=== PATIENT | female | born 1955 | race Caucasian/White ===

== ENCOUNTER 2016-06-19 05:37 | Emergency (ER) | payer OTHER ==
[2016-06-19] MEDS ORDERED: NS 0.9% 1000 ML* 1,000 ML IV SCH (06:15)
[2016-06-19 06:47] LABS: Hematocrit 40 % (35-47); Hemoglobin 13.8 g/dl (12.0-16.0); Mean Corpuscular HGB Conc 34 g/dl (31-36); Mean Corpuscular Hemoglobin 30 pg (27-31); Mean Corpuscular Volume 88 fL (80-97); Mean Platelet Volume 7 um3 (7.4-10.4); Red Blood Count 4.53 10^6/ul (4.0-5.4); Red Cell Distribution Width 13 % (10.5-15); White Blood Count 12.3 10^3/ul (3.5-10.8)
[2016-06-19 07:03] LABS: Albumin 3.9 g/dL (3.2-5.2); BUN/Creatinine Ratio 11.1 (8-20); Calcium 9.1 mg/dL (8.6-10.3); EGFR African American 74.1 (>60); EGFR Non-African American 57.6 (>60); Globulin 3.8 g/dL (2-4); Potassium 3.1 mmol/L (3.5-5.0); Total Bilirubin 0.5 mg/dL (0.2-1.0); Total Protein 7.7 g/dL (6.4-8.9)
[2016-06-19] MEDS ORDERED: Iodixanol* (CONTRAST) 320 MG/ML 100 ML SDV IV ONE (07:07)
--- NOTE | 2016-06-19 07:08 | ED ---
Luis F Busby Salem, scribed for Anthony Vazquez on 06/19/16 at 0620 . Abdominal Pain/Female - HPI Summary HPI Summary: Patient is a 60 y/o female who presents to the ED with intermittent abd pain and diarrhea for 10 days. She reports cramping and severe diarrhea (up to 10 times yesterday alone). Pt denies vomiting or fever. She states PO intake aggravates diarrhea and she reports blood in stool yesterday. She reports seeing a nurse practitioner at her PCPs office. She reports THC use, but denies Tobocco or EtOH use. - History of Current Complaint Chief Complaint: EDNauseaVomitDiarrh Stated Complaint: DIAHRREA X1 WK Time Seen by Provider: 06/19/16 05:54 Hx Obtained From: Patient Onset/Duration: Gradual Onset Severity Initially: Moderate Severity Currently: Moderate Pain Intensity: 3 Pain Scale Used: 0-10 Numeric Aggravating Factor(s): Nothing Alleviating Factor(s): Nothing Associated Signs and Symptoms: Positive: Blood in Stool, Diarrhea, Other: - Cramping.. Negative: Fever, Vomiting Allergies/Adverse Reactions: Allergies Allergy/AdvReac Type Severity Reaction Status Date / Time Sulfa Antibiotics Allergy Unknown Verified 06/19/16 06:29 Reaction Details PMH/Surg Hx/FS Hx/Imm Hx Cardiovascular History: Reports: Hx Hypertension - ON MEDS Denies: Other Cardiovascular Problems/Disorders GI History: Reports: Hx Irritable Bowel - OK SINCE 2006 History: Denies: Other Problems/Disorders Sensory History: Reports: Hx Cataracts, Hx Contacts or Glasses - GLASSES Denies: Hx Hearing Aid Opthamlomology History: Reports: Hx Cataracts, Hx Contacts or Glasses - GLASSES - Cancer History Hx Chemotherapy: No Hx Radiation Therapy: No - Surgical History Surgery Procedure, Year, and Place[place] [facility] [place] Anesthesia Reactions: No - Immunization History Date of Tetanus Vaccine: unk Date of Influenza Vaccine: none Infectious Disease History: No Infectious Disease History: Denies: Traveled Outside the [place] in Last 30 Days - Family History Known Family History: Positive: Diabetes - Father. , Other - No cancer. - Social History Alcohol Use: Rare Substance Use Type: Reports: Marijuana Substance Use Comment - Amount & Last Used: RARE Smoking Status (MU): Former Smoker Type: Cigarettes Amount Used/How Often: PACK A DAY Have You Smoked in the Last Year: No Review of Systems Negative: Fever Positive: Abdominal Pain, Diarrhea. Negative: Vomiting Positive: other - Blood in stool. All Other Systems Reviewed And Are Negative: Yes Physical Exam Triage Information Reviewed: Yes Vital Signs On Initial Exam: Initial Vitals Temp Pulse Resp BP Pulse Ox 99.4 F 132 20 106/60 98 06/19/16 05:40 06/19/16 05:40 06/19/16 05:40 06/19/16 05:40 06/19/16 05:40 Vital Signs Reviewed: Yes Appearance: Positive: Well-Appearing, No Pain Distress Skin: Positive: Warm, Skin Color Reflects Adequate Perfusion, Dry Head/Face: Positive: Normal Head/Face Inspection Eyes: Positive: Normal, EOMI Neck: Positive: Supple, Nontender Respiratory/Lung Sounds: Positive: Clear to Auscultation, Breath Sounds Present Cardiovascular: Positive: RRR, Pulses are Symmetrical in both Upper and Lower Extremities Abdomen Description: Positive: Other: - LLQ tenderness. Bowel Sounds: Positive: Present Musculoskeletal: Positive: Normal, Strength/ROM Intact Neurological: Positive: Normal, Sensory/Motor Intact, Alert, Oriented to Person Place, Time - Neptune Coma Scale Coma Scale Total: 15 Diagnostics - Vital Signs Vital Signs Temp Pulse Resp BP Pulse Ox 06/19/16 05:40 99.4 F 132 20 106/60 98 - Laboratory Result Diagrams: 06/19/16 06:25 Lab Statement: Any lab studies that have been ordered have been reviewed, and results considered in the medical decision making process. Abdominal Pain Fem Course/Dx - Diagnoses Provider Diagnoses: Abdominal pain Discharge - Discharge Plan Condition: Stable Disposition: OTHER Discharge Disposition Comment: Sign out to Dr. Deng The documentation as recorded by the Luis F briones Salem accurately reflects the service I personally performed and the decisions made by , Anthony Vazquez.
--- NOTE | 2016-06-19 08:57 | RAD ---
INDICATION: Diverticulitis COMPARISON: CT January 16, 2007 TECHNIQUE: Axial source images were obtained from the hemidiaphragms to the symphysis pubis following administration of oral and intravenous contrast. 96 mL Visipaque 320 was utilized. Coronal and sagittal reconstructed images were acquired. Lung bases: The lung bases are clear. Liver: The there are findings of mild hepatic steatosis. There are no masses. There is no ductal dilatation. Gallbladder: There are no calcified gallstones. There is no evidence of wall thickening or pericholecystic fluid. The gallbladder is partially contracted Spleen: The spleen is normal in size. There are no masses. Pancreas: There is no focal pancreatic mass or ductal dilatation. Adrenal glands: There is no evidence of adrenal mass. Kidneys: The kidneys are normal in size and position. There are prompt nephrograms and there is prompt excretion bilaterally. There are no renal parenchymal masses. There is no evidence of nephrolithiasis. Adenopathy: There are multiple prominent mesenteric lymph nodes measuring up to 12 mm. These are nonspecific but may be reactive. Suggest follow-up. Fluid collections: There are no free or localized fluid collections. Vessels:There are no significant atherosclerotic changes involving the aorta. There is no focal aneurysm. The iliac vessels are normal in caliber. The IVC appears normal. GI tract: The upper GI tract is unremarkable. There is diffuse bowel wall thickening extending to the level the mid ascending colon to the rectum. The findings are most consistent with a colitis. There is a history of ulcerative colitis. Pelvic organs: The uterus and adnexa appear normal Bladder: There are no bladder masses. Abdominal and pelvic soft tissues: The extraperitoneal abdominal and pelvic soft tissues appear normal.. Osseous structures: There are no acute osseous findings. Other: None IMPRESSION: COLITIS WITH PRESUMED REACTIVE LYMPHADENOPATHY. SUGGEST FOLLOW-UP.
[2016-06-19] MEDS ORDERED: Ciprofloxacin TAB* 500 MG PO ONE (09:41)
--- NOTE | 2016-06-19 09:52 | CONSULT ---
Consult Consult: Ms. Moreno presented to the ED after a week of watery diarrhea accompanied by crampy pain but no N/V. Her CT scan revealed colitis and her labs were OK. She felt improved with fluids but was still having diarrhea. She reported that she had been diagnosed with Ulcerative Colitis ten years ago during a period of stress. At that time she had painful bloody diarrhea. This episode now sounds more infectious to me and I will treat her accordingly with Cipro and pain meds. She is D/C'd in stable condition with a diagnosis of colitis.
[2016-06-19 10:05] VITALS: BP 112/63
== END 2016-06-19 10:03 | disposition home or self-care (01) ==
LOC: ED 05:37
DX: R19.7 Diarrhea, unspecified (principal); Z87.891 Personal history of nicotine dependence; R10.9 Unspecified abdominal pain; K92.1 Melena
CPT/HCPCS: 36415; 74177; 80053; 83605; 83690; 85025; 85610; 85730; 87493; 99283; A9270-GY; Q9967

== ENCOUNTER 2016-06-21 06:35 | Inpatient (IN) | payer OTHER ==
[2016-06-21] MEDS ORDERED: NS 0.9% 1000 ML* 2,000 ML IV ONE (07:06)
--- NOTE | 2016-06-21 07:21 | ED ---
GI/ HPI - HPI Summary HPI Summary: 60 F presents with diarrhea for over a week. Was seen in the ED two days ago and diagnosed with colitis and placed on cipro. She said that pain is better but diarrhea has not improved and her stools have become black. She denies any lightheadedness or dizziness. She states that she only has abdominal pain in LLQ with defecation. She denies any fever, nausea, or vomiting. She states that she is hungry all the time. She states she just wants her antibiotics switched. She has not used any pepto bismol. She does not have a history of GI bleeds and she is not on any blood thinners. She states she was diagnosed with ulcerative colitis 10 years ago but that resolved and she has not seen a GI dr for this. She states this feels different that her UC episode in that then she has no appetite and was just bloody stools. She also has a history of IBD but states "it has been good for 7 years." Stool cultures were performed on Tuesday and did not grow anything. She is normal treated for high blood pressure. - History of Current Complaint Chief Complaint: EDGIBleed Time Seen by Provider: 06/21/16 06:54 Stated Complaint: BLACK DIARRHEA/CRAMPS Pain Intensity: 3 - Allergy/Home Medications Allergies/Adverse Reactions: Allergies Allergy/AdvReac Type Severity Reaction Status Date / Time Sulfa Antibiotics Allergy Unknown Verified 06/19/16 06:29 Reaction Details PMH/Surg Hx/FS Hx/Imm Hx Endocrine/Hematology History: Denies: Hx Diabetes Cardiovascular History: Reports: Hx Hypertension - ON MEDS Denies: Other Cardiovascular Problems/Disorders GI History: Reports: Hx Irritable Bowel - OK SINCE 2006 History: Denies: Hx Dialysis, Hx Renal Disease, Other Problems/Disorders Sensory History: Reports: Hx Cataracts, Hx Contacts or Glasses - GLASSES Denies: Hx Hearing Aid Opthamlomology History: Reports: Hx Cataracts, Hx Contacts or Glasses - GLASSES - Cancer History Hx Chemotherapy: No Hx Radiation Therapy: No - Surgical History Surgery Procedure, Year, and Place: RIGHT CATARACT 2010, [facility] Hx Anesthesia Reactions: No - Immunization History Date of Tetanus Vaccine: unk Date of Influenza Vaccine: none Infectious Disease History: No Infectious Disease History: Denies: Traveled Outside the [place] in Last 30 Days - Family History Known Family History: Positive: Diabetes - Father. , Other - No cancer. - Social History Alcohol Use: Rare Substance Use Type: Reports: Marijuana Substance Use Comment - Amount & Last Used: RARE Smoking Status (MU): Former Smoker Type: Cigarettes Amount Used/How Often: PACK A DAY Have You Smoked in the Last Year: No Review of Systems Negative: Fever Negative: Chest Pain Negative: Shortness Of Breath Positive: Abdominal Pain - with defectation, Diarrhea. Negative: Vomiting, Nausea All Other Systems Reviewed And Are Negative: Yes Physical Exam Triage Information Reviewed: Yes Vital Signs On Initial Exam: Initial Vitals Temp Pulse Resp BP Pulse Ox 98 F 118 18 96/58 98 06/21/16 06:41 06/21/16 06:41 06/21/16 06:41 06/21/16 06:41 06/21/16 06:41 Vital Signs Reviewed: Yes Skin: Positive: Warm, Dry Head/Face: Positive: Normal Head/Face Inspection Eyes: Positive: Normal, Conjunctiva Clear ENT: Positive: Normal ENT inspection, Pharynx normal, TMs normal Respiratory/Lung Sounds: Positive: Clear to Auscultation, Breath Sounds Present Cardiovascular: Positive: Normal, Tachycardia Abdomen Description: Positive: Soft, Other: - mild tenderness in LLQ Bowel Sounds: Positive: Present Diagnostics - Vital Signs Vital Signs Temp Pulse Resp BP Pulse Ox 06/21/16 06:41 98 F 118 18 96/58 98 - Laboratory Result Diagrams: 06/21/16 07:20 06/21/16 07:20 Lab Statement: Any lab studies that have been ordered have been reviewed, and results considered in the medical decision making process. GIGU Course/Dx - Course Course Of Treatment: 60F presents with diarrhea for a week with stools that became dark yesterday. has history of UC with last episode 10 years ago. Patient originally only wanted to have antibiotics changed but discussed due to being tachycardia and hypotensive on exam need to get some lab work. On exam mild tenderness to LLQ present. Patient seen with dr Dale who recommended give IV cipro and flagyl. H/H is down a point from Tuesday and has occult blood. will call GI and hospitalists. dr dale spoke with dr mansfield who will see to admit. GI did not call back - Diagnoses Differential Diagnoses - Female: Diverticulitis, Diarrhea, Gastroenteritis ( Bacterial), Ulcerative Colitis/Crohn's Disease Provider Diagnoses: Diarrhea, Occult blood positive stool, Colitis Discharge - Discharge Plan Condition: Stable Disposition: ADMITTED TO [facility] Referrals: Alex Singleton MD [Primary Care Provider] -
[2016-06-21] MEDS ORDERED: Ciprofloxacin 400MG IVPREMIX(* 400 MG/200 ML BAG IVPB ONE (07:37)
[2016-06-21] MEDS ORDERED: metroNIDAZOLE IV 500 MG/100ML* 500 MG/100 ML BAG IVPB ONE (07:40)
[2016-06-21 07:53] LABS: Hematocrit 37 % (35-47); Hemoglobin 12.7 g/dl (12.0-16.0); Mean Corpuscular HGB Conc 34 g/dl (31-36); Mean Corpuscular Hemoglobin 30 pg (27-31); Mean Corpuscular Volume 88 fL (80-97); Mean Platelet Volume 7 um3 (7.4-10.4); Red Blood Count 4.24 10^6/ul (4.0-5.4); Red Cell Distribution Width 13 % (10.5-15); White Blood Count 13.4 10^3/ul (3.5-10.8)
[2016-06-21 08:08] LABS: Albumin 3.7 g/dL (3.2-5.2); BUN/Creatinine Ratio 9.3 (8-20); Calcium 8.9 mg/dL (8.6-10.3); EGFR African American 67.7 (>60); EGFR Non-African American 52.7 (>60); Globulin 3.8 g/dL (2-4); Potassium 3.1 mmol/L (3.5-5.0); Total Bilirubin 0.6 mg/dL (0.2-1.0); Total Protein 7.5 g/dL (6.4-8.9)
[2016-06-21] MEDS ORDERED: Pantoprazole IV* 80 MG in NS 0.9% 250 ML* 250 ML IVPB ONE (08:22)
[2016-06-21] MEDS ORDERED: Temazepam CAP* 15 MG PO PRN (10:15)
[2016-06-21] MEDS ORDERED: oxyCODONE/Acetamin 5/325 MG* TAB PO PRN (10:15)
[2016-06-21] MEDS ORDERED: Acetaminophen TAB* 325 MG PO PRN (10:15)
[2016-06-21] MEDS ORDERED: Potassium Chlor TAB* 20 MEQ TAB.ER PO ONE (10:17)
[2016-06-21 10:23] LABS: Urine Bacteria Absent (Absent); Urine Bilirubin Negative (Negative); Urine Glucose Negative (Negative); Urine Nitrite Negative (Negative)
[2016-06-21] MEDS: cefTRIAXone VIAL(*) 1,000 MG in NS 0.9% 50 ML* 50 ML IVPB SCH (11:26)
[2016-06-21] MEDS: NS 0.9% 1000 ML* 1,000 ML IV SCH ×2 (11:26→19:54)
[2016-06-21] MEDS: Pantoprazole IV* 80 MG in NS 0.9% 250 ML* 250 ML IVPB SCH ×2 (11:47→22:06)
[2016-06-21] MEDS: metroNIDAZOLE IV 500 MG/100ML* 500 MG/100 ML BAG IVPB SCH (15:40)
[2016-06-21 16:08] LABS: Hematocrit 35 % (35-47); Hemoglobin 11.4 g/dl (12.0-16.0)
[2016-06-21] MEDS: predniSONE TAB* 20 MG PO SCH (18:02)
--- NOTE | 2016-06-21 19:26 | HP ---
HISTORY AND PHYSICAL: DATE OF ADMISSION: 06/21/16 PRIMARY CARE PROVIDER: Braydon Landeros NP CHIEF COMPLAINT: Diarrhea and black stool. HISTORY OF PRESENT ILLNESS: Fadia Moreno is a 60-year-old female with history of hypertension who was diagnosed with ulcerative colitis 10 years ago, treated with 1 course of prednisone and had not had any problems since until 3 weeks ago. Three weeks ago, the patient developed diarrhea. She stated that her stools were loose and brown 5 to 10 times a day. She occasionally would have left lower quadrant abdominal pain just before defecation. She denied any nausea. She does state her p.o. intake and appetite were good. She denied any fevers or body aches. She was seen by her primary care provider who prescribed Bentyl approximately 5 to 6 days ago. The Bentyl did not really improve patient's symptoms and she was seen by our ED provider on 06/19/16. At that point, a CT of the abdomen and pelvis was performed which showed "colitis with presumed reactive lymphadenopathy. Suggest followup." At that point, the patient was placed on ciprofloxacin and discharged home. She stated that ciprofloxacin "did not agree with her." She stated that it made her "sick in her stomach." Her symptoms continued to be diarrhea but slightly improved with 5 bowel movements a day. For the past 24 hours, she noted her stool was black. She came into the ED for evaluation. Her stool Hemoccult was positive. She was hyponatremic and hypokalemic. She is going to be admitted to the hospital with a diagnosis of colitis, suspected diverticulitis and GI bleed. PAST MEDICAL HISTORY: 1. Ulcerative colitis treated in 2006 with one course of prednisone and no recurrence. 2. Hypertension. 3. History of "overactive bladder." MEDICATIONS: Include: 1. Lisinopril 20 mg daily. 2. Oxybutynin 5 mg b.i.d. ALLERGIES: Include SULFA ANTIBIOTICS. FAMILY HISTORY: Positive for father with diabetes who is of "old age. " Mother with history of dementia who secondary to it. SOCIAL HISTORY: The patient is single, lives alone. 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 Her surrogate is her sister Carolina. Her phone number is [phone]. She denies any alcohol, tobacco or drug use. REVIEW OF SYSTEMS: Please see history of present illness. All the remaining 14 systems were reviewed with the patient and were otherwise negative. PHYSICAL EXAMINATION GENERAL: This is a very pleasant 60-year-old female who is in no acute distress. Awake, alert and oriented x3. VITAL SIGNS: Blood pressure of 96/58, heart rate of 118 and regular, respiratory rate 18, oxygen saturation 98% on room air, temperature 98.0. HEENT: Head atraumatic, normocephalic. Eyes: Pupils equal, round and reactive to light and accommodation. Oropharynx clear. Mucosa moist. NECK: Supple. No JVD, no bruits bilaterally. RESPIRATORY: Clear to auscultation bilaterally. CARDIOVASCULAR: Regular rate and rhythm. No murmur. ABDOMEN: Soft. Tender in the left lower quadrant with no rebound, no guarding. Bowel sounds are present in all 4 quadrants. EXTREMITIES: There is no edema. +2 pulses bilaterally. No clubbing or cyanosis. NEUROLOGIC: On neuro evaluation, speech clear. Cranial nerves II through XII grossly intact. Motor strength is 5/5 bilaterally. SKIN: On evaluation of the skin, no ecchymotic areas or rashes noted. PSYCHIATRIC EVALUATION: Pleasant, cooperative with evaluation with no evidence of anxiety, depression. DIAGNOSTIC STUDIES/LABORATORY DATA: Sodium of 131, potassium 3.1, chloride 99 , carbon dioxide 24, BUN 10, creatinine 1.07. Liver function tests were unremarkable. Lipase of 67 noted on 06/19/16. White blood cell count of 13.4, hemoglobin of 12.7, hematocrit of 37, platelets of 324. INR of 1.16. ASSESSMENT AND PLAN: This 60-year-old female with history of ulcerative colitis in remission developed diarrhea 3 weeks ago. For approximately 24 hours she also had melenic stool that was heme positive in the ED. In regards to the patient's diarrhea, it appears to be related to diverticulitis. The patient has tenderness in the left lower quadrant. She did not tolerate Cipro well and I am going to place her on ceftriaxone and Flagyl. Stool cultures are going to be obtained. In regards to patient's ulcerative colitis, symptoms do not appear to be ulcerative colitis related per se, but that needs to be further ruled out. I will ask Dr. Yadav to see patient in GI consultation. In regards to melenic stools, that suggest upper GI bleed. The patient has no history of nonsteroidal antiinflammatory medications intake in the past several weeks. Her hemoglobin and hematocrit is fairly stable. At this point, I will place her on Protonix drip and clear liquid diet. I will repeat her H and H today. I would suspect that to be hemodiluted somewhat by that time. For further management of her possible upper GI bleed I will defer to GI evaluation. In regards to patient's hyponatremia and hypokalemia, it is most likely related to dehydration. I will place patient on intravenous fluids as well as oral potassium chloride. For DVT prophylaxis, the patient is low risk and she also has GI bleed. Ambulation is going to be encouraged but otherwise anticoagulants are contraindicated. For her overactive bladder, oxybutynin is going to be continued. In regards to patient's hypertension, currently patient is mildly hypotensive and her lisinopril is going to be held. TIME SPENT: Approximately 65 minutes was spent on the admission of this patient ; more than half the time was spent [id number] with the patient doing the interview, physical exam. CC: Braydon Landeros NP; Dr. Yadav * [id number]/[facility] #: [id number] MTDD
[2016-06-21] MEDS: Oxybutynin TAB* 5 MG PO SCH (21:06)
[2016-06-21] MEDS ORDERED: Pantoprazole IV* 40 MG ONE (21:59)
[2016-06-22] MEDS: metroNIDAZOLE IV 500 MG/100ML* 500 MG/100 ML BAG IVPB SCH ×3 (01:24→17:26)
[2016-06-22 06:33] LABS: Hematocrit 32 % (35-47); Hemoglobin 10.8 g/dl (12.0-16.0); Mean Corpuscular HGB Conc 34 g/dl (31-36); Mean Corpuscular Hemoglobin 30 pg (27-31); Mean Corpuscular Volume 90 fL (80-97); Mean Platelet Volume 7 um3 (7.4-10.4); Red Blood Count 3.57 10^6/ul (4.0-5.4); Red Cell Distribution Width 13 % (10.5-15); White Blood Count 9.9 10^3/ul (3.5-10.8)
[2016-06-22 06:54] LABS: BUN/Creatinine Ratio 10.7 (8-20); C Reactive Protein 82.2 mg/L (< 5.00); Calcium 8.2 mg/dL (8.6-10.3); EGFR African American 102.1 (>60); EGFR Non-African American 79.4 (>60); Potassium 4.3 mmol/L (3.5-5.0)
--- NOTE | 2016-06-22 07:08 | CONS ---
CONSULTATION REPORT: DATE OF CONSULT: 06/21/16 REQUESTING PHYSICIAN: Dr. Serrano. INDICATION: Bloody diarrhea. NARRATIVE: Ms. Moreno is a very pleasant 60-year-old female who has a history of ulcerative colitis diagnosed approximately 10 years ago. This was diagnosed per Dr. Bhakta. He performed flexible sigmoidoscopy that showed changes consistent with ulcerative colitis and biopsies did appear consistent with ulcerative colitis. She was treated with steroids for approximately a month and her symptoms resolved and she stopped these steroids and has been doing well up until approximately a week ago. She developed diarrhea. It really was not painful until yesterday. Yesterday, it also became what she calls either dark or black. She denies any bright red blood. She does have cramps with defecation. There have been no fevers or chills. No infectious contacts. She denies any nonsteroidal's. She did present to the emergency room on the , at which time, a CT revealed left-sided colitis. She also was started on antibiotics at that point. She does not feel any better since starting the antibiotics. She states this feels different than her ulcerative colitis flare from 10 years ago because this time around, she is not hungry, whereas she was very hungry but there was blood in the stool last time but not this time. She again denies any fevers. PAST MEDICAL HISTORY: Significant for irritable bowel, ulcerative colitis. PAST SURGICAL HISTORY: Includes cataracts. ALLERGIES: SULFA. FAMILY HISTORY: Diabetes. REVIEW OF SYSTEMS: Twelve systems were reviewed and other than mentioned in the HPI were unremarkable. PHYSICAL EXAM: Temperature is 98.1, blood pressure is 113/56, pulse is 100, respiratory rate of . General: A well-appearing female, lying flat in bed. Alert, oriented, pleasant, and fluent. HEENT: Mucous membranes are moist without lesions, ulcers, or exudate. Neck: Supple. Trachea is midline. Lungs : Clear to auscultation. Heart: Regular rate and rhythm. Abdomen: Hypoactive bowel sounds. Soft. She is tender on the left side, not on the right. There is no rebound. There is no guarding. There are no masses felt. Skin is warm and dry. DIAGNOSTIC STUDIES/LAB DATA: Of note, BUN 10, creatinine 1.07. Platelets 324, white count 13.4, hemoglobin 12.7. CT abdomen shows colitis from the mid transverse down to the rectum that was again from the 19 of June. ASSESSMENT AND PLAN: This is a very pleasant 60-year-old female who presents with colitis. I do not think this is ischemic colitis. I think it is either an inflammatory versus an infectious colitis. Her white count is minimally elevated. She has been on appropriate antibiotics for 72 hours now with no real improvement in her symptoms. I do wonder given her history of ulcerative colitis in the past if she is experiencing another ulcerative colitis flare. This is somewhat different from her previous one, however. I think at this point, I would like to obtain a flexible sigmoidoscopy tomorrow. I will make arrangements for that and then I think in the meantime, it would be safe to go ahead and start her on steroids. I will start her on oral steroids. Plan on obtaining the flex sig tomorrow and see how she does with all this. CC: Dr. Bhakta* [id number]/[facility] #: [id number] MTDDarek
[2016-06-22] MEDS: predniSONE TAB* 20 MG PO SCH (08:03)
[2016-06-22] MEDS: Oxybutynin TAB* 5 MG PO SCH ×2 (08:03→20:09)
[2016-06-22] MEDS: cefTRIAXone VIAL(*) 1,000 MG in NS 0.9% 50 ML* 50 ML IVPB SCH (10:19)
[2016-06-22] MEDS: Pantoprazole IV* 80 MG in NS 0.9% 250 ML* 250 ML IVPB SCH ×2 (10:19→17:27)
[2016-06-22] MEDS: NS 0.9% 1000 ML* 1,000 ML IV SCH (10:20)
--- NOTE | 2016-06-22 11:49 | PN ---
Subjective Date of Service: 06/22/16 Interval History: patient reports she feels much better today after starting the prednisone. reports decrease in BM since last night reporting only 2 BMs. Less abdominal pain today reporting it has almost resolved. No fevers or chills. No further dark/bloody BMs today Objective Active Medications: Acetaminophen (Tylenol Tab*) 650 mg PO Q4H PRN PRN Reason: FEVER/PAIN Ceftriaxone Sodium 1,000 mg/ (Sodium Chloride) 50 mls @ 200 mls/hr IVPB Q24H [facility] Last Admin: 06/22/16 10:19 Dose: 200 mls/hr Metronidazole/Sodium Chloride (Flagyl 500 Mg Ivpb*) 500 mg in 100 mls @ 100 mls /hr IVPB Q8H [facility] Last Admin: 06/22/16 08:06 Dose: 100 mls/hr Sodium Chloride (Ns 0.9% 1000 Ml*) 1,000 mls @ 125 mls/hr IV PER RATE [facility] Last Admin: 06/22/16 10:20 Dose: 125 mls/hr Pantoprazole Sodium 80 mg/ (Sodium Chloride) 250 mls @ 25 mls/hr IVPB Q10H [facility] Last Admin: 06/22/16 10:19 Dose: 25 mls/hr Oxybutynin Chloride (Ditropan Tab*) 5 mg PO BID [facility] Last Admin: 06/22/16 08:03 Dose: 5 mg Oxycodone/Acetaminophen (Percocet 5/325 Tab*) 1 tab PO Q4H PRN PRN Reason: Pain Prednisone (Deltasone Tab*) 40 mg PO DAILY [facility] Last Admin: 06/22/16 08:03 Dose: 40 mg Temazepam (Restoril Cap*) 15 mg PO BEDTIME PRN PRN Reason: INSOMNIA Vital Signs 06/21/16 06/21/16 06/21/16 12:32 12:34 15:22 Temperature 98.1 F 98.6 F Pulse Rate 83 82 Respiratory 16 16 18 Rate Blood Pressure 113/56 116/60 (mmHg) O2 Sat by Pulse 100 98 Oximetry 06/21/16 06/21/16 06/22/16 19:17 23:12 02:05 Temperature 98.4 F 97.9 F Pulse Rate 80 99 Respiratory 18 18 18 Rate Blood Pressure 110/55 81/55 (mmHg) O2 Sat by Pulse 99 96 Oximetry 06/22/16 06/22/16 06/22/16 02:23 04:40 08:00 Temperature 97.9 F 97.5 F Pulse Rate 81 79 Respiratory 16 18 18 Rate Blood Pressure 96/56 100/48 (mmHg) O2 Sat by Pulse 97 99 Oximetry 06/22/16 11:05 Temperature 98.1 F Pulse Rate 91 Respiratory 14 Rate Blood Pressure 128/69 (mmHg) O2 Sat by Pulse 98 Oximetry Oxygen Devices in Use Now: None Appearance: 60 yo female laying in bed in NAD> A+O x3 Eyes: No Scleral Icterus, PERRLA Ears/Nose/Mouth/Throat: NL Teeth, Lips, Gums, Mucous Membranes Moist Neck: NL Appearance and Movements; NL JVP Respiratory: Symmetrical Chest Expansion and Respiratory Effort, Clear to Auscultation Cardiovascular: NL Sounds; No Murmurs; No JVD, RRR, No Edema Abdominal: NL Sounds; No Tenderness; No Distention, - - no guarding or tenderness Extremities: No Edema, No Clubbing, Cyanosis Skin: No Rash or Ulcers, No Nodules or Sclerosis Neurological: Alert and Oriented x 3, NL Sensation, NL Gait, NL Muscle Strength and Tone Lines/Tubes/Other Access: Clean, Dry and Intact Peripheral IV Nutrition: Taking PO's Result Diagrams: 06/22/16 06:20 06/22/16 06:20 Microbiology and Other Data: Microbiology 06/21/16 12:15 Stool Gross Appearance - Final Stool Assess/Plan/Problems-Billing Assessment: Ms. Moreno is a 60 yo female with a PMH HTN, UC who presented 06/21 with c/o diarrhea and black stool - Patient Problems (1) Colitis Comment: - inflammatory vs infectious, appreciate GI consult, does not think this is ischemic colitis. No real improvement on abx, at this point continue abx with plan for flex sig today. GI started prednisone yesterday in which the patient has had great improvement in pain and decreased frequency in BMs positive occult blood in stool - HH stable - continue Protonix (2) HTN (hypertension) Comment: - Blood pressure 90-130's. Hold lisinopril for now. (3) DVT prophylaxis Comment: SCDs (4) Full code status Status and Disposition: inpatient.
[2016-06-22] MEDS ORDERED: Midazolam* 1 MG/ML 10 ML VIAL (10 MG) ONE (15:11)
[2016-06-22] MEDS ORDERED: Meperidine SYRINGE* 50 MG/ML ONE (15:11)
[2016-06-22] MEDS ORDERED: predniSONE TAB* 20 MG PO ONE (20:00)
[2016-06-23] MEDS: metroNIDAZOLE IV 500 MG/100ML* 500 MG/100 ML BAG IVPB SCH ×2 (00:26→07:41)
[2016-06-23] MEDS: Pantoprazole IV* 80 MG in NS 0.9% 250 ML* 250 ML IVPB SCH (00:30)
[2016-06-23 06:23] LABS: Hematocrit 33 % (35-47); Hemoglobin 11.3 g/dl (12.0-16.0); Mean Corpuscular HGB Conc 34 g/dl (31-36); Mean Corpuscular Hemoglobin 30 pg (27-31); Mean Corpuscular Volume 89 fL (80-97); Mean Platelet Volume 8 um3 (7.4-10.4); Red Blood Count 3.73 10^6/ul (4.0-5.4); Red Cell Distribution Width 13 % (10.5-15); White Blood Count 10.2 10^3/ul (3.5-10.8)
[2016-06-23 06:25] LABS: Comments Flag Yes
[2016-06-23 06:26] LABS: Add Diff/Slide Review? Slide Review Added
[2016-06-23 06:38] LABS: Calcium 8.4 mg/dL (8.6-10.3); EGFR African American 93.4 (>60); EGFR Non-African American 72.6 (>60); Potassium 3.5 mmol/L (3.5-5.0)
[2016-06-23] MEDS: cefTRIAXone VIAL(*) 1,000 MG in NS 0.9% 50 ML* 50 ML IVPB SCH (09:35)
[2016-06-23] MEDS: Oxybutynin TAB* 5 MG PO SCH (09:42)
[2016-06-23] MEDS: predniSONE TAB* 20 MG PO SCH (09:42)
--- NOTE | 2016-06-23 09:50 | PRO ---
DATE: 06/22/16 - ROOM #[id number] REFERRING PHYSICIAN: Alex Singleton MD.* PROCEDURE: Upper gastrointestinal endoscopy and CLOtest; colonoscopy to ileocecal valve level, and sigmoid biopsy. INDICATION: This woman, who was diagnosed with ulcerative colitis 10 years ago , over the last 3 to 4 weeks has had abdominal pain with cramps and loose stools. She describes them as black and spontaneously said her symptoms were "all together different from 10 years ago." She did see a little bit of blood in the stool over the last day or two, but not as previously where it had been evident right along. There has been no fever or vomiting. She does state that she will get heartburn with spaghetti sauce or other items, and take Tums. She is not on any prescription acid italia. In the emergency room a couple of days ago, she had a CT scan showing colonic thickening. She was placed on Cipro. It did not seem to help. She came back to the emergency room and was admitted. As an outpatient, Bentyl had not seemed to help and another item was used. She did not take any Pepto-Bismol. She insisted her stool was black. Today's exam was done n.p.o. and without any formal preparation of the colon. ENDOSCOPIST: Dr. Bhakta. MEDICATIONS: See conscious sedation sheet. FINDINGS: She is a substantially overweight, middle-aged woman in no distress. Her abdomen is soft and without guarding. EGD: Larynx - symmetric, limited views. Esophagus - easily entered, and the mucosa is normal in the upper, mid, and lower esophagus with the EG junction at 40 showing mild laxity, and there was a small hiatal hernia. Stomach - generally normal mucosa in the cardia, fundus, body, and antrum. A CLOtest was taken from mid gastric body. Duodenum - the pylorus, bulb, and second through fourth portions appeared normal. COLONOSCOPY: Initial views with the pediatric scope show a very extensive mccormick rectal granular change with a significant amount of exudate over the mucosa. The stool itself was rather green and purulent looking. The scope was advanced with ease through the sigmoid, descending, transverse, and to the ileocecal valve level showing that there were colitic changes throughout with patchy exudate. No gross mass, lesion, or polyp was seen. No diverticula were seen. Coming back from the ileocecal valve level, there was moderately severe pancolitis. Two biopsies were taken at distal sigmoid. The changes continued down to the anal verge. IMPRESSION: 1. Small hiatal hernia. 2. Minimal gastroesophageal reflux disease - per history. 3. Mccormick ulcerative colitis - biopsies pending, but the overall subacute course without fever and the response to steroids at this time validate the clinical diagnosis. Addendum: moderate to severe chronic active colitis c/w UC ; Clotest negative [id number]/[facility] #: [id number] [facility]
[2016-06-23] MEDS ORDERED: Pantoprazole IV* 40 MG ONE (10:40)
[2016-06-23] MEDS ORDERED: predniSONE TAB* 20 MG PO SCH (11:00)
[2016-06-23] MEDS ORDERED: predniSONE TAB* 20 MG PO ONE (11:00)
--- NOTE | 2016-06-23 11:21 | DCNOTE ---
Subjective Date of Service: 06/23/16 Interval History: Pt reports she feels much better today and wants to go home. 1 loose BM this morning, no blood noted. No fevers or chills. No abdominal pain. No n/v. tolerating po. Objective Active Medications: Acetaminophen (Tylenol Tab*) 650 mg PO Q4H PRN PRN Reason: FEVER/PAIN Oxybutynin Chloride (Ditropan Tab*) 5 mg PO BID [facility] Last Admin: 06/23/16 09:42 Dose: 5 mg Oxycodone/Acetaminophen (Percocet 5/325 Tab*) 1 tab PO Q4H PRN PRN Reason: Pain Temazepam (Restoril Cap*) 15 mg PO BEDTIME PRN PRN Reason: INSOMNIA Vital Signs 06/22/16 06/22/16 06/22/16 17:10 19:12 20:00 Temperature 97.6 F 96.9 F Pulse Rate 65 80 Respiratory 14 16 16 Rate Blood Pressure 97/52 116/61 (mmHg) O2 Sat by Pulse 95 98 Oximetry 06/22/16 06/23/16 06/23/16 23:35 04:04 07:26 Temperature 97.7 F 98.4 F 97.8 F Pulse Rate 74 93 84 Respiratory 16 16 16 Rate Blood Pressure 101/57 109/74 126/72 (mmHg) O2 Sat by Pulse 96 97 98 Oximetry Oxygen Devices in Use Now: None Appearance: 60 yo female A+O x3 in NAD. Eyes: No Scleral Icterus, PERRLA Ears/Nose/Mouth/Throat: NL Teeth, Lips, Gums Neck: NL Appearance and Movements; NL JVP Respiratory: Symmetrical Chest Expansion and Respiratory Effort, Clear to Auscultation Cardiovascular: NL Sounds; No Murmurs; No JVD, RRR, No Edema Abdominal: NL Sounds; No Tenderness; No Distention Lymphatic: No Cervical Adenopathy Extremities: No Edema, No Clubbing, Cyanosis Skin: No Rash or Ulcers, No Nodules or Sclerosis Neurological: Alert and Oriented x 3, NL Sensation, NL Gait, NL Muscle Strength and Tone Lines/Tubes/Other Access: Clean, Dry and Intact Peripheral IV Nutrition: Taking PO's Result Diagrams: 06/23/16 05:46 06/23/16 05:46 Microbiology and Other Data: Microbiology 06/21/16 12:15 Stool Gross Appearance - Final Stool Assess/Plan/Problems-Billing Assessment: Ms. Moreno is a 60 yo female with a PMH HTN, UC who presented 06/21 with c/o diarrhea and black stool - Patient Problems (1) Colitis Comment: - Flex sig showed Ulcerative Colitis flare - Dr. Bhakta recommends prednisone 60 mg daily, decrease by 5mg every 5 days. Upper endoscopy was performed which was normal. - HH stable. Afebrile. No leukocytosis. Abdominal pain resolved. - F/u with GI in 3 weeks. (2) HTN (hypertension) Comment: - normotensive. resume home meds (3) DVT prophylaxis Comment: SCDs (4) Full code status Status and Disposition: inpatient. plan for DC to home
[2016-06-23 11:43] VITALS: BP 137/70
--- NOTE | 2016-06-24 11:08 | DS ---
DISCHARGE SUMMARY: DATE OF ADMISSION: 06/21/16 DATE OF DISCHARGE: 06/23/16 PROVIDER: Suzan Ceron NP ATTENDING PHYSICIAN: Dr. Bess* (report dictated by Suzan Ceron NP). PRIMARY CARE PROVIDER: Braydon Landeros NP SKID ADZER: Dr. Bhakta. PRIMARY DIAGNOSIS: Ulcerative colitis flare. SECONDARY DIAGNOSES: 1. Hypertension. 2. Overactive bladder. DISCHARGE MEDICATIONS: 1. Oxybutynin 10 mg p.o. daily. 2. Lisinopril 20 mg p.o. daily. 3. Prednisone 60 mg p.o. daily, new medication, taper by 5 mg every 5 days. 4. Probiotic 1 tab p.o. b.i.d. HISTORY OF PRESENT ILLNESS AND HOSPITAL COURSE: Please see history and physical by Dr. Serrano for full admission details; but in summary, this is a 60- year-old female with a distant history of ulcerative colitis 10 years ago, treated with 1 course of prednisone and has not had any problems since up to approximately 3 weeks ago. She reports that 3 weeks ago, she developed diarrhea and reported loose stools, which were brown, 5 to 10 times a day with intermittent left lower quadrant abdominal pain just prior to defecation. She denied any nausea, vomiting, reports she was able to have normal p.o. intake and good appetite. She denied any fevers, chills. She was seen by her primary care provider approximately 5 days ago and she was prescribed Bentyl. Per the patient, the Bentyl did not improve the patient's symptoms and she was seen in our emergency department on 06/19/16, underwent a CT of the abdomen and pelvis, which showed "colitis with presumed reactive lymphadenopathy" and suggested followup. The patient was discharged home on ciprofloxacin. Per the patient, the ciprofloxacin "did not agree with her," made her nauseous. She had slight improvement in bowel movements, but continued to have at least 5 bowel movements a day and 24 hours prior to admission, she noted her stool is black and she came to the emergency department for evaluation. She was noted to have a positive Hemoccult. She was presented with hyponatremia and hypokalemia. She was admitted to the hospitalist service with diagnosis of colitis and GI bleed. The patient was seen in consultation by car sander, Dr. Yadav, who recommended the patient undergo a flexible sigmoidoscopy, which she did with car sander, Dr. Bhakta, on 06/22/16. The flex sig showed "extensive pancolitis" and biopsies were taken at that time. The patient also underwent an upper endoscopy at the same time, which was normal other than showing a small hiatal hernia. Please see Dr. Bhakta's procedure report for full details. The night before the flex sig, the patient was started on prednisone. By the next morning, the patient felt dramatically better with only 1 to 2 bowel movements and her abdominal pain had resolved. Per Dr. Bhakta, the patient will be sent home on a steroid taper and follow up in their office in 3 weeks. Today, the patient is stable for discharge to home. She has remained afebrile throughout hospitalization. She initially had a leukocytosis of 13.4, which has since resolved. Her CLOtest from the flex sig biopsy was negative. DISCHARGE PLAN: 1. Discharged to home with followup with Braydon Landeros NP, within 3 to 5 days. 2. Follow up with [facility] in 3 weeks. The patient was instructed she needs to call their office and make this appointment herself. 3. The patient was given suggestions for an ulcerative colitis flare diet such as avoiding dairy, raw fruits and vegetables, and sticking to a cooked, low fiber soft diet. TIME SPENT: Approximately 60 minutes was spent on this discharge. SUZAN CERON NP CC: Braydon Landeros NP; Dr. Bhakta* [id number]/[facility] #: [id number] [facility]
--- NOTE | 2016-09-10 10:38 | ED ---
Austin Busby Adam, scribed for Phoenix Dale MD on 06/21/16 at 0739 . Progress - Progress Note Progress Note: Pt is being seen by Carolina Nieves (JESSE). The pt has been having diarrhea for nearly two weeks and is now noticing black stool. She was seen in the ED two days ago for the diarrhea as well as abdominal pain and she was started on Cipro with a diagnosis of colitis. Since then the diarrhea has persisted and she has developed the black stool as well. She also states that the Cipro has been making her feel "weird." Pt also c/o abdominal pain associated with the diarrhea. She was diagnosed with ulcerative colitis 10 years ago but she has not been seeing a GI doctor. She denies any surgical history. Physical examination: Constitutional: Well-developed, Well-nourished, Alert. (-) Distressed Skin: Warm, Dry HENT: Normocephalic; Atraumatic Eyes: Conjunctiva normal Neck: Musculoskeletal ROM normal neck. (-) JVD, (-) Stridor, (-) Tracheal deviation Cardio: Tachycardia. Pulmonary/Chest wall: Effort normal. (-) Respiratory distress, (-) Wheezes, (-) Rales Abd: LLQ tenderness. Musculoskeletal: (-) Edema Lymph: (-) Cervical adenopathy Neuro: Alert, Oriented x3 Psych: Mood and affect Normal Course/Dx - Diagnoses Provider Diagnoses: Diarrhea, Occult blood positive stool, Colitis The documentation as recorded by the Austin briones Adam accurately reflects the service I personally performed and the decisions made by , Phoenix Dale MD.
== END 2016-06-23 12:00 | disposition home or self-care (01) | DRG 245 ==
LOC: ED 06:35 → MED 08:37
PROVIDERS: ADMIT Internal Medicine; ATTEND Hospitalist
PROC: 0DB68ZX Excision of Stomach, Via Natural or Artificial Opening Endoscopic, Diagnostic (ICD-10-PCS; principal; 2016-06-22)
PROC: 0DBN8ZX Excision of Sigmoid Colon, Via Natural or Artificial Opening Endoscopic, Diagnostic (ICD-10-PCS; 2016-06-22)
DX: K51.511 Left sided colitis with rectal bleeding (principal); E87.1 Hypo-osmolality and hyponatremia; I95.9 Hypotension, unspecified; I10 Essential (primary) hypertension; E87.6 Hypokalemia; N32.81 Overactive bladder; K58.9 Irritable bowel syndrome, unspecified; F12.90 Cannabis use, unspecified, uncomplicated; E66.3 Overweight; K44.9 Diaphragmatic hernia without obstruction or gangrene; K21.9 Gastro-esophageal reflux disease without esophagitis; Z88.2 Allergy status to sulfonamides; Z83.3 Family history of diabetes mellitus; Z82.0 Family history of epilepsy and other diseases of the nervous system; Z98.41 Cataract extraction status, right eye; Z87.891 Personal history of nicotine dependence; Z72.89 Other problems related to lifestyle; Z68.27 Body mass index [BMI] 27.0-27.9, adult
CPT/HCPCS: 36415; 80048; 80053; 81003; 81015; 82272; 83690; 85014; 85018; 85025; 85610; 85730; 86140; 86850; 86900; 86901; 87045; 87046; 87077; 87899; 88305; 99283; A9270-GY; J0696; J0744; J2175; J2250; J3490; J7512

== ENCOUNTER 2018-04-05 11:03 | Inpatient (IN) | payer BC ==
[2018-04-05] MEDS ORDERED: Piperacillin/Tazobac ADVAN(*) 3.375 GM in NS 0.9% 100 ML* 100 ML IVPB ONE (11:27)
[2018-04-05] MEDS: NS 0.9% 1000 ML*IV.FLUID IV ONE ×3 (11:30→13:56)
--- NOTE | 2018-04-05 11:36 | ED ---
Influenza-Like Illness - HPI Summary HPI Summary: A 62 y/o female presents to [facility] with a chief complaint of believing that she has the flu since 03/30/18. She rates her pain as 5/10. She has not been diagnosed with the flu. The patient reports that she did get her flu shot one month ago. She c/o body aches, fevers, chills, lack of appetite, fatigue, N/V/D , productive cough and mild abd pain. She denies runny nose, sore throat, CP, EDWARDS , blurred vision, dysuria, hematuria or blood in her diarrhea. She states that usually she has diarrhea 5-6 times a day. 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 - History of Current Complaint Chief Complaint: EDFluSymptoms Time Seen by Provider: 04/05/18 11:17 Hx Obtained From: Patient Onset/Duration: Sudden Onset, Lasting Days, Still Present Severity: Moderate Associated Signs & Symptoms: Fever, Cough - Allergy/Home Medications Allergies/Adverse Reactions: Allergies Allergy/AdvReac Type Severity Reaction Status Date / Time Sulfa (Sulfonamide Allergy Hives Verified 04/05/18 11:31 Antibiotics) PMH/Surg Hx/FS Hx/Imm Hx Endocrine/Hematology History: Denies: Hx Diabetes Cardiovascular History: Reports: Hx Hypertension - ON MEDS Denies: Other Cardiovascular Problems/Disorders GI History: Reports: Hx Irritable Bowel History: Denies: Hx Dialysis, Hx Renal Disease, Other Problems/Disorders Sensory History: Reports: Hx Cataracts, Hx Contacts or Glasses Denies: Hx Hearing Aid Opthamlomology History: Reports: Hx Cataracts, Hx Contacts or Glasses - Cancer History Hx Chemotherapy: No Hx Radiation Therapy: No - Surgical History Surgery Procedure, Year, and Place: RIGHT CATARACT 2010, [facility] [place] Hx Anesthesia Reactions: No - Immunization History Date of Tetanus Vaccine: unk Date of Influenza Vaccine: none Infectious Disease History: No Infectious Disease History: Denies: Traveled Outside the [place] in Last 30 Days - Family History Known Family History: Positive: Diabetes - Father. , Other - No cancer. - Social History Alcohol Use: None Substance Use Type: Reports: Marijuana Substance Use Comment - Amount & Last Used: RARE Smoking Status (MU): Former Smoker Type: Cigarettes Amount Used/How Often: PACK A DAY Have You Smoked in the Last Year: No Review of Systems Positive: Fever, Chills, Fatigue, Other - positive: Body aches Negative: Blurred Vision Negative: Sore Throat, Nasal Discharge Negative: Chest Pain Positive: Cough Gastrointestinal: Negative - blood in diarrhea Positive: Abdominal Pain, Vomiting, Diarrhea, Nausea Negative: dysuria, hematuria Negative: Headache All Other Systems Reviewed And Are Negative: Yes Physical Exam - Summary Physical Exam Summary: VITAL SIGNS: Reviewed. GENERAL: Patient is a well-developed and nourished FEMALE who is lying comfortable in the stretcher. Patient is not in any acute respiratory distress. HEAD AND FACE: No signs of trauma. No ecchymosis, hematomas or skull depressions. No sinus tenderness. EYES: PERRLA, EOMI x 2, No injected conjunctiva, no nystagmus. EARS: Hearing grossly intact. Ear canals and tympanic membranes are within normal limits. MOUTH: Dry oral mucosa. NECK: Supple, trachea is midline, no adenopathy, no JVD, no carotid bruit, no c- spine tenderness, neck with full ROM. CHEST: Symmetric, no tenderness at palpation LUNGS: Clear to auscultation bilaterally. No wheezing or crackles. CVS: Tachycardic, S1 and S2 present, no murmurs or gallops appreciated. ABDOMEN: Mild tenderness left side of abdomen. No signs of distention. No rebound no guarding, and no masses palpated. Bowel sounds are normal. EXTREMITIES: FROM in all major joints, no edema, no cyanosis or clubbing. NEURO: Alert and oriented x 3. No acute neurological deficits. Speech is normal and follows commands. SKIN: Dry and warm Triage Information Reviewed: Yes Vital Signs On Initial Exam: Initial Vitals Temp Pulse Resp BP Pulse Ox 98.7 F 134 22 87/56 99 04/05/18 11:08 04/05/18 11:08 04/05/18 11:08 04/05/18 11:08 04/05/18 11:08 Vital Signs Reviewed: Yes Diagnostics - Vital Signs Vital Signs Temp Pulse Resp BP Pulse Ox 04/05/18 11:08 98.7 F 134 22 87/56 99 - Laboratory Result Diagrams: 04/06/18 10:00 04/06/18 08:20 Lab Statement: Any lab studies that have been ordered have been reviewed, and results considered in the medical decision making process. - CT abdomen/pelvis CT Interpretation Completed By: Radiologist Summary of CT Findings: 1. FINDINGS MOST CONSISTENT WITH A RELATIVELY SEVERE COLITIS. 2. HEPATIC STEATOSIS. ED physician has reviewed this imaging report. - EKG 12:02 Cardiac Rate: Tachycardia - 109 bpm EKG Rhythm: Sinus Tachycardia Summary of EKG Findings: no ST elevations. Flu Symptom Course/Dx - Course Assessment/Plan: A 62 y/o female presents to [facility] with a chief complaint of believing that she has the flu since 03/30/18. She rates her pain as 5/10. She has not been diagnosed with the flu. The patient reports that she did get her flu shot one month ago. She c/o body aches, fevers, chills, lack of appetite, fatigue, N/V/D, productive cough and mild abd pain. She denies runny nose, sore throat, CP, EDWARDS, blurred vision, dysuria, hematuria or blood in her diarrhea. She states that usually she has diarrhea 5-6 times a day. 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 Blood work without any significant abnormality except for WBCs of 12.3, no bands,. ESR is 95, fibrinogen 699.1, 70 was 128, potassium is 3, anion gap is 12, creatinine 1.31, glucose 114, lactic acid is 2.2, calcium is 8.5 and magnesium 1.8. CRP is 312. Pro-calcitonin is 2.5. Influenza A and B is negative. Initially the patient had symptoms of sepsis therefore the patient was started with IV fluids 30 ccs per KG and the patient was given Zosyn since the patient was complaining of some abdominal pain and diarrhea. Urinalysis contaminated therefore cannot say that the patient is a UTI at this point. Abdominopelvic CT impression positive for colitis. C. difficile is also positive. Therefore the patient was given vancomycin by mouth. I discussed my physical exam, findings and test results with Dr. Hernandes from the hospitalist services and he agrees to admit patient to his services. Patient is hemodynamically stable alert and oriented x 3. - Diagnoses Provider Diagnoses: Sepsis, C. difficile colitis - Physician Notifications Discussed Care Of Patient With: Ramez Hernandes Time Discussed With Above Provider: 15:40 Instructed by Provider To: Admit As Inpatient Critical Care Time: 75-104 min Discharge - Sign-Out/Discharge Documenting (check all that apply): Patient Departure - admit - Discharge Plan Condition: Fair Disposition: ADMITTED TO [facility] - Billing Disposition and Condition Condition: FAIR Disposition: Admitted to [facility] - Attestation Statements Document Initiated by Scribe: Yes Documenting Scribe: Eloy Diaz Provider For Whom Scribe is Documenting (Include Credential): Joel Daniel MD Scribe Attestation: Eloy Busby scribed for Joel Daniel MD on 04/06/18 at 1031. Scribe Documentation Reviewed: Yes Provider Attestation: The documentation as recorded by the Eloy briones accurately reflects the service I personally performed and the decisions made by me, Joel Daniel MD Status of Scribe Document: Viewed Attestations User Type: Provider with Scribe Provider Attestation: The documentation recorded by the anali accurately reflects the service I personally performed and the decisions made by me.
--- OUTSIDE RECORDS SUMMARY | 2018-04-05 11:45 | XMS REPORT | Continuity of Care Document ---
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 PayID: [id number] [place] [address] Effective: 2017 Policy Number: [id number] [facility] Julio C Beltran Group Name: [employer] 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 Tobacco Use Start: Unknown End: Former Cigarette Smoker Unknown ETOH Use Rarely consumes alcohol Recreational Drug Use Regularly uses stopped smoking the Marijuana end of Apr 2010 Enjoy Exercising Enjoys exercising she is walking a lot, joined gym for a while, had to cut this out due to finances Allergies, Adverse Reactions, Alerts Date Description Reaction Status Severity Comments 08/18/2010 Sulfa Active dx as a child, not sure of the reaction 10/24/2017 Lialda Active 10/24/2017 Azathioprine Active Medications Medication Date Status Form Strength Qnty SIG Indications Ordering Provider Imodium A-D 12/19/ Active Tablets 2mg 30tabs 1 by mouth Shawnti R. 2018 every 4 Storm, hours if [employer] needed for diarrhea Tizanidine HCL 12/13/ Active Tablets 2mg 30tabs take 1 M54.32 Shawnti R. 2018 tablet by Storm, mouth [employer] three times daily as needed for muscle spasm Diclofenac 12/13/ Active Gel 1% 100gm apply 4gms M54.32 Shawnti R. Sodium 2018 of gel to [facility], left hip [employer] four times daily if needed for pain Tramadol HCL 12/13/ Active Tablets 50mg 45tabs Take One M54.32 Shawnti R. 2018 Tablet By Storm, Mouth Four [employer] Times A Day as Needed For Pain; Maximum Daily Dose=4 Fluoxetine HCL 10/31/ Active Capsules 10mg 30caps Take One F41.9 Shawnti R. (PMDD) 2017 Capsule By Storm, Mouth [employer] Every Morning Lisinopril 07/24/ Active Tablets 20mg 90tabs take one I10 Shawnti R. 2012 tablet by Storm, mouth [employer] every day Prednisone / Active Tablets 10mg Take Three Unknown 0000 Tablets By Mouth Every Day And Taper as Directed Mesalamine / Active Tablets 1.2gm Yony, 0000 Randy Frazier MD Fluoxetine HCL 10/24/ Hx Capsules 20mg 90caps 1 by mouth F41.9 Shawnti R. 2017 - every day , 10/31/ [employer] 2017 Famciclovir 04/01/ Hx Tablets 500mg 4tabs 2 by mouth Shawnti R. 2016 - twice , 10/24/ daily for [employer] 2017 1 day Tizanidine HCL 12/09/ Hx Tablets 4mg 30tabs take one M25.512 Shawnti R. 2016 - tablet by Tigre, 10/24/ mouth four [employer] 2018 times a day as needed for muscle spasm Naproxen 12/09/ Hx Tablets 500mg 30tabs one tab by M25.512 Shawnti R. 2016 - mouth , 10/24/ twice [employer] 2017 daily with food for pain/infla mmation Bentyl 06/16/ Hx Capsules 10mg 15caps 1 tablet R19.7 Swati 2017 - tid suresh [place]enh[place], 11/08/ diarrhea, [employer] 2016 bloating and cramping Oxybutynin 04/19/ Hx Tablets 5mg 60tabs Take One N31.9 Swati Chloride 2012 - Tablet By Oksana, 10/09/ Mouth [employer] 2016 Twice A Day For Bladder Spasms Omeprazole 04/02/ Hx Capsules 20mg 30caps 1 po qd-ac 535.00 Braydon Trevino 2012 - DR for Storm, 10/29/ stomach [employer] 2013 acid Anusol-HC 08/18/ Hx Cream 2.5% 30gm apply to Swati 2012 - rectum bid Oksana, 10/29/ up to 2 [employer] 2014 weeks. Lisinopril 06/26/ Hx Tablets 10mg 30tabs 1 po qd 401.9 Swati 2012 - Oksana, 07/24/ [employer] 2012 Valium 04/09/ Hx Tablets 2mg 10ten 1 po bid 300.00 Braydon Trevino 2009 - prn Storm, 03/26/ anxiety [employer] 2012 Bentyl 03/05/ Hx Capsules 10mg 30caps 1 po tid Braydon Trevino 2009 - stomach Storm, 10/29/ pain, [employer] 2013 cramping, bloating Xanax 03/02/ Hx Tablets 0.25mg 60sixt / to 1 300.00 Braydon Trevino 2009 - y po tid prn Storm, 04/09/ anxiety. [employer] 2009 Sertraline HCL 03/11/ Hx Tablets 25mg 30tabs one po 300.00 Tylerntyohan Trevino 2008 - daily for Storm, 03/05/ anxiety [employer] 2009 Azathioprine / Hx Tablets 50mg Yony, 0000 - Randy Frazier, 10/24/ 2017 Immunizations CPT Code Status Date Vaccine Lot # [id number] Refused 06/09/2015 Influenza Virus Vaccine, Quadrivalent, 3 Yr > Quad , Preserv Free Vital Signs Date Vital Result Comment 03/14/2018 11:17am Weight 184.00 lb Weight 83.462 kg BP Systolic 112 mmHg BP Diastolic 80 mmHg Heart Rate 84 /min Body Temperature 98.4 F Respiratory Rate 16 /min O2 % BldC Oximetry 98 % 12/13/2017 11:13am Weight 182.00 lb Weight 82.555 kg BP Systolic 120 mmHg BP Diastolic 72 mmHg Heart Rate 90 /min Body Temperature 97.1 F Respiratory Rate 18 /min O2 % BldC Oximetry 98 % 10/24/2017 11:24am Weight 184.00 lb Weight 83.462 kg BP Systolic 118 mmHg BP Diastolic 74 mmHg Heart Rate 104 /min Body Temperature 97.5 F Respiratory Rate 18 /min Height 66 inches 5'6" BMI (Body Mass Index) 29.7 kg/m2 O2 % BldC Oximetry 98 % 12/09/2016 3:54pm Weight 177.00 lb Weight 80.287 kg BP Systolic 128 mmHg BP Diastolic 70 mmHg Heart Rate 80 /min Body Temperature 97.5 F Respiratory Rate 16 /min 06/16/2016 9:15am Weight 174.00 lb Weight 78.926 kg BP Systolic 110 mmHg BP Diastolic 74 mmHg Heart Rate 64 /min Body Temperature 97.9 F Respiratory Rate 12 /min 06/09/2015 8:35am Weight 183.00 lb Weight 83.009 kg BP Systolic 126 mmHg BP Diastolic 70 mmHg Heart Rate 94 /min Height 66 inches 5'6" BMI (Body Mass Index) 29.5 kg/m2 O2 % BldC Oximetry 98 % 01/14/2014 11:07am Weight 176.00 lb Weight 79.834 kg BP Systolic 116 mmHg BP Diastolic 72 mmHg Heart Rate 72 /min Body Temperature 97.0 F 10/29/2013 8:23am Weight 182.00 lb Weight 82.555 kg BP Systolic 102 mmHg BP Diastolic 68 mmHg Heart Rate 72 /min Body Temperature 98.0 F Height 66 inches 5'6" BMI (Body Mass Index) 29.4 kg/m2 O2 % BldC Oximetry 97 % 07/30/2013 10:12am Weight 185.00 lb Weight 83.916 kg BP Systolic 124 mmHg BP Diastolic 74 mmHg Heart Rate 72 /min Height 66 inches 5'6" BMI (Body Mass Index) 29.9 kg/m2 04/19/2013 11:43am Weight 193.00 lb Weight 87.545 kg BP Systolic 120 mmHg BP Diastolic 70 mmHg Heart Rate 80 /min Body Temperature 98.0 F 04/02/2013 11:10am Weight 193.00 lb Weight 87.545 kg BP Systolic 118 mmHg BP Diastolic 70 mmHg Heart Rate 60 /min 03/26/2013 2:41pm Weight 193.00 lb Weight 87.545 kg BP Systolic 130 mmHg BP Diastolic 70 mmHg Heart Rate 80 /min Body Temperature 98.7 F 07/24/2012 4:31pm Weight 205.00 lb Weight 92.988 kg BP Systolic 146 mmHg 140/96 repeat BP Diastolic 90 mmHg 140/96 repeat Heart Rate 76 /min Height 66 inches 5'6" BMI (Body Mass Index) 33.1 kg/m2 06/26/2012 8:10am Weight 207.00 lb Weight 93.895 kg BP Systolic 150 mmHg BP Diastolic 88 mmHg Heart Rate 72 /min 08/18/2010 10:51am Weight 199.00 lb Weight 90.266 kg BP Systolic 150 mmHg BP Diastolic 80 mmHg Heart Rate 60 /min Body Temperature 98.8 F Height 66 inches 5'6" BMI (Body Mass Index) 32.1 kg/m2 04/09/2010 8:38am Weight 196.00 lb Weight 88.906 kg BP Systolic 148 mmHg BP Diastolic 84 mmHg Heart Rate 80 /min 03/24/2010 8:39am Weight 195.00 lb Weight 88.452 kg BP Systolic 142 mmHg BP Diastolic 100 mmHg Heart Rate 68 /min Body Temperature 96.6 F 03/02/2010 8:32am Weight 193.00 lb Weight 87.545 kg BP Systolic 142 mmHg Please Recheck BP Diastolic 100 mmHg Please Recheck Heart Rate 130 /min Just Walked From Home Please Recheck Body Temperature 95.9 F 06/05/2009 12:11pm Weight 203.00 lb Weight 92.081 kg BP Systolic 160 mmHg BP Diastolic 90 mmHg Heart Rate 76 /min Body Temperature 99.6 F 03/11/2009 2:37pm Weight 203.00 lb Weight 92.081 kg BP Systolic 118 mmHg BP Diastolic 82 mmHg Heart Rate 92 /min Last Menstrual Period [id number] Having Pap Elsewhere Results Test Date Facility Test Result H/L Range Note Laboratory test 03/14/2018 In House Lab Strep Screen neg Neg finding (607)- - Laboratory test 10/24/2017 [facility] TSH (Thyroid 0.67 mcIU/mL 0.34-5.60 1 finding [phone] Stim Horm) Rast Gluten Ige <0.35 kU/L 2 Manual Differential 10/24/2017 [facility] Immature 18 % High 0-9 [phone] Granulocytes Neutrophil % 71 % 38-83 Band % 11 % High 0-8 Lymphocytes % 8 % Low 25-47 Monocytes % 3 % 0-7 Eosinophils % 0 % 0-6 Basophil % 0 % 0-2 Metamyelocytes % 2 % 0-2 Myelocytes % 5 % High 0-1 Abs Neutrophils 12.2 10^3/uL High 1.5-7.7 Abs Lymphocytes 1.4 10^3/uL 1.0-4.8 Abs Monocytes 0.5 10^3/uL 0-0.8 Abs Eosinophils 0 10^3/uL 0-0.6 Abs Basophils 0 10^3/uL 0-0.2 RBC Morphology Normal Normal Laboratory test 10/24/2017 [facility] Hemoglobin A1c 6.4 % High 4.0-5.6 3 finding [phone] (Glyco HGB) Comp Metabolic 10/24/2017 [facility] Sodium 139 135-145 Panel [phone] mmol/L Potassium 4.5 mmol/L 3.5-5.0 Chloride 102 mmol/L 101-111 Co2 Carbon Dioxide 25 mmol/L 22-32 Anion Gap 12 mmol/L High 2-11 Glucose 113 mg/dL High 70-100 Blood Urea Nitrogen 21 mg/dL 6-24 Creatinine 1.08 mg/dL High 0.51-0.95 BUN/Creatinine Ratio 19.4 8-20 Calcium 9.2 mg/dL 8.6-10.3 Total Protein 6.9 g/dL 6.4-8.9 Albumin 4.0 g/dL 3.2-5.2 Globulin 2.9 g/dL 2-4 Albumin/Globulin Ratio 1.4 1-3 Total Bilirubin 0.40 mg/dL 0.2-1.0 Alkaline Phosphatase 58 U/L 34-104 Alt 11 U/L 7-52 Ast 12 U/L Low 13-39 Egfr Non- 51.8 >60 Egfr 62.6 >60 4 CBC Auto 10/24/2017 [facility] White Blood 17.2 10^3/ uL High 3.5-10.8 Diff [phone] Count Red Blood Count 4.27 10^6/uL 4.00-5.40 Hemoglobin 13.4 g/dL 12.0-16.0 Hematocrit 40 % 35-47 Mean Corpuscular Volume 94 fL 80-97 Mean Corpuscular Hemoglobin 31 pg 27-31 Mean Corpuscular HGB Conc 34 g/dL 31-36 Red Cell Distribution Width 14 % 10.5-15 Platelet Count 436 10^3/uL 150-450 Mean Platelet Volume 7.6 um3 7.4-10.4 Abs Neutrophils 15.2 10^3/uL High 1.5-7.7 Abs Lymphocytes 1.3 10^3/uL 1.0-4.8 Abs Monocytes 0.5 10^3/uL 0-0.8 Abs Eosinophils 0.1 10^3/uL 0-0.6 Abs Basophils 0 10^3/uL 0-0.2 Laboratory test 06/22/2016 [facility] Surgical SEE RESULT 5 finding [phone] Interface Order BELOW CBC Auto Diff 06/21/2016 [facility] White Blood 13.4 High 3.5-5 [phone] Count 10^3/uL 0.8 Red Blood Count 4.24 10^6/uL 4.0-5.4 Hemoglobin 12.7 g/dL 12.0-16.0 Hematocrit 37 % 35-47 Mean Corpuscular Volume 88 fL 80-97 Mean Corpuscular Hemoglobin 30 pg 27-31 Mean Corpuscular HGB Conc 34 g/dL 31-36 Red Cell Distribution Width 13 % 10.5-15 Platelet Count 324 10^3/uL 150-450 Mean Platelet Volume 7 um3 Low 7.4-10.4 Abs Neutrophils 10.4 10^3/uL High 1.5-7.7 Abs Lymphocytes 1.6 10^3/uL 1.0-4.8 Abs Monocytes 1.0 10^3/uL High 0-0.8 Abs Eosinophils 0.3 10^3/uL 0-0.6 Abs Basophils 0.1 10^3/uL 0-0.2 Abs Nucleated RBC 0 10^3/uL Granulocyte % 77.7 % 38-83 Lymphocyte % 11.9 % Low 25-47 Monocyte % 7.7 % 1-9 Eosinophil % 2.2 % 0-6 Basophil % 0.5 % 0-2 Nucleated Red Blood Cells % 0 Comp Metabolic 06/21/2016 [facility] Sodium 131 mmol/ L Low 133-145 Panel [phone] Potassium 3.1 mmol/L Low 3.5-5.0 Chloride 99 mmol/L Low 101-111 Co2 Carbon Dioxide 24 mmol/L 22-32 Anion Gap 8 mmol/L 2-11 Glucose 105 mg/dL High 70-100 Blood Urea Nitrogen 10 mg/dL 6-24 Creatinine 1.07 mg/dL High 0.51-0.95 BUN/Creatinine Ratio 9.3 8-20 Calcium 8.9 mg/dL 8.6-10.3 Total Protein 7.5 g/dL 6.4-8.9 Albumin 3.7 g/dL 3.2-5.2 Globulin 3.8 g/dL 2-4 Albumin/Globulin Ratio 1.0 1-3 Total Bilirubin 0.60 mg/dL 0.2-1.0 Alkaline Phosphatase 82 U/L 34-104 Alt 19 U/L 7-52 Ast 15 U/L 13-39 Egfr Non- 52.7 >60 Egfr 67.7 >60 6 Laboratory test 06/21/2016 [facility] Stool For SEE RESULT 7 finding [phone] Blood BELOW Inr/Protime 06/21/2016 [facility] Inr 1.16 High 0.89- [phone] 1.11 Laboratory test 06/21/2016 [facility] Partial 24.3 seconds Low 26.0- finding [phone] Thrombo Time 36.3 PTT Type & Screen 06/21/2016 [facility] Patient Blood A Positive [phone] Type Antibody Screen NEGATIVE Laboratory test 06/21/2016 [facility] Lipase 39 U/L 11.0-82.0 finding [phone] Laboratory test 06/19/2016 [facility] C Difficile SEE RESULT 8 finding [phone] PCR BELOW Stool Panel 06/17/2016 [facility] Stool Culture SEE RESULT 9, 10 (CMC) [phone] BELOW O&P Ova & Parasites Screen SEE RESULT BELOW 11 Laboratory test 06/16/2016 [facility] Amylase 108 U/ L High 29-103 12 finding [phone] Lipase 86 U/L High 11.0-82.0 13 Comp Metabolic Panel 06/16/2016 [facility] Sodium 136 mmol/L 133-145 [phone] Potassium 4.6 mmol/L 3.5-5.0 Chloride 103 mmol/L 101-111 Co2 Carbon Dioxide 26 mmol/L 22-32 Anion Gap 7 mmol/L 2-11 Glucose 97 mg/dL 70-100 Blood Urea Nitrogen 11 mg/dL 6-24 Creatinine 0.94 mg/dL 0.51-0.95 BUN/Creatinine Ratio 11.7 8-20 Calcium 9.6 mg/dL 8.6-10.3 Total Protein 7.5 g/dL 6.4-8.9 Albumin 4.2 g/dL 3.2-5.2 Globulin 3.3 g/dL 2-4 Albumin/Globulin Ratio 1.3 1-3 Total Bilirubin 0.50 mg/dL 0.2-1.0 Alkaline Phosphatase 93 U/L 34-104 Alt 21 U/L 7-52 Ast 21 U/L 13-39 Egfr Non- 61.2 >60 Egfr 78.7 >60 14 CBC Auto Diff 06/16/2016 [facility] White Blood 10.8 10^3/uL 3.5-10.8 [phone] Count Red Blood Count 4.52 10^6/uL 4.0-5.4 Hemoglobin 13.6 g/dL 12.0-16.0 Hematocrit 41 % 35-47 Mean Corpuscular Volume 91 fL 80-97 Mean Corpuscular Hemoglobin 30 pg 27-31 Mean Corpuscular HGB Conc 33 g/dL 31-36 Red Cell Distribution Width 13 % 10.5-15 Platelet Count 318 10^3/uL 150-450 Mean Platelet Volume 8 um3 7.4-10.4 Abs Neutrophils 7.6 10^3/uL 1.5-7.7 Abs Lymphocytes 1.9 10^3/uL 1.0-4.8 Abs Monocytes 1.0 10^3/uL High 0-0.8 Abs Eosinophils 0.3 10^3/uL 0-0.6 Abs Basophils 0.1 10^3/uL 0-0.2 Abs Nucleated RBC 0 10^3/uL Granulocyte % 70.2 % 38-83 Lymphocyte % 17.4 % Low 25-47 Monocyte % 9.4 % High 1-9 Eosinophil % 2.4 % 0-6 Basophil % 0.6 % 0-2 Nucleated Red Blood Cells % 0 CBC Auto Diff 06/09/2015 [facility] White Blood 5.7 10^3/uL 3.5-10.8 [phone] Count Red Blood Count 4.43 10^6/uL 4.0-5.4 Hemoglobin 13.6 g/dL 12.0-16.0 Hematocrit 41 % 35-47 Mean Corpuscular Volume 93 fL 80-97 Mean Corpuscular Hemoglobin 31 pg 27-31 Mean Corpuscular HGB Conc 33 g/dL 31-36 Red Cell Distribution Width 13 % 10.5-15 Platelet Count 296 10^3/uL 150-450 Mean Platelet Volume 8 um3 7.4-10.4 Abs Neutrophils 2.8 10^3/uL 1.5-7.7 Abs Lymphocytes 2.4 10^3/uL 1.0-4.8 Abs Monocytes 0.4 10^3/uL 0-0.8 Abs Eosinophils 0.1 10^3/uL 0-0.6 Abs Basophils 0 10^3/uL 0-0.2 Abs Nucleated RBC 0 10^3/uL Granulocyte % 49.1 % 38-83 Lymphocyte % 42.1 % 25-47 Monocyte % 6.2 % 1-9 Eosinophil % 1.9 % 0-6 Basophil % 0.7 % 0-2 Nucleated Red Blood Cells % 0 Comp Metabolic Panel 06/09/2015 [facility] Sodium 135 mmol/L 133-145 [phone] Potassium 4.8 mmol/L 3.5-5.0 Chloride 102 mmol/L 101-111 Co2 Carbon Dioxide 29 mmol/L 22-32 Anion Gap 4 mmol/L 2-11 Glucose 95 mg/dL 70-100 Blood Urea Nitrogen 13 mg/dL 6-24 Creatinine 0.94 mg/dL 0.51-0.95 BUN/Creatinine Ratio 13.8 8-20 Calcium 9.4 mg/dL 8.6-10.3 Total Protein 7.6 g/dL 6.4-8.9 Albumin 4.5 g/dL 3.2-5.2 Globulin 3.1 g/dL 2-4 Albumin/Globulin Ratio 1.5 1-3 Total Bilirubin 0.50 mg/dL 0.2-1.0 Alkaline Phosphatase 74 U/L 34-104 Alt 40 U/L 7-52 Ast 33 U/L 13-39 Egfr Non- 61.4 >60 Egfr 78.9 >60 15 Laboratory 06/09/2015 [facility] TSH (Thyroid Stim 1.55 0.34-5.60 test finding [phone] Horm) ?IU/mL Lipid Profile 06/09/2015 [facility] Triglycerides 148 mg/dL 16 (Trig/Chol/HDL [phone] ) Cholesterol 185 mg/dL 17 HDL Cholesterol 50.8 mg/dL 18 LDL Cholesterol 105 mg/dL 19 CBC Auto Diff 10/29/2013 [facility] White Blood 5.4 10^3/uL 4.8-10.8 20 [phone] Count Red Blood Count 4.27 10^6/uL 4.0-5.4 Hemoglobin 13.5 g/dL 12.0-16.0 Hematocrit 40 % 35-47 Mean Corpuscular Volume 93 fL 80-97 Mean Corpuscular Hemoglobin 32 pg High 27-31 Mean Corpuscular HGB Conc 34 g/dL 31-36 Red Cell Distribution Width 13 % 10.5-15 Platelet Count 289 10^3/uL 150-450 Mean Platelet Volume 8 um3 7.4-10.4 Abs Neutrophils 2.4 10^3/uL 1.5-7.7 Abs Lymphocytes 2.5 10^3/uL 1.0-4.8 Abs Monocytes 0.4 10^3/uL 0-0.8 Abs Eosinophils 0.1 10^3/uL 0-0.6 Abs Basophils 0.1 10^3/uL 0-0.2 Abs Nucleated RBC 0 10^3/uL Granulocyte % 43.8 % 38-83 Lymphocyte % 46.2 % 25-47 Monocyte % 7.6 % 1-9 Eosinophil % 1.4 % 0-6 Basophil % 1.0 % 0-2 Nucleated Red Blood Cells % 0.1 Comp Metabolic Panel 10/29/2013 [facility] Sodium 136 mmol/L 133-145 [phone] Potassium 4.4 mmol/L 3.7-5.6 Chloride 102 mmol/L 101-111 Co2 Carbon Dioxide 28 mmol/L 22-32 Anion Gap 6 mmol/L 2-11 Glucose 96 mg/dL 70-100 Blood Urea Nitrogen 13 mg/dL 6-24 Creatinine 0.91 mg/dL 0.51-0.95 BUN/Creatinine Ratio 14.3 8-20 Calcium 9.3 mg/dL 8.6-10.3 Total Protein 7.4 g/dL 6.4-8.9 Albumin 4.5 g/dL 3.2-5.2 Globulin 2.9 g/dL 2-4 Albumin/Globulin Ratio 1.6 1-3 Total Bilirubin 0.40 mg/dL 0.2-1.0 Alkaline Phosphatase 89 U/L 34-104 Alt 44 U/L 7-52 Ast 40 U/L High 13-39 Egfr Non- 63.9 >60 Egfr 82.2 >60 21 Laboratory test 10/29/2013 [facility] TSH (Thyroid 1.50 0.34-5.60 22 finding [phone] Stimulating Horm) IU/mL Lipid Profile 10/29/2013 [facility] Triglycerides 107 mg/dL 23 (Trig/Chol/HDL) [phone] Cholesterol 182 mg/dL 24 HDL Cholesterol 48.4 mg/dL 25 LDL Cholesterol 112 mg/dL 26 Urine DIP 04/19/2013 In House Lab Leukocytes neg Neg (607)- - Urine Nitrites neg Neg Urine pH 5 5-6 Total Protein, Urine neg Neg Urine Glucose norm Norm Urine Ketones neg Neg Urobilinogen norm Norm Urine Bilirubin neg Neg Urine Blood trace Neg Specific Wade 1.015 1.01-1.02 H.Pylori Igg 04/02/2013 [facility] Helicobacter Negative Negative AB [phone] pylori IgG Ab H pylori IgG AB Index 3.31 27 H.Pylori Igm 04/02/2013 [facility] Helicobacter Negative Negative AB [phone] pylori IgM Ab H pylori IgM AB Index 14.60 28 H Pylori Iga 04/02/2013 [facility] Helicobacter Negative Negative [phone] pylori IgA Ab H pylori IgA Ab Index 13.40 29 Laboratory test 04/02/2013 [facility] Amylase 103 U/ L 20-120 finding [phone] Lipase 33 U/L 22-51 CBC No Diff 04/02/2013 [facility] White Blood 6.8 10^ 3/uL 4.8-10.8 [phone] Count Red Blood Count 4.28 10^6/uL 4.0-5.4 Hemoglobin 13.3 g/dL 12.0-16.0 Hematocrit 40 % 35-47 Mean Corpuscular Volume 93 fL 80-97 Mean Corpuscular Hemoglobin 31 pg 27-31 Mean Corpuscular HGB Conc 34 g/dL 31-36 Red Cell Distribution Width 13 % 10.5-15 Platelet Count 308 10^3/uL 150-450 Mean Platelet Volume 9 um3 7.4-10.4 Urine DIP 08/18/2010 In House Lab Leukocytes neg Neg (607)- - Urine Nitrites neg Neg Urine pH 5 5-6 Total Protein, Urine neg Neg Urine Glucose norm Norm Urine Ketones neg Neg Urobilinogen norm Norm Urine Bilirubin neg Neg Urine Blood trace Neg Specific Wade n/a Low 1.01-1.02 Urine Culture & 03/24/2010 [facility] Urine Culture NG 30 Sensitivi [phone] Sensitivi Urine DIP 03/24/2010 In House Lab Leukocytes NEG Neg (607)- - Urine Nitrites NEG Neg Urine pH 5 5-6 Total Protein, Urine NEG Neg Urine Glucose NORM Norm Urine Ketones NEG Neg Urobilinogen NORM Norm Urine Bilirubin NEG Neg Urine Blood NEG Neg Specific Wade N/A Low 1.01-1.02 Laboratory test 06/05/2009 In House Lab Strep Screen NEG Neg finding (607)- - Lipid Profile 03/11/2009 [facility] Triglyceride 180 mg/dL 40-200 (Trig/Chol/HDL) [phone] Cholesterol 226 mg/dL High Less Than 200 31 High Density Lipoprotein 42 mg/dL 40-60 32 Cholesterol/HDL Ratio 5.38 AVERAGE High 1-4.44 Low Density Lipoprotein 148 mg/dL High Less Than 100 33 CBC With 03/11/2009 [facility] White Blood 8.9 CUMM 4.8-10.8 Electronic Diff [phone] Count Red Cell Count 4.44 CUMM 4.2-5.4 Hemoglobin 13.9 g/dL 12.0-16.0 Hematocrit 41 % 35-47 Mean Corpuscular Volume 92 um3 79-97 Mean Corpuscular Hemoglob 31 pg 27-31 Mean Corpuscular HGB Cone 34 g/dL 32-36 Redcell Distribution WDTH 13 % 10.5-15 Platelet Count 319 CUMM 150-450 Mean Platelet Volume 7.6 um3 7.4-10.4 Gran % 58.2 % 38-83 Lymph % 33.6 % 25-47 Mononuclear % 6.7 % 1-9 Eosinophil % 0.9 % 0-6 Basophil % 0.6 % 0-2 Abs Lymphs 3.0 1.0-4.8 Abs Mononuclear 0.6 0-0.8 Absolute Neutrophil Count 5.2 1.5-7.7 Abs Eosinophils 0.1 0-0.6 Abs Basophils 0.1 0-0.2 Comp Metabolic Panel 03/11/2009 [facility] Sodium 139 mmol/L 135-145 [phone] Potassium 4.9 mmol/L 3.5-5.0 Chloride 103 mmol/L 101-111 Co2 (Carbon Dioxide) 28.0 mmol/L 22-32 Anion Gap 8.0 mmol/L 2-11 34 Glucose 88 mg/dL 70-100 35 BUN 12 mg/dL 6-24 Creatinine 0.80 mg/dL 0.50-1.40 One Over Creatinine 1.20 BUN/Creatinine Ratio 15.0 8-20 Calcium 9.7 mg/dL 8.1-9.9 36 Total Protein 7.4 GM/DL 6.2-8.1 Albumin 4.1 GM/DL 3.6-5.4 Globulin 3.3 GM/DL 2-4 Albumin/Globulin Ratio 1.2 1-3 Bilirubin Total 0.8 mg/dL 0.4-1.5 37 Alkaline Phosphatase 83 U/L 30-110 Alt (SGPT) 41 U/L 14-54 Ast (Sgot) 34 U/L 12-42 eGFR Non- 80.4 > 60 eGFR 97.3 > 60 38 Laboratory test 03/11/2009 [facility] TSH 2.29 MIU/ ML 0.34-5.60 finding [phone] 1 [id number] Class 0 (Negative <0.35) Test Performed by: [facility] [address] [place] [address] 3 Therapeutic target for the treatment of diabetes mellitus patients is <7% HBA1C, and in selective patients <6.0%. Please refer to [place] [employer] diabetic care guidelines for further information. 4 Because ethnic data is not always readily available, this report includes an eGFR for both -Americans and non- Americans. The National Kidney Disease Education Program (NKDEP) does not endorse the use of the MDRD equation for patients that are not between the ages of 18 and 70, are , have extremes of body size, muscle mass, or nutritional status, or are non- or non-. According to the National Kidney Foundation, irrespective of diagnosis, the stage of the disease is based on the level of kidney function: Stage Description GFR(mL/min/1.73 m(2)) 1 Kidney damage with normal or decreased GFR 90 2 Kidney damage with mild decrease in GFR 60-89 3 Moderate decrease in GFR 30-59 4 Severe decrease in GFR 15-29 5 Kidney failure <15 (or dialysis) 5 SEE RESULT BELOW Name: RUBYJULIO C : [address]: Umm Bess DO Acct: [id number] Unit: [id number] AGE: 60 Location: [place] [address] Re06/21/16 Dis: 06/23/16 SEX: F Status: DIS IN SPEC: [id number] EFREN: 06/22/16-161 [facility] DR: Randy Bhakta MD REQ: [id number] RECD: 06/22/16 STATUS: KELLE RUDD DR: Alex Serrano MD _ ORDERED: LEVEL IV FINAL DIAGNOSIS Colon, random sigmoid biopsies. -- Moderate to severe chronic active colitis with ulceration. -- No dysplasia identified. Comment: The findings are compatible with the clinical impression of ulcerative colitis. CLINICAL HISTORY Occasional diarrhea POST-OPERATIVE DIAGNOSIS Larynx - normal; esophagus - normal, esophagogastric 39 small sliding hiatal hernia; stomach - normal; duodenum - normal x 35 cm. Flexible sigmoid colonoscopy - mccormick- ulcerative colitis. Conclusions/Plan: hiatal hernia, gastroesophageal reflux disease intermittent ; pancolitis GROSS DESCRIPTION The specimen is received in formalin labeled, Biopsy Random Sigmoid Colon, and consists of two speckled gillespie-brown irregular to polypoid soft tissue fragments measuring 0.3 x 0.2 x 0.1 cm and 0.5 x 0.3 x 0.2 cm which are entirely submitted in one cassette. Signed (signature on file) Yinka Hobbs MD 1505 END OF REPORT * ML=Testing performed at Main Lab DEPARTMENT OF PATHOLOGY, [address] [place] [address] Yinka Hobbs M.D. Director [facility] # [id number] 6 Because ethnic data is not always readily available, this report includes an eGFR for both -Americans and non- Americans. The National Kidney Disease Education Program (NKDEP) does not endorse the use of the MDRD equation for patients that are not between the ages of 18 and 70, are , have extremes of body size, muscle mass, or nutritional status, or are non- or non-. According to the National Kidney Foundation, irrespective of diagnosis, the stage of the disease is based on the level of kidney function: Stage Description GFR(mL/min/1.73 m(2)) 1 Kidney damage with normal or decreased GFR 90 2 Kidney damage with mild decrease in GFR 60-89 3 Moderate decrease in GFR 30-59 4 Severe decrease in GFR 15-29 5 Kidney failure <15 (or dialysis) 7 SEE RESULT BELOW Name: JULIO C BELTRAN : [address]: Phoenix Dale MD Acct: [id number] Unit: [id number] AGE: 60 Location: ED Re06/21/16 SEX: F Status: REG ER SPEC: [id number] EFREN: 06/21/[address]: Carolina MOLINA REQ: [id number] RECD: 06/21/16 STATUS: JANELLE RUDD DR: Alex iSngleton MD _ SOURCE: STOOL SPDESC: ORDERED: Hemoccult Procedure Result Reported Site Stool Specimen Description Final 06/21/16- 808 ML Stool Color Greenish Brown Stool Form Nonformed Stool Consistency Soft Stool Occult Blood Final 06/21/16- 808 ML Stool Occult Blood Positive * ML - [facility] ([facility]) . END OF REPORT * ML=Testing performed at Main Lab DEPARTMENT OF PATHOLOGY, [address] [place] [address] Yinka Hobbs M.D. Director [facility] # [id number] 8 SEE RESULT BELOW Name: JULIO C BELTRAN : [address]: Anthony Vazquez MD Acct: [id number] Unit: [id number] AGE: 60 Location: ED Re06/19/16 SEX: F Status: REG ER SPEC: [id number] EFREN: 06/19/16 [facility] DR: Anthony Vazquez MD REQ: [id number] RECD: 06/19/16 STATUS: JANELLE RUDD DR: Alex Singleton MD _ SOURCE: STOOL SPDESC: ORDERED: C. diff PCR Procedure Result Reported Site Stool Specimen Description Final 06/19/16- 805 ML Stool Color Brown Stool Form Nonformed Stool Consistency Liquid C. difficile PCR Final 06/19/16- 910 ML Organism 1 027 Presumptive NEGATIVE Organism 2 Toxigenic C.diff NEGATIVE * ML - MAIN LAB ([facility]) . END OF REPORT * ML=Testing performed at Main Lab DEPARTMENT OF PATHOLOGY, [address] [place] [address] Yinka Hobbs M.D. Director [facility] # [id number] 9 Verbal to KIMI BLACK by at 1013 on 06/18/16. 10 SEE RESULT BELOW Name: JULIO C BELTRAN : [address]: Swati Mendenhall EP[employer] WILLOW ANALYST Acct: [id number] Unit: [id number] AGE: 60 Location: [facility] Re06/17/16 SEX: F Status: REG REF SPEC: [id number] EFREN: 06/17/[address]: Swati Mendenhall EPIC WILLOW ANALYST REQ: [id number] RECD: 06/18/16 STATUS: COMP _ SOURCE: STOOL SPDESC: ORDERED: Stool Culture, O P: Giar/Crypt COMMENTS: Verbal to KIMI BLACK by at 1013 on 06/18/16. Procedure Result Reported Site Stool Culture Final 06/20/16- 0908 ML Result No enteric pathogens isolated Testing for Salmonella, Shigella, Aeromonas, Plesiomonas, Yersinia and Campylobacter are included in a Stool Culture. Vibrio spp not routinely tested for in a stool culture. If testing is desired, please request specifically when placing test order. Sensitivities not routinely performed on stool isolates, as antibiotics may prolong the carriage rate of bacteria. Please contact the microbiology lab if sensitivities are required. Shiga Toxin 1 2 Final 06/21/16- 1236 ML Organism 1 Negative Shiga Toxin 1 2 Immunochromatographic Assay O P: Giardia/Cryptospor Screen Final 06/18/16- 1201 ML Organism 1 Neg Cryptosporidium/Giardia CONTINUED ON NEXT PAGE * ML=Testing performed at [facility] DEPARTMENT OF PATHOLOGY, [address] [place] [address] Yinka Hobbs M.D. Director [facility] # [id number] Patient: JULIO C BELTRAN [id number] (Continued) Specimen: [id number] Collected: 06/17/16 Received: 06/18/16 (Continued) Procedure Result Reported Site O P: Giardia/Cryptospor Screen Final (continued) 06/18/16 120 Giardia and cryptosporidium antigen testing performed by enzyme immunoassay. If patient is immunocompromised or has traveled to or is from a developing country, a full ova and parasite exam with microscopic (OPMIC) is recommended. All samples will be held one month in case full ova and parasite testing is requested. Contact the Microbiology Department at [phone]. TEST LIMITATIONS: As with all diagnostic procedures, the results obtained should be used in conjunction with other clinical information available the physician, including confirmation by another method. Negative results can occur in samples containing antigen below lower limits of detection of the assay. One negative specimen does not rule out the possibility of a parasitic infection. To improve detection it is recommended that three specimens be collected on separate days over a period of not more than seven days. The use of colonic washes, aspirates or other diluted sample types has not been established and could affect the performance of the assay. Stool samples contaminated with an oily or particulate base (eg. Barium, mineral oil etc.) could interfere with the test and are not recommended. * ML - MAIN LAB ([facility]) . END OF REPORT * ML=Testing performed at Main Lab DEPARTMENT OF PATHOLOGY, [address] [place] [address] Yinka Hobbs M.D. Director [facility] # [id number] 11 SEE RESULT BELOW Name: JULIO C BELTRAN : [address]: Swati Mendenhall EP[employer] WILLOW ANALYST Acct: [id number] Unit: [id number] AGE: 60 Location: [facility] Re06/17/16 SEX: F Status: REG REF SPEC: [id number] EFREN: 06/17/[address]: Swati Mendenhall NP REQ: [id number] RECD: 06/18/16 STATUS: RES _ SOURCE: STOOL SPDESC: ORDERED: Stool Culture, O P: Giar/Crypt COMMENTS: Verbal to KIMI BLACK by [id number] at 1013 on 06/18/16. Procedure Result Reported Site Stool Culture PENDING Shiga Toxin 1 2 PENDING O P: Giardia/Cryptospor Screen Final 06/18/16- 1201 ML Organism 1 Neg Cryptosporidium/Giardia Giardia and cryptosporidium antigen testing performed by enzyme immunoassay. If patient is immunocompromised or has traveled to or is from a developing country, a full ova and parasite exam with microscopic (OPMIC) is recommended. All samples will be held one month in case full ova and parasite testing is requested. Contact the Microbiology Department at [phone]. TEST LIMITATIONS: As with all diagnostic procedures, the results obtained should be used in conjunction with other clinical information available the physician, including confirmation by another method. Negative results can occur in samples containing antigen below lower limits of detection of the assay. One negative specimen does not rule out the possibility of a parasitic infection. To improve detection it is recommended that three specimens be collected on separate days over a period of not more than seven CONTINUED ON NEXT PAGE * ML=Testing performed at Main Lab DEPARTMENT OF PATHOLOGY, [address] [place] [address] Yinka Hobbs M.D. Director [facility] # [id number] Patient: JULIO C BELTRAN [id number] (Continued) Specimen: [id number] Collected: 06/17/16 Received: 06/18/16 (Continued) Procedure Result Reported Site O P: Giardia/Cryptospor Screen Final (continued) 06/18/16- 1201 days. The use of colonic washes, aspirates or other diluted sample types has not been established and could affect the performance of the assay. Stool samples contaminated with an oily or particulate base (eg. Barium, mineral oil etc.) could interfere with the test and are not recommended. * - MAIN LAB ([facility]) . END OF REPORT * ML=Testing performed at Main Lab DEPARTMENT OF PATHOLOGY, [address] [place] [address] Yinka Hobbs M.D. Director [facility] # [id number] 12 [id number] 14 Because ethnic data is not always readily available, this report includes an eGFR for both -Americans and non- Americans. The National Kidney Disease Education Program (NKDEP) does not endorse the use of the MDRD equation for patients that are not between the ages of 18 and 70, are , have extremes of body size, muscle mass, or nutritional status, or are non- or non-. According to the National Kidney Foundation, irrespective of diagnosis, the stage of the disease is based on the level of kidney function: Stage Description GFR(mL/min/1.73 m(2)) 1 Kidney damage with normal or decreased GFR 90 2 Kidney damage with mild decrease in GFR 60-89 3 Moderate decrease in GFR 30-59 4 Severe decrease in GFR 15-29 5 Kidney failure <15 (or dialysis) 15 Because ethnic data is not always readily available, this report includes an eGFR for both -Americans and non- Americans. The National Kidney Disease Education Program (NKDEP) does not endorse the use of the MDRD equation for patients that are not between the ages of 18 and 70, are , have extremes of body size, muscle mass, or nutritional status, or are non- or non-. According to the National Kidney Foundation, irrespective of diagnosis, the stage of the disease is based on the level of kidney function: Stage Description GFR(mL/min/1.73 m(2)) 1 Kidney damage with normal or decreased GFR 90 2 Kidney damage with mild decrease in GFR 60-89 3 Moderate decrease in GFR 30-59 4 Severe decrease in GFR 15-29 5 Kidney failure <15 (or dialysis) 16 Desirable <150 Borderline high 150-199 High 200-499 Very High >500 17 Desirable <200 Borderline high 200-239 High >239 18 Low <40 Desirable: 40-60 High: >60 19 Desirable: <100 mg/dL Near Optimal: 100-129 mg/dL Borderline High: 130-159 mg/dL High: 160-189 mg/dL Very High: >189 mg/dL 20 FASTING 21 Because ethnic data is not always readily available, this report includes an eGFR for both -Americans and non- Americans. The National Kidney Disease Education Program (NKDEP) does not endorse the use of the MDRD equation for patients that are not between the ages of 18 and 70, are , have extremes of body size, muscle mass, or nutritional status, or are non- or non-. According to the National Kidney Foundation, irrespective of diagnosis, the stage of the disease is based on the level of kidney function: Stage Description GFR(mL/min/1.73 m(2)) 1 Kidney damage with normal or decreased GFR 90 2 Kidney damage with mild decrease in GFR 60-89 3 Moderate decrease in GFR 30-59 4 Severe decrease in GFR 15-29 5 Kidney failure <15 (or dialysis) 22 FASTING 23 Desirable <150 Borderline high 150-199 High 200-499 Very High >500 24 Desirable <200 Borderline high 200-239 High >239 25 Low <40 Desirable: 40-60 High: >60 26 Desirable <100 Near Optimal 100-129 Borderline high 130-159 High 160-189 Very High >189 27 Results with Index Values of <8.95 are negative. Test Performed by: [place] [address] Fleet Driver: Stewart Wilson III, M.D. 28 Results with Index Values of <36.00 are negative. Test Performed by: [place] [address] Fleet Driver: Stewart Wilson III, M.D. 29 Results with Index Values of <18.00 are negative. Test Performed by: [place] [address] Fleet Driver: Stewart Wilson III, M.D. 30 FINAL: NO GROWTH DAY 2 (<1,000 CFU/mL) 31 CHOLESTEROL INTERPRETATION: Desirable: Less than 200 MG/DL Borderline-High Risk: 200-239 MG/DL High-Risk: 240 MG/DL and over 32 HDL INTERPRETATION: Undesirable: High Risk: Less than 40 MG/DL Desirable: Low Risk: Greater than 60 MG/DL 33 LDL INTERPRETATION: Low Risk Optimal Level: LDL Less than 100 MG/DL Near or Above Optimal: LDL 100-129 MG/DL Borderline High Risk: LDL 130-159 MG/DL High Risk: LDL 160-189 MG/DL Very High Risk: LDL Greater than 189 MG/DL 34 Anion gap measurement may be of limited value in the presence of any alkalosis, especially in a combined acid base disorder. . 35 Note change in reference range as of 12/14/07. The change was based on recommendations from the [place] [employer]. 36 Please note change in reference range effective 07 . 37 A metabolite of Naproxen, O-desmethylnaproxen, has been shown to interfere with the Jendrassik-Zaleski method for measuring total bilirubin. Samples from patients who have taken Naproxen have shown spurious elevation in total bilirubin levels. 38 Because ethnic data is not always readily available, this report includes an eGFR for both -Americans and non- Americans. The National Kidney Disease Education Program (NKDEP) does not endorse the use of the MDRD equation for patients that are not between the ages of 18 and 70, are , have extremes of body size, muscle mass, or nutritional status, or are non- or non-. According to the National Kidney Foundation, irrespective of diagnosis, the stage of the disease is based on the level of kidney function: Stage Description GFR(mL/min/1.73 m(2)) 1 Kidney damage with normal or decreased GFR 90 2 Kidney damage with mild decrease in GFR 60-89 3 Moderate decrease in GFR 30-59 4 Severe decrease in GFR 15-29 5 Kidney failure <15 (or dialysis) Procedures Date Code Description Status 03/11/2009 32825 EKG, at Least 12 Leads w/Interpretation and Report Completed Encounters Type Date Location Provider Dx Diagnosis Office Visit 12/13/2017 Main Office Braydon Landeros, M54.32 Sciatica, left side 11:15a [employer]INE OPERATOR-C Office Visit 10/24/2017 Main Office Braydon Landeros, F41.9 Anxiety disorder, 11:30a [employer] MACHINE OPERATOR-C unspecified K51.911 Ulcerative colitis, unspecified with rectal bleeding Office Visit 12/09/2016 4:00p Main Office Braydon Trevino M25.512 Pain in left Storm, [employer] MACHINE OPERATOR-C shoulder Office Visit 06/16/2016 9:30a Main Office Swati Mendenhall, R19.7 Diarrhea, [employer] MACHINE OPERATOR-C unspecified Office Visit 06/09/2015 8:45a Main Office Tylerntyohan RArjun Z00.00 Encntr for general Storm, [employer] MACHINE OPERATOR-C adult medical exam w/o abnormal findings Z12.31 Encntr screen mammogram for malignant neoplasm of breast Office Visit 01/14/2014 11:00a Main Office [place] R. 787.91 Diarrhea Storm, [employer] MACHINE OPERATOR-C Office Visit 10/29/2013 8:45a Main Office [place] R. V72.84 Examination Storm, [employer] MACHINE OPERATOR-C Preoperative Unspec 366.9 Cataract Unspec V72.62 Laboratory Exam Ordered as Part Of Routine General Med Exam Office Visit 07/30/2013 10:15a Main Office Tylerntyohan Landeros, 706.2 Sebaceous Cyst [employer] MACHINE OPERATOR-C 300.00 Anxiety State Unspec Office Visit 04/19/2013 11:45a Main Office [place] R. 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 535.00 Gastritis Acute W/O Storm, [employer] MACHINE OPERATOR-C Hemorrhage Office Visit 03/26/2013 3:15p Main Office [place] R. 558.9 Gastroenteritis & Storm, [employer] MACHINE OPERATOR-C Colitis Noninfectious Other Office Visit 07/24/2012 4:15p Main Office Swati 401.9 Hypertension Unspec Oksana, [employer] MACHINE OPERATOR-C Office Visit 06/26/2012 8:45a Main Office Swati 401.9 Hypertension Unspec Oksana, [employer] MACHINE OPERATOR-C Office Visit 08/18/2010 11:00a Main Office [place] R. V72.84 Examination Storm, [employer] MACHINE OPERATOR-C Preoperative Unspec 366.9 Cataract Unspec 796.2 Blood Pressure Reading Elevated W/O Hypertension Office Visit 04/09/2010 8:45a Main Office [place] R. 300.00 Anxiety State Storm, [employer] MACHINE OPERATOR-C Unspec Office Visit 03/24/2010 8:45a Main Office Braydon R. 788.1 Dysuria MARICRUZ Landeros-C Office Visit 03/02/2010 8:30a Main Office [place] R. 300.00 Anxiety State MARICRUZ Landeros-Helder Unspec Office Visit 06/05/2009 12:45p Main Office [place] R. 465.9 URI Upper MARICRUZ Landeros-Helder Respiratory Infections Acute Unspec Sites Office Visit 03/11/2009 2:30p Main Office [place] R. 300.00 Anxiety State MARICRUZ Landeros-C Unspec 785.0 Tachycardia Unspec 278.02 Overweight Plan of Treatment Future Appointment(s):04/04/2018 4:00 pm - SHELLY Villalpando at Main [id number]/14/2018 - Sarah Brooks, NPJ06.9 Acute upper respiratory infection, unspecifiedRecommendations:URI These symptoms are usually caused by a viral infection. Lots of viruses can take hold inside your nose, mouth, throat, or lungs, and cause cold symptoms. Most people get over a cold without lasting problems. Even so, having a cold can be uncomfortable. And if your child has a cold, it can be hardto know when the symptoms call for a trip to the doctor. In children, the common cold can also causea fever. But adults do not usually get a fever when they have a cold. You should call your doctor if you have: -A fever of more than 100.4?? F (38?? C) that comes with chills, loss of appetite, or trouble breathing -A fever and also have lung disease, such as emphysema or asthma -A cough that lasts longer than 10 days -Chest pain when you cough, trouble breathing, or coughing up blood If you are older than 75, you should also call your doctor any time you get a long-lasting cough. Take your child to the emergency room if he or she: -Becomes confused or stops responding to you -Has trouble breathing or has to work hard to breathe Call your child's doctor or nurse if he or she: -Refuses to drink anything for a long time -Is younger than 4 months -Has a fever and is not acting like him- or herself -Has a cough that lasts for more than 2 weeks and is not getting any better -Has a stuffed or runnynose that gets worse or does not get better after 2 weeks -Has red eyes or yellow goop coming out ofhis or her eyes -Has ear pain, pulls at his or her ears, or shows other signs of having an ear infection Colds usually last 3 to 7 days in adults and 10 days in children, but some people have symptomsfor up to 2 weeks. The most important thing you can do is to wash your hands often with soap and water. Alcohol hand rubs work well, too. The germs that cause the common cold can live on tables, door handles, and other surfaces for at least 2 hours. You never know when you might be touching germs. That's why it's so important to clean your hands often.
[2018-04-05 12:03] LABS: Hematocrit 36 % (35-47); Hemoglobin 12.3 g/dl (12.0-16.0); Mean Corpuscular HGB Conc 34 g/dl (31-36); Mean Corpuscular Hemoglobin 30 pg (27-31); Mean Corpuscular Volume 88 fL (80-97); Mean Platelet Volume 7.2 fL (7.4-10.4); Platelet Count 360 10^3/ul (150-450); Red Blood Count 4.13 10^6/ul (4.00-5.40); Red Cell Distribution Width 14 % (10.5-15); White Blood Count 12.3 10^3/ul (3.5-10.8)
[2018-04-05 12:26] LABS: EGFR Non-African American 41.4 (>60)
[2018-04-05] MEDS ORDERED: Potassium Chlor TAB* 20 MEQ TAB.ER PO ONE ×2 (12:37→17:32)
[2018-04-05] MEDS ORDERED: Magnesium Oxide TAB* 400 MG PO ONE (12:37)
[2018-04-05] MEDS ORDERED: Iodixanol* (CONTRAST) 320 MG/ML 100 ML SDV IV ONE (12:44)
[2018-04-05 12:49] LABS: Monocytes % 13 %
[2018-04-05 12:50] LABS: ABS Neutrophils 9.3 10^3/ul (1.5-7.7)
[2018-04-05 12:51] LABS: ABS Basophils 0.1 10^3/ul (0-0.2)
[2018-04-05 13:56] LABS: Urine Appearance Turbid; Urine Blood 1+ (Negative); Urine Color Amber; Urine Ketones Negative (Negative); Urine Protein 1+(30 mg/dL) (Negative); Urine Red Blood Cell 2+(6-10/hpf) (Absent); Urine Specific Gravity 1.028 (1.010-1.030); Urine Urobilinogen Negative (Negative); Urine White Blood Cell 3+(>20/hpf) (Absent)
--- NOTE | 2018-04-05 14:41 | PN ---
Progress Note - Progress Note Date of Service: 04/05/18 Note: Results called by lab to me at 2:37 PM to make aware of positive C. difficile results. Spoke with Dr. Daniel at 2:45pm
[2018-04-05] MEDS ORDERED: Vancomycin CAP* 125 MG CAP PO ONE (14:54)
[2018-04-05] MEDS ORDERED: Ondansetron INJ* 2 MG/ML VIAL IV PRN (16:46)
[2018-04-05] MEDS: NS 0.9% 1000 ML* 2,000 ML IV SCH ×2 (18:37→20:22)
[2018-04-05] MEDS: Acetaminophen TAB* 325 MG PO PRN (18:37)
--- NOTE | 2018-04-05 20:50 | HP ---
CC: Braydon Landeros NP; Dr. Bush * HISTORY AND PHYSICAL: DATE OF ADMISSION: 04/05/18 PROVIDER: Theresa Page NP PRIMARY CARE PROVIDER: Braydon Landeros NP GI PHYSICIAN: Dr. Bush at [facility]. ATTENDING PHYSICIAN IN THE HOSPITAL: Dr. Hernandes * (dictated by Theresa Page NP). CHIEF COMPLAINT: Diarrhea, body aches, fever, and chills. HISTORY OF PRESENT ILLNESS: Ms. Moreno is a 62-year-old female with a past medical history significant for hypertension and ulcerative colitis. She presented to the ED with a 5-day history of body aches, fever and chills, lack of appetite, fatigue, nausea, vomiting, mild diffuse abdominal pain, and diarrhea with 5 to 6 episodes per day. The patient denies seeing any blood in her diarrhea. She denied runny nose, sore throat, chest pain, shortness of breath, headache, dysuria. She denied recent antibiotic use and states she was in her normal state of health prior to this incident. Of note, she was afebrile upon initial presentation to the ED, but was tachycardic up to the 130s and had a blood pressure of 87/56. Her labs are notable for a lactic acid of 2.2, a CRP of 312.46, a procalcitonin of 2.5, multiple electrolyte imbalances and a white blood cell count of 12.3. Her stool was tested for C. diff and came back positive. She also had an abdominal and pelvis CT, which showed relatively severe colitis. The patient was given 2.3 L of IV fluids, received an initial dose of Zosyn and was then started on p.o. vanco for the C. diff. Hospitalist team was asked to admit the patient for antibiotics and IV hydration in the setting of her C. diff. PAST MEDICAL HISTORY: 1. Hypertension. 2. Ulcerative Colitis PAST SURGICAL HISTORY: None. HOME MEDICATIONS: Lisinopril 20 mg p.o. daily. ALLERGIES: SULFA DRUGS with an unknown reaction. FAMILY HISTORY: The patient endorses hypertension in her father. No family history of diabetes or cancer. SOCIAL HISTORY: The patient is a former smoker, but quit 20 years ago. At that time, she did smoke 1 pack of cigarettes per day. The patient does endorse daily marijuana use. The patient does not use alcohol or other drugs. The patient would like to be a full code and the patient's medical decision maker is her sister, Carolina Moreno. REVIEW OF SYSTEMS: I performed a 14-point review of systems. All the pertinent positives and negatives are mentioned in the history of present illness. The remaining review of systems are negative. PHYSICAL EXAMINATION GENERAL APPEARANCE: The patient is alert, pleasant, appears to be in no acute distress. VITAL SIGNS: Temperature 98.7, heart rate 102, respiratory rate 15, oxygen saturation 97% on room air, blood pressure 96/64. HEENT: Normocephalic, atraumatic. Pupils are equal, round, and reactive to light and accommodation. Extraocular movements are intact. Oral mucosa is dry. NECK: Supple. No lymphadenopathy noted. No JVD appreciated. RESPIRATORY: No accessory muscle use and lungs are clear to auscultation. Normal work of breathing. CARDIAC: Regular rate and rhythm. S1 and S2 present. No murmurs, rubs, or gallops. ABDOMEN: Soft, nondistended; however, diffusely tender, more tender on the left side than on the right. There are bowel sounds x4. EXTREMITIES: There is no lower extremity edema. DP and PT pulses are 2+ and symmetric. MUSCULOSKELETAL: No clubbing or cyanosis noted. The patient exhibited 5/5 strength in all 4 extremities. NEURO: The patient is alert and oriented x3. PSYCH: The patient is calm and cooperative. SKIN: There are no rashes or abnormalities seen. DIAGNOSTIC STUDIES/LAB DATA: Labs: White blood cell count 12.3, RBC 4.13, hemoglobin 12.3, hematocrit 36, platelet count 360. ESR 95. Sodium 128, potassium 3.0, chloride 94, carbon dioxide 22, anion gap 12, BUN 16, creatinine 1.31, glucose 114. Lactic acid 2.2 initially, then 2.4. Calcium 8.5. Magnesium 1.8. Total bili 1, AST 16, ALT 12, alk phos 95. Ammonia 41. Total CK 124. Troponin 0. C- reactive protein 312.46. BNP 33. Total protein 7.1. Albumin 3.3, globulin 3.8, albumin/globulin ratio 0.9. Amylase 55, lipase 20. Procalcitonin 2.5. Flu A and B negative. Urine: Protein 1+, blood 1+, leuk esterase trace, urine white blood cell count 3+, urine rbc 2+, urine bacteria 1+ . Diagnostics: Abdomen, pelvis CT findings most consistent with relatively severe colitis, hepatic steatosis. The patient had an EKG, which showed sinus tachycardia without evidence of ischemia or infarction. ASSESSMENT: The patient is a 62-year-old female with past medical history significant for hypertension and irritable bowel who presented to the ED with a multi-day history of diarrhea with multiple episodes per day, nausea, vomiting, abdominal pain that was diffuse, fever, and general malaise who was found to have Clostridium diff and admitted to the hospitalist service for management of her infection. PLAN: 1. C. diff. Colitis The patient does meet sepsis criteria upon admission with an elevated white blood cell count, a lactic acid of 2.2, and tachycardia. Her tachycardia is resolving with IV fluid administration; however, her lactic acid is slightly elevated upon repeat to 2.4. The patient has had diarrhea and nausea and vomiting for multiple days, so I suspect that she is severely volume depleted and I have ordered additional fluid bolus and maintenance fluids at 125 mL per hour. The patient has been started on p.o. vanco 4 times a day. She did have a CT abdomen and pelvis, which showed relatively severe colitis. The patient does have a history of Ulcerative Colitis, so I will considered a GI consult if symptoms to not improve with antibiotics, as she might need further treatment with steroids. Of note, the pt does not report seeing any blood or mucous in her stool. 2. Hypertension. I will hold the patient's lisinopril in the setting of hypotension. 3. Fluids, electrolytes, and nutrition: The patient has multiple electrolyte abnormalities at present including hyponatremia to 128, hypokalemia to 3.0, chloride to 94, creatinine of 1.31, and magnesium of 1.8. The patient's potassium and magnesium were repleted in the ED. I will recheck these labs at 2000 as well as lactic acid and replete additionally as necessary. I will also continue her IV fluid hydration as I suspect these abnormalities are largely due to hypovolemia 4. Diet: The patient can have a regular diet as tolerated. 5. DVT prophylaxis: Heparin subcu. 6. Code status: Full code. 8. Disposition: Observation. Anticipate discharge to home when medically stable. TIME SPENT: Time spent for this admission was 60 minutes, 35 minutes was spent with the patient discussing medications, past medical history, and events leading up to the arrival today and performing a physical exam. Case has been reviewed with the attending, Dr. Hernandes, who agrees with the plan of care. THERESA PAGE NP [id number]/[facility] #: [id number] T[place]
[2018-04-05] MEDS: NS 0.9% 1000 ML* 1,000 ML IV SCH (21:53)
[2018-04-05] MEDS: Vancomycin CAP* 125 MG CAP PO SCH (21:54)
[2018-04-05] MEDS: Heparin VIAL(*) 5000 UNITS/ML VIAL (FIVE THOUSAND) SUBCUT SCH (21:55)
[2018-04-05] MEDS ORDERED: Calcium Carbonate CHEW TAB* 500 MG (TUMS) PO ONE (22:02)
[2018-04-06] MEDS: Heparin VIAL(*) 5000 UNITS/ML VIAL (FIVE THOUSAND) SUBCUT SCH ×3 (05:16→21:07)
[2018-04-06] MEDS: NS 0.9% 1000 ML* 1,000 ML IV SCH (05:59)
[2018-04-06 09:06] LABS: EGFR Non-African American 85.4 (>60)
[2018-04-06] MEDS: Vancomycin CAP* 125 MG CAP PO SCH ×4 (09:24→21:06)
[2018-04-06 10:13] LABS: Hematocrit 32 % (35-47); Hemoglobin 10.8 g/dl (12.0-16.0); Mean Corpuscular HGB Conc 34 g/dl (31-36); Mean Corpuscular Hemoglobin 30 pg (27-31); Mean Corpuscular Volume 89 fL (80-97); Platelet Count 310 10^3/ul (150-450); Red Cell Distribution Width 14 % (10.5-15); White Blood Count 8.1 10^3/ul (3.5-10.8)
--- NOTE | 2018-04-06 10:50 | PN ---
Subjective Date of Service: 04/06/18 Interval History: Patient still with diffuse abdominal pain, sharp at times, 6/10 with bowel movements, and resting abdominal pain of 4/10. Pt still with very little appetite, but no nausea/vomiting and has been able to sip some liquids. Diarrhea has slowed somewhat from every few minutes to every two hours, as she is now able to make it to the bathroom, which she was not able to do yesterday. Bms are liquid light brown with no visible blood or mucous. Pt notes swelling in feet after yesterday's fluid resuscitation. IVF stopped as BP and electrolyte abnormalities have stabilized and pt is taking PO. Denies chest pain , shortness of breath, headache, dizziness. Objective Active Medications: Acetaminophen (Tylenol Tab*) 650 mg PO Q4H PRN PRN Reason: FEVER/PAIN Last Admin: 04/05/18 18:37 Dose: 650 mg Heparin Sodium (Porcine) (Heparin Vial(*)) 5,000 units SUBCUT Q8HR [facility] Last Admin: 04/06/18 05:16 Dose: 5,000 units Sodium Chloride (Ns 0.9% 1000 Ml*) 1,000 mls @ 125 mls/hr IV PER RATE [facility] Last Admin: 04/06/18 05:59 Dose: 125 mls/hr Lisinopril (Prinivil Tab*) 20 mg PO DAILY [facility] Ondansetron HCl (Zofran Inj*) 4 mg IV Q4H PRN PRN Reason: NAUSEA/VOMITING Last Admin: 04/05/18 21:53 Dose: 4 mg Tramadol HCl (Ultram*) 50 mg PO Q6HR PRN PRN Reason: PAIN Vancomycin HCl (Vancomycin Cap*) 125 mg PO QID [facility] Last Admin: 04/06/18 09:24 Dose: 125 mg Vital Signs - 8 hr 04/06/18 04/06/18 04/06/18 03:54 08:07 09:47 Temperature 99.4 F 99.3 F Pulse Rate 99 107 Respiratory 20 20 20 Rate Blood Pressure 120/69 137/64 (mmHg) O2 Sat by Pulse 100 98 Oximetry Oxygen Devices in Use Now: None Eyes: No Scleral Icterus, PERRLA Ears/Nose/Mouth/Throat: NL Teeth, Lips, Gums, Mucous Membranes Moist Neck: NL Appearance and Movements; NL JVP, Trachea Midline Respiratory: Symmetrical Chest Expansion and Respiratory Effort, Clear to Auscultation Cardiovascular: NL Sounds; No Murmurs; No JVD, RRR Abdominal: - - Abdomen soft but distended. Tender to palpation across entire abdomen, but worse on right today. Extremities: - - +1 pedal edema. 2+ Dp and PT pulses Skin: No Rash or Ulcers Neurological: Alert and Oriented x 3 Nutrition: Taking PO's Result Diagrams: 04/06/18 10:00 04/06/18 10:00 Microbiology and Other Data: Microbiology 04/05/18 13:29 Stool Gross Appearance - Final Stool C. difficile DNA Amplification - Final 027 Presumptive NEGATIVE Toxigenic C.diff POSITIVE Stool Lactoferrin - Final 04/05/18 19:45 Stool Gross Appearance - Final Stool 04/05/18 11:46 Influenza Types A,B Antigen - Final Nasal Specimen received for Influenza A/B Molecular testing Assess/Plan/Problems-Billing Assessment: Ms. Moreno is a 62 year old female with a PMH HTN, Ulcerative Colitis, presented with 5 day history of diarrhea, fever/chills, general malaise , abd pain, nausea/vomiting. Admitted with C diff. - Patient Problems (1) C. difficile colitis Current Visit: Yes Status: Acute Comment: - Pt does also have history of Ulcerative Colitis with hospitalizations for flareups requiring steroids. Pt reports no blood or mucous in stool at present - Pt still with profuse diarrhea, but decreasing in frequency, abdominal pain persists. Reports not really eating solid foods yet. Continue treatment with PO Vanco, pain control - ID consult requested as pt still with low grade fevers. Appreciate reqs. Leukocytosis has resolved but CRP still 291 - Consider GI consult if symptoms do not improve (2) Sepsis Current Visit: Yes Status: Acute Comment: - Resolved. Lactic acidosis and leukocytosis have resolved. - Hypotension and electrolye imbalances resolved with IVF (3) Colitis Current Visit: No Status: Acute Comment: - hx of Ulcerative Colitis requiring prednisone therapy. Pt does not report any bloody stools, hemodynamically stable and electrolye imbalances are improving. No leukocytosis. - Will continue abx and consider GI consult if symptoms do not improve to evaluate need for steroids (4) HTN (hypertension) Current Visit: No Status: Acute Code(s): I10 - ESSENTIAL (PRIMARY) HYPERTENSION SNOMED Code(s): 56930908 Comment: - Normotensive after IVF. Likely resume lisinopril tomrrow (5) DVT prophylaxis Current Visit: No Status: Acute Code(s): HYN2922 - SNOMED Code(s): 907665226 Comment: - SQ heparin (6) Full code status Current Visit: No Status: Acute Code(s): Z78.9 - OTHER SPECIFIED HEALTH STATUS SNOMED Code(s): 928988421 Status and Disposition: Obs.
[2018-04-06 11:34] LABS: Monocytes % 13 %
[2018-04-06 11:37] LABS: ABS Basophils 0.08 10^3/ul (0-0.2); ABS Neutrophils 5.75 10^3/ul (1.5-7.7)
[2018-04-06] MEDS: Acetaminophen TAB* 325 MG PO PRN ×2 (12:03→21:06)
[2018-04-06] MEDS: traMADol TAB* 50 MG PO PRN ×2 (12:03→21:06)
[2018-04-07 00:20] LABS: Hematocrit 30 % (35-47); Hemoglobin 10.2 g/dl (12.0-16.0); Mean Corpuscular HGB Conc 34 g/dl (31-36); Mean Corpuscular Hemoglobin 30 pg (27-31); Mean Corpuscular Volume 88 fL (80-97); Mean Platelet Volume 7.1 fL (7.4-10.4); Platelet Count 306 10^3/ul (150-450); Red Cell Distribution Width 14 % (10.5-15); White Blood Count 9.4 10^3/ul (3.5-10.8)
[2018-04-07] MEDS ORDERED: NS 0.9% 500 ML* 500 ML IV ONE (01:47)
[2018-04-07] MEDS: Heparin VIAL(*) 5000 UNITS/ML VIAL (FIVE THOUSAND) SUBCUT SCH ×3 (05:55→21:10)
--- NOTE | 2018-04-07 06:12 | PN ---
Hospitalist Progress Note Date of Service: 04/07/18 pt was found to have fever spike to 102.7 responded to tylenol. mccormick cx done except she has kept missing the fat for urine collection chest x ray did not reveal any acute change cbc and lactate wnl ---> currently still has c diff as per staff abd is soft no further abx was given will need to send ua when she is able to urinate in am
[2018-04-07 07:33] LABS: Hematocrit 29 % (35-47); Mean Corpuscular HGB Conc 34 g/dl (31-36); Mean Corpuscular Hemoglobin 30 pg (27-31); Mean Corpuscular Volume 87 fL (80-97); Mean Platelet Volume 6.8 fL (7.4-10.4); Platelet Count 292 10^3/ul (150-450); Red Blood Count 3.38 10^6/ul (4.00-5.40); Red Cell Distribution Width 14 % (10.5-15); White Blood Count 9.3 10^3/ul (3.5-10.8)
[2018-04-07 07:54] LABS: EGFR Non-African American 94.7 (>60)
[2018-04-07 08:46] LABS: Monocytes % 10 %
[2018-04-07] MEDS ORDERED: Lisinopril TAB* 10 MG PO SCH (09:00)
[2018-04-07] MEDS: Vancomycin CAP* 125 MG CAP PO SCH ×4 (09:01→21:08)
[2018-04-07] MEDS ORDERED: Potassium Chlor TAB* 20 MEQ TAB.ER PO ONE (09:36)
[2018-04-07 09:39] LABS: ABS Neutrophils 6.88 10^3/ul (1.5-7.7)
[2018-04-07 09:57] LABS: Urine Appearance Clear; Urine Blood 2+ (Negative); Urine Color Amber; Urine Ketones Trace (Negative); Urine Protein Negative (Negative); Urine Red Blood Cell 3+(>10/hpf) (Absent); Urine Specific Gravity 1.018 (1.010-1.030); Urine Urobilinogen Negative (Negative); Urine White Blood Cell Trace(0-5/hpf) (Absent)
[2018-04-07] MEDS: Acetaminophen TAB* 325 MG PO PRN ×2 (13:15→18:25)
--- NOTE | 2018-04-07 16:01 | PN ---
Subjective Date of Service: 04/07/18 Interval History: Pt reports diarrhea slowing somewhat. Reports 5 watery stools since 7 am this morning. Stool quality is unchanged, light brown without blood or mucous. Abdominal pain improving. No longer having sharp pains, now more dull generalized abdominal discomfort. She does have slightly more of an appetite today. Pt does continue to spike temps with a fever of 102.1 last night. Pt reports feeling swollen as they gave her 2 more liters of IVF boluses last night. Denies chest pain, shortness of breath, nausea/vomiting, dizziness, headache. Objective Active Medications: Acetaminophen (Tylenol Tab*) 650 mg PO Q4H PRN PRN Reason: FEVER/PAIN Last Admin: 04/07/18 13:15 Dose: 650 mg Heparin Sodium (Porcine) (Heparin Vial(*)) 5,000 units SUBCUT Q8HR [facility] Last Admin: 04/07/18 14:32 Dose: 5,000 units Ondansetron HCl (Zofran Inj*) 4 mg IV Q4H PRN PRN Reason: NAUSEA/VOMITING Last Admin: 04/05/18 21:53 Dose: 4 mg Tramadol HCl (Ultram*) 50 mg PO Q6HR PRN PRN Reason: PAIN Last Admin: 04/06/18 21:06 Dose: 50 mg Vancomycin HCl (Vancomycin Cap*) 125 mg PO QID [facility] Last Admin: 04/07/18 13:17 Dose: 125 mg Vital Signs - 8 hr 04/07/18 04/07/18 08:40 11:46 Temperature 99.2 F 100.3 F Pulse Rate 103 95 Respiratory 18 18 Rate Blood Pressure 111/70 119/66 (mmHg) O2 Sat by Pulse 96 98 Oximetry Oxygen Devices in Use Now: None Eyes: No Scleral Icterus, PERRLA Ears/Nose/Mouth/Throat: NL Teeth, Lips, Gums Neck: NL Appearance and Movements; NL JVP, Trachea Midline Respiratory: Symmetrical Chest Expansion and Respiratory Effort, Clear to Auscultation Cardiovascular: NL Sounds; No Murmurs; No JVD, RRR Abdominal: - - Abdomen soft, non distended. Diffusely tender. Bowel sounds present x 4 Extremities: - - Trace peripheral edema Skin: No Rash or Ulcers Neurological: Alert and Oriented x 3, NL Sensation, NL Muscle Strength and Tone Nutrition: Taking PO's Result Diagrams: 04/07/18 07:25 04/07/18 07:25 Microbiology and Other Data: Microbiology 04/05/18 13:29 Stool Gross Appearance - Final Stool C. difficile DNA Amplification - Final 027 Presumptive NEGATIVE Toxigenic C.diff POSITIVE Stool Lactoferrin - Final 04/05/18 19:45 Stool Gross Appearance - Final Stool 04/05/18 11:46 Influenza Types A,B Antigen - Final Nasal Specimen received for Influenza A/B Molecular testing Assess/Plan/Problems-Billing Assessment: Ms. Moreno is a 62 year old female with a H HTN, Ulcerative Colitis, presented with 5 day history of diarrhea, fever/chills, general malaise , abd pain, nausea/vomiting. Admitted with C diff. Still with fevers - Patient Problems (1) C. difficile colitis Current Visit: Yes Status: Acute Comment: - Pain and diarrhea frequency improving. Still with 5 loose stools since this AM. Still with fevers, T max 102 last night. Was pancultured again. Spoke with Dr Jean who feels she does not need to have any more repeat cultures if she spikes a fever again tonight. - Continue treatment with PO Vanco, pain control - Pt does also have history of Ulcerative Colitis with hospitalizations for flareups requiring steroids. Pt reports no blood or mucous in stool at present. Consider GI consult if symptoms do not improve - ID following, appreciate reqs. Pt should follow up with him within the week after she is discharged. (2) Sepsis Current Visit: Yes Status: Acute Comment: - Lactic acidosis and leukocytosis present on admission have resolved. Did have fever and tachycardia last night and recieved additional IVF bolus. Continue treatment as above. - Hypotension and electrolye imbalances resolved with IVF (3) Colitis Current Visit: No Status: Acute Comment: - hx of Ulcerative Colitis requiring prednisone therapy. Pt does not report any bloody stools, hemodynamically stable and electrolye imbalances are improving. No leukocytosis. - Will continue abx and consider GI consult if symptoms do not improve to evaluate need for steroids (4) HTN (hypertension) Current Visit: No Status: Acute Code(s): I10 - ESSENTIAL (PRIMARY) HYPERTENSION SNOMED Code(s): 46857116 Comment: - SBP 100s-120s. Continue holding lisinopril. Recieved an additioanl 2L IVF last night and pt has trace peripheral edema so will hold off on additioanl IVF at this time (5) Anemia Current Visit: Yes Status: Acute Code(s): D64.9 - ANEMIA, UNSPECIFIED SNOMED Code(s): 257104607 Comment: - Normocytic normochromic. I suspect this is dilutional since the pt has received ~8L of IVF in 2 days (6) DVT prophylaxis Current Visit: No Status: Acute Code(s): JKR8929 - SNOMED Code(s): 148277653 Comment: - SQ heparin (7) Full code status Current Visit: No Status: Acute Code(s): Z78.9 - OTHER SPECIFIED HEALTH STATUS SNOMED Code(s): 389548210 Status and Disposition: Inpatient. Anticipate discharge home when medically stable
--- NOTE | 2018-04-07 20:04 | CONS ---
CONSULTATION REPORT: DATE OF CONSULT: 04/07/18 PROVIDER: Theresa Malone NP CONSULTING SERVICE: Infectious Disease. REASON FOR CONSULT: C. diff colitis. IMPRESSION: 1. Severe acute diarrhea with abdominal pain, fever, mild leucocytosis, Clostridium difficile PCR positive. She has Clostridium difficile colitis, improving. 2. Fever due to Clostridium difficile colitis, may continue another day or so. Expected diarrhea is going to continue for a couple of days, though it is improving over time. 3. History of inflammatory bowel disease, on no particular treatment now. RECOMMENDATION: Continue vancomycin 125 mg by mouth 4 times a day to complete a 14- day course. If she has more fevers tonight, I would not reculture or re-x -ray. If she leaves the hospital over the weekend, she can follow up with me next week, otherwise, I will see her Tuesday. Please call with questions. HISTORY OF PRESENT ILLNESS: This is a 62-year-old woman with a history of colitis, described as ulcerative colitis. She is unsure of final diagnosis. She was in her usual state of health, which included a formed stool a day and then about a week ago developed abdominal pain, diarrhea, fever, sweats, malaise , myalgia; those symptoms worsened despite Imodium. She came to the hospital on Tuesday, had a white count of 12,000. She was febrile. She was started on vancomycin after a C. diff study came back positive, fecal leukocytes were positive as well. The stool cultures are pending. Blood cultures have been negative. She has had a low-grade fever Tuesday night and then last night she had a fever of 102. She had a re- blood culture and urine culture, x-ray, which are unremarkable. Today, she is feeling better. She went from having bowel movements every 20 minutes about the time she came to the hospital, now she is down to 4 to 6 bowel movements a day, which are still liquid and air. Her abdominal pain continues, it is mostly on the left. It is much better than when she got here. She has not had antibiotics recently before she came to the hospital, but she has used Tums off and on. PAST MEDICAL HISTORY: 1. Inflammatory bowel disease. 2. Hypertension. MEDICATIONS: 1. Tylenol. 2. Heparin subcutaneous injection. 3. Zofran. 4. Tramadol. 5. Vancomycin 125 mg by mouth 4 times a day. ALLERGIES: SULFA, unknown reaction. FAMILY HISTORY: No recurrent infections. 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 She lives in [place]. No travel. No sick contacts. REVIEW OF SYSTEMS: All negative except as noted above to a 14-point review. PHYSICAL EXAM: Vital Signs: Temperature 38, heart rate 90, respiratory rate 18 , blood pressure 120/60, oxygen saturation 98% on room air. In general, she is awake, not in distress. Neurologic: She is oriented x3. Follows all commands. HEENT: There is no conjunctival hemorrhage. Oropharynx without lesion. Heart is regular rate and rhythm without murmurs, rubs, or gallops. Neck: Neck is supple without masses. Lungs are clear to auscultation bilaterally. Abdomen: Soft, bowel sounds are present with no tenderness to palpation. There is no rebound. Skin: There is no rash or splinter hemorrhage. Musculoskeletal: No spine tenderness to palpation. LABORATORY DATA: White blood cell count 9, hemoglobin 10, platelets 292. Creatinine 0.6. CRP 290. Influenza PCR negative. Urinalysis shows blood. Please see impressions and recommendations as outlined above, which are discussed with Theresa Malone NP. Thank you for asking me to see Ms. Moreno in consultation. [id number]/[facility] #: [id number] [place]
[2018-04-07] MEDS: traMADol TAB* 50 MG PO PRN (21:09)
[2018-04-08] MEDS: Heparin VIAL(*) 5000 UNITS/ML VIAL (FIVE THOUSAND) SUBCUT SCH ×3 (06:02→21:18)
[2018-04-08] MEDS: Vancomycin CAP* 125 MG CAP PO SCH ×4 (08:51→21:20)
[2018-04-08] MEDS: Acetaminophen TAB* 325 MG PO PRN ×2 (08:55→19:46)
[2018-04-08 09:47] LABS: Hematocrit 31 % (35-47); Hemoglobin 10.5 g/dl (12.0-16.0); Mean Corpuscular HGB Conc 34 g/dl (31-36); Mean Corpuscular Hemoglobin 30 pg (27-31); Mean Corpuscular Volume 87 fL (80-97); Mean Platelet Volume 7.1 fL (7.4-10.4); Platelet Count 344 10^3/ul (150-450); Red Blood Count 3.54 10^6/ul (4.00-5.40); Red Cell Distribution Width 14 % (10.5-15); White Blood Count 12.4 10^3/ul (3.5-10.8)
[2018-04-08 10:12] LABS: EGFR Non-African American 96.4 (>60)
[2018-04-08 10:34] LABS: ABS Basophils 0 10^3/ul (0-0.2); ABS Eosinophils 0.1 10^3/ul (0-0.6); ABS Lymphocytes 1.3 10^3/ul (1.0-4.8); ABS Monocytes 1.1 10^3/ul (0-0.8); ABS Neutrophils 9.8 10^3/ul (1.5-7.7)
[2018-04-08 10:38] LABS: Monocytes % 5 %
[2018-04-08 10:40] LABS: ABS Neutrophils 9.7 10^3/ul (1.5-7.7)
[2018-04-08] MEDS ORDERED: Potassium Chlor TAB* 20 MEQ TAB.ER PO ONE ×2 (14:02→14:51)
[2018-04-08] MEDS ORDERED: Potassium Chloride LIQUID* 20 MEQ PACKET PO ONE (14:12)
--- NOTE | 2018-04-08 14:18 | PN ---
Subjective Date of Service: 04/08/18 Interval History: Patient is feeling more lethargic today. Patient still states she has had greater than 10 BMs in the past 24 hours but feels as if they are slowing down. Patient endorses moderate abdominal pain worse with sitting up. Patient denies CP, SOB, dysuria, palpitations, dizziness, F/C, hematochezia, or other pain. Family History: Unchanged from Admission Social History: Unchanged from Admission Past Medical History: Unchanged from Admission Objective Active Medications: Acetaminophen (Tylenol Tab*) 650 mg PO Q4H PRN PRN Reason: FEVER/PAIN Last Admin: 04/08/18 08:55 Dose: 650 mg Heparin Sodium (Porcine) (Heparin Vial(*)) 5,000 units SUBCUT Q8HR [facility] Last Admin: 04/08/18 13:44 Dose: 5,000 units Ondansetron HCl (Zofran Inj*) 4 mg IV Q4H PRN PRN Reason: NAUSEA/VOMITING Last Admin: 04/05/18 21:53 Dose: 4 mg Potassium Chloride (Klor Con Er Tab*) 20 meq PO DAILY [facility] Potassium Chloride (Klor-Con Liquid*) 40 meq PO ONCE ONE Stop: 04/08/18 14:13 Tramadol HCl (Ultram*) 50 mg PO Q6HR PRN PRN Reason: PAIN Last Admin: 04/07/18 21:09 Dose: 50 mg Vancomycin HCl (Vancomycin Cap*) 125 mg PO QID [facility] Last Admin: 04/08/18 13:39 Dose: 125 mg Vital Signs - 8 hr 04/08/18 04/08/18 06:45 08:10 Temperature 99.5 F Pulse Rate 98 Respiratory 16 16 Rate Blood Pressure 112/68 (mmHg) O2 Sat by Pulse 95 Oximetry Oxygen Devices in Use Now: None Appearance: Patient is a 62yo female who appears stated age and is sitting in the bed in [facility]. Eyes: No Scleral Icterus, PERRLA Ears/Nose/Mouth/Throat: NL Teeth, Lips, Gums, Clear Oropharnyx, Mucous Membranes Moist Neck: NL Appearance and Movements; NL JVP, Trachea Midline Respiratory: Symmetrical Chest Expansion and Respiratory Effort, Clear to Auscultation Cardiovascular: NL Sounds; No Murmurs; No JVD, RRR, No Edema Abdominal: No Hepatosplenomegaly, - - Hyperactive bowel sounds. Slightly tender to palpation diffusely. Lymphatic: No Cervical Adenopathy Extremities: No Edema, No Clubbing, Cyanosis Skin: No Rash or Ulcers, No Nodules or Sclerosis Neurological: Alert and Oriented x 3, NL Sensation, NL Muscle Strength and Tone , - - CN II-XII intact. Result Diagrams: 04/08/18 09:22 04/08/18 09:22 Microbiology and Other Data: Microbiology 04/05/18 13:29 Stool Gross Appearance - Final Stool C. difficile DNA Amplification - Final 027 Presumptive NEGATIVE Toxigenic C.diff POSITIVE Stool Lactoferrin - Final 04/05/18 19:45 Stool Gross Appearance - Final Stool 04/05/18 11:46 Influenza Types A,B Antigen - Final Nasal Specimen received for Influenza A/B Molecular testing Assess/Plan/Problems-Billing Assessment: Ms. Moreno is a 62 year old female with a H HTN, Ulcerative Colitis, presented with 5 day history of diarrhea, fever/chills, general malaise , abd pain, nausea/vomiting. Admitted with C diff with gradual fluctuating improvement in both general feelings of wellness and diarrhea but still with significant electrolyte imbalance and fatigue. - Patient Problems (1) C. difficile colitis Current Visit: Yes Status: Acute Comment: - Pain and diarrhea frequency improving. - Still with numerous loose stools - Continue treatment with PO Vanco, no need for excalation of therapy. - Pt does also have history of Ulcerative Colitis with hospitalizations for flareups requiring steroids. Not likely UC flare. - ID following, appreciate input. Pt should follow up with him within the week after she is discharged. (2) Sepsis Current Visit: Yes Status: Acute Comment: - Improved, from C. diff - Still normotensive off BP meds. (3) HTN (hypertension) Current Visit: No Status: Acute Code(s): I10 - ESSENTIAL (PRIMARY) HYPERTENSION SNOMED Code(s): 83680913 Comment: - Normotensive, hold BP meds. (4) DVT prophylaxis Current Visit: No Status: Acute Code(s): GHV0663 - SNOMED Code(s): 391213693 Comment: - SQ heparin (5) Full code status Current Visit: No Status: Acute Code(s): Z78.9 - OTHER SPECIFIED HEALTH STATUS SNOMED Code(s): 834321623 Status and Disposition: Inpatient. Anticipate discharge home when medically stable
[2018-04-08] MEDS ORDERED: Magnesium Sulfate 2 GM IV* 2 GM/50 ML BAG IVPB ONE (15:56)
[2018-04-08] MEDS: traMADol TAB* 50 MG PO PRN (21:17)
[2018-04-09] MEDS: Acetaminophen TAB* 325 MG PO PRN ×2 (06:28→16:10)
[2018-04-09] MEDS: Heparin VIAL(*) 5000 UNITS/ML VIAL (FIVE THOUSAND) SUBCUT SCH ×3 (06:28→20:16)
[2018-04-09 07:13] LABS: Hematocrit 31 % (35-47); Hemoglobin 10.4 g/dl (12.0-16.0); Mean Corpuscular HGB Conc 34 g/dl (31-36); Mean Corpuscular Hemoglobin 29 pg (27-31); Mean Corpuscular Volume 86 fL (80-97); Mean Platelet Volume 6.9 fL (7.4-10.4); Platelet Count 368 10^3/ul (150-450); Red Blood Count 3.56 10^6/ul (4.00-5.40); Red Cell Distribution Width 14 % (10.5-15); White Blood Count 12.8 10^3/ul (3.5-10.8)
[2018-04-09 07:32] LABS: EGFR Non-African American 91.4 (>60)
[2018-04-09 07:51] LABS: ABS Basophils 0 10^3/ul (0-0.2); ABS Eosinophils 0.1 10^3/ul (0-0.6); ABS Lymphocytes 1.7 10^3/ul (1.0-4.8)
[2018-04-09 07:53] LABS: Monocytes % 9 %
[2018-04-09] MEDS: Potassium Chlor TAB* 20 MEQ TAB.ER PO SCH (09:01)
[2018-04-09] MEDS: Vancomycin CAP* 125 MG CAP PO SCH ×4 (09:01→20:16)
--- NOTE | 2018-04-09 14:24 | PN ---
Subjective Date of Service: 04/09/18 Interval History: Patient feels better today. Patient feels as if she has more energy. Patient had fevers overnight but has not had recurrences after taking tylenol. Patient denies CP, SOB, dysuria, dizziness, palpitations, or other pain. Patient is anxious about going home given clinical course. Family History: Unchanged from Admission Social History: Unchanged from Admission Past Medical History: Unchanged from Admission Objective Active Medications: Acetaminophen (Tylenol Tab*) 650 mg PO Q4H PRN PRN Reason: FEVER/PAIN Last Admin: 04/09/18 06:28 Dose: 650 mg Heparin Sodium (Porcine) (Heparin Vial(*)) 5,000 units SUBCUT Q8HR [facility] Last Admin: 04/09/18 13:11 Dose: Not Given Ondansetron HCl (Zofran Inj*) 4 mg IV Q4H PRN PRN Reason: NAUSEA/VOMITING Last Admin: 04/05/18 21:53 Dose: 4 mg Potassium Chloride (Klor Con Er Tab*) 20 meq PO DAILY [facility] Last Admin: 04/09/18 09:01 Dose: 20 meq Tramadol HCl (Ultram*) 50 mg PO Q6HR PRN PRN Reason: PAIN Last Admin: 04/08/18 21:17 Dose: 50 mg Vancomycin HCl (Vancomycin Cap*) 125 mg PO QID [facility] Last Admin: 04/09/18 13:02 Dose: 125 mg Vital Signs - 8 hr 04/09/18 04/09/18 08:00 08:20 Temperature 98.7 F Pulse Rate 94 Respiratory 20 16 Rate Blood Pressure 116/62 (mmHg) O2 Sat by Pulse 96 Oximetry Oxygen Devices in Use Now: None Appearance: Patient is a 62yo female who appears stated age and is sitting in the bed in [facility]. Eyes: No Scleral Icterus, PERRLA Ears/Nose/Mouth/Throat: NL Teeth, Lips, Gums, Clear Oropharnyx, Mucous Membranes Moist Neck: NL Appearance and Movements; NL JVP, Trachea Midline Respiratory: Symmetrical Chest Expansion and Respiratory Effort, Clear to Auscultation Cardiovascular: NL Sounds; No Murmurs; No JVD, RRR, No Edema Abdominal: No Hepatosplenomegaly, - - Diffusely tender to palpation. Hyperactive bowel sounds. No rebound or guarding. Lymphatic: No Cervical Adenopathy Extremities: No Clubbing, Cyanosis, - - Trace B/L LE edema. Skin: No Rash or Ulcers, No Nodules or Sclerosis Neurological: Alert and Oriented x 3, NL Sensation, NL Muscle Strength and Tone , - - CN II-XII intact. Result Diagrams: 04/09/18 06:42 04/09/18 06:42 Microbiology and Other Data: Microbiology 04/05/18 13:29 Stool Gross Appearance - Final Stool C. difficile DNA Amplification - Final 027 Presumptive NEGATIVE Toxigenic C.diff POSITIVE Stool Lactoferrin - Final 04/05/18 19:45 Stool Gross Appearance - Final Stool 04/05/18 11:46 Influenza Types A,B Antigen - Final Nasal Specimen received for Influenza A/B Molecular testing Assess/Plan/Problems-Billing Assessment: Ms. Moreno is a 62 year old female with a H HTN, Ulcerative Colitis, presented with 5 day history of diarrhea, fever/chills, general malaise , abd pain, nausea/vomiting. Admitted with C diff with gradual fluctuating improvement in both general feelings of wellness and diarrhea but still with significant electrolyte imbalance and fatigue. - Patient Problems (1) C. difficile colitis Current Visit: Yes Status: Acute Comment: - Pain and diarrhea frequency improving. - Still with numerous loose stools - Continue treatment with PO Vanco, no need for escalation of therapy. - Pt does also have history of Ulcerative Colitis with hospitalizations for flareups requiring steroids. Not likely UC flare. Discussed with GI, recommended sigmoidoscopy to help distinguish UC vs C. diff. 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 - ID following, appreciate input. Pt should follow up with him within the week after she is discharged. (2) Sepsis Current Visit: Yes Status: Acute Comment: - Improved, from C. diff - Still normotensive off BP meds. - WBC count and Bands increasing despite clinical improvement, continue to monitor. - No indication for additional fluids at this time. (3) HTN (hypertension) Current Visit: No Status: Acute Code(s): I10 - ESSENTIAL (PRIMARY) HYPERTENSION SNOMED Code(s): 66779606 Comment: - Normotensive, hold BP meds. (4) DVT prophylaxis Current Visit: No Status: Acute Code(s): HTS7055 - SNOMED Code(s): 307589782 Comment: - SQ heparin (5) Full code status Current Visit: No Status: Acute Code(s): Z78.9 - OTHER SPECIFIED HEALTH STATUS SNOMED Code(s): 557365393 Status and Disposition: Inpatient. Anticipate discharge home when medically stable
[2018-04-09] MEDS: traMADol TAB* 50 MG PO PRN (21:11)
[2018-04-10] MEDS: Heparin VIAL(*) 5000 UNITS/ML VIAL (FIVE THOUSAND) SUBCUT SCH (05:16)
[2018-04-10] MEDS: Acetaminophen TAB* 325 MG PO PRN (05:18)
[2018-04-10 08:03] LABS: EGFR Non-African American 89.8 (>60)
[2018-04-10 08:18] VITALS: BP 113/65
[2018-04-10] MEDS: Potassium Chlor TAB* 20 MEQ TAB.ER PO SCH (08:21)
[2018-04-10] MEDS: Vancomycin CAP* 125 MG CAP PO SCH (08:21)
[2018-04-10 08:52] LABS: Hematocrit 30 % (35-47); Hemoglobin 10.5 g/dl (12.0-16.0); Mean Corpuscular HGB Conc 35 g/dl (31-36); Mean Corpuscular Hemoglobin 30 pg (27-31); Mean Corpuscular Volume 86 fL (80-97); Red Blood Count 3.52 10^6/ul (4.00-5.40); Red Cell Distribution Width 14 % (10.5-15); White Blood Count 16.2 10^3/ul (3.5-10.8)
[2018-04-10 09:12] LABS: Mean Platelet Volume 7.7 fL (7.4-10.4); Platelet Count 318 10^3/ul (150-450)
[2018-04-10 09:16] LABS: ABS Basophils 0.3 10^3/ul (0-0.2); Monocytes % 7 %
[2018-04-10 09:18] LABS: ABS Neutrophils 11.7 10^3/ul (1.5-7.7)
--- NOTE | 2018-04-10 09:27 | PN ---
Progress Note - Progress Note Date of Service: 04/10/18 SOAP: Subjective: CC: diarrhea HPI: 62 year old woman with IBD and a week of diarrhea which is due to Cdif, down to a few soft stools per day with decrease in abd pain. Low grade fever overnight which she didn't feel. Appetite improving. Objective: Vital Signs Temp 36.8 C 04/10/18 07:56 Pulse 88 04/10/18 07:56 Resp 16 04/10/18 07:56 BP 113/65 04/10/18 07:56 Pulse Ox 97 04/10/18 07:56 Intake & Output 04/09/18 04/10/18 04/10/18 18:59 06:59 18:59 Intake Total 600 240 Balance 600 240 Intake: Oral 600 240 Gen:awake, no distress HEENT: no thrush Heart:RRR no murmur Lungs:CTA BL Abd:+BS NTND soft Skin: no rash Laboratory Results - last 24 hr 04/10/18 04/10/18 07:31 07:31 WBC 16.2 H RBC 3.52 L Hgb 10.5 L Hct 30 L MCV 86 MCH 30 MCHC 35 RDW 14 Plt Count 318 MPV 7.7 Neut % (Auto) Not Reportable Lymph % (Auto) Not Reportable Taney % (Auto) Not Reportable Eos % (Auto) Not Reportable Baso % (Auto) Not Reportable Absolute Neuts (auto) Not Reportable Absolute Lymphs (auto) Not Reportable Absolute Monos (auto) Not Reportable Absolute Eos (auto) Not Reportable Absolute Basos (auto) Not Reportable Absolute Nucleated RBC Not Reportable Immature Gran % 10 H Neutrophils % 62 Band Neutrophils % 9 H Lymphocytes % 18 Monocytes % 7 Eosinophils % 1 Basophils % 2 Metamyelocytes % 1 Nucleated RBC % Not Reportable Abs Neuts (Manual) 11.7 H Abs Lymphs (Manual) 2.9 Abs Monocytes (Manual) 1.1 H Absolute Eos (Manual) 0.2 Abs Basophils (Manual) 0.3 H Toxic Granulation 1+ Normal RBC Morphology Normal Sodium 131 L Potassium 3.7 Chloride 101 Carbon Dioxide 22 Anion Gap 8 BUN 8 Creatinine 0.67 Est GFR ( Amer) 108.6 Est GFR (Non-Af Amer) 89.8 BUN/Creatinine Ratio 11.9 Glucose 105 H Calcium 7.9 L Magnesium 2.0 Total Bilirubin 0.90 AST 29 ALT 21 Alkaline Phosphatase 159 H C-Reactive Protein 230.43 H Total Protein 5.8 L Albumin 2.4 L Globulin 3.4 Albumin/Globulin Ratio 0.7 L Assessment: 1. Cdif colitis, improving 2. fever due to #1 improving 3. leukocytosis, reactive due to #1 improving 4. IBD Plan: continue vancomycin po 4 times daily for 10 more days; return to er if high fever abd pain or worsening diarrhea; bland diet for a few days. fu with me 2 weeks Discussed with Cesar MOLINA
--- NOTE | 2018-04-12 22:59 | DS ---
CC: Braydon Landeros NP; Dr. Melvi Serrano; Dr. Denver Sotelo; Dr. Denise Bush. DISCHARGE SUMMARY: DATE OF ADMISSION: 04/05/18 DATE OF DISCHARGE: 04/10/18 PRIMARY CARE PROVIDER: Braydon Landeros NP. MY ATTENDING WHILE IN THE HOSPITAL: Dr. Melvi Serrano. CONSULTING INFECTIOUS DISEASE SPECIALIST: Dr. Denver Sotelo. OUTPATIENT BILL RECAPITULATION CLERK: Dr. Denise Bush. PRIMARY DISCHARGE DIAGNOSIS: Clostridium difficile colitis. SECONDARY DISCHARGE DIAGNOSES: 1. History of ulcerative colitis. 2. Hypertension. STUDIES DONE WHILE IN THE HOSPITAL: Abdomen and pelvis CT from 04/05/18 read as findings most consis tent with relatively severe colitis, hepatic steatosis. Chest x-ray from 04/06/18 read as no active cardiopulmonary disease. MEDICATIONS AT DISCHARGE: 1. Tramadol 50 mg p.o. at bedtime as needed. 2. Tylenol 650 mg p.o. q.4 hours as needed. 3. Potassium chloride 20 mEq p.o. daily. 4. Vancomycin 125 mg p.o. q.i.d. 5. Zofran 4 mg p.o. q.6 hours as needed. MEDICATIONS DISCONTINUED AT DISCHARGE: Lisinopril 20 mg p.o. daily. HOSPITAL COURSE: This is a brief summary of the patient's presentation. For more details, please se e the history and physical from Theresa Malone NP, on 04/05/18. In brief, the patient is a 62-y ear-old female with past medical history significant for the above, who came into the [facility] with 5 days of body aches, fevers, chills, anorexia, and severe liquidy diarrhea. The patient was hypotensive with an elevated lactic acid and white blood cell count when she came into the hospit al as well as tachycardic in the 130s. The patient was started on vancomycin. The patient had no re cent history of antibiotics, though she had been having on and off respiratory symptoms. The patient 's stool test was positive for C. diff. The patient's stool grew no other organisms. The patient's blood cultures grew no other organisms. The patient was hyponatremic, hypokalemic, hypomagnesemic an d had an elevated creatinine when she came in and these were fixed. The patient was given large amou nt of fluids until her blood pressure resolved. The patient initially had an elevated white blood ce ll count, which initially decreased, but increased again. The patient's symptoms slowly resolved; ho wever, she did have intermittent fevers throughout her hospitalization. The patient's band neutrophi l count initially despite adequate treatment increased from days 04/06/18 to 04/09/18. The patient h ad repeat blood cultures and repeat urine culture and chest x-ray, all of which were negative. The p louisa was seen in consultation by Dr. Denver Sotelo of Infectious Disease, who believes this was all on par with the natural history of C. diff and that no additional workup for initial infectious c ause was necessary. The patient's energy, appetite and strength began to progressively improve throu ghout her hospitalization. The patient's fevers and tachycardia episodes decreased throughout her ho spitalization. We discussed with the patient that a flexible sigmoidoscopy might be indicated to obta in biopsies to help differentiate C. difficile colitis from a flare of ulcerative colitis; however, t he patient preferred to discuss this with her outpatient farmworker field crop instead of the in-house g astroenterologist. The patient was stable and it was deemed to be an appropriate course of action. The patient's band neutrophils decreased on 04/10/18. The patient's symptoms continued to improve. The patient was stable and amenable for discharge on 04/10/18. PHYSICAL EXAM ON THE DAY OF DISCHARGE: General: The patient is a 62-year-old female, who appears st ated age and sitting comfortably in bed, in no acute distress. Vital Signs: At the time of discharg e, temperature 98.3, pulse rate 88, respiratory rate 16, oxygen saturation 97% on room air, blood pre ssure 113/65. HEENT: Head normocephalic, atraumatic. Sclerae anicteric. No conjunctival injection. Nasal mucosa moist. Oral mucosa moist. No pharyngeal erythema, discharge, or exudate. Neck: Sup ple, nontender. No lymphadenopathy. No carotid bruits auscultated. No JVD. Cardiac: Regular rate and rhythm. No clicks, murmurs, gallops, or rubs. Pulses are 2+ in the bilateral dorsalis pedis, p osterior tibialis, and radial areas. Respiratory: Clear to auscultation bilaterally. No wheezes, r ales, or rhonchi. Good air exchange bilaterally. Abdomen: Soft. Diffusely tender to palpation, mil d. No rebound. No guarding. No hepatosplenomegaly. No abdominal bruits auscultated. No hepatojugu lar reflux. Genitourinary: No suprapubic or CVA tenderness. Skin: Clean, dry, intact. No rash. N euro: Cranial nerves II through XII are intact. No focal deficits. Alert and oriented x3. Psychia tric: Pleasant and cooperative. DISCHARGE PLAN: The patient will be discharged to home. The patient has been instructed on staying well hydrated, not eating foods that will upset her stomach, continue with her vancomycin and having close followup with Dr. Denver Sotelo of Infectious Disease as well as her outpatient gastroentero logist, Dr. Denise Bush and her primary care doctor. The patient's lisinopril was held while in the ho spital and was continued to be held at discharge due to her normotension. The patient should follow up with her primary care provider within 1 week and this should be restarted as indicated. The patie nt should return to the hospital for alarming symptoms such as high fevers, severe abdominal pain. T he patient should discuss with her outpatient farmworker field crop possible flexible sigmoidoscopy if h er symptoms continue despite vancomycin treatment. The patient should continue with outpatient monit oring for colon cancer given her history of ulcerative colitis; however, this is unlikely according t o her current presentation. The patient should have repeat BMP and magnesium level within 1 week thr ough her primary care provider given her electrolyte abnormalities when she presented to the hospital . The patient should have a bland diet as above and engage in activities as tolerated. TIME SPENT: Approximately 60 minutes was spent on the discharge of this patient, 30 minutes of which was spent [id number] with the patient obtaining history and physical and discussing treatment plan . JESSE EVANS [id number]/[facility] #: [id number]
== END 2018-04-10 12:05 | disposition home or self-care (01) | DRG 720 ==
LOC: ED 11:03 → MED 16:31 → OBSVTOIN 04-07 11:59
PROVIDERS: ADMIT Internal Medicine; ATTEND Internal Medicine
DX: A41.9 Sepsis, unspecified organism (principal); A04.72 Enterocolitis due to Clostridium difficile, not specified as recurrent; E87.1 Hypo-osmolality and hyponatremia; I95.9 Hypotension, unspecified; E83.42 Hypomagnesemia; I10 Essential (primary) hypertension; K58.0 Irritable bowel syndrome with diarrhea; F12.90 Cannabis use, unspecified, uncomplicated; E86.0 Dehydration; E87.6 Hypokalemia; E86.1 Hypovolemia; D64.9 Anemia, unspecified; Z79.899 Other long term (current) drug therapy; Z88.2 Allergy status to sulfonamides; Z82.49 Family history of ischemic heart disease and other diseases of the circulatory system; Z87.891 Personal history of nicotine dependence
CPT/HCPCS: 36415; 71045; 74177; 80048; 80053; 81003; 81015; 82140; 82150; 82550; 83605; 83630; 83690; 83735; 83880; 84145; 84484; 85025; 85027; 85384; 85652; 85730; 86140; 87040; 87045; 87046; 87077; 87086; 87493; 87899; 93005; 99284; A9270-GY; G0378; J1644; J2405; J2543; J3475; Q9967

== ENCOUNTER 2018-04-13 14:40 | Inpatient (IN) | payer BC ==
[2018-04-13] MEDS ORDERED: NS 0.9% 1000 ML* 1,000 ML IV ONE ×2 (15:17→19:01)
--- NOTE | 2018-04-13 15:19 | ED ---
GI/ HPI - HPI Summary HPI Summary: A 62 y/o female brought in by [facility] ambulance presents to [facility] with a chief complaint of dehydration since 04/10/18. She also c/o diarrhea, abd pain, frequent urination and weakness. She rates her pain as 5/10. She came into the ED on 04/05/18 with similar symptoms and was diagnosed with C. diff and colitis. She claims that she lives alone and has not been feeling better. Even with taking her medication, she claims her pain is slightly worse. She saw Dr. Sotelo who referred the patient to Dr. Bush gastro, at [place]. The patient also c/o a mild fever, stating that the night of 04/12/18 her temperature was at 102.2. - History of Current Complaint Chief Complaint: EDNauseaVomitDiarrh Time Seen by Provider: 04/13/18 14:50 Stated Complaint: DEHYDTRATION Hx Obtained From: Patient Onset/Duration: Started Days Ago, Still Present Timing: Constant Severity: Moderate Current Severity: Moderate Pain Intensity: 5 - out of 10 Location of Pain: Diffuse Pain Characteristics: Unable to describe Associated Signs and Symptoms: Positive: Weakness, Diarrhea, Fever, Abdominal Pain, Other: - frequent urination - Additional Pertinent History Primary Care Physician: [id number] - Allergy/Home Medications Allergies/Adverse Reactions: Allergies Allergy/AdvReac Type Severity Reaction Status Date / Time Sulfa (Sulfonamide Allergy Hives Verified 04/05/18 11:31 Antibiotics) PMH/Surg Hx/FS Hx/Imm Hx Endocrine/Hematology History: Denies: Hx Diabetes Cardiovascular History: Reports: Hx Hypertension - ON MEDS Denies: Other Cardiovascular Problems/Disorders GI History: Reports: Hx Irritable Bowel History: Denies: Hx Dialysis, Hx Renal Disease, Other Problems/Disorders Sensory History: Reports: Hx Cataracts, Hx Contacts or Glasses Denies: Hx Hearing Aid Opthamlomology History: Reports: Hx Cataracts, Hx Contacts or Glasses - Cancer History Hx Chemotherapy: No Hx Radiation Therapy: No - Surgical History Surgery Procedure, Year, and Place: RIGHT CATARACT 2010, [facility] [place] Hx Anesthesia Reactions: No - Immunization History Date of Tetanus Vaccine: unk Date of Influenza Vaccine: none Infectious Disease History: No Infectious Disease History: Denies: Traveled Outside the [place] in Last 30 Days - Family History Known Family History: Positive: Diabetes - Father. , Other - No cancer. - Social History Alcohol Use: None Substance Use Type: Reports: Marijuana Substance Use Comment - Amount & Last Used: RARE Smoking Status (MU): Former Smoker Type: Cigarettes Amount Used/How Often: PACK A DAY Have You Smoked in the Last Year: No Review of Systems Positive: Fever Positive: Abdominal Pain, Diarrhea, Other - positive: dehydration Positive: other - positive: frequent urination Positive: Weakness All Other Systems Reviewed And Are Negative: Yes Physical Exam - Summary Physical Exam Summary: Appearance: The patient is well-nourished in no acute distress and in no acute pain. Skin: The skin is warm and dry and skin color reflects adequate perfusion. HEENT: The head is normocephalic and atraumatic. The pupils are equal and reactive. The conjunctivae are clear and without drainage. Nares are patent and without drainage. Mouth reveals moist mucous membranes and the throat is without erythema and exudate. The external ears are intact. The ear canals are patent and without drainage. The tympanic membranes are intact. Neck: The neck is supple with full range of motion and non-tender. There are no carotid bruits. There is no neck vein distension. Respiratory: Chest is non-tender. Lungs are clear to auscultation and breath sounds are symmetrical and equal. Cardiovascular: Heart is regular rate and rhythm. There is no murmur or rub auscultated. There is no peripheral edema and pulses are symmetrical and equal. Abdomen: Diffuse mild abdominal tenderness. There are normal bowel sounds heard in all four quadrants and there is no organomegaly palpated. Musculoskeletal: There is no back tenderness noted. Extremities are non-tender with full range of motion. There is good capillary refill. There is no peripheral edema or calf tenderness elicited. Neurological: Patient is alert and oriented to person, place and time. The patient has symmetrical motor strength in all four extremities. Cranial nerves are grossly intact. Deep tendon reflexes are symmetrical and equal in all four extremities. Psychiatric: The patient has an appropriate affect and does not exhibit any anxiety or depression. Triage Information Reviewed: Yes Vital Signs On Initial Exam: Initial Vitals Temp Pulse Resp BP Pulse Ox 100.1 F 101 16 133/83 99 04/13/18 14:41 04/13/18 14:41 04/13/18 14:41 04/13/18 14:41 04/13/18 14:41 Vital Signs Reviewed: Yes Diagnostics - Vital Signs Vital Signs Temp Pulse Resp BP Pulse Ox 04/13/18 14:46 102 141/77 99 04/13/18 14:41 100.1 F 101 16 133/83 99 - Laboratory Result Diagrams: 04/13/18 15:25 04/13/18 15:25 Lab Statement: Any lab studies that have been ordered have been reviewed, and results considered in the medical decision making process. GIGU Course/Dx - Course Course Of Treatment: Ms. Moreno presented 3 days after discharge. She had been admitted for C. difficile colitis that was interpreted as severe by the radiologist. She had gradual improvement in the hospital but has gradually worsened she's been at home. She hasn't been eating much or drinking much but is taking her by mouth vancomycin. She looked pale and tired on arrival but in no distress with stable vital signs. IV was initiated and she was hydrated while labs were obtained. Her CRP has continued to go up since discharge and I asked the hospitalist to evaluate her for admission. - Diagnoses Provider Diagnoses: C. difficile colitis - Physician Notifications Discussed Care Of Patient With: Angelica Zafar Time Discussed With Above Provider: 17:00 Instructed by Provider To: Admit As Inpatient Discharge - Sign-Out/Discharge Documenting (check all that apply): Patient Departure - admit - Discharge Plan Condition: Fair Disposition: ADMITTED TO [facility] Referrals: Braydon Landeros, [employer] [Primary Care Provider] - - Billing Disposition and Condition Condition: FAIR Disposition: Admitted to [facility] - Attestation Statements Document Initiated by Apollo[employer]: Yes Documenting Scribe: Eloy Diaz Provider For Whom Osiris is Documenting (Include Credential): Anthony Deng MD Scribe Attestation: I, Eloy Diaz, scribed for Anthony Deng MD on 04/13/18 at 1809. Scribe Documentation Reviewed: Yes Provider Attestation: The documentation as recorded by the Eloy briones accurately reflects the service I personally performed and the decisions made by me, Anthony Deng MD Status of Scribe Document: Viewed
[2018-04-13 15:52] LABS: Hematocrit 31 % (35-47); Hemoglobin 10.5 g/dl (12.0-16.0); Mean Corpuscular HGB Conc 34 g/dl (31-36); Mean Corpuscular Hemoglobin 29 pg (27-31); Mean Corpuscular Volume 86 fL (80-97); Mean Platelet Volume 6.2 fL (7.4-10.4); Platelet Count 587 10^3/ul (150-450); Red Blood Count 3.58 10^6/ul (4.00-5.40); Red Cell Distribution Width 14 % (10.5-15); White Blood Count 10.7 10^3/ul (3.5-10.8)
[2018-04-13 16:02] LABS: Albumin 2.6 g/dL (3.2-5.2); Albumin/Globulin Ratio 0.7 (1-3); BUN/Creatinine Ratio 14.3 (8-20); C Reactive Protein 248.81 mg/L (<8.01); Calcium 8.2 mg/dL (8.6-10.3); EGFR Non-African American 110.4 (>60); Globulin 3.8 g/dL (2-4); Potassium 3.4 mmol/L (3.5-5.0); Total Bilirubin 1.2 mg/dL (0.2-1.0); Total Protein 6.4 g/dL (6.4-8.9)
[2018-04-13 16:19] LABS: Urine Appearance Cloudy; Urine Bacteria 1+ (Absent); Urine Bilirubin Negative (Negative); Urine Blood 2+ (Negative); Urine Color Amber; Urine Glucose Negative (Negative); Urine Ketones Negative (Negative); Urine Nitrite Negative (Negative); Urine Protein Negative (Negative); Urine Red Blood Cell 2+(6-10/hpf) (Absent); Urine Specific Gravity 1.023 (1.010-1.030); Urine Urobilinogen Negative (Negative); Urine White Blood Cell 1+(6-10/hpf) (Absent)
[2018-04-13 16:23] LABS: ABS Basophils 0 10^3/ul (0-0.2); ABS Eosinophils 0.1 10^3/ul (0-0.6); ABS Lymphocytes 1.4 10^3/ul (1.0-4.8); ABS Monocytes 0.7 10^3/ul (0-0.8); ABS Neutrophils 8.5 10^3/ul (1.5-7.7); ABS Nucleated RBC 0 10^3/ul; Immature Granulocytes 14 % (0-9); Lymphocytes % 5 %; Microcytosis 1+; Monocytes % 5 %; Neutrophil % 76 %; Nucleated Red Blood Cells % 0
[2018-04-13] MEDS ORDERED: Acetaminophen TAB* 325 MG PO ONE (17:00)
[2018-04-13] MEDS ORDERED: Ondansetron INJ* 2 MG/ML VIAL IV PRN (18:49)
[2018-04-13] MEDS ORDERED: Potassium Chlor TAB* 20 MEQ TAB.ER PO ONE (19:08)
--- NOTE | 2018-04-13 20:34 | HP ---
HISTORY AND PHYSICAL: ADDENDUM: PHYSICAL EXAMINATION GENERAL APPEARANCE: The patient is alert and pleasant. Her cheeks are flushed. She appears fatigued, but is in no acute distress. HEENT: Normocephalic, atraumatic. Pupils are equal, round, and reactive to light and accommodation. Extraocular movements are intact. NECK: Supple. No lymphadenopathy noted. No JVD appreciated. RESPIRATORY: No accessory muscle use. Lungs are clear to auscultation. Normal work of breathing. CARDIAC: Tachycardic. Regular rhythm. S1 and S2 are present. No murmurs, rubs, or gallops heard. ABDOMEN: Soft, nondistended, but diffusely tender. There are bowel sounds x4. EXTREMITIES: No lower extremity edema. MUSCULOSKELETAL: No clubbing or cyanosis noted. The patient exhibited 5/5 strength in all 4 extremities. NEURO: The patient is alert and oriented x3. PSYCH: The patient is calm and cooperative. SKIN: There are no rashes or abnormalities seen. KRYSTA PAGE, SIMA [id number]/CPS #: [id number] TOSHIA
[2018-04-13] MEDS: Vancomycin CAP* 250 MG CAP PO SCH (20:48)
[2018-04-13] MEDS: NS 0.9% 1000 ML* 1,000 ML IV SCH (20:48)
--- NOTE | 2018-04-13 22:00 | HP ---
ADDENDUM NOW INCLUDED ON THIS REPORT CC: Braydon Landeros NP; Dr. Bush, [place] * HISTORY AND PHYSICAL: DATE OF ADMISSION: 04/13/18. PROVIDER: Theresa Page NP. PRIMARY CARE PHYSICIAN: Braydon Landeros NP. GI PHYSICIAN: Dr. Bush at [place]. ATTENDING PHYSICIAN: Dr. Serrano * (dictated by Theresa Page NP). CHIEF COMPLAINT: Fevers and ongoing diarrhea. HISTORY OF PRESENT ILLNESS: Ms. Moreno is a 62-year-old female with a past medical history significant for hypertension and ulcerative colitis. She was recently discharged from this hospital three days ago after being diagnosed with C. diff colitis, being treated with vancomycin and IV fluids. The patient reports that she has continued to spike fevers and she is still having frequent bowel movements every other hour. She does say that the stools are more formed than they initially were but they are still very loose. She denies seeing any blood or mucus in the stools. She did talk to Dr. Sotelo today who advised increasing the dose of vancomycin and also referred her to her GI doctor. She saw an CLERICAL ADMINISTRATOR at that practice who sent her back to the ED for dehydration. Upon presentation to the ED today the patient did have a fever of 101.1. She was also mildly tachycardiac with heart rates in the low 100s. She does not have leukocytosis at this point, but she does still have 15% bands, a CRP of 248.81 and some electrolytes abnormalities. At the time of my exam, the patient endorsed mild diffuse abdominal pain and fevers over the past few days as well as lack of appetite and decreased fluid intake and general weakness. She denied chest pain, shortness of breath, headaches, nausea, vomiting, dysuria or any focal weakness. The patient will be admitted to the hospitalist service for additional management of her C. diff. PAST MEDICAL HISTORY: Hypertension, ulcerative colitis. PAST SURGICAL HISTORY: None. HOME MEDICATIONS: The patient was discharged from the hospital with: 1. Vancomycin 125 mg p.o. q.i.d. 2. Tramadol 50 mg p.o. at bedtime p.r.n. 3. Potassium 20 mEq p.o. daily. 4. Zofran 4 mg p.o. q. 6 hours p.r.n. 5. Acetaminophen 650 mg p.o. q.4 hours p.r.n. ALLERGIES: SULFA DRUGS with unknown reaction. FAMILY HISTORY: The patient endorses a history of hypertension in her father. No family history of diabetes or cancer. SOCIAL HISTORY: The patient is a former smoker but quit 20 years ago. She does endorse daily marijuana use. She does not use alcohol or any other drugs. The patient would like to be a full code. Her medical decision maker is her sister, Roro Moreno. REVIEW OF SYSTEMS: I performed a 14-point review of systems. All the pertinent positives and negatives are mentioned in the history of present illness. The remaining review of systems are negative. PHYSICAL EXAMINATION VITAL SIGNS: Temp was 101.1, heart rate 102, respiratory rate 16, O2 sat 99% on room air, blood pressure 141/77. DIAGNOSTIC STUDIES/LAB DATA: Sodium 131, potassium 3.4, chloride 99, carbon dioxide 25, anion gap 7, BUN 8, creatinine 0.56, BUN and creatinine ratio 14.3, glucose 113, lactic acid 0.6, calcium 8.2, total bilirubin 1.20, AST 20, ALT 21 , alk phos 163, C-reactive protein 248.81, total protein 6.4, albumin 2.6, globulin 3.8, albumin globulin ratio 0.7, lipase 34. White blood cells 10.7, RBC 3.58, hemoglobin 10.5, hematocrit 31, platelets 587, MPV 6.2. Absolute neutrophil 8.5, absolute lymphs 1.4, absolute mono 0.7, absolute eosinophil 0.1 , absolute basophil 0, absolute nuclear RBC 0, immature granulocytes 14, neutrophil percent 76, bands 14, lymphocytes 5, monocytes 5, nucleated RBC 0. Hypochromasia 1+, microcytosis 1+, macrocytosis 1+. DIAGNOSTICS: The patient did not undergo any diagnostic testings in the ED. ASSESSMENT: The patient is a 62-year-old female with a past medical history significant for ulcerative colitis and recent diagnosis of C. diff who presented to the ED with ongoing fevers and diarrhea and will be admitted to the hospitalist service for further evaluation. 1. Sepsis secondary to C. diff. The patient did meet sepsis criteria upon presentation with a fever of 101.1, tachycardia to low 100s as well as a known infection of C. diff. The patient does not have leukocytosis; however, she does have 14% bands. She was given 1 liter of IV fluids in the ED and I will give an additional liter for sepsis bolus and then start 75 cc an hour. She is still stooling every other hour. She reports that she does not see any blood or mucus in the stool. I have ordered a blood culture and a stool culture. I also ordered CT abdomen and pelvis, as the last time the patient was here she had a CT abdomen and pelvis that showed severe colitis and I did want to see if there had been any changes. However, the patient refused this test, perhaps this can be revisited tomorrow if deemed necessary. She said she already knows she has C. diff and colitis and she did not want to undergo this test again. The patient was evaluated by Dr. Sotelo during her last admission and has continued to be followed by him. I have re-consulted him. She did speak to him today and he had advised that she increase her vancomycin to 250 mg four times a day and I have made this adjustment. He also was the one who had sent her to her GI doctor to evaluate for an underlying ulcerative colitis flare and the GI doctor subsequently sent here. I have placed a consult with GI and spoke to Dr. Yadav who said he will see her tomorrow. On her last admission, the provider had spoken to GI who recommended a sigmoidoscopy but the patient refused this exam at that time and perhaps this will be revisited as well. 2. Electrolyte imbalances, this is likely secondary to volume loss in the setting of ongoing diarrhea. I have repleted her potassium of 3.4. I suspect the other abnormalities of sodium 131, and chloride 99 will resolve with fluid administration. 3. Elevated LFTs. The patient does have an slightly elevated total bili of 1.2 and alk phos of 163. I suspect this is in the setting of her infection; however, I will continue to monitor this. 4. Anemia. The patient does have a normocytic normochromic anemia which appears stable. Her H and H today is 10.5 and 31, which is the same as when she was discharged. 5. Elevated platelets of 587. I suspect this is also secondary to infection, however, I will continue to monitor. 6. Diet: Clear diet. Advance as tolerated and with GI input. 7. DVT prophylaxis: Heparin subcu. 8. Code status: Full. 9. Disposition: Inpatient. Anticipate discharge to home when medically stable. TIME SPENT: Time spent for this admission was 60 minutes and 35 minutes was spent with the patient discussing medications, past medical history and events leading up to her arrival today and performing a physical exam. The case has been reviewed with the attending, Dr. Serrano, who agrees with the plan of care. THERESA PAGE NP ADDENDUM: PHYSICAL EXAMINATION GENERAL APPEARANCE: The patient is alert and pleasant. Her cheeks are flushed. She appears fatigued, but is in no acute distress. HEENT: Normocephalic, atraumatic. Pupils are equal, round, and reactive to light and accommodation. Extraocular movements are intact. NECK: Supple. No lymphadenopathy noted. No JVD appreciated. RESPIRATORY: No accessory muscle use. Lungs are clear to auscultation. Normal work of breathing. CARDIAC: Tachycardic. Regular rhythm. S1 and S2 are present. No murmurs, rubs, or gallops heard. ABDOMEN: Soft, nondistended, but diffusely tender to palpation. There are bowel sounds x4. EXTREMITIES: No lower extremity edema. MUSCULOSKELETAL: No clubbing or cyanosis noted. The patient exhibited 5/5 strength in all 4 extremities. NEURO: The patient is alert and oriented x3. PSYCH: The patient is calm and cooperative. SKIN: There are no rashes or abnormalities seen. THERESA PAGE NP [id number]/CPS #: [id number]/CPS #: [id number] TOSHIA
[2018-04-13] MEDS: Heparin VIAL(*) 5000 UNITS/ML VIAL (FIVE THOUSAND) SUBCUT SCH (22:25)
[2018-04-13] MEDS: traMADol TAB* 50 MG PO PRN (22:25)
[2018-04-13] MEDS: Acetaminophen TAB* 325 MG PO PRN (23:52)
[2018-04-14] MEDS: Acetaminophen TAB* 325 MG PO PRN ×4 (03:34→18:38)
[2018-04-14] MEDS: Heparin VIAL(*) 5000 UNITS/ML VIAL (FIVE THOUSAND) SUBCUT SCH ×3 (05:40→20:49)
[2018-04-14 06:41] LABS: Hematocrit 25 % (35-47); Hemoglobin 8.9 g/dl (12.0-16.0); Mean Corpuscular HGB Conc 36 g/dl (31-36); Mean Corpuscular Hemoglobin 30 pg (27-31); Mean Corpuscular Volume 85 fL (80-97); Mean Platelet Volume 6.1 fL (7.4-10.4); Platelet Count 534 10^3/ul (150-450); Red Blood Count 2.93 10^6/ul (4.00-5.40); Red Cell Distribution Width 14 % (10.5-15); White Blood Count 9.2 10^3/ul (3.5-10.8)
[2018-04-14 06:57] LABS: Albumin 2.1 g/dL (3.2-5.2); Albumin/Globulin Ratio 0.7 (1-3); BUN/Creatinine Ratio 19.6 (8-20); Calcium 7.4 mg/dL (8.6-10.3); Globulin 3.1 g/dL (2-4); Potassium 3.8 mmol/L (3.5-5.0); Total Bilirubin 0.9 mg/dL (0.2-1.0); Total Protein 5.2 g/dL (6.4-8.9)
[2018-04-14 07:01] LABS: ABS Basophils 0 10^3/ul (0-0.2); ABS Eosinophils 0.1 10^3/ul (0-0.6); ABS Lymphocytes 1.8 10^3/ul (1.0-4.8); ABS Monocytes 0.9 10^3/ul (0-0.8); ABS Neutrophils 6.3 10^3/ul (1.5-7.7); ABS Nucleated RBC 0 10^3/ul
[2018-04-14] MEDS: Vancomycin CAP* 250 MG CAP PO SCH ×4 (08:33→20:49)
[2018-04-14] MEDS: Potassium Chlor TAB* 20 MEQ TAB.ER PO SCH (08:33)
[2018-04-14] MEDS: NS 0.9% 1000 ML* 1,000 ML IV SCH (09:58)
--- NOTE | 2018-04-14 12:38 | PN ---
Subjective Date of Service: 04/14/18 Interval History: Ms. Moreno is feeling very weak today. She was upset this morning about being on a clear liquid diet and requested a regular diet. She has tolerated the regular diet without increase in diarrhea frequency, amount, or pain. She reports loose BMs about every 2 hours. Small amount each time. Intermittent abd cramping, worse w/ BMs. Denies CP, SOB, N/V. Happy to be in the hospital as she felt she could not care for herself at home d/t her weakness. Family History: Unchanged from Admission Social History: Unchanged from Admission Past Medical History: Unchanged from Admission Objective Active Medications: Acetaminophen (Tylenol Tab*) 650 mg PO Q4H PRN FEVER/PAIN Heparin Sodium (Porcine) (Heparin Vial(*)) 5,000 units SUBCUT Q8HR MAIDA Sodium Chloride (Ns 0.9% 1000 Ml*) 1,000 mls @ 75 mls/hr IV PER RATE MAIDA Ondansetron HCl (Zofran Inj*) 4 mg IV Q4H PRN NAUSEA/VOMITING Potassium Chloride (Klor Con Er Tab*) 20 meq PO DAILY MAIDA Tramadol HCl (Ultram*) 50 mg PO BEDTIME PRN PAIN Vancomycin HCl (Vancomycin Cap*) 250 mg PO QID MAIDA Vital Signs - 8 hr 04/14/18 04/14/18 04/14/18 07:33 08:00 11:17 Temperature 98.0 F 98.2 F Pulse Rate 81 91 Respiratory 18 16 16 Rate Blood Pressure 115/62 110/63 (mmHg) O2 Sat by Pulse 98 98 Oximetry Oxygen Devices in Use Now: None Appearance: Middle-aged female laying in bed in NAD Eyes: No Scleral Icterus Ears/Nose/Mouth/Throat: Mucous Membranes Moist Neck: NL Appearance and Movements; NL JVP, Trachea Midline Respiratory: Symmetrical Chest Expansion and Respiratory Effort, Clear to Auscultation Cardiovascular: NL Sounds; No Murmurs; No JVD, RRR Abdominal: - - Hypoactive bowel sounds; Significant tenderness to palpation throughout Extremities: No Edema Skin: No Rash or Ulcers Neurological: Alert and Oriented x 3, NL Sensation Lines/Tubes/Other Access: Clean, Dry and Intact Peripheral IV Nutrition: Taking PO's Result Diagrams: 04/14/18 06:28 04/14/18 06:28 Assess/Plan/Problems-Billing Assessment: Ms. Moreno is a 62 yo F with PMH of HTN and ulcerative colitis; who was admitted to [facility] [place] 04/07 - 04/10 for cdiff colitis, discharged on PO abx, and presented again to the ED with c/o fevers and continued diarrhea and was found to be septic, 2/2 cdiff colitis. - Patient Problems (1) C. difficile colitis Comment: - Continued pain and frequent diarrhea - Had been advised to f/u with ID 1 week after d/c on 04/10 - Continue treatment with PO vanco, no need for escalation of therapy (2) Sepsis Comment: - 2/2 cdiff - Resolved - Met sepsis criteria on admission with fever, tachycardia, 14% bands, and known source of infection - Did not meet qSOFA criteria (3) Anemia Code(s): D64.9 - ANEMIA, UNSPECIFIED Comment: - Normocytic normochromic, H&H decreased from admission - Suspect this is dilutional, but will check stool occult (4) HTN (hypertension) Code(s): I10 - ESSENTIAL (PRIMARY) HYPERTENSION Comment: - Normotensive - Lisinopril was discontinued during last admission (5) DVT prophylaxis Code(s): [id number] - Comment: - SQ heparin (6) Full code status Code(s): Z78.9 - OTHER SPECIFIED HEALTH STATUS Status and Disposition: Inpatient. Anticipate d/c home when medically stable. Attending: Alec Velazquez
--- NOTE | 2018-04-14 18:48 | CONS ---
CC: Braydon Landeros; Dr. Bush, [facility] at [place] * CONSULTATION REPORT: DATE OF CONSULT: 04/14/18 REASON FOR CONSULT: Recurrent C. diff in the setting of ulcerative colitis. HISTORY OF PRESENT ILLNESS: This is a 62-year-old female with past medical history of hypertension and mccormick-ulcerative colitis, who has been in her usual state of health until she developed profuse diarrhea with abdominal pain and fever. She was admitted to this institution on 04/07/18 and was diagnosed with C. diff colitis. She was placed on 125 mg of vancomycin q.i.d., given IV hydration and then discharged. She states that after she got home, she had difficulty tolerating oral and in addition had increased diarrhea and abdominal pain. She was seen by the mid level of Dr. Bush of [facility] at [place] and was found to be dehydrated and recommended readmission. Her last colonoscopy was with Dr. Randy Bhakta in May of 2016, which showed mccormick- ulcerative colitis, moderately to severe on biopsy. She states at this time her diarrhea is slowly improving. Her vancomycin was increased from 125 to 250 mg q.i.d. She denies any vern melena or hematochezia. She states she does have some cramping abdominal pain, diffuse through-out the abdomen about 4/10. Nothing makes it better or worse. She states the frequency of her stools has gone to about at least 4 to 5 hours and semi- formed. When she came in, she states she was going hourly and had purely liquid stools. She states she is tolerating her diet well at this point and is quite hungry. She denies any fever, shakes, chills, or rigors. No dysphagia. No odynophagia. No nausea or vomiting at this point. She admits to some subjective weight loss. The remainder of the 14-point review of systems is grossly negative. PAST MEDICAL HISTORY: Mccormick-ulcerative colitis, diagnosed by Dr. Randy Bhakta it appears in 2016, and also hypertension. PAST SURGICAL HISTORY: Colonoscopy in May 2016. HOME MEDICATIONS: Include, 1. Tylenol. 2. Vancomycin 125 mg q.i.d. 3. Tramadol. 4. Potassium. 5. Zofran. ALLERGIES: Include SULFA drugs. FAMILY HISTORY: No family history of GI cancer, malignancy, or inflammatory bowel disease. SOCIAL HISTORY: Former smoker, quit about 20 years ago. Does use marijuana on a daily basis. Does not use alcohol. REVIEW OF SYSTEMS: Remainder of the 14-point review of systems except as described in the HPI was negative. PHYSICAL EXAM: Vital Signs: Blood pressure is 110/63, pulse is 91, respiratory rate of 16. She is 98% on room air. Temperature is 98.2. In general, she is alert and oriented, in no acute distress. HEENT: Atraumatic, normocephalic. Pupils equal, round, reactive to light. Extraocular movements are intact. Sclerae anicteric. Conjunctivae are pink. Cardiovascular: Regular rate and rhythm. S1, S2. Respiratory: Clear to auscultation bilaterally. Abdomen is soft, with trace mild diffuse tenderness to palpation. Bowel sounds are positive. No shifting, dullness appreciated. Extremities: No clubbing, no cyanosis, no edema. Skin: With a few ecchymosis scattered about the abdomen, otherwise normal without rash. Neurologic exam is nonfocal. LABORATORY DATA: Hemoglobin 8.9, platelet count is 534. Sodium is 132, alkaline phosphatase 138, total bilirubin 0.9, AST is 14, ALT is 15. CRP on was 248. A previous CAT scan on a previous admission on 04/05/18 showed a pancolitis and hepatic steatosis. IMPRESSION: 1. Clostridium difficile colitis, recurrent in the setting of mccormick-ulcerative colitis of unknown control. 2. Sepsis secondary to Clostridium difficile. RECOMMENDATIONS: Agree with increasing vancomycin to 250 mg q.i.d. At this time, she states her diarrhea and her pain are significantly improved. She certainly needs a flexible sigmoidoscopy at some point to reestablish if her ulcerative colitis is truly in remission. I would recommend that she follow up with Dr. Bush as an outpatient within 1 to 2 weeks to discuss repeat flexible sigmoidoscopy. If any difficulty, she is certainly welcome to follow up with me ; however, at this time, she has a good relationship with Dr. Bush and is certainly welcome to follow up with her for endoscopic evaluation. At this time , diet may be advanced as tolerated and supportive care for her current illness. [id number]/[facility] #: [id number] [facility] HOSPITALDarek
[2018-04-14] MEDS: traMADol TAB* 50 MG PO PRN (20:49)
[2018-04-15] MEDS: NS 0.9% 1000 ML* 1,000 ML IV SCH ×2 (01:05→17:34)
[2018-04-15] MEDS: Acetaminophen TAB* 325 MG PO PRN ×3 (01:08→19:44)
[2018-04-15] MEDS: Heparin VIAL(*) 5000 UNITS/ML VIAL (FIVE THOUSAND) SUBCUT SCH ×3 (05:46→21:03)
[2018-04-15 06:41] LABS: ABS Basophils 0 10^3/ul (0-0.2); ABS Eosinophils 0.2 10^3/ul (0-0.6); ABS Monocytes 0.9 10^3/ul (0-0.8); ABS Nucleated RBC 0 10^3/ul; Eosinophil % 2.2 %; Hematocrit 27 % (35-47); Hemoglobin 9.4 g/dl (12.0-16.0); Lymphocyte % 19.8 %; Mean Corpuscular HGB Conc 35 g/dl (31-36); Mean Corpuscular Hemoglobin 30 pg (27-31); Mean Corpuscular Volume 86 fL (80-97); Nucleated Red Blood Cells % 0.1; Platelet Count 630 10^3/ul (150-450); Red Blood Count 3.18 10^6/ul (4.00-5.40); Red Cell Distribution Width 15 % (10.5-15); White Blood Count 10.2 10^3/ul (3.5-10.8)
[2018-04-15 06:57] LABS: Anion Gap 6 mmol/L (2-11); BUN/Creatinine Ratio 10.5 (8-20); Blood Urea Nitrogen 6 mg/dL (6-24); CO2 Carbon Dioxide 21 mmol/L (22-32); Calcium 7.4 mg/dL (8.6-10.3); Chloride 104 mmol/L (101-111); EGFR Non-African American 108.2 (>60); Glucose 93 mg/dL (70-100); Potassium 3.6 mmol/L (3.5-5.0); Sodium 131 mmol/L (135-145)
[2018-04-15] MEDS: Vancomycin CAP* 250 MG CAP PO SCH ×4 (08:14→21:03)
[2018-04-15] MEDS: Potassium Chlor TAB* 20 MEQ TAB.ER PO SCH (08:14)
[2018-04-15] MEDS ORDERED: Morphine INJ* 2 MG/ML 1 ML SYRINGE (TWO MG - NEW SYRINGE VERSION) IV PRN (12:33)
[2018-04-15] MEDS: traMADol TAB* 50 MG PO PRN ×2 (13:06→19:03)
--- NOTE | 2018-04-15 13:57 | PN ---
Subjective Date of Service: 04/15/18 Interval History: Ms. Moreno is not feeling any better today. She is very discouraged because she does not feel as though she is improving and she continues to feel weak. She is still having loose stool approx every 2 hours. She has significant cramping before, during, and after BMs. She has been using tylenol, but does not feel as though this is helping. She denies CP, SOB, N/V, dizziness. Family History: Unchanged from Admission Social History: Unchanged from Admission Past Medical History: Unchanged from Admission Objective Active Medications: Acetaminophen (Tylenol Tab*) 650 mg PO Q4H PRN FEVER/PAIN Heparin Sodium (Porcine) (Heparin Vial(*)) 5,000 units SUBCUT Q8HR MAIDA Sodium Chloride (Ns 0.9% 1000 Ml*) 1,000 mls @ 75 mls/hr IV PER RATE MAIDA Morphine Sulfate (Morphine Inj ((Syringe))*) 2 mg IV Q4H PRN PAIN Ondansetron HCl (Zofran Inj*) 4 mg IV Q4H PRN NAUSEA/VOMITING Potassium Chloride (Klor Con Er Tab*) 20 meq PO DAILY MAIDA Tramadol HCl (Ultram*) 50 mg PO Q6H PRN PAIN Vancomycin HCl (Vancomycin Cap*) 250 mg PO QID [facility] Vital Signs - 8 hr 04/15/18 04/15/18 04/15/18 07:40 08:00 13:06 Temperature 99.4 F Pulse Rate 98 Respiratory 18 18 16 Rate Blood Pressure 121/68 (mmHg) O2 Sat by Pulse 98 Oximetry Oxygen Devices in Use Now: None Appearance: Middle-aged female laying in bed in NAD Eyes: No Scleral Icterus Ears/Nose/Mouth/Throat: Mucous Membranes Moist Neck: NL Appearance and Movements; NL JVP, Trachea Midline Respiratory: Symmetrical Chest Expansion and Respiratory Effort, Clear to Auscultation Cardiovascular: NL Sounds; No Murmurs; No JVD, RRR Abdominal: - - Distended, tender throughout Extremities: No Edema Skin: No Rash or Ulcers Neurological: Alert and Oriented x 3, NL Gait Lines/Tubes/Other Access: Clean, Dry and Intact Peripheral IV Nutrition: Taking PO's Result Diagrams: 04/15/18 06:27 04/15/18 06:27 Assess/Plan/Problems-Billing Assessment: Ms. Moreno is a 62 yo F with PMH of HTN and ulcerative colitis; who was admitted to [facility] [place] from 04/07 - 04/10 for cdiff colitis, discharged on PO abx, and presented again to the ED with c/o fevers and continued diarrhea and was found to be septic, 2/2 cdiff colitis. - Patient Problems (1) C. difficile colitis Comment: - Continued pain and frequent diarrhea - Appreciate GI consult; recommends continuing current regimen and f/u for flex sig as an outpt - Continue treatment with vanco 250mg QID, no need for escalation of therapy (2) Sepsis Comment: - 2/2 cdiff - Resolved - Met sepsis 2 criteria on admission with fever, tachycardia, 14% bands, and known source of infection - Did not meet sepsis 3 criteria (3) Anemia Code(s): D64.9 - ANEMIA, UNSPECIFIED Comment: - Normocytic normochromic, H&H decreased from admission - Stool occult negative - Suspect this is dilutional - Will add on iron studies (4) HTN (hypertension) Code(s): I10 - ESSENTIAL (PRIMARY) HYPERTENSION Comment: - Normotensive - Lisinopril was discontinued during last admission (5) DVT prophylaxis Code(s): [id number] - Comment: - SQ heparin (6) Full code status Code(s): Z78.9 - OTHER SPECIFIED HEALTH STATUS Status and Disposition: Inpatient. Anticipate d/c home when medically stable. Attending: Alec Velazquez
[2018-04-15 14:19] LABS: Iron 15 ug/dL (50-212); Total Iron Binding Capacity 139 mcg/dL (250-450); Transferrin 99 mg/dL (203-362)
[2018-04-15 14:39] LABS: Ferritin 707.4 ng/mL (11-307)
[2018-04-16] MEDS: traMADol TAB* 50 MG PO PRN ×4 (00:40→21:49)
[2018-04-16] MEDS ORDERED: Morphine VIAL* 4 MG/ML VIAL (1 ml vial) IV PRN (03:00)
[2018-04-16] MEDS: Heparin VIAL(*) 5000 UNITS/ML VIAL (FIVE THOUSAND) SUBCUT SCH ×3 (06:19→21:49)
[2018-04-16] MEDS: Vancomycin CAP* 250 MG CAP PO SCH ×4 (09:14→21:49)
[2018-04-16] MEDS: Potassium Chlor TAB* 20 MEQ TAB.ER PO SCH (09:14)
[2018-04-16] MEDS: NS 0.9% 1000 ML* 1,000 ML IV SCH (09:14)
--- NOTE | 2018-04-16 10:46 | PN ---
Subjective Date of Service: 04/16/18 Interval History: Ms. Moreno is feeling slightly better today. She is still having BMs every 2- 2.5 hours, loose. Quantity is more during the day after meals and less at night. She is still feeling generally weak. She had a 102F fever last night which responded well to tylenol. She denies CP, SOB, N/V, dizziness. Family History: Unchanged from Admission Social History: Unchanged from Admission Past Medical History: Unchanged from Admission Objective Active Medications: Acetaminophen (Tylenol Tab*) 650 mg PO Q4H PRN FEVER/PAIN Heparin Sodium (Porcine) (Heparin Vial(*)) 5,000 units SUBCUT Q8HR MAIDA Sodium Chloride (Ns 0.9% 1000 Ml*) 1,000 mls @ 75 mls/hr IV PER RATE MAIDA Morphine Sulfate (Morphine Vial*) 2 mg IV Q4H PRN PAIN Ondansetron HCl (Zofran Inj*) 4 mg IV Q4H PRN NAUSEA/VOMITING Potassium Chloride (Klor Con Er Tab*) 20 meq PO DAILY MAIDA Tramadol HCl (Ultram*) 50 mg PO Q6H PRN PAIN Vancomycin HCl (Vancomycin Cap*) 250 mg PO QID MAIDA Vital Signs - 8 hr 04/16/18 04/16/18 04/16/18 04:01 04:53 09:14 Temperature 99.6 F Pulse Rate 101 Respiratory 16 20 20 Rate Blood Pressure 114/65 (mmHg) O2 Sat by Pulse 98 Oximetry Oxygen Devices in Use Now: None Appearance: Middle-aged female laying in bed in NAD Eyes: No Scleral Icterus Ears/Nose/Mouth/Throat: Mucous Membranes Moist Neck: NL Appearance and Movements; NL JVP, Trachea Midline Respiratory: Symmetrical Chest Expansion and Respiratory Effort, Clear to Auscultation Cardiovascular: NL Sounds; No Murmurs; No JVD, RRR Abdominal: - - Distended, tender throughout Skin: No Rash or Ulcers Neurological: Alert and Oriented x 3, NL Gait Lines/Tubes/Other Access: Clean, Dry and Intact Peripheral IV Nutrition: Taking PO's Result Diagrams: 04/15/18 06:27 04/15/18 06:27 Assess/Plan/Problems-Billing Assessment: Ms. Moreno is a 62 yo F with PMH of HTN and ulcerative colitis; who was admitted to [facility] [place] from 04/07 - 12/17 for cdiff colitis, discharged on PO abx, and presented again to the ED with c/o fevers and continued diarrhea and was found to be septic, 2/2 cdiff colitis. - Patient Problems (1) C. difficile colitis Comment: - Continued pain and frequent diarrhea, now with fever up to 102.6 overnight - Appreciate GI consult; spoke with GI again today d/t fever and plan is for flex sig in the AM to determine severity of ulcerative colitis - Continue treatment with vanco 250mg QID; may need to switch to fidaxomicin (2) Sepsis Comment: - 2/2 cdiff - Met sepsis 2 criteria on admission with fever, tachycardia, 14% bands, and known source of infection; met again overnight with fever and tachycardia - Did not meet sepsis 3 criteria (3) Anemia of chronic disease Current Visit: Yes Status: Acute Code(s): D63.8 - ANEMIA IN OTHER CHRONIC DISEASES CLASSIFIED ELSEWHERE SNOMED Code(s): 827584709 Comment: - 2/2 ulcerative colitis - Stable, but worsened by acute infection - Stool occult negative - Iron, TIBC, and % saturation low, but ferritin elevated - Suspect mild dilutional component as well (4) HTN (hypertension) Code(s): I10 - ESSENTIAL (PRIMARY) HYPERTENSION Comment: - Normotensive - Lisinopril was discontinued during last admission (5) DVT prophylaxis Code(s): [id number] - Comment: - SQ heparin (6) Full code status Code(s): Z78.9 - OTHER SPECIFIED HEALTH STATUS Status and Disposition: Inpatient. Flex sig in the AM. Anticipate d/c home when medically stable. Attending: Umm Bess
[2018-04-16] MEDS ORDERED: Iohexol 300* (CONTRAST) 10 ML SDV IV ONE (14:40)
[2018-04-16] MEDS: Acetaminophen TAB* 325 MG PO PRN (16:51)
[2018-04-16 17:53] LABS: Urine Appearance Clear; Urine Bacteria Absent (Absent); Urine Bilirubin Negative (Negative); Urine Blood 1+ (Negative); Urine Color Yellow; Urine Glucose Negative (Negative); Urine Ketones Negative (Negative); Urine Nitrite Negative (Negative); Urine Protein Negative (Negative); Urine Red Blood Cell Trace(0-2/hpf) (Absent); Urine Specific Gravity > 1.060 (1.010-1.030); Urine Urobilinogen Negative (Negative); Urine White Blood Cell Absent (Absent)
[2018-04-17] MEDS: NS 0.9% 1000 ML* 1,000 ML IV SCH ×2 (03:39→22:26)
[2018-04-17] MEDS: Heparin VIAL(*) 5000 UNITS/ML VIAL (FIVE THOUSAND) SUBCUT SCH ×3 (05:43→20:02)
[2018-04-17 06:48] LABS: Hematocrit 25 % (35-47); Hemoglobin 8.8 g/dl (12.0-16.0); Mean Corpuscular HGB Conc 35 g/dl (31-36); Mean Corpuscular Hemoglobin 29 pg (27-31); Mean Corpuscular Volume 85 fL (80-97); Mean Platelet Volume 5.7 fL (7.4-10.4); Platelet Count 644 10^3/ul (150-450); Red Cell Distribution Width 14 % (10.5-15)
[2018-04-17 07:07] LABS: BUN/Creatinine Ratio 7.5 (8-20); C Reactive Protein 213.37 mg/L (<8.01); Calcium 7.4 mg/dL (8.6-10.3); EGFR Non-African American 117.7 (>60); Potassium 3.2 mmol/L (3.5-5.0)
[2018-04-17 07:26] LABS: ABS Basophils 0.1 10^3/ul (0-0.2); ABS Eosinophils 0.1 10^3/ul (0-0.6); ABS Lymphocytes 2.2 10^3/ul (1.0-4.8); ABS Monocytes 1.1 10^3/ul (0-0.8); ABS Neutrophils 6.5 10^3/ul (1.5-7.7); ABS Nucleated RBC 0 10^3/ul; Eosinophil % 1.2 %; Lymphocyte % 21.9 %; Nucleated Red Blood Cells % 0.1
[2018-04-17] MEDS ORDERED: Midazolam* 1 MG/ML 10 ML VIAL (10 MG) ONE (10:24)
[2018-04-17] MEDS ORDERED: fentaNYL* 50 MCG/ML 2 ML VIAL (100 MCG VIAL) ONE (10:24)
[2018-04-17] MEDS: Potassium Chlor TAB* 20 MEQ TAB.ER PO SCH (12:17)
[2018-04-17] MEDS: Vancomycin CAP* 250 MG CAP PO SCH ×4 (12:18→20:01)
--- NOTE | 2018-04-17 12:22 | PN ---
Subjective Date of Service: 04/17/18 Interval History: Ms. Moreno is not feeling any better today. She had a flex sig this morning and was surprised to hear that her UC was such a problem. She is hoping that treating the UC will improve her symptoms. She continues to have loose BMs q2- 3h. Feeling generally weak. C/o bloating and intermittent abd cramping. Denies CP, SOB, N/V. Family History: Unchanged from Admission Social History: Unchanged from Admission Past Medical History: Unchanged from Admission Objective Active Medications: Acetaminophen (Tylenol Tab*) 650 mg PO Q4H PRN FEVER/PAIN Heparin Sodium (Porcine) (Heparin Vial(*)) 5,000 units SUBCUT Q8HR [facility] Sodium Chloride (Ns 0.9% 1000 Ml*) 1,000 mls @ 75 mls/hr IV PER RATE [facility] Methylprednisolone Sodium Succinate (Solu-Medrol 40 Mg) 20 mg IV Q8H [facility] Morphine Sulfate (Morphine Vial*) 2 mg IV Q4H PRN PAIN Ondansetron HCl (Zofran Inj*) 4 mg IV Q4H PRN NAUSEA/VOMITING Potassium Chloride (Klor Con Er Tab*) 20 meq PO DAILY [facility] Tramadol HCl (Ultram*) 50 mg PO Q6H PRN PAIN Vancomycin HCl (Vancomycin Cap*) 250 mg PO QID [facility] Vital Signs - 8 hr 04/17/18 04/17/18 07:53 08:00 Temperature 100.2 F Pulse Rate 99 Respiratory 14 16 Rate Blood Pressure 110/61 (mmHg) O2 Sat by Pulse 99 Oximetry Oxygen Devices in Use Now: None Appearance: Middle-aged female laying in bed in NAD Eyes: No Scleral Icterus Ears/Nose/Mouth/Throat: Mucous Membranes Moist Neck: NL Appearance and Movements; NL JVP, Trachea Midline Respiratory: Symmetrical Chest Expansion and Respiratory Effort, Clear to Auscultation Cardiovascular: NL Sounds; No Murmurs; No JVD, RRR Abdominal: - - Distended, tender throughout Extremities: No Edema Skin: No Rash or Ulcers Neurological: Alert and Oriented x 3, NL Gait Lines/Tubes/Other Access: Clean, Dry and Intact Peripheral IV Nutrition: Taking PO's Result Diagrams: 04/17/18 06:27 04/17/18 06:27 Assess/Plan/Problems-Billing Assessment: Ms. Moreno is a 62 yo F with PMH of HTN and ulcerative colitis; who was admitted to [facility] [place], [place] from 04/07 - 04/10 for cdiff colitis, discharged on PO abx, and presented again to the ED with c/o fevers and continued diarrhea and was found to be septic, 2/2 cdiff colitis. - Patient Problems (1) Acute ulcerative colitis Current Visit: Yes Status: Acute Code(s): K51.90 - ULCERATIVE COLITIS, UNSPECIFIED, WITHOUT COMPLICATIONS SNOMED Code(s): 972841216 Comment: - Not currently on outpt treatment - Appreciate GI consult; flex sig today showed deep sigmoid ulcers, so this is likely the cause of continued fevers and diarrhea despite treatment for cdiff - Stool for cdiff sent today was negative; start solumedrol 20mg q8h per Dr. Yadav's recommendation (2) C. difficile colitis Comment: - Continued pain and frequent diarrhea, Tmax 101.7F - Appreciate GI consult; flex sig today showed deep sigmoid ulcers - Stool for cdiff today negative, so she will not need change in abx as originally thought - Continue treatment with vanco 250mg QID for 14 days total (last day 04/21) (3) Sepsis Comment: - 2/2 cdiff - Met sepsis 2 criteria on admission with fever, tachycardia, 14% bands, and known source of infection; met again 04/16 with fever and tachycardia - Did not meet sepsis 3 criteria (4) Anemia of chronic disease Current Visit: Yes Status: Acute Code(s): D63.8 - ANEMIA IN OTHER CHRONIC DISEASES CLASSIFIED ELSEWHERE SNOMED Code(s): 512823703 Comment: - 2/2 ulcerative colitis - Stable, but worsened by acute infection and UC flare - Stool occult negative - Iron, TIBC, and % saturation low, but ferritin elevated - Suspect mild dilutional component as well (5) HTN (hypertension) Code(s): I10 - ESSENTIAL (PRIMARY) HYPERTENSION Comment: - Normotensive - Lisinopril was discontinued during last admission (6) DVT prophylaxis Code(s): NIP4497 - Comment: - SQ heparin (7) Full code status Code(s): Z78.9 - OTHER SPECIFIED HEALTH STATUS Status and Disposition: Inpatient. Flex sig in the AM. Anticipate d/c home when medically stable. Attending: Umm Bess
[2018-04-17] MEDS: methylPREDNISolone SOD 40 MG* 1 ML VIAL IV SCH ×2 (13:06→20:01)
[2018-04-17] MEDS ORDERED: Potassium Chlor TAB* 20 MEQ TAB.ER PO ONE (16:30)
[2018-04-17] MEDS ORDERED: KCL 20 MEQ/100 ML IVPREMIX* 20 MEQ/100 ML BAG IV ONE (16:45)
--- NOTE | 2018-04-17 17:05 | PRO ---
DATE OF PROCEDURE: 04/17/18 - ROOM #[id number] PROCEDURE: Flexible sigmoidoscopy with biopsies. INDICATION: Abdominal pain, bloody diarrhea, history of UC, history of C. diff. REFERRING PHYSICIAN: None. MEDICATIONS GIVEN: 50 mcg IV fentanyl, 3 mg IV Versed. DESCRIPTION OF PROCEDURE: After the flexible sigmoidoscopy procedure, including the risks, benefits, and alternatives, not limited to perforation, surgery, and/or were explained to the patient, written consent was then obtained, IV medication was given, and a rectal exam was performed. It was unremarkable. An Olympus colonoscope was then inserted into the patient's rectum and advanced very carefully to the mid sigmoid colon. The patient had very large deep ulcers. I did take biopsies. I sent stool off for C. diff. The patient scope was then withdrawn from the patient. She tolerated the procedure well and was returned to her hospital room in stable condition. IMPRESSION: 1. Flexible sigmoidoscopy with biopsies and stool sampling. 2. Liquid stool sent off for Clostridium difficile. 3. Biopsies of the mucosa. 4. I do think that this is her ulcerative colitis. I did not really appreciate any pseudomembranes, but saw very deep large ulcers. She is still febrile; however, her white count is normal. She has been on vancomycin. I will await the results of the stool for Clostridium difficile and if negative, then I think, we can safely start steroids, Solu-Medrol 20 mg IV q.8. This was discussed with the patient's advanced practice provider. [id number]/[facility] #: [id number] TOSHIA
[2018-04-17] MEDS: traMADol TAB* 50 MG PO PRN (19:00)
[2018-04-18] MEDS: traMADol TAB* 50 MG PO PRN ×4 (01:21→21:30)
[2018-04-18] MEDS: Heparin VIAL(*) 5000 UNITS/ML VIAL (FIVE THOUSAND) SUBCUT SCH (05:58)
[2018-04-18] MEDS: methylPREDNISolone SOD 40 MG* 1 ML VIAL IV SCH ×3 (05:58→21:31)
[2018-04-18 06:30] LABS: ABS Basophils 0 10^3/ul (0-0.2); ABS Eosinophils 0 10^3/ul (0-0.6); ABS Lymphocytes 1.5 10^3/ul (1.0-4.8); ABS Monocytes 0.6 10^3/ul (0-0.8); ABS Neutrophils 6.8 10^3/ul (1.5-7.7); ABS Nucleated RBC 0 10^3/ul; Eosinophil % 0.1 %; Hematocrit 26 % (35-47); Hemoglobin 8.6 g/dl (12.0-16.0); Lymphocyte % 17.2 %; Mean Corpuscular HGB Conc 34 g/dl (31-36); Mean Corpuscular Hemoglobin 29 pg (27-31); Mean Corpuscular Volume 87 fL (80-97); Mean Platelet Volume 6.2 fL (7.4-10.4); Nucleated Red Blood Cells % 0; Platelet Count 527 10^3/ul (150-450); Red Blood Count 2.96 10^6/ul (4.00-5.40); Red Cell Distribution Width 15 % (10.5-15)
[2018-04-18 06:39] LABS: Calcium 7.6 mg/dL (8.6-10.3); EGFR Non-African American 125.9 (>60); Potassium 3.9 mmol/L (3.5-5.0)
[2018-04-18] MEDS: Potassium Chlor TAB* 20 MEQ TAB.ER PO SCH (07:46)
[2018-04-18] MEDS: Vancomycin CAP* 250 MG CAP PO SCH ×4 (07:46→21:29)
[2018-04-18] MEDS: NS 0.9% 1000 ML* 1,000 ML IV SCH ×2 (09:10→22:46)
--- NOTE | 2018-04-18 10:57 | PN ---
Subjective Date of Service: 04/18/18 Interval History: Patient seen and examined. states stools are not formed but less frequent, still having significant amount of pain before and after BM, then subsides. Denies fevers or chills, no n/v, tolerating PO without issue. States her ankles feel puffy from all the IVF but also feels her oral intake is not adequate enough to stop IVF. Family History: Unchanged from Admission Social History: Unchanged from Admission Past Medical History: Unchanged from Admission Objective Active Medications: Acetaminophen (Tylenol Tab*) 650 mg PO Q4H PRN PRN Reason: FEVER/PAIN Last Admin: 04/16/18 16:51 Dose: 650 mg Heparin Sodium (Porcine) (Heparin Vial(*)) 5,000 units SUBCUT Q8HR [facility] Last Admin: 04/18/18 05:58 Dose: 5,000 units Sodium Chloride (Ns 0.9% 1000 Ml*) 1,000 mls @ 75 mls/hr IV PER RATE [facility] Last Admin: 04/18/18 09:10 Dose: 75 mls/hr Methylprednisolone Sodium Succinate (Solu-Medrol 40 Mg) 20 mg IV Q8H [facility] Last Admin: 04/18/18 05:58 Dose: 20 mg Morphine Sulfate (Morphine Vial*) 2 mg IV Q4H PRN PRN Reason: PAIN Ondansetron HCl (Zofran Inj*) 4 mg IV Q4H PRN PRN Reason: NAUSEA/VOMITING Potassium Chloride (Klor Con Er Tab*) 20 meq PO DAILY [facility] Last Admin: 04/18/18 07:46 Dose: 20 meq Tramadol HCl (Ultram*) 50 mg PO Q6H PRN PRN Reason: PAIN Last Admin: 04/18/18 09:08 Dose: 50 mg Vancomycin HCl (Vancomycin Cap*) 250 mg PO QID [facility] Last Admin: 04/18/18 07:46 Dose: 250 mg Vital Signs - 8 hr 04/18/18 04/18/18 04/18/18 03:05 03:40 07:30 Temperature 97.8 F 97.7 F Pulse Rate 80 78 Respiratory 18 16 14 Rate Blood Pressure 111/58 117/66 (mmHg) O2 Sat by Pulse 96 98 Oximetry 04/18/18 04/18/18 04/18/18 07:49 09:08 09:32 Temperature Pulse Rate Respiratory 15 16 16 Rate Blood Pressure (mmHg) O2 Sat by Pulse Oximetry Oxygen Devices in Use Now: None Appearance: alert, NAD Eyes: No Scleral Icterus, PERRLA Ears/Nose/Mouth/Throat: NL Teeth, Lips, Gums, Mucous Membranes Moist Neck: NL Appearance and Movements; NL JVP, Trachea Midline Respiratory: Symmetrical Chest Expansion and Respiratory Effort, Clear to Auscultation Cardiovascular: NL Sounds; No Murmurs; No JVD, RRR Abdominal: NL Sounds; No Tenderness; No Distention Extremities: No Clubbing, Cyanosis - trace ankle edema bilat Skin: No Rash or Ulcers Neurological: Alert and Oriented x 3, NL Sensation, NL Gait Nutrition: Taking PO's Result Diagrams: 04/18/18 05:55 04/18/18 05:55 Microbiology and Other Data: Microbiology 04/14/18 06:28 Aerobic Blood Culture - Preliminary Blood Venous No Growth Day 2 Anaerobic Blood Culture - Preliminary No Growth Day 2 04/14/18 06:34 Aerobic Blood Culture - Preliminary Blood Venous No Growth Day 2 Anaerobic Blood Culture - Preliminary No Growth Day 2 04/14/18 15:08 Stool Occult Blood (KG) - Final Stool 04/14/18 15:08 Stool Gross Appearance - Final Stool 04/13/18 15:15 Urine Culture - Final Urine No Growth (<1,000 CFU/mL) Assess/Plan/Problems-Billing Assessment: This is a 62 yo F with PMH of HTN and ulcerative colitis; who was [place] [facility] [place]07 - 04/10 for cdiff colitis, discharged on PO abx, and presented again to the ED with c/o fevers and continued diarrhea and was found to be septic, 2/2 cdiff colitis. - Patient Problems (1) Acute ulcerative colitis Code(s): K51.90 - ULCERATIVE COLITIS, UNSPECIFIED, WITHOUT COMPLICATIONS SNOMED Code(s): 970732688 Comment: - s/p flex sig yesterday, deep sigmoid ulcerations noted and likely source of fevers rather than recurrent cdiff - IV steroids started Q8H per GI recs - Cdiff now negative/resolved (2) Anemia of chronic disease Code(s): D63.8 - ANEMIA IN OTHER CHRONIC DISEASES CLASSIFIED ELSEWHERE SNOMED Code(s): 495154362 Comment: - In setting of ulcerative colitis, may alkso be dilutional - Stable, but worsened by acute infection and UC flare - Stool occult negative - Iron studies completed, may benefit from Iron supplementation after UC flare is resolved - Suspect mild dilutional component as well (3) C. difficile colitis Comment: - Resolved, cdiff is negative - Complete vanco 250mg QID for 14 days total, with last dose on 04/21/18 (4) Sepsis Current Visit: No Status: Acute Comment: - 2/ cdiff - Met sepsis 2 criteria on admission with fever, tachycardia, 14% bands, and known source of infection; met again 04/16 with fever and tachycardia - Did not meet sepsis 3 criteria (5) HTN (hypertension) Code(s): I10 - ESSENTIAL (PRIMARY) HYPERTENSION SNOMED Code(s): 04405274 Comment: - Normotensive, Lisinopril was discontinued during last admission, continue to monitor (6) DVT prophylaxis Code(s): CEL5357 - SNOMED Code(s): 049125935 Comment: - Will DC SQ heparin, patient is ambulatory and anemia - SCDs when in bed (7) Full code status Code(s): Z78.9 - OTHER SPECIFIED HEALTH STATUS SNOMED Code(s): 710554105 Status and Disposition: Inpatient. anticipate DC home when medically optimized
[2018-04-19] MEDS: methylPREDNISolone SOD 40 MG* 1 ML VIAL IV SCH ×3 (05:51→21:05)
[2018-04-19] MEDS ORDERED: NS 0.9% 1000 ML* 1,000 ML IV SCH (07:44)
[2018-04-19] MEDS: Vancomycin CAP* 250 MG CAP PO SCH ×5 (08:08→21:05)
[2018-04-19] MEDS: Potassium Chlor TAB* 20 MEQ TAB.ER PO SCH (08:08)
[2018-04-19] MEDS: traMADol TAB* 50 MG PO PRN ×3 (09:12→21:05)
--- NOTE | 2018-04-19 14:12 | PN ---
Progress Note - Progress Note Date of Service: 04/19/18 Note: Brief GI Note Reviewed chart and spoke with primary team. CRP down from 213 to 91. Patient improving clinically. Reports having bowel movement every 3 hours or so (down from every hour on admission). Abdominal pain improved but not fully resolved. IMPRESSION: 62yF with recent C diff infection, who is admitted with moderately/severely active UC -- diagnosed with UC previously but not on maintenance therapy. Biopsies confirm chronic active colitis. C diff studies negative. Improving on Solumedrol. - Low residue diet - Transition from Solumedrol to Prednisone 40 mg/day tomorrow -- continue until seen in follow-up at which point taper can be detailed. - Will request follow-up in clinic with Dr Wagner in next 2 weeks. Patient will likely require initiation on biologic therapy given severity of disease and prolonged steroid dependence in the past. Navya Story MD
--- NOTE | 2018-04-19 15:24 | PN ---
Subjective Date of Service: 04/19/18 Interval History: Patient seen and examined. two further bouts of diarrhea last night with abdominal pain. Denies fevers or chills, no bloody stools. No n/v. Family History: Unchanged from Admission Social History: Unchanged from Admission Past Medical History: Unchanged from Admission Objective Active Medications: Acetaminophen (Tylenol Tab*) 650 mg PO Q4H PRN PRN Reason: FEVER/PAIN Last Admin: 04/16/18 16:51 Dose: 650 mg Methylprednisolone Sodium Succinate (Solu-Medrol 40 Mg) 20 mg IV Q8H [facility] Stop: 04/19/18 21:01 Last Admin: 04/19/18 13:05 Dose: 20 mg Morphine Sulfate (Morphine Vial*) 2 mg IV Q4H PRN PRN Reason: PAIN Ondansetron HCl (Zofran Inj*) 4 mg IV Q4H PRN PRN Reason: NAUSEA/VOMITING Potassium Chloride (Klor Con Er Tab*) 20 meq PO DAILY [facility] Last Admin: 04/19/18 08:08 Dose: 20 meq Prednisone (Deltasone Tab*) 40 mg PO DAILY [facility] Tramadol HCl (Ultram*) 50 mg PO Q6H PRN PRN Reason: PAIN Last Admin: 04/19/18 09:12 Dose: 50 mg Vancomycin HCl (Vancomycin Cap*) 250 mg PO QID [facility] Last Admin: 04/19/18 13:05 Dose: 250 mg Vital Signs - 8 hr 04/19/18 04/19/18 04/19/18 07:40 08:00 09:12 Temperature 98.6 F Pulse Rate 79 Respiratory 14 16 20 Rate Blood Pressure 128/76 (mmHg) O2 Sat by Pulse 98 Oximetry 04/19/18 04/19/18 11:30 11:44 Temperature 98.3 F Pulse Rate 93 Respiratory 16 18 Rate Blood Pressure 126/79 (mmHg) O2 Sat by Pulse 99 Oximetry Oxygen Devices in Use Now: None Appearance: alert, NAD Eyes: No Scleral Icterus, PERRLA Ears/Nose/Mouth/Throat: NL Teeth, Lips, Gums, Mucous Membranes Moist Neck: NL Appearance and Movements; NL JVP, Trachea Midline Respiratory: Symmetrical Chest Expansion and Respiratory Effort, Clear to Auscultation Cardiovascular: NL Sounds; No Murmurs; No JVD, RRR, - - bipedal edema Abdominal: - - tender, hyperactive BS Extremities: No Clubbing, Cyanosis, - - bipedal edema, non-pitting Skin: No Rash or Ulcers Neurological: Alert and Oriented x 3, NL Sensation, NL Gait Nutrition: Taking PO's Result Diagrams: 04/18/18 05:55 04/18/18 05:55 Microbiology and Other Data: Microbiology 04/14/18 06:28 Aerobic Blood Culture - Preliminary Blood Venous No Growth Day 2 Anaerobic Blood Culture - Preliminary No Growth Day 2 04/14/18 06:34 Aerobic Blood Culture - Preliminary Blood Venous No Growth Day 2 Anaerobic Blood Culture - Preliminary No Growth Day 2 04/14/18 15:08 Stool Occult Blood (KG) - Final Stool 04/14/18 15:08 Stool Gross Appearance - Final Stool 04/13/18 15:15 Urine Culture - Final Urine No Growth (<1,000 CFU/mL) Assess/Plan/Problems-Billing Assessment: This is a 62 yo F with PMH of HTN and ulcerative colitis; who was admitted to [facility] [place] [place] from 04/07 - 04/10 for cdiff colitis, discharged on PO abx, and presented again to the ED with c/o fevers and continued diarrhea and was found to be septic, 2/2 cdiff colitis which is now resolved. - Patient Problems (1) Acute ulcerative colitis Code(s): K51.90 - ULCERATIVE COLITIS, UNSPECIFIED, WITHOUT COMPLICATIONS SNOMED Code(s): 364499825 Comment: - s/p flex sig 04/17, deep sigmoid ulcerations noted and likely source of fevers rather than recurrent cdiff - IV steroids started Q8H per GI recs, change to PO prednisone 40mg tomorrow - Cdiff now negative/resolved (2) Anemia of chronic disease Code(s): D63.8 - ANEMIA IN OTHER CHRONIC DISEASES CLASSIFIED ELSEWHERE SNOMED Code(s): 641580136 Comment: - In setting of ulcerative colitis, may also be dilutional - Stable, but worsened by acute infection and UC flare - Stool occult negative - Iron studies completed, may benefit from Iron supplementation after UC flare is resolved (3) Lower extremity edema Code(s): R60.0 - LOCALIZED EDEMA SNOMED Code(s): 589182257 Comment: - Patient has adequat oral intake, IVF discontinued - Elevate, TEDs ordered but patient declines to use (4) C. difficile colitis Comment: - Resolved, cdiff is negative - Complete vanco 250mg QID for 14 days total, with last dose on 04/21/18 - patient refused vanco today, explained that she must complete course of antibiotics (5) Sepsis Current Visit: No Status: Acute Comment: - 2/2 cdiff, now resolved with negative cdiff PCR (6) HTN (hypertension) Code(s): I10 - ESSENTIAL (PRIMARY) HYPERTENSION SNOMED Code(s): 11593768 Comment: - Normotensive, Lisinopril was discontinued during last admission, continue to monitor (7) DVT prophylaxis Code(s): [id number] - SNOMED Code(s): 262609150 Comment: - Will DC SQ heparin, patient is ambulatory and anemia - SCDs when in bed (8) Full code status Code(s): Z78.9 - OTHER SPECIFIED HEALTH STATUS SNOMED Code(s): 688904741 Status and Disposition: Inpatient. anticipate DC home on oral prednisone when medically optimized, 1-2 days and f/u with GI outpatient for initiation of a biologic.
[2018-04-20] MEDS: Potassium Chlor TAB* 20 MEQ TAB.ER PO SCH (08:41)
[2018-04-20] MEDS: predniSONE TAB* 20 MG PO SCH (08:41)
[2018-04-20] MEDS: Vancomycin CAP* 250 MG CAP PO SCH ×4 (08:41→20:26)
--- NOTE | 2018-04-20 09:35 | PN ---
Subjective Date of Service: 04/20/18 Interval History: Pt states that she is feeling better and stronger every day. She reports to having BM q3h that contains a small amount of bright red blood. She also reports to having a h/o hemorrhoids. She continues to have L sided abdominal pain, which she reports is improving. Pt has b/l LE edema, for which she refuses medication. She states that she will try compression stockings after her shower this morning, despite disliking tight clothing around her legs. Pt denies calf pain, n/v. Family History: Unchanged from Admission Social History: Unchanged from Admission Past Medical History: Unchanged from Admission Objective Active Medications: Acetaminophen (Tylenol Tab*) 650 mg PO Q4H PRN Morphine Sulfate (Morphine Vial*) 2 mg IV Q4H PRN Ondansetron HCl (Zofran Inj*) 4 mg IV Q4H PRN Potassium Chloride (Klor Con Er Tab*) 20 meq PO DAILY [facility] Prednisone (Deltasone Tab*) 40 mg PO DAILY [facility] Tramadol HCl (Ultram*) 50 mg PO Q6H PRN Vancomycin HCl (Vancomycin Cap*) 250 mg PO QID [facility] Vital Signs - 8 hr 04/20/18 04/20/18 04/20/18 03:26 07:48 08:07 Temperature 97.5 F 98.2 F Pulse Rate 70 72 Respiratory 16 16 16 Rate Blood Pressure 119/65 116/68 (mmHg) O2 Sat by Pulse 96 99 Oximetry Oxygen Devices in Use Now: None Appearance: A/o x3; pt is resting comfortable and eating upon entering; in no acute distress Eyes: No Scleral Icterus Ears/Nose/Mouth/Throat: NL Teeth, Lips, Gums, Mucous Membranes Moist Neck: NL Appearance and Movements; NL JVP, Trachea Midline Respiratory: Symmetrical Chest Expansion and Respiratory Effort, Clear to Auscultation Cardiovascular: NL Sounds; No Murmurs; No JVD Abdominal: - - BS in all 4 quadrants; adbomen firm and tender to palpation, particularly in LLQ Extremities: No Clubbing, Cyanosis, - - B/l LE edema, R 2+, L 1+ Neurological: Alert and Oriented x 3 Result Diagrams: 04/18/18 05:55 04/18/18 05:55 Microbiology and Other Data: Microbiology 04/14/18 06:28 Aerobic Blood Culture - Preliminary Blood Venous No Growth Day 2 Anaerobic Blood Culture - Preliminary No Growth Day 2 04/14/18 06:34 Aerobic Blood Culture - Preliminary Blood Venous No Growth Day 2 Anaerobic Blood Culture - Preliminary No Growth Day 2 04/14/18 15:08 Stool Occult Blood (KG) - Final Stool 04/14/18 15:08 Stool Gross Appearance - Final Stool 04/13/18 15:15 Urine Culture - Final Urine No Growth (<1,000 CFU/mL) Assess/Plan/Problems-Billing Assessment: This is a 62 yo F with PMH of HTN and ulcerative colitis; who was admitted to [facility] [place] from 04/07 - 04/10 for cdiff colitis, discharged on PO abx, and presented again to the ED with c/o fevers and continued diarrhea and was found to be septic, 2/2 cdiff colitis which is now resolved. - Patient Problems (1) Acute ulcerative colitis Code(s): K51.90 - ULCERATIVE COLITIS, UNSPECIFIED, WITHOUT COMPLICATIONS SNOMED Code(s): 319546434 Comment: - s/p flex sig 04/17, deep sigmoid ulcerations noted and likely source of fevers rather than recurrent cdiff - PO prednisone 40mg today - Cdiff now negative/resolved - CRP is trending down (2) Anemia of chronic disease Comment: - In setting of ulcerative colitis, may also be dilutional - Stable, but worsened by acute infection and UC flare - Stool occult negative - Iron studies completed, may benefit from Iron supplementation after UC flare is resolved (3) Lower extremity edema Comment: -Pt continuing PO intake well -Pt states she will use HERMAN stockings after shower this morning (4) C. difficile colitis Comment: - Resolved, cdiff is negative - Complete vanco 250mg QID for 14 days total, with last dose on 04/21/18 (5) HTN (hypertension) Comment: -Pt continues to be normotensive. Continue to hold Lisipopril and monitor BP. (6) DVT prophylaxis Comment: -SCDs when in bed (7) Full code status Status and Disposition: Inpatient. anticipate DC home on oral prednisone when medically optimized, 1-2 days and f/u with GI outpatient for initiation of a biologic. Pt is improving clinically; anticipated discharge tomorrow.
[2018-04-20] MEDS: traMADol TAB* 50 MG PO PRN (17:30)
[2018-04-21] MEDS: traMADol TAB* 50 MG PO PRN (00:07)
[2018-04-21] MEDS: Potassium Chlor TAB* 20 MEQ TAB.ER PO SCH (09:09)
[2018-04-21] MEDS: predniSONE TAB* 20 MG PO SCH (09:09)
[2018-04-21] MEDS: Vancomycin CAP* 250 MG CAP PO SCH ×2 (09:09→12:53)
--- NOTE | 2018-04-21 10:38 | PN ---
Subjective Date of Service: 04/21/18 Interval History: The patient reports an increase in abdominal pain as well as increase in bloody BM from q3h to q2h. She attributes this to a change in dosage of steroids. Pt is requesting an increase in PO prednisone from 40mg to 60mg, at which point she states she will be willing to be discharged. It was explained that she is hemodynamically stable and has improved since admission, but she is still requesting an increase in steroid medication before discharge. Dose increase was denied by GI, and pt understands and is in agreement to discharge and plan. Family History: Unchanged from Admission Social History: Unchanged from Admission Past Medical History: Unchanged from Admission Objective Active Medications: Acetaminophen (Tylenol Tab*) 650 mg PO Q4H PRN Morphine Sulfate (Morphine Vial*) 2 mg IV Q4H PRN Ondansetron HCl (Zofran Inj*) 4 mg IV Q4H PRN Potassium Chloride (Klor Con Er Tab*) 20 meq PO DAILY MAIDA Prednisone (Deltasone Tab*) 40 mg PO DAILY MAIDA Tramadol HCl (Ultram*) 50 mg PO Q6H PRN Vancomycin HCl (Vancomycin Cap*) 250 mg PO QID MAIDA Vital Signs: Temp Pulse Resp BP Pulse Ox 98.8 F 111 18 122/72 100 04/21/18 07:39 04/21/18 07:39 04/21/18 10:16 04/21/18 07:39 04/21/18 07:39 Oxygen Devices in Use Now: None Appearance: Pt is resting comfortably in bed, in no acute distress Eyes: No Scleral Icterus Ears/Nose/Mouth/Throat: NL Teeth, Lips, Gums, Mucous Membranes Moist Neck: NL Appearance and Movements; NL JVP, Trachea Midline Respiratory: Symmetrical Chest Expansion and Respiratory Effort, Clear to Auscultation Cardiovascular: NL Sounds; No Murmurs; No JVD, RRR - Bowel sounds in all quadrant; tender to palpation. Abdominal: - - BS in all 4 quadrants; soft and tender to palpation Extremities: No Clubbing, Cyanosis, - - b/l LE edema, 2+ pitting Skin: No Rash or Ulcers Neurological: Alert and Oriented x 3 Nutrition: Taking PO's Result Diagrams: 04/18/18 05:55 04/18/18 05:55 Microbiology and Other Data: Microbiology 12/21/18 06:28 Aerobic Blood Culture - Preliminary Blood Venous No Growth Day 2 Anaerobic Blood Culture - Preliminary No Growth Day 2 04/14/18 06:34 Aerobic Blood Culture - Preliminary Blood Venous No Growth Day 2 Anaerobic Blood Culture - Preliminary No Growth Day 2 04/14/18 15:08 Stool Occult Blood (KG) - Final Stool 04/14/18 15:08 Stool Gross Appearance - Final Stool 04/13/18 15:15 Urine Culture - Final Urine No Growth (<1,000 CFU/mL) Assess/Plan/Problems-Billing Assessment: This is a 62 yo F with PMH of HTN and ulcerative colitis; who was admitted to [facility] from 04/07 - 04/10 for cdiff colitis, discharged on PO abx, and presented again to the ED with c/o fevers and continued diarrhea and was found to be septic, 2/2 cdiff colitis which is now resolved. - Patient Problems (1) Acute ulcerative colitis Comment: -Pt remains normotensive, regular heart rate. -GI consulted, as pt requested an increase in prednisone. They state that they do not send pts home on 60mg dosage, as it increases side effects with no increase in benefit. This was relayed to the patient, and she expresses understanding. -Continue 40mg PO prednisone at discharge until pt sees GI Dr. Wagner within 2 weeks (appointmend scheduled) (2) Lower extremity edema Comment: -Pt continuing PO intake well -Pt continues to be intolerant of TEDs stockings; wore for a limited time this morning (3) C. difficile colitis Comment: - Resolved, cdiff is negative - Complete vanco 250mg QID for 14 days total, with last dose on 04/21/18 (4) HTN (hypertension) Comment: -Pt continues to be normotensive. Continue to hold Lisipopril. (5) DVT prophylaxis Comment: -SCDs when in bed (6) Full code status Status and Disposition: Inpatient. Anticipate DC today on oral prednisone until f/u with GI outpatient for initiation of a biologic. Pt has improved clinically.
[2018-04-21 12:36] VITALS: BP 123/74
--- NOTE | 2018-04-22 02:22 | DS ---
DISCHARGE SUMMARY: DATE OF ADMISSION: 04/13/18 DATE OF DISCHARGE: 04/21/18 PRIMARY CARE PROVIDER: Braydon Landeros NP. GI PHYSICIANS: Dr. Bush at [facility] and Dr. Wagner. ATTENDING PHYSICIAN: Dr. Serrano* (dictated by JESSE Wilson). PRIMARY DIAGNOSES: 1. Sepsis secondary to Clostridium difficile. 2. Ulcerative colitis. SECONDARY DIAGNOSES: 1. Hypertension. 2. Ulcerative colitis. STUDIES WHILE IN THE HOSPITAL: 1. CT of the abdomen and pelvis with contrast from 04/16/18. Impression: Submucosal edema from the transverse colon through the rectum. This may be slightly improved since previous exam and is consistent with colitis. No abscess is identified. 2. Flexible sigmoidoscopy with biopsies from 04/17/18. Impression: I do think that this is her ulcerative colitis. I did not really appreciate any pseudomembranes, but saw very deep, large ulcers. She is still febrile; however , her white count is normal. She has been on vancomycin. I will await the results of the stool for Clostridium difficile, and if negative, then I think we can safely start steroids, Solu-Medrol 20 mg IV q.8 hours. 3. Colon sigmoid biopsy. Final diagnosis comment: Histologic sections show colonic mucosa with ulcerations, crypt architectural distortion, crypt abscesses , and markedly increased inflammatory cells in the lamina propria. Dysplasia is absent. Granulomata are not seen. The findings are those of an inflammatory bowel disease and are compatible with the clinical impression of ulcerative colitis. Conclusion: Followup biopsies, likely ulcerative colitis. DISCHARGE MEDICATIONS: Home Medications: 1. Tramadol HCL 50 mg p.o. at bedtime p.r.n. pain. 2. Potassium chloride tablet 20 mEq p.o. daily. 3. Zofran 4 mg p.o. q.6 hours p.r.n. nausea. 4. Tylenol 650 mg p.o. q.4 hours p.r.n. fever/pain. New Medications: 1. Prednisone 40 mg p.o. daily until appointment with Gastrointestinal. 2. Vancomycin 250 mg p.o. q.6 hours x2 final doses. HOSPITAL COURSE: Ms. Moreno is a 62-year-old female who presented to the ER after being discharged from the hospital 3 days prior with C. diff colitis, for which she was being treated with vancomycin. She presented stating that she continued to have fevers and frequent bowel movements. In the ER, she was found to have a fever of 101, mild tachycardia, a CRP of 248, electrolyte abnormality, and abdominal pain. She was admitted for management of her C. diff colitis. She was continued on vancomycin at a rate of 250 mg p.o. q.6 hours. Her stool was cultured and tested for c.diff, which was negative. Stool for occult blood was negative, as well. Throughout her stay, her bowel movements became less frequent. She was seen by Gastroenterology regarding her ulcerative colitis. She was instructed to be sent home on 40 mg prednisone p.o. daily and to follow up with GI within 2 weeks. Throughout her stay, her sepsis secondary to C. diff resolved. The patient, although being diagnosed with hypertension prior, continued to be normotensive throughout her hospital stay. At discharge, she was still found to be normotensive and did not need to be sent home with her lisinopril, which had been discontinued during her last admission. When seen prior to discharge today, the patient reported an increase in abdominal pain with bloody bowel movements every 2 hours as opposed to every 3 hours, which she reported yesterday. She attributed this to a change in dosage of her steroids. She requested an increase in steroids from 40 to 60 mg, which was discussed with GI, and to which they did not agree to. This was discussed with the patient and she expressed understanding and agreement with the plan of 40 mg prednisone p.o. daily until she sees GI on . This is a summarized report of a complex medical history and hospital stay. For further details, please see the entire medical record. PHYSICAL EXAM: Appearance: The patient is resting comfortably in bed, in no acute distress. Vital Signs: Temperature 98.8, pulse rate 111, respiratory rate 18, oxygen saturation 100, blood pressure 122/72. HEENT: No scleral icterus. Extraocular movements intact. Mucous membranes moist. Tongue midline. Neck: Normal appearance and movements. Trachea midline. Respiratory : Symmetrical chest expansion and respiratory effort. Clear to auscultation bilaterally. Cardiovascular: Regular rate and rhythm without murmurs, rubs, clicks, or gallops. Abdomen: Bowel sounds in all quadrants, tender to palpation. Extremities: No clubbing or cyanosis. Bilateral lower extremity edema 2+, pitting. Skin: No rashes or ulcers. Neuro: Alert and oriented x3. DISCHARGE PLAN: Ms. Moreno will be discharged home. Activity: As tolerated. Diet: Low residue. Medications: As above. Education: -Continue vancomycin q.6 hours for 2 doses. -Continue prednisone 40 mg p.o. everyday until appointment with Dr. Wagner. -Follow up with primary care provider in 4 to 7 days; follow up on UC and hypertension. -Follow up with Dr. Wagner on 05/09/18. -The patient should return to the ER or the nearest hospital if they experience any worsening of symptoms, shortness of breath, lightheadedness, dizziness, chest discomfort, high fevers, chills, night sweats, loss of consciousness, or any other worrisome signs or symptoms. TIME SPENT: Approximately 40 minutes were spent on the discharge, greater than half of that time spent [id number] with the patient discussing discharge plans and instruction. JESSE OREILLY [id number]/[facility] #: [id number] MTDD
== END 2018-04-21 13:50 | disposition home or self-care (01) | DRG 720 ==
LOC: ED 14:40 → MED 18:49
PROVIDERS: ADMIT Pediatrics; ATTEND Student in an Organized Health Care Education/Training Program
PROC: 0DBN8ZX Excision of Sigmoid Colon, Via Natural or Artificial Opening Endoscopic, Diagnostic (ICD-10-PCS; principal; 2018-04-17)
DX: A41.9 Sepsis, unspecified organism (principal); A04.71 Enterocolitis due to Clostridium difficile, recurrent; K51.90 Ulcerative colitis, unspecified, without complications; I10 Essential (primary) hypertension; E86.0 Dehydration; R74.8 Abnormal levels of other serum enzymes; D63.8 Anemia in other chronic diseases classified elsewhere; R79.89 Other specified abnormal findings of blood chemistry; H26.9 Unspecified cataract; R60.0 Localized edema; K64.9 Unspecified hemorrhoids; Z88.2 Allergy status to sulfonamides; Z98.41 Cataract extraction status, right eye; Z83.3 Family history of diabetes mellitus; Z87.891 Personal history of nicotine dependence; Z79.52 Long term (current) use of systemic steroids; Z82.49 Family history of ischemic heart disease and other diseases of the circulatory system
CPT/HCPCS: 36415; 74177; 80048; 80053; 81003; 81015; 82272; 82728; 83540; 83550; 83605; 83690; 85025; 86140; 87040; 87045; 87046; 87086; 87493; 87899; 88305; 99156; 99284; A9270-GY; J1644; J2250; J2270; J2920; J3010; J3480; J7512; Q9967

== ENCOUNTER 2018-05-20 07:46 | Inpatient (IN) | payer BC ==
--- NOTE | 2018-05-20 07:55 | ED ---
HPI Febrile Illness - HPI Summary HPI Summary: This patient is a 62 year old female brought in by ambulance to [facility] with a chief complaint of weakness and fever since last night. Ambulance and pt were greeted upon arrival to the ED. Patient has a hx of ulcerative colitis and was hospitalized in Mar 2018 with C. diff. Patient states that she does not currently have C. diff. Patient has been home for about 1 month on first 40mg prednisone, now 30mg of prednisone for treatment of her colitis. Dr. Wagner ( GI), recommended an Entyvio infusion to be given for the first time on Tuesday, , 2 days from now. Last night, patient states she had a subjective fever, with shaking and chills. She states that she did not have the strength to get up at all and this morning when she had to move her bowels, twice, and states she was so weak that she just had the bowel movements in her pants while lying on the couch. Pt has no abd pain upon admission to the ED. The pain is rated 0/ 10 in severity on admission to the ED. Symptoms aggravated by nothing. Symptoms alleviated by nothing. The patient has a temp of 100.7 per EMS through tympanic thermometer, 100.4 temporal upon admission to the ED. Pt has 2 SIRS criteria on adm (resp rate and tachycardia), with early warning system 7. Patient states that she has had her flu shot for the year. Home Medications Medication Instructions Recorded Confirmed Type Tramadol HCl 50 mg PO BEDTIME PRN MDD 4 04/06/18 04/13/18 History Acetaminophen TAB* [Tylenol TAB*] 650 mg PO Q4H PRN tab 04/09/18 04/13/18 Rx Ondansetron ODT TAB* [Zofran 4 MG 4 mg PO Q6H PRN #20 tab.odt 04/09/18 04/13/18 Rx Odt TAB*] Potassium Chlor TAB* [Potassium 20 meq PO DAILY #30 tab.er 04/09/18 04/13/18 Rx Chlor TAB 20 MEQ*] Vancomycin CAP* 250 mg PO Q6H 1 Days #2 cap 04/21/18 Rx predniSONE TAB* [Deltasone 20 MG 40 mg PO DAILY 14 Days #28 tab 04/21/18 Rx TAB*] - History of Current Complaint Hx Obtained From: Patient Onset/Duration: Started Hours Ago, Still Present Timing: Constant Temperature: 100.7 F Initial Severity: Moderate Current Severity: Moderate Pain Intensity: 0 Pain Scale Used: 0-10 Numeric Aggravating Factors: Nothing Alleviating Factors: Nothing Associated Signs and Symptoms: Chills, Other: - weakness, fever, shaking, chills - Additional Pertinent History Primary Care Physician: MATT - Allergy/Home Medications Allergies/Adverse Reactions: Allergies Allergy/AdvReac Type Severity Reaction Status Date / Time diatrizoate meglumine Allergy Vomiting Verified 05/20/18 13:39 [From Gastrografin] diatrizoate sodium Allergy Vomiting Verified 05/20/18 13:39 [From Gastrografin] Sulfa (Sulfonamide Allergy Hives Verified 04/05/18 11:31 Antibiotics) PMH/Surg Hx/FS Hx/Imm Hx Previously Healthy: No Endocrine/Hematology History: Denies: Hx Diabetes Cardiovascular History: Reports: Hx Hypertension - ON MEDS Denies: Other Cardiovascular Problems/Disorders GI History: Reports: Other GI Disorders - hx ulcerative colitis, C difficile colitis History: Denies: Hx Dialysis, Hx Renal Disease, Other Problems/Disorders Sensory History: Reports: Hx Cataracts, Hx Contacts or Glasses Denies: Hx Hearing Aid Opthamlomology History: Reports: Hx Cataracts, Hx Contacts or Glasses - Cancer History Hx Chemotherapy: No Hx Radiation Therapy: No - Surgical History Surgery Procedure, Year, and Place: RIGHT CATARACT 2010, [facility] Hx Anesthesia Reactions: No - Immunization History Date of Influenza Vaccine: fall 2017 Infectious Disease History: Yes Infectious Disease History: Reports: Hx Clostridium Difficile - Family History Known Family History: Positive: Diabetes - Father. , Other - No cancer. - Social History Lives: Alone Alcohol Use: None Hx Substance Use: No Hx Tobacco Use: Yes Smoking Status (MU): Former Smoker Type: Cigarettes Have You Smoked in the Last Year: No Review of Systems Positive: Fever, Chills, Other - generalized weakness Cardiovascular: Negative Respiratory: Negative Positive: Diarrhea - bloody , Nausea Positive: no symptoms reported Musculoskeletal: Negative Skin: Negative Positive: Weakness Psychological: Normal All Other Systems Reviewed And Are Negative: Yes Physical Exam - Summary Physical Exam Summary: Appearance: Ill-appearing, minimal pain distress, well-nourished Skin: Warm, dry, pale Head: Normal Head/Face inspection, atraumatic Eyes: Conjunctiva clear ENT: Normal inspection Neck: Supple, no nodes, no JVD Respiratory: Lungs clear, normal breath sounds, no respiratory distress Cardio: RRR, No murmur, pulses normal, brisk capillary refill Abdomen: Soft, diffuse mild tenderness, minimally distended, no masses Bowel sounds: Present Musculoskeletal: Strength Intact/ROM intact, no calf tenderness, no edema. Psychological: Normal Neuro: Alert, muscle tone normal, no focal deficit Triage Information Reviewed: Yes Vital Signs Reviewed: Yes Diagnostics - Laboratory Result Diagrams: 05/23/18 00:33 05/22/18 17:55 Lab Statement: Any lab studies that have been ordered have been reviewed, and results considered in the medical decision making process. - Radiology CXR Radiology Interpretation Completed By: Radiologist Summary of Radiographic Findings: CXR reveals, per radiologist, IMPRESSION: SUGGESTION OF FREE AIR UNDER THE RIGHT HEMIDIAPHRAGM. LUNGS ARE CLEAR. Findings discussed with Dr. Avila at 10:58 AM. ED physician has reviewed this radiology report. - CT CT Abd/Pel CT Interpretation Completed By: Radiologist Summary of CT Findings: CT Abd/Pel reveals, per radiologist, IMPRESSION: Free intraperitoneal air is noted. There is a dilated right colon and transverse colon with question of extraluminal focus of air at the splenic flexure which may be the source of the perforation. The stomach is collapsed. Nonspecific small bowel distention is noted. Findings discussed with Dr. Avila at 12:44 PM. ED physician has reviewed this radiology report. - EKG 0848 Cardiac Rate: Tachycardia EKG Rhythm: Sinus Tachycardia - [address] Segment: Non-Specific Ectopy: None EKG Comparison: No Significant Change - compared with 04/05/18 Summary of EKG Findings: An EKG, taken 0848, reveals Sinus Tachycardia (115 BPM) , nml AV/IV CT, nml QTc, and nml axis Re-Evaluation - Re-Evaluation First Eval Re-Evaluation Time: 08:55 Change: Unchanged Comment: Nurses relate that patient has difficult IV access. Sepsis blood work and IV fluids are delayed due to the difficult IV access. Patient has produced stool in the ED, that nurse states is bloody and orange with odor similar to C. difficile and G I bleed. Will hold on empiric antibiotics until stool C. difficile result returns, in case fever is due to recurrent C. difficile. Second Eval Re-Evaluation Time: 13:40 Change: Improved Comment: Patient is able to stand up, and does not have significant abd pain, unless she is moving her bowels. Abdomen is more distended, remains diffusely tender. Course/Dx - Course Course Of Treatment: This patient is a 62 year old female brought in by ambulance to [facility] with a chief complaint of weakness and fever since last night. Bloodwork Obtained. Urinalysis Obtained. CXR showed suggestion of free air under right diaphragm. CT abd/pelvis done with oral and IV contrast showed free air at level of splenic flexure.(details above in this document). Test results showed WBC of 13.6, H/H 7.6/24 (decreased from Hb 8.6 on 04/18/19), NA 128, K+ 3.4, CRP 80, and initial lactate negative at 1.2. In the ED course the patient was given Flagyl 500mg IV first awaiting C diff toxin titer, Zosyn 3.375gm once free air confirmed on CT for intra-abdominal source, NS 0.9% bolus IV at 30cc/kg per sepsis protocol for sepsis with abdominal source. C diff toxin titer was negative, and influenza A and B was negative. We discussed patient care with Dr. Hickey (Surgeon) at 1250, who agreed to come to ED to evaluate patient. We discussed patient care with Dr. Story at 1309, who is aware of the patient and will be in to see her. We discussed patient care with Dr. Mclean (Hospitalist) 1340, who will accept the patient into the ICU. Both Dr. Hickey and Dr. Mclean saw the pt in the ED, and discussed pt care. Patient will be diagnosed with ulcerative colitis, perforated colon, and hx of C. diff. Patient was given Zosyn prior to the OR. Pt gave full informed consent for the OR with Dr. Hickey. Pt had not received narcotics or benzodiazepines in the ED prior to consent. The patient is agreeable with this plan. - Febrile Illness Differential Diagnoses: Abd. Infection, Bacteremia, Fever of Unknown Origin, GI Disease, Sepsis, Other: - perforated viscus - Diagnoses Provider Diagnoses: Ulcerative colitis, Hx of Clostridium difficile infection, Sepsis, Free intraperitoneal air, Perforated bowel - Provider Notifications Discussed Care Of Patient With: Juan Jose Hickey Time Discussed With Above Provider: 12:50 - He is on his way in to the ED Instructed by Provider To: MD Will See In ED - plan for OR emergently - Critical Care Time Critical Care Time: 30-74 min - 30 mins Discharge - Sign-Out/Discharge Documenting (check all that apply): Patient Departure - admit - Discharge Plan Condition: Stable Disposition: ADMITTED TO [facility] - Billing Disposition and Condition Condition: STABLE Disposition: Admitted to [facility] - Attestation Statements Document Initiated by Scribe: Yes Documenting Scribe: Castro Harris Provider For Whom Scribe is Documenting (Include Credential): Bessy Avila MD Scribe Attestation: Castro Busby, scribed for Bessy Avila MD on 05/23/18 at 0154. Scribe Documentation Reviewed: Yes Provider Attestation: The documentation as recorded by the Castro briones accurately reflects the service I personally performed and the decisions made by me, Bessy Avila MD Status of Scribe Document: Viewed Consult Consult: We discussed patient care with Dr. Story at 1309, who is aware of the patient and will be in to see her. We discussed patient care with Dr. Hickey (Surgeon) at 1320 in ED, and advises Zosyn IV abx, and type and cross 2 units prbcs to be ready for pt. We discussed patient care with Dr. Mclean (Hospitalist) 1340, who will accept the patient into the ICU after the OR. Dr. Hickey and Dr. Mclean are both present in the ED, and discuss pt care together.
[2018-05-20] MEDS ORDERED: cefTRIAXone(*) 1 GM in NS 0.9% 50 ML* 50 ML IVPB ONE (08:23)
[2018-05-20] MEDS ORDERED: metroNIDAZOLE IV 500 MG/100ML* 500 MG/100 ML BAG IVPB ONE (08:23)
[2018-05-20] MEDS ORDERED: NS 0.9% 1000 ML** 1,000 ML IV.FLUID IV ONE (08:23)
--- OUTSIDE RECORDS SUMMARY | 2018-05-20 08:42 | XMS REPORT | Continuity of Care Document ---
:1955 External Reference #:[id number] Author Name Napoleon Wagenr DO Address [address] [place] [address] Care Team Providers Name Role Phone Braydon Landeros NP Primary Care Physician Unavailable Payers Type Date Identification Numbers Payment Provider Subscriber Effective: Policy Number: [id number] [employer] Julio C Beltran 2017 PayID: [id number] [address] [address] [place] [address] Expires: 2017 Policy Number: [id number] [facility] Julio C Beltran PayID: [id number] [address] [place] [address] Advance Directives Description No Information Available Problems Date Description Provider Status Onset: 07/22/2006 Ulcerative colitis Randy Bhakta MD Active Note: no extraintestinal manifestation; office note 2006 reveals a flare / original Dx of UC [id number] (after family ) treated with Cortenemas then; then no ongoing treatment over 13 yrs; once again with gradual onset of Sx UC seen in 2006 and prednisone used for remission after she perceived side effects from Asacol ( 01/24/07 had post injestion nausea over a few days); once again after ten yrs with no Sx and no maintenance Rx - flare in May 2016 seen in ER and after no help from Bentyl or Cipro admitted 3 days and after she is completely well on prednisone ; July 08 2017 after apparent stomach virus Onset: 07/22/2012 Essential hypertension Randy Bhakta MD Active Onset: 09/16/1965 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 Randy Bhakta MD Active Note: from childhood and in 2017 she recalls no details; Onset: 07/29/2017 Chronic ulcerative pancolitis Layne Desai PA-C Active Family History Date Family Member(s) Problem(s) Comments Father due to Natural Causes () - at 90 Mother due to Alzheimer's Disease () - at 70 Grandmother Ulcerative Colitis Social History Type Date Description Comments Sex Unknown Tobacco Use Start: Unknown Patient has never smoked Smoking Status Reviewed: 05/09/18 Patient has never smoked Allergies, Adverse Reactions, Alerts Date Description Reaction Status Severity Comments 10/22/2014 Sulfa Antibiotics Active Medications Medication Date Status Form Strength Qnty SIG Indications Ordering Provider Prednisone 07/08/ Active Tablets 10mg 120tab take 4 2017 s Tablets Bernard, Daily By DO Mouth Cholestyramine 04/26/ Hx Powder 4GM/Dose 378gm 4g PO 2018 - daily to Bernard, 05/09/ bid for DO 2018 prn diarrhea. Rowasa Enemas 04/24/ Hx Enema 4GM/60ML 1680ml use 1 2017 - enema Bernard, 04/24/ every 2017 night. Rowasa 04/24/ Hx Enema 1 every 2017 - night at Bernard, 04/24/ bedtime 2017 Mesalamine 04/24/ Hx Enema 4gm 420uni one enema 2017 - ts every Bernard, 05/09/ night DO 2018 Fluoxetine HCL 10/24/ Hx Capsules 20mg 1 by mouth Unknown 2017 - every day 2017 Azathioprine 09/29/ Hx Tablets 50mg 90tabs 1 by mouth Randy Shirley 2018 - every day Yony, 2018 Lialda 08/22/ Hx Tablets DR 1.2gm 120tab 4 by mouth Randy Shirley 2018 - s every day Yony, 2018 Prednisone 09/16/ Hx Tablets 2.5mg 60tabs 1 by mouth Randy Shirley 2017 - every day Yony, 2018 Balsalazide 09/16/ Hx Capsules 750mg 270cap 3 by mouth Randy Shirley Disodium 2017 - s three Yony, 07/29/ times a 2017 day Lisinopril 06/27/ Hx Tablets 20mg Take One Unknown 2012 - Tablet By Mouth 2019 Every Day Prednisone 00/00/ Hx Tablets 10mg Take 6 Unknown 0000 - Tablets By Mouth 2017 Daily For 5 Days Then Decrease By 1 2 Tablet E Immunizations Description No Information Available Vital Signs Date Vital Result Comment 05/09/2018 1:51pm Height 66 inches 5'6" Weight 150.00 lb BP Systolic 122 mmHg BP Diastolic 92 mmHg Heart Rate 128 /min BMI (Body Mass Index) 24.2 kg/m2 10/31/2017 7:50am Height 66 inches 5'6" Weight 183.00 lb BP Systolic 140 mmHg BP Diastolic 81 mmHg Heart Rate 92 /min BMI (Body Mass Index) 29.5 kg/m2 09/29/2017 7:55am Height 66 inches 5'6" Weight 188.00 lb BP Systolic 130 mmHg BP Diastolic 79 mmHg Heart Rate 92 /min BMI (Body Mass Index) 30.3 kg/m2 08/22/2017 3:55pm Height 66 inches 5'6" Weight 187.00 lb BP Systolic 134 mmHg BP Diastolic 80 mmHg Heart Rate 82 /min BMI (Body Mass Index) 30.2 kg/m2 07/29/2017 11:11am Height 66 inches 5'6" Weight 187.00 lb BMI (Body Mass Index) 30.2 kg/m2 07/08/2017 8:26am Height 66 inches 5'6" Weight 181.00 lb BP Systolic 114 mmHg BP Diastolic 68 mmHg Heart Rate 100 /min BMI (Body Mass Index) 29.2 kg/m2 09/16/2016 8:11am Height 66 inches 5'6" Weight 178.00 lb BP Systolic 134 mmHg BP Diastolic 79 mmHg Heart Rate 88 /min BMI (Body Mass Index) 28.7 kg/m2 07/22/2016 12:55pm Height 66 inches 5'6" Weight 172.00 lb BP Systolic 130 mmHg BP Diastolic 80 mmHg Heart Rate 78 /min BMI (Body Mass Index) 27.8 kg/m2 Results Test Date Facility Test Result H/L Range Note Quantiferon Gold 05/09/2018 [facility] QuantiFERO Indeterminate Abnormal Negative 1 TB N-Tb Gold Plus TB1 Ag minus Nil Result 0 IU/mL TB2 Ag minus Nil Result 0 IU/mL TB Mitogen minus Nil Result 0.04 IU/mL TB Nil Result 0.01 IU/mL 2 Laboratory test 05/09/2018 [facility] Hepatitis B Nonreactive Nonreactive 3 finding Surface Ag Hepatitis B Kira AB 05/09/2018 [facility] Hepatitis B Not Immune Abnormal Immune Titer Surface AB Hep B Surf AB Level < 3.10 mIU/mL >12 Laboratory test 05/09/2018 [facility] Hepatitis B Negative Negative 4 finding Core AB Total Inflammation 05/09/2018 [facility] 120 MM High 0-20 Panel(!) [address] [facility] [place] [address] Rate(!) [phone] C-Reative Protein 116.8 High <5.0 CBC W/Auto 05/09/2018 [facility] White 20.9 High 4.8- 10.8 Differential(!) [address] [facility] Blood 3/[place] [address] Count Ser [phone] Auto CNT RBC Red Blood Count 3.43 X106/UL Low 4.20-6.20 Hemoglobin Blood 9.6 g/dL Low 12.0-18.0 Hematocrit 30.1 % Low 35-52 MCV (Corpuscular Volume) 87.9 FL 79-97 MCH (Corpuscular Hemoglobin) 28.0 pg 27-31 MCHC (Corpuscular Hemog Conc) 31.8 g/dL Low 32.0-36.0 RDW 15.9 % High 10.5-15.0 Platelet Count Blood Auto CNT 713 X103/UL High 150-450 MPV 5.5 FL Low 7.4-10.4 Lymph% 11.7 % Low 20.0-45.0 [place]% 5.2 % 1.0-9.0 Neutrophil % 83.1 % High 38.0-83.0 Absolute Lymphocytes 2.4 X103/UL 1.0-4.8 Absolute Monocytes 1.1 X103/UL High 0.0-0.8 Absolute Neutrophils 17.4 X103/UL High 1.5-7.7 CMP(!) 05/09/2018 [facility] Sodium(!) 129 mEq/L Low 134 -149 [address] [place] [address] [phone] Potassium(!) 5.5 mEq/L 3.6-5.5 Chloride Serum/Plasma(!) 98 mEq/L 94-112 Carbon Dioxide Ser/Plasm(!) 23 mEq/L 21-33 BUN - Urea Nitrogen(!) 23 mg/dL 6-24 Calcium Ser/Plasma Mass/Vol(!) 8.2 mg/dL Low 8.6-10.2 Creatinine Serum Mass/Vol(!) 0.6 mg/dL 0.5-1.4 Glucose Serum(!) 149 mg/dL High 70-105 BUN/Creatinine Ratio(!) 38.3 RATIO High 8.0-36 Albumin Serum/Plasma(!) 3.1 g/dL Low 3.5-5.2 Alkaline Phosphatase(!) 158 U/L High 39-117 Bilirubin Total Mass/Vol 0.7 mg/dL 0.2-1.3 Ast - Sgot 12 U/L 5-34 Alt - SGPT 11 U/L 10-40 Protein Total 6.4 g/dL 6.2-8.1 Laboratory test 04/17/2018 [facility] Surgical SEE RESULT 5 finding Interface Order BELOW Laboratory test 04/17/2018 [facility] C Difficile PCR <pending> finding Unspec Spec Culture Stool 04/14/2018 [facility] Culture Stool <pending> Occult Blood 04/14/2018 [facility] Z#Other <pending> Diagnos Observations Xray 04/06/2018 [facility] Radiology Chest Ap Portable <pending> Xray 04/05/2018 [facility] Radiology CT, Abd & Pelvis <pending> W/ Contrast Culture Stool 04/05/2018 [facility] Culture Stool <pending> Laboratory test 04/05/2018 [facility] C Difficile PCR <pending> finding Unspec Spec Laboratory test 09/29/2017 [facility] Miscellaneous See Comment 6 finding Test CBC W/Auto 09/29/2017 [facility] White Blood Count 11.5 3/ UL High 4.8- Differential(!) [address] [facility] Ser Auto CNT 10.8 [place] [address] [phone] RBC Red Blood Count 4.33 X106/UL 4.20-6.20 Hemoglobin Blood 13.6 g/dL 12.0-18.0 Hematocrit 43.2 % 35-52 MCV (Corpuscular Volume) 99.7 FL High 79-97 MCH (Corpuscular Hemoglobin) 31.5 pg High 27-31 MCHC (Corpuscular Hemog Conc) 31.6 g/dL Low 32.0-36.0 RDW 16.6 % High 10.5-15.0 Platelet Count Blood Auto CNT 282 X103/UL 150-450 MPV 7.2 FL Low 7.4-10.4 Lymph% 36.0 % 20.0-45.0 [place]% 4.5 % 1.0-9.0 Neutrophil % 59.5 % 38.0-83.0 Absolute Lymphocytes 4.1 X103/UL 1.0-4.8 Absolute Monocytes 0.5 X103/UL 0.0-0.8 Absolute Neutrophils 6.8 X103/UL 1.5-7.7 CMP(!) 09/29/2017 [facility] Sodium(!) 137 mEq/L 134- 149 [address] [place], [place] [id number] [phone] Potassium(!) 4.8 mEq/L 3.6-5.5 Chloride Serum/Plasma(!) 103 mEq/L 94-112 Carbon Dioxide Ser/Plasm(!) 26 mEq/L 21-33 BUN - Urea Nitrogen(!) 22 mg/dL 6-24 Calcium Ser/Plasma Mass/Vol(!) 9.3 mg/dL 8.6-10.2 Creatinine Serum Mass/Vol(!) 1.0 mg/dL 0.5-1.4 Glucose Serum(!) 90 mg/dL 70-105 Uric Acid Ser/Plas Mass/Vol(!) 4.3 mg/dL 2.6-7.2 BUN/Creatinine Ratio(!) 22 RATIO 8.0-36 Albumin Serum/Plasma(!) 4.2 g/dL 3.5-5.2 Alkaline Phosphatase(!) 46 U/L 39-117 Bilirubin Total Mass/Vol 0.8 mg/dL 0.2-1.3 Ast - Sgot 15 U/L 5-34 Alt - SGPT 16 U/L 10-40 Protein Total 6.2 g/dL 6.2-8.1 Laboratory test 09/29/2017 [facility] Amylase(!) 108 U/L 25-114 finding 5 [place] [address] [phone] CBC W/Auto 07/08/2017 [facility] White Blood 9.0 3/UL 4.8-10.8 Differential(!) 5 [facility] Count Ser Auto [place], [place] [id number] TWI [phone] RBC Red Blood Count 4.77 X106/UL 4.20-6.20 Hemoglobin Blood 14.5 g/dL 12.0-18.0 Hematocrit 45.2 % 35-52 MCV (Corpuscular Volume) 94.7 FL 79-97 MCH (Corpuscular Hemoglobin) 30.4 pg 27-31 MCHC (Corpuscular Hemog Conc) 32.1 g/dL 32.0-36.0 RDW 14.9 % 10.5-15.0 Platelet Count Blood Auto CNT 334 X103/UL 150-450 MPV 7.4 FL 7.4-10.4 Lymph% 31.5 % 20.0-45.0 [place]% 5.9 % 1.0-9.0 Neutrophil % 62.6 % 38.0-83.0 Absolute Lymphocytes 2.8 X103/UL 1.0-4.8 Absolute Monocytes 0.5 X103/UL 0.0-0.8 Absolute Neutrophils 5.6 X103/UL 1.5-7.7 CMP(!) 07/08/2017 [facility] Sodium(!) 137 mEq/L 134- 149 [address] [place] [address] [phone] Potassium(!) 4.8 mEq/L 3.6-5.5 Chloride Serum/Plasma(!) 102 mEq/L 94-112 Carbon Dioxide Ser/Plasm(!) 24 mEq/L 21-33 BUN - Urea Nitrogen(!) 15 mg/dL 6-24 Calcium Ser/Plasma Mass/Vol(!) 9.4 mg/dL 8.6-10.2 Creatinine Serum Mass/Vol(!) 0.8 mg/dL 0.5-1.4 Glucose Serum(!) 108 mg/dL High 70-105 Uric Acid Ser/Plas Mass/Vol(!) 4.3 mg/dL 2.6-7.2 BUN/Creatinine Ratio(!) 18.8 RATIO 8.0-36 Albumin Serum/Plasma(!) 4.5 g/dL 3.5-5.2 Alkaline Phosphatase(!) 88 U/L 39-117 Bilirubin Total Mass/Vol 0.6 mg/dL 0.2-1.3 Ast - Sgot 18 U/L 5-34 Alt - SGPT 23 U/L 10-40 Protein Total 7.4 g/dL 6.2-8.1 CBC W/Auto 06/23/2016 [facility] Blood <pending> Differential(!) Count Ser Auto CNT RBC Red Blood Count <pending> Hemoglobin Blood <pending> Hematocrit <pending> MCV (Corpuscular Volume) <pending> MCH (Corpuscular Hemoglobin) <pending> MCHC (Corpuscular Hemog Conc) <pending> RDW <pending> Platelet Count Blood Auto CNT <pending> MPV <pending> Lymph% <pending> [place]% <pending> Neutrophil % <pending> Absolute Lymphocytes <pending> Absolute Monocytes <pending> Absolute Neutrophils <pending> BMP W/Egfr 06/23/2016 [facility] Sodium(!) <pending> Potassium(!) <pending> Chloride Serum/Plasma(!) <pending> Carbon Dioxide Ser/Plasm(!) <pending> Calcium Ser/Plasma Mass/Vol(!) <pending> Glucose Serum(!) <pending> Laboratory test finding 06/22/2016 [facility] Surgical Interface SEE RESULT BELOW 7 Order 1 Indeterminate due to a low interferon-gamma level in the mitogen (positive control) tube. This may occur due to a low lymphocyte count, reduced lymphocyte activity or inability of the patient's lymphocytes to generate interferon-gamma. The reference range for the 'Mitogen minus Nil Result' is >=0.5 IU/mL. 2 Test Performed by: [place] [address] 3 [id number] 4 Test Performed by: [place] [address] 5 SEE RESULT BELOW Name: JULIO C BELTRAN : [address]: Ramez Hernandes MD Acct: [id number] Unit: [id number] AGE: 62 Location: [place] [address] Re04/13/18 SEX: F Status: ADM IN SPEC: [id number] EFREN: 04/17/18 [facility] DR: Nato Yadav MD REQ: [id number] RECD: 04/17/18 STATUS: KELLE RUDD DR: Rachel Jj DO _ ORDERED: LEVEL 4 FINAL DIAGNOSIS Colon, sigmoid, biopsy: -- Chronic, active colitis. -- Dysplasia is absent. COMMENT: Histologic sections show colonic mucosa with ulceration, crypt architectural distortion, crypt abscesses, and markedly increased inflammatory cells in the lamina propria. Dysplasia is absent. Granulomata are not seen. The findings are those of an inflammatory bowel disease and are compatible with the clinical impression of ulcerative colitis. POST-OPERATIVE DIAGNOSIS FSC: to mid sigmoid; deep ulcers; biopsy and stool for cdiff; conclusions: follow up biopsies likely ulcerative colitis GROSS DESCRIPTION The specimen is received in formalin labeled, Biopsy Sigmoid Ulcers, and consists of three gillespie-pink irregular to polypoid soft tissue fragments aggregating 0.8 x 0.5 x 0.3 cm, which are entirely submitted in one cassette. Signed by and Reported on: Carolina Juárez MD 04/19/18 0953 END OF REPORT DEPARTMENT OF PATHOLOGY, [address] [place] [address] Yinka Hobbs M.D. Director [facility] # [id number] 6 Test Result Flag Unit RefValue TPMT Activity Profile, RBC Interpretation See Comment *Normal* In this whole blood sample, the profile of activity of thiopurine methyltransferase using three different substrates was normal or essentially normal. ADDITIONAL INFORMATION Liquid Chromatography-Tandem Mass Spectrometry (LC-MS/MS) This test was developed and its performance characteristics determined by [facility] in a manner consistent with CLIA requirements. This test has not been cleared or approved by the U.S. Food and Drug Administration. 6-Methylmercaptopurine 4.39 nmol/mL/h 3.00-6.66 6- 7.44 nmol/mL/h 5.04-9.57 Methylmercaptopurine riboside 6-Methylthioguanine 4.45 nmol/mL/h 2.70-5.84 riboside Reviewed By See Comment RESULT: Nestor Solorzano M.D., Ph.D. Test Performed by: [address] [address] 7 SEE RESULT BELOW Name: JULIO C BELTRAN : [address]: Umm Bess DO Acct: [id number] Unit: [id number] AGE: 60 Location: [place] [address] Re06/21/16 Dis: 06/23/16 SEX: F Status: DIS IN SPEC: [id number] EFREN: 06/22/16-[address]: Randy Bhakta MD REQ: [id number] RECD: 06/22/16-1721 STATUS: KELLE RUDD DR: Alex Serrano MD [...] performed at Main Lab DEPARTMENT OF PATHOLOGY, [address] [place] [address] Yinka Hobbs M.D. Director [facility] # [id number] Procedures Date Code Description Status 04/17/2018 95146 Moderate Sedation Services; Same Phys Intl 15 Mins; PT >=5 Completed Years 04/17/2018 14949 Flexible Sigmoidoscopy W/ Biopsy Completed 06/22/2016 92207 Moderate Sedation Services; Same Phys Each Additional 15 Completed Mins 06/22/2016 97250 Moderate Sedation Services; Same Phys Intl 15 Mins; PT >=5 Completed Years 06/22/2016 52831 Colonscopy+Biopsy Completed 06/22/2016 96618 EGD+Biopsy Single Or Multiple Completed 01/17/2007 17042 Flexible Sigmoidoscopy W/ Biopsy Completed Encounters Type Date Location Provider Dx Diagnosis Office Visit 05/09/2018 [facility] Napoleon Wagner, K51.018 Ulcerative 2:15p Ray WATSON (chronic) pancolitis with other complication K51.918 Ulcerative colitis, unspecified with other complication R19.7 Diarrhea, unspecified 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 Office 10/31/2017 [facility] Randy Shirley K51.90 Ulcerative Visit 7:45a Ray Bhakta MD colitis, unspecified, without complications I10 Essential (primary) hypertension Z79.899 Other nursing home (current) drug therapy Office 09/29/2017 [facility] Randy Shirley K51.90 Ulcerative Visit 8:00a Ray Bhakta MD colitis, unspecified, without complications Z88.2 Allergy status to sulfonamides status R10.9 Unspecified abdominal pain Office 08/22/2017 [facility] Randy Shirley K51.00 Ulcerative Visit 4:00p Ray Bhakta MD (chronic) pancolitis without complications K51.90 Ulcerative colitis, unspecified, without complications I10 Essential (primary) hypertension Office 07/29/2017 [facility] Layne Haro K51.00 Ulcerative Visit 11:30a [facility] Opal Desai (chronic) PA-C pancolitis without complications Office 07/08/2017 [facility] Randy Shirley K51.90 Ulcerative Visit 8:45a [facility] Bh[facility] MD colitis, unspecified, without complications I10 Essential (primary) hypertension Office 09/16/2016 [facility] Randy Bond1.90 Ulcerative Visit 8:30a [facility] Bh[facility] MD colitis, unspecified, without complications Office 07/22/2016 [facility] Randy Bond1.90 Ulcerative Visit 1:00p [facility] Bhak[facility] MD colitis, unspecified, without complications Plan of Treatment Future Appointment(s):06/26/2018 1:00 pm - Napoleon Wagner DO [facility]05/09/2018 - Napoleon Wagner DOK51.018 Ulcerative (chronic) pancolitis with other dirjvfogqrydB42.918 Ulcerative colitis, unspecified with other complicationNew Labs:C Difficile PCR, Ordered: 05/09/18R19.7 Diarrhea, unspecifiedNew Labs:C Difficile PCR, Ordered: Z79.899 Other nursing home (current) drug therapyNew Labs:C Difficile PCR, Ordered: 05/09/18
--- OUTSIDE RECORDS SUMMARY | 2018-05-20 08:42 | XMS REPORT | Continuity of Care Document ---
:1955 External Reference #:[id number] Author Name Napoleon Wagner DO Address [address] [place] [address] Care Team Providers Name Role Phone Braydon Landeros NP Primary Care Physician Unavailable Payers Type Date Identification Numbers Payment Provider Subscriber Effective: Policy Number: [id number] [employer] Julio C Beltran 2017 PayID: [id number] [address] [address] [place] [address] Expires: 2017 Policy Number: [id number] [facility] Julio C Beltran PayID: [id number] [address] [place] [address] Advance Directives Description No Information Available Problems Date Description Provider Status Onset: 07/22/2006 Ulcerative colitis Randy Bhakta MD Active Note: no extraintestinal manifestation; office note 2006 reveals a flare / original Dx of UC [id number] (after family ) treated with Cortenemas then; [...] Test Result H/L Range Note Laboratory test 05/09/2018 [facility] Quantiferon Gold TB <pending> finding Hepatitis B Surface Ag <pending> Hepatitis B Kira AB Titer <pending> Hepatitis B Core AB Total <pending> Inflammation 05/09/2018 [facility] Sedimentation 120 MM High 0-20 Panel(!) [address] Rate(!) [place] [address] [phone] C-Reative Protein 116.8 High <5.0 CBC W/Auto 05/09/2018 [facility] White 20.9 High 4.8- 10.8 Differential(!) [address] [facility] Blood 3/[place] [address] Count Ser [phone] Auto CNT RBC Red Blood Count 3.43 [...] Low 7.4-10.4 Lymph% 11.7 % Low 20.0-45.0 Bollinger% 5.2 % 1.0-9.0 Neutrophil % 83.1 % High 38.0-83.0 Absolute Lymphocytes 2.4 X103/UL 1.0-4.8 Absolute Monocytes 1.1 X103/UL High 0.0-0.8 Absolute Neutrophils 17.4 X103/UL High 1.5-7.7 CMP(!) 05/09/2018 [facility] Sodium(!) 129 mEq/L Low 134 -149 2435 [place] [address] [phone] Potassium(!) 5.5 mEq/L 3.6-5.5 Chloride Serum/Plasma(!) 98 [...] Total 6.4 g/dL 6.2-8.1 Laboratory test 04/17/2018 [facility] Surgical SEE RESULT 1 finding Interface Order BELOW Laboratory test 04/17/2018 [facility] C Difficile PCR <pending> finding Unspec Spec Culture Stool 04/14/2018 [facility] Culture Stool <pending> Occult Blood 04/14/2018 [facility] Z#Other <pending> Diagnos Observations Xray 04/06/2018 [facility] Chest Ap Portable <pending> Xray 04/05/2018 [facility] [place], Abd & Pelvis <pending> W/ Contrast Culture Stool 04/05/2018 [facility] Culture Stool <pending> Laboratory test 04/05/2018 [facility] C Difficile PCR <pending> finding Unspec Spec Laboratory test 09/29/2017 [facility] Miscellaneous See Comment 2 finding Test CBC W/Auto 09/29/2017 [facility] White Blood Count 11.5 3/ UL High 4.8- Differential(!) [address] [facility] Ser Auto CNT 10.8 [place] [id number] [phone] RBC Red Blood Count 4.33 X106/UL 4.20-6.20 Hemoglobin Blood 13.6 g/dL 12.0-18.0 Hematocrit 43.2 % 35-52 MCV (Corpuscular Volume) 99.7 FL High 79-97 MCH (Corpuscular Hemoglobin) 31.5 pg High 27-31 MCHC (Corpuscular Hemog Conc) 31.6 g/dL Low 32.0-36.0 RDW 16.6 % High 10.5-15.0 Platelet Count Blood Auto CNT 282 X103/UL 150-450 MPV 7.2 FL Low 7.4-10.4 Lymph% 36.0 % 20.0-45.0 Bollinger% 4.5 % 1.0-9.0 Neutrophil % 59.5 % 38.0-83.0 Absolute Lymphocytes 4.1 X103/UL 1.0-4.8 Absolute Monocytes 0.5 X103/UL 0.0-0.8 Absolute Neutrophils 6.8 X103/UL 1.5-7.7 CMP(!) 09/29/2017 [facility] Sodium(!) 137 mEq/L 134- 149 2435 [place], [place] [id number] [phone] Potassium(!) 4.8 mEq/L 3.6-5.5 Chloride Serum/Plasma(!) 103 [...] [facility] Amylase(!) 108 U/L 25-114 finding [address] [place] [address] [phone] CBC W/Auto 07/08/2017 [facility] White Blood 9.0 3/UL 4.8-10.8 Differential(!) [address] [facility] [place] [address] CNT [phone] RBC Red Blood Count 4.77 X106/UL 4.20-6.20 Hemoglobin Blood 14.5 g/dL 12.0-18.0 Hematocrit 45.2 % 35-52 MCV (Corpuscular Volume) 94.7 FL 79-97 MCH (Corpuscular Hemoglobin) 30.4 pg 27-31 MCHC (Corpuscular Hemog Conc) 32.1 g/dL 32.0-36.0 RDW 14.9 % 10.5-15.0 Platelet Count Blood Auto CNT 334 X103/UL 150-450 MPV 7.4 FL 7.4-10.4 Lymph% 31.5 % 20.0-45.0 [place]linger% 5.9 % 1.0-9.0 Neutrophil % 62.6 % 38.0-83.0 Absolute Lymphocytes 2.8 X103/UL 1.0-4.8 Absolute Monocytes 0.5 X103/UL 0.0-0.8 Absolute Neutrophils 5.6 X103/UL 1.5-7.7 CMP(!) 07/08/2017 [facility] Sodium(!) 137 mEq/L 134- 149 24[address] [place], [place] [id number] [phone] Potassium(!) 4.8 mEq/L 3.6-5.5 Chloride Serum/Plasma(!) 102 [...] Auto CNT <pending> MPV <pending> Lymph% <pending> [place]% <pending> Neutrophil % <pending> Absolute Lymphocytes <pending> Absolute Monocytes <pending> Absolute Neutrophils <pending> BMP W/Egfr 06/23/2016 [facility] Sodium(!) <pending> Potassium(!) <pending> Chloride Serum/Plasma(!) <pending> Carbon Dioxide Ser/Plasm(!) <pending> Calcium Ser/Plasma Mass/Vol(!) <pending> Glucose Serum(!) <pending> Laboratory test finding 06/22/2016 [facility] Surgical Interface SEE RESULT BELOW 3 Order 1 SEE RESULT BELOW Name: JULIO C BELTRAN : [address]: Ramez Hernandes MD Acct: [id number] Unit: [id number] AGE: 62 Location: [place] [address] Re04/13/18 SEX: F Status: ADM IN SPEC: [id number] EFREN: 04/17/18-[address] [facility] [address]: Nato Yadav MD REQ: [id number] RECD: 04/17/184 STATUS: KELLE RUDD DR: Rachel Jj DO [...] 0953 END OF REPORT DEPARTMENT OF PATHOLOGY, [address] [place] [address] Yinka Hobbs M.D. Director [facility] # [id number] 2 Test Result Flag Unit RefValue TPMT Activity Profile, RBC Interpretation See Comment *Normal* In this whole blood sample, the profile of activity of thiopurine methyltransferase using three different substrates was normal or essentially normal. ADDITIONAL INFORMATION Liquid Chromatography-Tandem Mass Spectrometry (LC-MS/MS) This test was developed and its performance characteristics determined by [facility] in a manner consistent with CLIA requirements. This test has not been cleared or approved by the U.S. Food and Drug Administration. 6-Methylmercaptopurine 4.39 nmol/mL/h 3.00-6.66 6- 7.44 nmol/mL/h 5.04-9.57 Methylmercaptopurine riboside 6-Methylthioguanine 4.45 nmol/mL/h 2.70-5.84 riboside Reviewed By See Comment RESULT: Nestor Solorzano M.D., Ph.D. Test Performed by: [address] [address] 3 SEE RESULT BELOW Name: RUBYJULIO C : [address]: Umm Bess DO Acct: [id number] Unit: [id number] AGE: 60 Location: [place] [address] Re06/21/16 Dis: 06/23/16 SEX: F Status: DIS IN SPEC: [id number] EFREN: 06/22/16-[address]: Randy Bhakta MD REQ: [id number] RECD: 06/22/16441 STATUS: KELLE RUDD DR: Alex Serrano MD [...] performed at Main Lab DEPARTMENT OF PATHOLOGY, [address] [place] [address] Yinka Hobbs M.D. Director [facility] # [id number] Procedures Date Code Description Status 04/17/2018 92276 Moderate Sedation Services; Same Phys Intl 15 Mins; PT >=5 Completed Years 04/17/2018 74369 Flexible Sigmoidoscopy W/ Biopsy Completed 06/22/2016 32397 Moderate Sedation Services; Same Phys Each Additional 15 Completed Mins 06/22/2016 54477 Moderate Sedation Services; Same Phys Intl 15 Mins; PT >=5 Completed Years 06/22/2016 31849 Colonscopy+Biopsy Completed 06/22/2016 12924 EGD+Biopsy Single Or Multiple Completed 01/17/2007 34530 Flexible Sigmoidoscopy W/ Biopsy Completed Encounters Type Date Location Provider Dx Diagnosis Office Visit 10/31/2017 [facility] Randy Shirley K51.90 Ulcerative colitis, 7:45a [facility] MD unspecified, without complications I10 Essential (primary) hypertension Z79.899 Other prison (current) drug therapy Office 09/29/2017 [facility] Randy Shirley K51.90 Ulcerative Visit 8:00a [facility] MD colitis, unspecified, without complications Z88.2 Allergy status to sulfonamides status R10.9 Unspecified abdominal pain Office 08/22/2017 [facility] Randy Shirley K51.00 Ulcerative Visit 4:00p [facility] MD (chronic) pancolitis without complications K51.90 Ulcerative colitis, unspecified, without complications I10 Essential (primary) hypertension Office 07/29/2017 [facility] Layne Haro K51.00 Ulcerative Visit 11:30a [facility] (chronic) PA-C pancolitis without complications Office 07/08/2017 [facility] Randy Shirley K51.90 Ulcerative Visit 8:45a [facility] MD colitis, unspecified, without complications I10 Essential (primary) hypertension Office 09/16/2016 [facility] Randy Shirley K51.90 Ulcerative Visit 8:30a [facility] MD colitis, unspecified, without complications Office 07/22/2016 [facility] Randy Shirley K51.90 Ulcerative Visit 1:00p [facility] Bhakta MD colitis, unspecified, without complications Plan of Treatment 05/09/2018 - Napoleon Wagner DOK51.918 Ulcerative colitis, unspecified with other complicationNew Labs:C Difficile PCR, Ordered: 05/09/18R19.7 Diarrhea, unspecifiedNew Labs:C Difficile PCR, Ordered: 05/09/18Z79.899 Other prison ( current) drug therapyNew Labs:C Difficile PCR, Ordered: 05/09/18
--- OUTSIDE RECORDS SUMMARY | 2018-05-20 08:42 | XMS REPORT | Continuity of Care Document ---
:1955 External Reference #:[id number] Author Name Napoleon Wagner DO Address [address] [place] [address] Care Team Providers Name Role Phone Braydon Landeros NP Primary Care Physician Unavailable Payers Type Date Identification Numbers Payment Provider Subscriber Effective: Policy Number: [id number] [employer] Julio C Beltran 2017 PayID: [id number] [address] [address] [place] [address] Expires: 2017 Policy Number: [id number] [facility] Julio C Beltran PayID: [id number] [address] [place] [address] Advance Directives Description No Information Available Problems Date Description Provider Status Onset: 07/22/2006 Ulcerative colitis Randy Bhakta MD Active Note: no extraintestinal manifestation; office note 2006 reveals a flare / original Dx of UC [id number] (after family ) treated with Cortenemas then; [...] DR 1.2gm 120tab 4 by mouth Randy Shilrey 2018 - s every day Yony, 2018 [...] Result H/L Range Note Quantiferon Gold 05/09/2018 [facility] QuantiFERO Indeterminate Abnormal Negative 1 TB N-Tb Gold Plus TB1 Ag minus Nil Result 0 IU/mL TB2 Ag minus Nil Result 0 IU/mL TB Mitogen minus Nil Result 0.04 IU/mL TB Nil Result 0.01 IU/mL 2 Laboratory test 05/09/2018 [facility] Hepatitis B Nonreactive Nonreactive 3 finding Surface Ag Hepatitis B Kira AB 05/09/2018 [facility] Hepatitis B Not Immune Abnormal Immune Titer Surface AB Hep B Surf AB Level < 3.10 mIU/mL >12 Laboratory test 05/09/2018 [facility] Hepatitis B Negative Negative 4 finding Core AB Total Inflammation 05/09/2018 [facility] 120 MM High 0-20 Panel(!) [address] [facility] [place] [address] Rate(!) [phone] C-Reative Protein 116.8 High <5.0 CBC W/Auto 05/09/2018 [facility] White 20.9 High 4.8- 10.8 Differential(!) [address] [facility] Blood 3/[place] [address] Count Ser [phone] Auto CNT RBC Red Blood Count 3.43 [...] Low 7.4-10.4 Lymph% 11.7 % Low 20.0-45.0 [place]% 5.2 % 1.0-9.0 Neutrophil % 83.1 % High 38.0-83.0 Absolute Lymphocytes 2.4 X103/UL 1.0-4.8 Absolute Monocytes 1.1 X103/UL High 0.0-0.8 Absolute Neutrophils 17.4 X103/UL High 1.5-7.7 CMP(!) 05/09/2018 [facility] Sodium(!) 129 mEq/L Low 134 -149 2435 [place] [address] [phone] Potassium(!) 5.5 mEq/L 3.6-5.5 Chloride Serum/Plasma(!) 98 [...] Total 6.4 g/dL 6.2-8.1 Laboratory test 04/17/2018 [facility] Surgical SEE RESULT 5 finding Interface Order BELOW Laboratory test 04/17/2018 [facility] C Difficile PCR <pending> finding Unspec Spec Culture Stool 04/14/2018 [facility] Culture Stool <pending> Occult Blood 04/14/2018 [facility] Z#Other <pending> Diagnos Observations Xray 04/06/2018 [facility] Radiology Chest Ap Portable <pending> Xray 04/05/2018 [facility] Radiology CT, Abd & Pelvis <pending> W/ Contrast Culture Stool 04/05/2018 [facility] Culture Stool <pending> Laboratory test 04/05/2018 [facility] C Difficile PCR <pending> finding Unspec Spec Laboratory test 09/29/2017 [facility] Miscellaneous See Comment 6 finding Test CBC W/Auto 09/29/2017 [facility] White Blood Count 11.5 3/ UL High 4.8- Differential(!) [address] [facility] Ser Auto CNT 10.8 [place] [address] [phone] RBC Red Blood Count 4.33 X106/UL 4.20-6.20 Hemoglobin Blood 13.6 g/dL 12.0-18.0 Hematocrit 43.2 % 35-52 MCV (Corpuscular Volume) 99.7 FL High 79-97 MCH (Corpuscular Hemoglobin) 31.5 pg High 27-31 MCHC (Corpuscular Hemog Conc) 31.6 g/dL Low 32.0-36.0 RDW 16.6 % High 10.5-15.0 Platelet Count Blood Auto CNT 282 X103/UL 150-450 MPV 7.2 FL Low 7.4-10.4 Lymph% 36.0 % 20.0-45.0 [place]% 4.5 % 1.0-9.0 Neutrophil % 59.5 % 38.0-83.0 Absolute Lymphocytes 4.1 X103/UL 1.0-4.8 Absolute Monocytes 0.5 X103/UL 0.0-0.8 Absolute Neutrophils 6.8 X103/UL 1.5-7.7 CMP(!) 09/29/2017 [facility] Sodium(!) 137 mEq/L 134- 149 [address] [place], [place] [address] [phone] Potassium(!) 4.8 mEq/L 3.6-5.5 Chloride Serum/Plasma(!) 103 [...] Associates Amylase(!) 108 U/L 25-114 finding 5 [place] [address] [phone] CBC W/Auto 07/08/2017 [facility] Blood 9.0 3/UL 4.8-10.8 Differential(!) 5 [facility] Count Ser Auto [place], [place] [address] DQK [phone] RBC Red Blood Count 4.77 X106/UL 4.20-6.20 Hemoglobin Blood 14.5 g/dL 12.0-18.0 Hematocrit 45.2 % 35-52 MCV (Corpuscular Volume) 94.7 FL 79-97 MCH (Corpuscular Hemoglobin) 30.4 pg 27-31 MCHC (Corpuscular Hemog Conc) 32.1 g/dL 32.0-36.0 RDW 14.9 % 10.5-15.0 Platelet Count Blood Auto CNT 334 X103/UL 150-450 MPV 7.4 FL 7.4-10.4 Lymph% 31.5 % 20.0-45.0 [place]% 5.9 % 1.0-9.0 Neutrophil % 62.6 % 38.0-83.0 Absolute Lymphocytes 2.8 X103/UL 1.0-4.8 Absolute Monocytes 0.5 X103/UL 0.0-0.8 Absolute Neutrophils 5.6 X103/UL 1.5-7.7 CMP(!) 07/08/2017 [facility] Sodium(!) 137 mEq/L 134- 149 2435 [place] [address] [phone] Potassium(!) 4.8 mEq/L 3.6-5.5 Chloride Serum/Plasma(!) 102 [...] Auto CNT <pending> MPV <pending> Lymph% <pending> [place]% <pending> Neutrophil % <pending> Absolute Lymphocytes <pending> Absolute Monocytes <pending> Absolute Neutrophils <pending> BMP W/Egfr 06/23/2016 [facility] Sodium(!) <pending> Potassium(!) <pending> Chloride Serum/Plasma(!) <pending> Carbon Dioxide Ser/Plasm(!) <pending> Calcium Ser/Plasma Mass/Vol(!) <pending> Glucose Serum(!) <pending> Laboratory test finding 06/22/2016 [facility] Surgical Interface SEE RESULT BELOW 7 Order 1 Indeterminate due to a low interferon-gamma level in the mitogen (positive control) tube. This may occur due to a low lymphocyte count, reduced lymphocyte activity or inability of the patient's lymphocytes to generate interferon-gamma. The reference range for the 'Mitogen minus Nil Result' is >=0.5 IU/mL. 2 Test Performed by: [place] [address] 3 [id number] 4 Test Performed by: [place] [address] 5 SEE RESULT BELOW Name: JULIO C BELTRAN : [address]: Ramez Hernandes MD Acct: [id number] Unit: [id number] AGE: 62 Location: [place] [address] Re04/13/18 SEX: F Status: ADM IN SPEC: [id number] EFREN: 04/17/18 [facility] DR: Nato Yadav MD REQ: [id number] RECD: 04/17/18 STATUS: KELLE RUDD DR: Rachel [...] 0953 END OF REPORT DEPARTMENT OF PATHOLOGY, [address] [place] [address] Yinka Hobbs M.D. Director [facility] # [id number] 6 Test Result Flag Unit RefValue TPMT Activity Profile, RBC Interpretation See Comment *Normal* In this whole blood sample, the profile of activity of thiopurine methyltransferase using three different substrates was normal or essentially normal. ADDITIONAL INFORMATION Liquid Chromatography-Tandem Mass Spectrometry (LC-MS/MS) This test was developed and its performance characteristics determined by [facility] in a manner consistent with CLIA requirements. This test has not been cleared or approved by the U.S. Food and Drug Administration. 6-Methylmercaptopurine 4.39 nmol/mL/h 3.00-6.66 6- 7.44 nmol/mL/h 5.04-9.57 Methylmercaptopurine riboside 6-Methylthioguanine 4.45 nmol/mL/h 2.70-5.84 riboside Reviewed By See Comment RESULT: Nestor Solorzano M.D., Ph.D. Test Performed by: [address] [address] 7 SEE RESULT BELOW Name: JULIO C BELTRAN : [address]: Umm Bess DO Acct: [id number] Unit: [id number] AGE: 60 Location: [place] [address] Re06/21/16 Dis: 06/23/16 SEX: F Status: DIS IN SPEC: [id number] EFREN: 06/22/16-[address]: Randy Bhakta MD REQ: [id number] RECD: 06/22/16-1721 STATUS: KELLE RUDD DR: Alex [...] performed at Main Lab DEPARTMENT OF PATHOLOGY, [address] [place] [address] Yinka Hobbs M.D. Director [facility] # [id number] Procedures Date Code Description Status 04/17/2018 60297 Moderate Sedation Services; Same Phys Intl 15 Mins; PT >=5 Completed Years 04/17/2018 79256 Flexible Sigmoidoscopy W/ Biopsy Completed 06/22/2016 16086 Moderate Sedation Services; Same Phys Each Additional 15 Completed Mins 06/22/2016 23384 Moderate Sedation Services; Same Phys Intl 15 Mins; PT >=5 Completed Years 06/22/2016 91028 Colonscopy+Biopsy Completed 06/22/2016 24949 EGD+Biopsy Single Or Multiple Completed 01/17/2007 28015 Flexible Sigmoidoscopy W/ Biopsy Completed Encounters Type Date Location Provider Dx Diagnosis Office Visit 05/09/2018 [facility] Napoleon Wagner, K51.018 Ulcerative 2:15p Ray WATSON (chronic) pancolitis with other complication K51.918 Ulcerative colitis, unspecified with other complication R19.7 Diarrhea, unspecified 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 Office 10/31/2017 [facility] Randy Shirley K51.90 Ulcerative Visit 7:45a Ray Bhakta MD colitis, unspecified, without complications I10 Essential (primary) hypertension Z79.899 Other shelter (current) drug therapy Office 09/29/2017 [facility] Randy [...] - Napoleon Wagner DO [facility]05/09/2018 - Napoleon Wagner DOK51.018 Ulcerative (chronic) pancolitis with other thzpfrbocjriT15.918 Ulcerative colitis, unspecified with other complicationNew Labs:C Difficile PCR, Ordered: 05/09/18R19.7 Diarrhea, unspecifiedNew Labs:C Difficile PCR, Ordered: Z79.899 Other shelter (current) drug therapyNew Labs:C Difficile PCR, Ordered: 05/09/18
--- OUTSIDE RECORDS SUMMARY | 2018-05-20 08:43 | XMS REPORT | Continuity of Care Document ---
:1955 External Reference #:[id number] Author Name Napoleon Wagner DO Address [address] [place] [address] Care Team Providers Name Role Phone Braydon Landeros NP Primary Care Physician Unavailable Payers Type Date Identification Numbers Payment Provider Subscriber Effective: Policy Number: [id number] [employer] Julio C Beltran 2017 PayID: [id number] [address] [address] [place] [address] Expires: 2017 Policy Number: [id number] [facility] Julio C Beltran PayID: [id number] [address] [place] [address] Advance Directives Description No Information Available Problems Date Description Provider Status Onset: 07/22/2006 Ulcerative colitis Randy Bhakta MD Active Note: no extraintestinal manifestation; office note 2006 reveals a flare / original Dx of UC [id number] (after family ) treated with Cortenemas then; [...] <pending> Inflammation 05/09/2018 [facility] Sedimentation < pending> MM 0-20 Panel(!) [address] Rate(!) [place] [address] [phone] C-Reative Protein <pending> <5.0 CBC W/Auto 05/09/2018 [facility] White 20.9 High 4.8- 10.8 Differential(!) [address] [facility] Blood 3/[place] [address] Count Ser [phone] Auto CNT RBC Red Blood Count 3.43 [...] Low 7.4-10.4 Lymph% 11.7 % Low 20.0-45.0 O'Brien% 5.2 % 1.0-9.0 Neutrophil % 83.1 % High 38.0-83.0 Absolute Lymphocytes 2.4 X103/UL 1.0-4.8 Absolute Monocytes 1.1 X103/UL High 0.0-0.8 Absolute Neutrophils 17.4 X103/UL High 1.5-7.7 CMP(!) 05/09/2018 [facility] Sodium(!) <pending> mEq/L 231-011 [address] [place] [address] [phone] Potassium(!) <pending> mEq/L 3.6-5.5 Chloride Serum/Plasma(!) <pending> mEq/L 94-112 Carbon Dioxide Ser/Plasm(!) <pending> mEq/L 21-33 BUN - Urea Nitrogen(!) <pending> mg/dL 6-24 Calcium Ser/Plasma Mass/Vol(!) <pending> mg/dL 8.6-10.2 Creatinine Serum Mass/Vol(!) <pending> mg/dL 0.5-1.4 Glucose Serum(!) <pending> mg/dL 70-105 BUN/Creatinine Ratio(!) <pending> RATIO 8.0-36 Albumin Serum/Plasma(!) <pending> g/dL 3.5-5.2 Alkaline Phosphatase(!) <pending> U/L 39-117 Bilirubin Total Mass/Vol <pending> mg/dL 0.2-1.3 Ast - Sgot <pending> U/L 5-34 Alt - SGPT <pending> U/L 10-40 Protein Total <pending> g/dL 6.2-8.1 Laboratory test 04/17/2018 [facility] Surgical SEE RESULT 1 finding Interface Order BELOW Laboratory test 04/17/2018 [facility] C Difficile PCR <pending> finding Unspec Spec Culture Stool 04/14/2018 [facility] Culture Stool <pending> Occult Blood 04/14/2018 [facility] Z#Other <pending> Diagnos Observations Xray 04/06/2018 [facility] Radiology Chest Ap Portable <pending> Xray 04/05/2018 [facility] Radiology CT, Abd & Pelvis <pending> W/ Contrast Culture Stool 04/05/2018 [facility] Culture Stool <pending> Laboratory test 04/05/2018 [facility] C Difficile PCR <pending> finding Unspec Spec Laboratory test 09/29/2017 [facility] Miscellaneous See Comment 2 finding Test CBC W/Auto 09/29/2017 [facility] White Blood Count 11.5 3/ UL High 4.8- Differential(!) [address] Ser Auto CNT 10.8 [place] [address] [phone] RBC Red Blood Count 4.33 X106/UL 4.20-6.20 Hemoglobin Blood 13.6 g/dL 12.0-18.0 Hematocrit 43.2 % 35-52 MCV (Corpuscular Volume) 99.7 FL High 79-97 MCH (Corpuscular Hemoglobin) 31.5 pg High 27-31 MCHC (Corpuscular Hemog Conc) 31.6 g/dL Low 32.0-36.0 RDW 16.6 % High 10.5-15.0 Platelet Count Blood Auto CNT 282 X103/UL 150-450 MPV 7.2 FL Low 7.4-10.4 Lymph% 36.0 % 20.0-45.0 O'Brien% 4.5 % 1.0-9.0 Neutrophil % 59.5 % 38.0-83.0 Absolute Lymphocytes 4.1 X103/UL 1.0-4.8 Absolute Monocytes 0.5 X103/UL 0.0-0.8 Absolute Neutrophils 6.8 X103/UL 1.5-7.7 CMP(!) 09/29/2017 [facility] Sodium(!) 137 mEq/L 134- [address] [place] [address] [phone] Potassium(!) 4.8 mEq/L 3.6-5.5 Chloride Serum/Plasma(!) 103 [...] [facility] Amylase(!) 108 U/L 25-114 finding [facility] [place] [address] [phone] CBC W/Auto 07/08/2017 [facility] White Blood 9.0 3/UL 4.8-10.8 Differential(!) [address] [facility] [place] [address] [facility] [phone] RBC Red Blood Count 4.77 X106/UL 4.20-6.20 Hemoglobin Blood 14.5 g/dL 12.0-18.0 Hematocrit 45.2 % 35-52 MCV (Corpuscular Volume) 94.7 FL 79-97 MCH (Corpuscular Hemoglobin) 30.4 pg 27-31 MCHC (Corpuscular Hemog Conc) 32.1 g/dL 32.0-36.0 RDW 14.9 % 10.5-15.0 Platelet Count Blood Auto CNT 334 X103/UL 150-450 MPV 7.4 FL 7.4-10.4 Lymph% 31.5 % 20.0-45.0 O'Brien% 5.9 % 1.0-9.0 Neutrophil % 62.6 % 38.0-83.0 Absolute Lymphocytes 2.8 X103/UL 1.0-4.8 Absolute Monocytes 0.5 X103/UL 0.0-0.8 Absolute Neutrophils 5.6 X103/UL 1.5-7.7 CMP(!) 07/08/2017 [facility] Sodium(!) 137 mEq/L 134- 149 [address] [place] [address] [phone] Potassium(!) 4.8 mEq/L 3.6-5.5 Chloride Serum/Plasma(!) 102 [...] Auto CNT <pending> MPV <pending> Lymph% <pending> O'Brien% <pending> Neutrophil % <pending> Absolute Lymphocytes <pending> Absolute Monocytes <pending> Absolute Neutrophils <pending> BMP W/Egfr 06/23/2016 [facility] Sodium(!) <pending> Potassium(!) <pending> Chloride Serum/Plasma(!) <pending> Carbon Dioxide Ser/Plasm(!) <pending> Calcium Ser/Plasma Mass/Vol(!) <pending> Glucose Serum(!) <pending> Laboratory test finding 06/22/2016 [facility] Surgical Interface SEE RESULT BELOW 3 Order 1 SEE RESULT BELOW Name: JULIO C BELTRAN : [address]: Ramez Hernandes MD Acct: [id number] Unit: [id number] AGE: 62 Location: [place] [address] Re04/13/18 SEX: F Status: ADM IN SPEC: [id number] EFREN: 04/17/18 [facility] [address]: Nato Yadav MD REQ: [id number] RECD: 04/17/189 STATUS: KELLE RUDD DR: Rachel Jj DO [...] 0953 END OF REPORT DEPARTMENT OF PATHOLOGY, [address] [place] [address] Yinka Hobbs M.D. Director [facility] # [id number] 2 Test Result Flag Unit RefValue TPMT Activity Profile, RBC Interpretation See Comment *Normal* In this whole blood sample, the profile of activity of thiopurine methyltransferase using three different substrates was normal or essentially normal. ADDITIONAL INFORMATION Liquid Chromatography-Tandem Mass Spectrometry (LC-MS/MS) This test was developed and its performance characteristics determined by [facility] in a manner consistent with CLIA requirements. This test has not been cleared or approved by the U.S. Food and Drug Administration. 6-Methylmercaptopurine 4.39 nmol/mL/h 3.00-6.66 6- 7.44 nmol/mL/h 5.04-9.57 Methylmercaptopurine riboside 6-Methylthioguanine 4.45 nmol/mL/h 2.70-5.84 riboside Reviewed By See Comment RESULT: Nestor Solorzano M.D., Ph.D. Test Performed by: [address] [address] 3 SEE RESULT BELOW Name: JULIO C BELTRAN : [address]: Umm Bess DO Acct: [id number] Unit: [id number] AGE: 60 Location: [place] [address] Re06/21/16 Dis: 06/23/16 SEX: F Status: DIS IN SPEC: [id number] EFREN: 06/22/16-2216 [facility] [address]: Randy Bhakta MD REQ: [id number] RECD: 06/22/165 STATUS: KELLE RUDD DR: Alex Serrano MD [...] performed at Main Lab DEPARTMENT OF PATHOLOGY, [address] [place] [address] Yinka Hobbs M.D. Director [facility] # [id number] Procedures Date Code Description Status 04/17/2018 06820 Moderate Sedation Services; Same Phys Intl 15 Mins; PT >=5 Completed Years 04/17/2018 01476 Flexible Sigmoidoscopy W/ Biopsy Completed 06/22/2016 74676 Moderate Sedation Services; Same Phys Each Additional 15 Completed Mins 06/22/2016 14083 Moderate Sedation Services; Same Phys Intl 15 Mins; PT >=5 Completed Years 06/22/2016 83358 Colonscopy+Biopsy Completed 06/22/2016 84256 EGD+Biopsy Single Or Multiple Completed 01/17/2007 70904 Flexible Sigmoidoscopy W/ Biopsy Completed Encounters Type Date Location Provider Dx Diagnosis Office Visit 10/31/2017 [facility] Randy Shirley K51.90 Ulcerative colitis, 7:45a [facility] Bh[facility] MD unspecified, without complications I10 Essential (primary) hypertension Z79.899 Other half-way (current) drug therapy Office 09/29/2017 [facility] Randy Shirley K51.90 Ulcerative Visit 8:00a [facility] MD colitis, unspecified, without complications Z88.2 Allergy status to sulfonamides status R10.9 Unspecified abdominal pain Office 08/22/2017 [facility] Randy Shirely K51.00 Ulcerative Visit 4:00p [facility] Bhakta MD (chronic) pancolitis without complications K51.90 [...] Randy Shirley K51.90 Ulcerative Visit 8:30a [facility] Bhakta MD colitis, unspecified, without complications Office 07/22/2016 [facility] Randy Shirley K51.90 Ulcerative Visit 1:00p [facility] Opal Bhakta MD colitis, unspecified, without complications Plan of Treatment 05/09/2018 - Napoleon Wagner, DOK51.918 Ulcerative colitis, unspecified with other complicationNew Labs:C Difficile PCR, Ordered: 05/09/18R19.7 Diarrhea, unspecifiedNew Labs:C Difficile PCR, Ordered: 05/09/18Z79.899 Other half-way ( current) drug therapyNew Labs:C Difficile PCR, Ordered: 05/09/18
[2018-05-20 09:28] LABS: ABS Basophils 0 10^3/ul (0-0.2); ABS Eosinophils 0 10^3/ul (0-0.6); ABS Lymphocytes 1.9 10^3/ul (1.0-4.8); ABS Monocytes 0.5 10^3/ul (0-0.8); ABS Neutrophils 11.2 10^3/ul (1.5-7.7); ABS Nucleated RBC 0 10^3/ul; Eosinophil % 0.1 %; Hematocrit 24 % (35-47); Hemoglobin 7.6 g/dl (12.0-16.0); Lymphocyte % 13.7 %; Mean Corpuscular HGB Conc 32 g/dl (31-36); Mean Corpuscular Hemoglobin 27 pg (27-31); Mean Corpuscular Volume 85 fL (80-97); Mean Platelet Volume 5.8 fL (7.4-10.4); Nucleated Red Blood Cells % 0; Platelet Count 412 10^3/ul (150-450); Red Blood Count 2.78 10^6/ul (4.00-5.40); Red Cell Distribution Width 16 % (10.5-15); White Blood Count 13.6 10^3/ul (3.5-10.8)
[2018-05-20 09:46] LABS: Albumin/Globulin Ratio 0.6 (1-3); BUN/Creatinine Ratio 32.4 (8-20); C Reactive Protein 80.04 mg/L (<8.01); Calcium 7.6 mg/dL (8.6-10.3); EGFR African American 106.8 (>60); EGFR Non-African American 88.3 (>60); Globulin 3.5 g/dL (2-4); Potassium 3.4 mmol/L (3.5-5.0); Total Bilirubin 0.8 mg/dL (0.2-1.0); Total Protein 5.5 g/dL (6.4-8.9)
[2018-05-20 09:47] LABS: Influenza A Molecular NEGATIVE (Negative); Influenza B Molecular NEGATIVE (Negative)
[2018-05-20 09:48] LABS: Troponin I 0.03 ng/mL (<0.04)
[2018-05-20 09:54] LABS: Activated Partial Thrombo Time 24.4 seconds (26.0-36.3); INR 1.22 (0.77-1.02)
[2018-05-20 10:21] LABS: Erythrocyte Sed Rate 99 mm/Hr (0-30)
[2018-05-20] MEDS ORDERED: Iohexol 300* (CONTRAST) 10 ML SDV IV ONE (11:40)
[2018-05-20] MEDS ORDERED: Piperacillin/Tazobac ADVAN(*) 3.375 GM in NS 0.9% 100 ML* 100 ML IVPB ONE (13:37)
[2018-05-20] MEDS ORDERED: NS 0.9% 1000 ML** 1,000 ML IV ONE ×2 (13:47→22:10)
[2018-05-20] MEDS ORDERED: Hydrocortisone INJ* 100 MG VIAL IV SCH (18:00)
[2018-05-20] MEDS ORDERED: Norepinephrine VIAL* 1 MG/ML 4 ML VIAL ONE (18:29)
[2018-05-20] MEDS ORDERED: Propofol* 100 ML ONE (18:30)
--- NOTE | 2018-05-20 18:50 | HP ---
CC: Dr. Napoleon Wagner from GI; Braydon Landeros NP up in [place]; Dr. Denver Sotelo * HISTORY AND PHYSICAL: DATE OF ADMISSION: 05/20/18 CHIEF COMPLAINT: Generalized severe abdominal pain and weakness. HISTORY OF PRESENT ILLNESS: Ms. Fadia Moreno is a 62-year-old woman with a history of ulcerative colitis over the past 10 years, who was recently admitted several times in the last 6 weeks for treatment of Clostridium difficile colitis. She initially started having symptoms in early March. She has not been on prior antibiotics at that time. Stool cultures were positive for C. diff. She was initially treated with oral vancomycin and was discharged home several days ; however, she returned to the emergency room with dehydration and worsening abdominal discomfort. Cultures remained positive and she was once again continued on oral vancomycin. She was seen in consultation with Dr. Denver Sotelo as well as Dr. Nato Yadav from Gastroenterology and on 04/17/18, she underwent a flexible sigmoidoscopy. Cultures for C. diff were negative at that time and biopsy showed findings most consistent with acute active colitis. At that time, it was felt that her symptoms of loose blood bowel movements and abdominal pain were mainly due to her colitis and not infectious, and she was started on high dose prednisone of 40 mg daily for a week with a tapering dose over the past several weeks. She has been at home. She had some slow improvement over the past several weeks. She had been having increased distention and abdominal pain. She still has multiple loose bowel movements, occasionally having blood in them. Yesterday, she became extremely weak and had several episodes of fevers and shakes. She did not sleep well and called the ambulance this morning when she was so weak that she was unable to get up out of bed. In the emergency room, she was noted to be slightly tachycardic and hypotensive. She responded nicely to fluid resuscitation. She had a temperature of 100.4. Laboratory workup included white blood cell count of 13,000, hemoglobin of 7.6. She had a BUN and creatinine of 22 and 0.68 with a sodium of 128 and a potassium of 3.4. Lactic acid was 1.5 and a C-reactive protein was 80. Lipase was not performed. She subsequently underwent a CT scan of the abdomen and pelvis. I did review these images. These show a massive amount of free intraabdominal air. There was distention as well of the right colon and transverse colon with thickening of the wall. There is also some free air up in the area of the splenic flexure. Stomach was collapsed and there do not be a significant amount of fluid within the abdominal cavity. Pelvis was rather unremarkable. Surgical consultation was obtained after she was resuscitated and started on IV Zosyn. Of note, repeat C. diff toxins were negative today in the emergency room. PAST MEDICAL HISTORY: 1. Ulcerative colitis. 2. Hypertension. PAST SURGICAL HISTORY: Unremarkable. MEDICATIONS: Include: 1. Prednisone 40 mg daily. 2. Tramadol 50 mg daily. 3. Tylenol p.r.n. 4. Zofran p.r.n. ALLERGIES: DIATRIZOATE. She also is allergic to SULFA. SOCIAL HISTORY: She is a single. She lives alone. She has a sister who is nearby and lives in the area. She presently is not working. She does not use tobacco or alcohol. REVIEW OF SYSTEMS: Difficult to obtain due to the patient's discomfort; however , was essentially unremarkable other than that above. PHYSICAL EXAMINATION GENERAL: She is a well-developed, ill-appearing woman, who is awake, alert, very conversive and pleasant, although she appears quite uncomfortable. VITAL SIGNS: Temperature 100.4, pulse 94, blood pressure 100/65. HEENT: Her sclerae are anicteric. Her oral mucosa is very dry. Trachea was midline. LUNGS: Clear to auscultation with diminished breath sounds at the bases. HEART: Regular rate and rhythm without murmurs, rubs, or gallops. She had normal respiratory effort. ABDOMEN: Firm and distended. There are no prior surgical incisions or hernias. She had some diminished bowel sounds throughout. She has rebound tenderness with guarding and rigidity throughout consistent with acute generalized peritonitis. EXTREMITIES: Show no cyanosis or edema. DIAGNOSTIC STUDIES/LAB DATA: Laboratory values as per above. CT scan findings as above. IMPRESSION: Pneumoperitoneum with peritonitis and sepsis. The patient has leukocytosis and anemic. She has a complicated history of ulcerative colitis compounded by treatment recently for a Clostridium difficile colitis, which appears to have been eradicated. However, she has been on high dose steroids over the past month for treatment of what is felt to be fairly severe active ulcerative colitis and now presents with the free intraabdominal air. Obvious possibilities include perforated peptic ulcer in the stomach or duodenum or a perforation of the colon anywhere along the large intestine with a recent colitis as well as the steroids in conjunction with a Clostridium difficile colitis. PLAN: I have recommended that she proceed emergently after resuscitation and preoperative care to the operating room where we proceed with a diagnostic laparoscopy with probable exploratory laparotomy. I explained the life threatening nature of her presenting illness and the urgency of laparotomy. The procedure was discussed with the patient, and the risks of, but no limited to bleeding, infection, intraabdominal abscess formation, injury to peritoneal and retroperitoneal structures, bowel resection, possibility of an ostomy, possibility of reoperation depending on clinical course over the next 24 to 48 hours over the next several days. The risk of general anesthesia, cardiac dysfunction and multiorgan failure were also explained. In addition, I have also consulted Dr. Eloy Mclean from the intensive care service and he has seen her in the emergency room and she will be admitted to the intensive care unit postoperatively. 1. Diagnostic laparoscopy with probable exploratory laparotomy, possible bowel resection today. 2. We will transfuse her 2 units of blood during our preoperative and intraoperative period. 3. IV Zosyn and IV Flagyl have been administered. 4. She has been kept n.p.o. 5. She has received several liters of normal saline for her resuscitation, which we will continue into the operative period. 6. I also discussed all of the above with her sister, [place] on the telephone. Her number is [phone]. She will not be able to come to the hospital and I will call her after surgery is complete. [id number]/CPS #: [id number] [facility]ENTERDarek
[2018-05-20] MEDS ORDERED: Ondansetron INJ* 2 MG/ML VIAL IV PRN (19:04)
[2018-05-20] MEDS: Lactated Ringers 1000 ML Bag* 1,000 ML IV SCH (19:18)
--- NOTE | 2018-05-20 19:26 | BRIEFOPN ---
Brief Operative Note - Surgery Procedures: Procedures OPERATIVE REPORT PRE-OP: Sepsis, pneumoperitoneum, peritonitis POST-OP: 1) Same 2) Transverse colon perforation with colitis transverse and left colon PROCEDURE: Exploratory laparotomy, subtotal colectomy, central line insertion SURGEON: MD Ruperto ANESTHESIA: General, DrArjun [place] ASST: Nona Spring MD IVF: 3500 cc crystalloid, 2 units of PRBC's EBL:200 cc SPECIMEN:colon DRAIN: none WOUND CLASS:4 COMPLICATIONS: none TO ICU
[2018-05-20] MEDS: Piperacillin/Tazobac ADVAN(*) 3.375 GM in NS 0.9% 100 ML* 100 ML IVPB SCH (19:28)
[2018-05-20] MEDS: Propofol* 100 ML IV SCH (19:28)
[2018-05-20] MEDS ORDERED: Norepinephrine 16MCG/ML IVPRE* 4,000 MCG/250 ML BAG IV SCH (20:00)
[2018-05-20] MEDS: Hydrocortisone INJ* 100 MG VIAL IV SCH (21:33)
[2018-05-20] MEDS: fentaNYL* 50 MCG/ML 2 ML VIAL (100 MCG VIAL) IV PRN ×2 (21:33→22:50)
[2018-05-20 22:24] LABS: INR 1.37 (0.77-1.02)
[2018-05-20] MEDS: Norepinephrine VIAL* 4 MG in NS 0.9% 250 ML* 246 ML IV SCH (23:20)
[2018-05-20] MEDS ORDERED: fentaNYL* 50 MCG/ML 2 ML VIAL (100 MCG VIAL) IV ONE (23:53)
[2018-05-21] MEDS: fentaNYL* 50 MCG/ML 2 ML VIAL (100 MCG VIAL) IV PRN ×2 (00:09→12:02)
[2018-05-21 00:41] LABS: Hematocrit 32 % (35-47); Hemoglobin 10.4 g/dl (12.0-16.0); Mean Corpuscular HGB Conc 33 g/dl (31-36); Mean Corpuscular Hemoglobin 28 pg (27-31); Mean Corpuscular Volume 86 fL (80-97); Mean Platelet Volume 6.2 fL (7.4-10.4); Platelet Count 312 10^3/ul (150-450); Red Blood Count 3.67 10^6/ul (4.00-5.40); Red Cell Distribution Width 16 % (10.5-15); White Blood Count 21.9 10^3/ul (3.5-10.8)
[2018-05-21 00:59] LABS: Immature Granulocytes 22 % (0-9); Metamyelocytes % 1 % (0-2); Monocytes % 1 %; Myelocytes % 1 % (0-1); Neutrophil % 77 %
[2018-05-21 01:00] LABS: ABS Neutrophils 21.68 10^3/ul (1.5-7.7)
[2018-05-21] MEDS: fentaNYL INFUSION 50 MCG/ML* 2,500 MCG/50 ML BAG IV SCH (01:47)
--- NOTE | 2018-05-21 02:03 | OP ---
CC: [facility], Dr. Wagner; Braydon Landeros, [facility], [place]; Dr. Denver Sotelo, Infectious Disease.* DATE OF OPERATION: 05/20/18 - ROOM #ICU-07 DATE OF : 59 SURGEON: Dr. Hickey. RACK PRODUCTION WORKER: Red Spring MD ANESTHESIOLOGIST: Dr. Freitas. ANESTHESIA: General. PRE-OP DIAGNOSES: 1. Pneumoperitoneum. 2. Peritonitis. 3. Sepsis. POST-OP DIAGNOSES: 1. Pneumoperitoneum. 2. Large perforation of the transverse colon as well as [id number] colitis of the transverse, descending and sigmoid colon. OPERATIVE PROCEDURE: Diagnostic laparoscopy with conversion to exploratory laparotomy with subtotal colectomy and central line placement. ESTIMATED BLOOD LOSS: 200 cc. IV FLUIDS: 3500 cc crystalloid and 2 units of packed red blood cells. WOUND CLASSIFICATION: IV. SPECIMEN: Colon. DRAINS: None; however, the patient's abdominal wall was left open with a wound VAC placed for transfer to the intensive care unit. BRIEF HISTORY: Ms. Fadia Moreno is a 62-year-old woman with a history of ulcerative colitis, recently treated for C. diff colitis with oral vancomycin, and is also now on high-dose oral steroids for treatment of her ulcerative colitis. She presented to the emergency room with severe abdominal pain, weakness, and was found to be septic with peritonitis on physical examination. A CT scan showed massive amount of free intraabdominal air with distended right colon and transverse colon. There was also some free fluid. Per the preoperatively dictated history and physical, she is now being taken to the operating room after the risks, benefits, and alternatives were explained clearly and documented. DESCRIPTION OF PROCEDURE: Written and informed consent was obtained, the abdomen was marked with indelible ink, and preoperative antibiotics were administered. She was taken to the operating room, placed in the supine position. A radial artery catheter was inserted by Anesthesia. Sequential compression devices and warming blanket were applied. General anesthesia was administered. Yuen catheter and nasogastric tube were inserted. The abdomen was then prepped and draped in the usual sterile fashion. Time-out verification was completed. Initially, a small vertical incision was made several fingerbreadths above the umbilicus and I entered the peritoneal cavity. Here, it was noted that there was a large amount of foul-smelling stool and I made a decision not to proceed with laparoscopy and a midline incision was made from the xiphoid down below the umbilicus. This was later extended more inferiorly during the procedure. Peritoneal cavity was entered under direct vision and here, it appeared that the transverse colon had become extremely adherent to the anterior abdominal wall and this had perforated in several areas and there was a long longitudinal rent. Interestingly, though, there was not a significant amount of stool contamination in the pelvis or even above the liver. However, there was a large amount of free air evacuated. It appeared that the perforation had been most likely acute and chronic walled off as it explained her symptoms over the past several weeks and finally worsened in the last 24 hours. The transverse colon, which was very thick walled and surrounded with a significant amount of rbxkm-er-oslacnq inflammation, was taken down off the anterior abdominal wall. The right colon appeared to be unremarkable. The liver and gallbladder were normal. I was able to identify the stomach and duodenum. There was no evidence of upper GI perforation or other pathology. Likewise, however, following the transverse colon distally, the splenic flexure , descending colon, and sigmoid colon were all markedly thick walled and purplish in color and there was surrounding significant inflammation which foreshortened the mesentery. Also noted was small-bowel that had sealed a perforation off the underside of the transverse colon in the area of the ligament of Treitz and these two loops were bluntly and sharply dissected off with careful dissection. The small- bowel was unharmed and was not involved with the primary process. A decision at this point with the patient's history and findings was to proceed with a subtotal colectomy. We thus mobilized the right colon on the lateral white line of Toldt including some of the terminal ileum as well as the appendix. As mentioned, the right colon appeared to be unremarkable. With some challenging dissection, the hepatic flexure, transverse colon, and splenic flexure were subsequently mobilized in usual fashion. The duodenum was identified and protected from injury throughout the case. Likewise, the splenic flexure was taken down with no acute injury to the spleen or lateral attachments. We likewise mobilized the white line of Toldt down the descending colon down to the sigmoid just about to the pelvic brim. At this point, the distal sigmoid at the junction of the rectum was divided with a TA-90 stapler. We took the mesentery of the sigmoid colon, descending colon, transverse colon, and the right colon close to the colon wall using the LigaSure device. We divided the terminal ileum several centimeters proximal to the ileocecal valve with a JALIL 80 stapler. The specimen was then handed off the table and labeled as colon. The entire abdomen was thoroughly irrigated and hemostasis was assured. The decision at this point was made not to proceed with a formal ostomy or even closing of the abdominal wall, with plans for a second-look laparotomy in 48 to 72 hours with washout of the abdomen and reevaluation, with consideration at that time to making the permanent ostomy and closing the abdominal wall. Next, a large Ioban dressing was then folded in half and piecrust cut to allow drainage sites. It was placed over the viscera and packed up underneath the abdominal wall in all 4 quadrants. Black foam was then placed over this Ioban and the occlusive wound VAC dressing was then placed without difficulty. During the procedure, Anesthesia had difficulty placing a neck central catheter and in light of the patient's acute status, I made a decision to proceed with a right groin femoral vein triple lumen catheter. This area was prepped and draped in the usual sterile fashion. A #21 gauge seeker needle was used to puncture the femoral vein with good blood return. An #18 gauge Cook needle was then passed into the vein with good blood return. The guidewire was inserted without difficulty. The tract was dilated and the catheter was inserted to the hub. There was good blood flow from all 3 ports and they were flushed with saline. The catheter was secured to the skin with 2- 0 silk suture. An occlusive Tegaderm dressing was applied. The patient tolerated the procedure well and was taken to the intensive treatment intubated and in critical condition. [id number]/[facility] #: [id number] [facility]ITALDarek
[2018-05-21] MEDS: Lactated Ringers 1000 ML Bag* 1,000 ML IV SCH ×3 (03:15→20:20)
[2018-05-21] MEDS: Piperacillin/Tazobac ADVAN(*) 3.375 GM in NS 0.9% 100 ML* 100 ML IVPB SCH ×3 (03:49→20:16)
[2018-05-21] MEDS: Norepinephrine VIAL* 4 MG in NS 0.9% 250 ML* 246 ML IV SCH ×2 (03:54→18:10)
[2018-05-21] MEDS: Hydrocortisone INJ* 100 MG VIAL IV SCH ×3 (05:46→22:13)
[2018-05-21 06:15] LABS: Hematocrit 32 % (35-47); Hemoglobin 10.1 g/dl (12.0-16.0); Mean Corpuscular HGB Conc 32 g/dl (31-36); Mean Corpuscular Hemoglobin 27 pg (27-31); Mean Corpuscular Volume 85 fL (80-97); Mean Platelet Volume 6.4 fL (7.4-10.4); Platelet Count 269 10^3/ul (150-450); Red Blood Count 3.75 10^6/ul (4.00-5.40); Red Cell Distribution Width 16 % (10.5-15); White Blood Count 24.5 10^3/ul (3.5-10.8)
[2018-05-21 06:17] LABS: ABS Basophils 0 10^3/ul (0-0.2); ABS Eosinophils 0 10^3/ul (0-0.6); ABS Lymphocytes 0.7 10^3/ul (1.0-4.8); ABS Monocytes 0.4 10^3/ul (0-0.8); ABS Neutrophils 23.4 10^3/ul (1.5-7.7); ABS Nucleated RBC 0 10^3/ul; Eosinophil % 0 %; Nucleated Red Blood Cells % 0
[2018-05-21 06:21] LABS: INR 1.44 (0.77-1.02)
[2018-05-21 06:41] LABS: BUN/Creatinine Ratio 27.3 (8-20); EGFR African American 110.5 (>60); EGFR Non-African American 91.4 (>60); Potassium 3.8 mmol/L (3.5-5.0); Total Bilirubin 1.2 mg/dL (0.2-1.0); Total Protein 3.7 g/dL (6.4-8.9)
[2018-05-21 06:57] LABS: Albumin 1.4 g/dL (3.2-5.2); Albumin/Globulin Ratio 0.6 (1-3); Calcium 6.4 mg/dL (8.6-10.3); Globulin 2.3 g/dL (2-4)
[2018-05-21] MEDS ORDERED: Albumin Human 5%* 12.5 GM/250 ML BTL IV ONE ×2 (09:00→15:30)
--- NOTE | 2018-05-21 10:07 | PN ---
Date of Service: 05/21/18 Critical Care Services: 62 y/o female with ulcerative colitis and recent Hx C diff, admitted yesterday with perforated viscus - taken to OR and found to have extensive perforation of transverse colon - underwent subtotal colectomy and brought to ICU last night - since then, has been kept on mechanical ventilation and BP controlled with fluids and levophed (currently at 4 mcg/min). Vital Signs: Temp Pulse Resp BP SpO2 FiO2 98.9 F 119 15 83/59 98 35 Physical Exam: Gen:Unresponsive (on propofol HEENT:Pupils midposition and reactive Lungs:Clear Abdomen: Wound-Vac in place over anterior abdominal wound. Extremities:Trace edema Fluid Balance (Past 24 Hours): 05/21/18 06:59 Intake Total 6014 Output Total 285 Balance 5729 Weight 159 lb Intake: IV Fluids 5424 ABX - ZOSYN 104 LR 1080 NS (0.9%) 1040 Medicated IV 587 CC - Norepinephrine/ 503 Levophed CC - Propofol/Diprivan 84 IV Narcotic Infusion 3 Fentanyl 3 Output: Yuen 285 Labs: 05/20/18 05/21/18 05/21/18 22:12 00:15 05:52 WBC 21.9 H 24.5 H RBC 3.67 L 3.75 L Hgb 10.4 L 10.1 L Hct 32 L 32 L MCV 86 85 MCH 28 27 MCHC 33 32 RDW 16 H 16 H Plt Count 312 269 MPV 6.2 L 6.4 L Neut % (Auto) Not Reportable 95.3 Lymph % (Auto) Not Reportable 3.0 [place] % (Auto) Not Reportable 1.7 Eos % (Auto) Not Reportable 0 Baso % (Auto) Not Reportable 0 Absolute Neuts (auto) Not Reportable 23.4 H Absolute Lymphs (auto) Not Reportable 0.7 L Absolute Monos (auto) Not Reportable 0.4 Absolute Eos (auto) Not Reportable 0 Absolute Basos (auto) Not Reportable 0 Absolute Nucleated RBC Not Reportable 0 Immature Gran % 22 H Neutrophils % 77 Band Neutrophils % 20 H Monocytes % 1 Metamyelocytes % 1 Myelocytes % 1 Nucleated RBC % Not Reportable 0 Abs Neuts (Manual) 21.68 H Abs Monocytes (Manual) 0.219 Toxic Granulation 2+ Normal RBC Morphology Normal ESR INR (Anticoag Therapy) 1.37 H Sodium Potassium Chloride Carbon Dioxide Anion Gap BUN Creatinine Est GFR ( Amer) Est GFR (Non-Af Amer) BUN/Creatinine Ratio Glucose Lactic Acid Calcium Total Bilirubin AST ALT Alkaline Phosphatase Total Protein Albumin Globulin Albumin/Globulin Ratio Blood Type Antibody Screen Crossmatch 05/21/18 05/21/18 05/21/18 05:52 05:52 09:03 WBC RBC Hgb Hct MCV MCH MCHC RDW Plt Count MPV Neut % (Auto) Lymph % (Auto) [place] % (Auto) Eos % (Auto) Baso % (Auto) Absolute Neuts (auto) Absolute Lymphs (auto) Absolute Monos (auto) Absolute Eos (auto) Absolute Basos (auto) Absolute Nucleated RBC Immature Gran % Neutrophils % Band Neutrophils % Monocytes % Metamyelocytes % Myelocytes % Nucleated RBC % Abs Neuts (Manual) Abs Monocytes (Manual) Toxic Granulation Normal RBC Morphology ESR INR (Anticoag Therapy) 1.44 H Sodium 135 Potassium 3.8 Chloride 109 Carbon Dioxide 18 L Anion Gap 8 BUN 18 Creatinine 0.66 Glucose 97 Lactic Acid 1.8 Calcium 6.4 Total Bilirubin 1.20 AST 15 ALT 13 Alkaline Phosphatase 67 Total Protein 3.7 Albumin 1.4 Globulin 2.3 Albumin/Globulin Ratio 0.6 L Blood Type Antibody Screen Crossmatch Studies: CXR (postop): lungs clear. Repeat C diff (PCR) negative Nutrition: None today Impression: Stable postop - vasopressor requirement is minimal, lactate level is normal, and renal function is normal. Plan: 1. Try infusing albumin (5%) solutions, considering low albumin 2. Wean vasopressor when possible 3. Start TPN tomorrow 4. Continue PIP/TAZO 5. Patient scheduled for return to OR in next 24-48 hrs. Critical Care Time: 60 minutes
[2018-05-21] MEDS: Chlorhexidine MOUTHWASH 0.12%* 15 ML UDC TOPICAL SCH ×4 (10:11→20:16)
--- NOTE | 2018-05-21 10:42 | PN ---
Progress Note - Progress Note Date of Service: 05/21/18 SOAP: Subjective: Appears comfortable sedated on the ventilator On Levophed Objective: Temp Pulse Resp BP Pulse Ox 98.9 F 121 15 83/68 99 05/21/18 07:43 05/21/18 10:15 05/21/18 09:00 05/21/18 10:00 05/21/18 10:15 Intake & Output 05/19/18 05/20/18 05/21/18 05/22/18 06:59 06:59 06:59 06:59 Intake Total 6014 128 Output Total 285 75 Balance 5729 53 Weight 159 lb 6.307 oz Intake: IV Fluids 5424 19 ABX - ZOSYN 104 19 LR 1080 NS (0.9%) 1040 IVPB 109 ABX - ZOSYN 109 Medicated IV 587 CC - Norepinephrine/ 503 Levophed CC - Propofol/Diprivan 84 IV Narcotic Infusion 3 Fentanyl 3 Output: Yuen 285 75 PEX: Wound vac in place on abdomen, non-distended. Laboratory Last Values WBC 24.5 10^3/ul (3.5-10.8) H 05/21/18 05:52 RBC 3.75 10^6/ul (4.00-5.40) L 05/21/18 05:52 Hgb 10.1 g/dl (12.0-16.0) L 05/21/18 05:52 Hct 32 % (35-47) L 05/21/18 05:52 MCV 85 fL (80-97) 05/21/18 05:52 MCH 27 pg (27-31) 05/21/18 05:52 MCHC 32 g/dl (31-36) 05/21/18 05:52 RDW 16 % (10.5-15) H 05/21/18 05:52 Plt Count 269 10^3/ul (150-450) 05/21/18 05:52 MPV 6.4 fL (7.4-10.4) L 05/21/18 05:52 Neut % (Auto) 95.3 % 05/21/18 05:52 Lymph % (Auto) 3.0 % 05/21/18 05:52 [place] % (Auto) 1.7 % 05/21/18 05:52 Eos % (Auto) 0 % 05/21/18 05:52 Baso % (Auto) 0 % 05/21/18 05:52 Absolute Neuts (auto) 23.4 10^3/ul (1.5-7.7) H 05/21/18 05:52 Absolute Lymphs (auto) 0.7 10^3/ul (1.0-4.8) L 05/21/18 05:52 Absolute Monos (auto) 0.4 10^3/ul (0-0.8) 05/21/18 05:52 Absolute Eos (auto) 0 10^3/ul (0-0.6) 05/21/18 05:52 Absolute Basos (auto) 0 10^3/ul (0-0.2) 05/21/18 05:52 Absolute Nucleated RBC 0 10^3/ul 05/21/18 05:52 Immature Gran % 22 % (0-9) H 05/21/18 00:15 Neutrophils % 77 % 05/21/18 00:15 Band Neutrophils % 20 % (0-8) H 05/21/18 00:15 Monocytes % 1 % 05/21/18 00:15 Metamyelocytes % 1 % (0-2) 05/21/18 00:15 Myelocytes % 1 % (0-1) 05/21/18 00:15 Nucleated RBC % 0 05/21/18 05:52 Abs Neuts (Manual) 21.68 10^3/ul (1.5-7.7) H 05/21/18 00:15 Abs Monocytes (Manual) 0.219 10^3/ul (0-0.8) 05/21/18 00:15 Toxic Granulation 2+ 05/21/18 00:15 Normal RBC Morphology Normal (Normal) 05/21/18 00:15 ESR 99 mm/Hr (0-30) H 05/20/18 09:01 INR (Anticoag Therapy) 1.44 (0.77-1.02) H 05/21/18 05:52 APTT 24.4 seconds (26.0-36.3) L 05/20/18 09:01 Sodium 135 mmol/L (135-145) 05/21/18 05:52 Potassium 3.8 mmol/L (3.5-5.0) 05/21/18 05:52 Chloride 109 mmol/L (101-111) 05/21/18 05:52 Carbon Dioxide 18 mmol/L (22-32) L 05/21/18 05:52 Anion Gap 8 mmol/L (2-11) 05/21/18 05:52 BUN 18 mg/dL (6-24) 05/21/18 05:52 Creatinine 0.66 mg/dL (0.51-0.95) 05/21/18 05:52 Est GFR ( Amer) 110.5 (>60) 05/21/18 05:52 Est GFR (Non-Af Amer) 91.4 (>60) 05/21/18 05:52 BUN/Creatinine Ratio 27.3 (8-20) H 05/21/18 05:52 Glucose 97 mg/dL (70-100) 05/21/18 05:52 Lactic Acid 1.8 mmol/L (0.5-2.0) 05/21/18 09:03 Calcium 6.4 mg/dL (8.6-10.3) L* 05/21/18 05:52 Total Bilirubin 1.20 mg/dL (0.2-1.0) H 05/21/18 05:52 AST 15 U/L (13-39) 05/21/18 05:52 ALT 13 U/L (7-52) 05/21/18 05:52 Alkaline Phosphatase 67 U/L (34-104) 05/21/18 05:52 Total Creatine Kinase 18 U/L (10-223) 05/20/18 09:01 Troponin I 0.03 ng/mL (<0.04) 05/20/18 09:01 C-Reactive Protein 80.04 mg/L (<8.01) H 05/20/18 09:01 B-Natriuretic Peptide 107 pg/mL (<=100) H 05/20/18 09:01 Total Protein 3.7 g/dL (6.4-8.9) L 05/21/18 05:52 Albumin 1.4 g/dL (3.2-5.2) L 05/21/18 05:52 Globulin 2.3 g/dL (2-4) 05/21/18 05:52 Albumin/Globulin Ratio 0.6 (1-3) L 05/21/18 05:52 Influenza A (Rapid) Negative (Negative) 05/20/18 09:35 Influenza B (Rapid) Negative (Negative) 05/20/18 09:35 Blood Type A Positive 05/20/18 08:57 Antibody Screen Negative 05/20/18 08:57 Crossmatch See Detail 05/20/18 08:57 Assessment: POD# 1 s/p exlap with subtotal colectomy for perforated transverse colon- secondary to ulcerative colitis and recent c. diff infection-with open abdominal wall and wound vac in place. Sepsis Plan: Ventilator support IV abx Wound Vac Malnutrition Will need return to OR in next 24-hours for washout, creation of ileostomy and abdominal wall closure All above discussed with patient's sister Carolina on phone last night and findings at surgery were discussed and acuity of her illness explained. Also discussed with Dr. Mclean this morning.
[2018-05-21] MEDS ORDERED: Famotidine IV * 20 MG in NS 0.9% 100 ML* 100 ML IVPB SCH (11:00)
[2018-05-21] MEDS: Famotidine IV* 10 MG/ML 2 ML (20 mg) IV SCH (11:14)
[2018-05-21] MEDS: Propofol* 100 ML IV SCH ×2 (12:02→18:11)
--- NOTE | 2018-05-21 15:47 | PN ---
Progress Note - Progress Note Date of Service: 05/21/18 Note: BRIEF GI NOTE Notified of known GI patient's admission to hospital. 62yF with UC and C diff, on Prednisone with plan to start Entyvio. Admitted with fevers, abdominal pain, and bloody stools. CT revealed massive amount of free intraperitoneal air consistent with perforation. Taken to OR by Dr Hickey yesterday evening with ex-lap revealing large perforation in transverse colon with acute on chronic colitis in transverse, descending, and sigmoid colon. Status-post sub-total colectomy with abdominal wall left open with wound vac. Anticipated return to OR in 48-72 hours. Patient remains on antibiotics, levophed gtt, propofol, and ventilator. Patient receiving stress dose steroids given recent prolonged steroid use and critical illness. - Appreciate excellent ICU and surgical care. GI will continue to follow along peripherally. Navya Story MD Gastroenterology
[2018-05-21 17:35] LABS: Urine Appearance Cloudy; Urine Bacteria Absent (Absent); Urine Bilirubin Negative (Negative); Urine Blood Negative (Negative); Urine Color Yellow; Urine Glucose Negative (Negative); Urine Ketones Trace (Negative); Urine Nitrite Negative (Negative); Urine Protein 1+(30 mg/dL) (Negative); Urine Red Blood Cell Trace(0-2/hpf) (Absent); Urine Specific Gravity 1.026 (1.010-1.030); Urine Squamous Epithelial Cell Present (Absent); Urine Urobilinogen Negative (Negative); Urine White Blood Cell Trace(0-5/hpf) (Absent)
[2018-05-22] MEDS: Propofol* 100 ML IV SCH ×5 (00:57→20:33)
[2018-05-22] MEDS: Chlorhexidine MOUTHWASH 0.12%* 15 ML UDC TOPICAL SCH ×6 (02:00→20:17)
[2018-05-22] MEDS: Norepinephrine VIAL* 4 MG in NS 0.9% 250 ML* 246 ML IV SCH ×2 (04:23→13:10)
[2018-05-22] MEDS: Piperacillin/Tazobac ADVAN(*) 3.375 GM in NS 0.9% 100 ML* 100 ML IVPB SCH ×3 (04:32→19:59)
[2018-05-22] MEDS: Hydrocortisone INJ* 100 MG VIAL IV SCH ×3 (05:31→17:07)
[2018-05-22 05:38] LABS: Hematocrit 20 % (35-47); Hemoglobin 6.7 g/dl (12.0-16.0); Mean Corpuscular HGB Conc 34 g/dl (31-36); Mean Corpuscular Hemoglobin 28 pg (27-31); Mean Corpuscular Volume 84 fL (80-97); Mean Platelet Volume 6.3 fL (7.4-10.4); Platelet Count 161 10^3/ul (150-450); Red Blood Count 2.38 10^6/ul (4.00-5.40); Red Cell Distribution Width 17 % (10.5-15); White Blood Count 20.5 10^3/ul (3.5-10.8)
[2018-05-22 05:48] LABS: Calcium 7.2 mg/dL (8.6-10.3); EGFR African American 152.3 (>60); EGFR Non-African American 125.9 (>60); Potassium 2.9 mmol/L (3.5-5.0)
[2018-05-22 08:07] LABS: Hematocrit 22 % (35-47)
[2018-05-22] MEDS: Famotidine IV* 10 MG/ML 2 ML (20 mg) IV SCH (08:34)
[2018-05-22] MEDS: KCL 20 MEQ/100 ML IVPREMIX* 20 MEQ/100 ML BAG IV SCH ×4 (08:34→17:05)
--- NOTE | 2018-05-22 10:06 | PN ---
Date of Service: 05/22/18 Critical Care Services: 62 y/o female with ulcerative colitis and recent Hx C diff, admitted yesterday with perforated viscus - taken to OR and found to have extensive perforation of transverse colon - underwent subtotal colectomy and brought to ICU last night - since then, has been kept on mechanical ventilation and BP controlled with fluids and levophed (currently at 4 mcg/min). Current complains:unable to access due to sedation No significant overnight events except for that stated above Vital Signs: Temp Pulse Resp BP SpO2 FiO2 98 F 75 11 89/53 94 25 05/22/18 08:00 05/22/18 09:00 05/22/18 09:00 05/22/18 09:00 05/22/18 09:00 05/22 04:00 Physical Exam: Gen: NAD, intubated/mechanically ventilated. Sedated HEENT:NCAT, ISAIAS, neck midline, ETT in oral orifice Lungs:Clear to auscultation bilaterally, no wheezes Cardiac: +S1S2, RRR Abdomen: Wound-Vac in place over anterior abdominal wound. Hypoactive BS Extremities:no cyanosis, no edema Neuro:withdraws to pain Fluid Balance (Past 24 Hours): I= O= Net Intake & Output 05/20/18 05/21/18 05/22/18 05/23/18 06:59 06:59 06:59 06:59 Intake Total 6014 5202.1 17 Output Total 285 1497 70 Balance 5729 3705.1 -53 Weight 159 lb 6.307 oz 165 lb 9.074 oz Intake: IV Fluids 5424 3599 ABX - ZOSYN 104 52 Albmin 51 LR 1080 2993 NS (0.9%) 1040 503 IVPB 926 ABX - ZOSYN 402 Albmin 524 Medicated IV 587 633.1 CC - Norepinephrine/ 503 333 Levophed CC - Propofol/Diprivan 84 300.1 IV Narcotic Infusion 3 44 17 Fentanyl 3 44 17 Output: G Tube 150 Wound Vac 475 Yuen 285 872 70 ADLs: Meal Record Start: 05/20/18 18: 39 Freq: 09,13,18 Status: Active Protocol: Created 05/20/18 18:39 System (Rec: 05/20/18 18:39 System ICU-C12) Document 05/22/18 09:00 [id number] (Rec: 05/22/18 09:01 [id number] ICU-C06) Intake and Output Start: 05/20/18 08: 16 Freq: Status: Active Protocol: Created 05/20/18 08:16 System (Rec: 05/20/18 08:16 System [id number]) Intake and Output Start: 05/20/18 18: 39 Freq: Q1HR Status: Active Protocol: Created 05/20/18 18:39 System (Rec: 05/20/18 18:39 System ICU-C12) Document 05/20/18 20:00 [id number] (Rec: 05/20/18 20:09 [id number] ICU-C25) Document 05/20/18 22:00 [id number] (Rec: 05/20/18 23:21 [id number] ICU-M23) Document 05/20/18 23:00 [id number] (Rec: 05/21/18 00:52 [id number] ICU-C25) Document 05/21/18 00:00 [id number] (Rec: 05/21/18 00:52 [id number] ICU-C25) Document 05/21/18 01:00 [id number] (Rec: 05/21/18 03:52 [id number] ICU-C25) Document 05/21/18 02:00 [id number] (Rec: 05/21/18 03:52 [id number] ICU-C25) Document 05/21/18 03:00 [id number] (Rec: 05/21/18 03:52 [id number] ICU-C25) Document 05/21/18 03:53 [id number] (Rec: 05/21/18 04:46 [id number] ICU-C25) Document 05/21/18 05:00 [id number] (Rec: 05/21/18 05:45 [id number] ICU-M23) Document 05/21/18 05:45 [id number] (Rec: 05/21/18 05:45 [id number] ICU-M23) Document 05/21/18 07:00 [id number] (Rec: 05/21/18 07:21 [id number] ICU-M23) Document 05/21/18 08:00 [id number] (Rec: 05/21/18 09:08 [id number] ICU-M23) Document 05/21/18 09:00 [id number] (Rec: 05/21/18 09:08 [id number] ICU-M23) Document 05/21/18 10:00 [id number] (Rec: 05/21/18 10:36 [id number] ICU-M23) Document 05/21/18 11:00 [id number] (Rec: 05/21/18 11:47 CLV0185 ICU-C06) Document 05/21/18 12:00 [id number] (Rec: 05/21/18 12:18 [id number] ICU-M23) Document 05/21/18 13:00 [id number] (Rec: 05/21/18 13:04 [id number] ICU-M23) Document 05/21/18 14:00 [id number] (Rec: 05/21/18 14:03 [id number] ICU-M23) Document 05/21/18 15:00 [id number] (Rec: 05/21/18 15:17 [id number] ICU-C06) Document 05/21/18 15:59 [id number] (Rec: 05/21/18 15:59 [id number] ICU-M23) Document 05/21/18 17:00 [id number] (Rec: 05/21/18 17:14 [id number] ICU-M23) Document 05/21/18 17:55 [id number] (Rec: 05/21/18 17:55 [id number] ICU-M23) Document 05/21/18 19:00 [id number] (Rec: 05/21/18 19:08 [id number] ICU-C06) Document 05/21/18 20:00 VXT1602 (Rec: 05/21/18 23:15 [id number] ICU-C06) Document 05/21/18 21:00 [id number] (Rec: 05/21/18 23:15 [id number] ICU-C06) Document 05/21/18 22:00 [id number] (Rec: 05/21/18 23:15 [id number] ICU-C06) Document 05/21/18 23:00 [id number] (Rec: 05/21/18 23:15 [id number] ICU-C06) Document 05/22/18 00:00 [id number] (Rec: 05/22/18 03:45 [id number] ICU-C06) Document 05/22/18 01:00 [id number] (Rec: 05/22/18 04:21 [id number] ICU-M23) Document 05/22/18 02:00 [id number] (Rec: 05/22/18 04:21 [id number] ICU-M23) Document 05/22/18 03:00 [id number] (Rec: 05/22/18 04:21 [id number] ICU-M23) Document 05/22/18 04:00 [id number] (Rec: 05/22/18 04:21 [id number] ICU-M23) Document 05/22/18 05:00 [id number] (Rec: 05/22/18 05:12 [id number] ICU-M23) Document 05/22/18 05:54 [id number] (Rec: 05/22/18 05:55 [id number] ICU-C06) Document 05/22/18 06:00 [id number] (Rec: 05/22/18 06:49 [id number] ICU-M23) Document 05/22/18 07:00 [id number] (Rec: 05/22/18 07:07 [id number] ICU-M23) Document 05/22/18 08:00 [id number] (Rec: 05/22/18 08:46 [id number] ICU-M23) Labs: Laboratory Results - last 24 hr 05/20/18 05/20/18 05/20/18 09:01 09:01 09:01 WBC 13.6 H RBC 2.78 L Hgb 7.6 L Hct 24 L MCV 85 MCH 27 MCHC 32 RDW 16 H Plt Count 412 MPV 5.8 L Neut % (Auto) 82.3 Lymph % (Auto) 13.7 [place] % (Auto) 3.9 Eos % (Auto) 0.1 Baso % (Auto) 0 Absolute Neuts (auto) 11.2 H Absolute Lymphs (auto) 1.9 Absolute Monos (auto) 0.5 Absolute Eos (auto) 0 Absolute Basos (auto) 0 Absolute Nucleated RBC 0 Nucleated RBC % 0 ESR 99 H INR (Anticoag Therapy) 1.22 H APTT 24.4 L Sodium 128 L Potassium 3.4 L Chloride 98 L Carbon Dioxide 23 Anion Gap 7 BUN 22 Creatinine 0.68 Est GFR ( Amer) 106.8 Est GFR (Non-Af Amer) 88.3 BUN/Creatinine Ratio 32.4 H Glucose 78 Lactic Acid Calcium 7.6 L Total Bilirubin 0.80 AST 10 L ALT 9 Alkaline Phosphatase 101 Total Creatine Kinase 18 Troponin I 0.03 C-Reactive Protein 80.04 H B-Natriuretic Peptide Total Protein 5.5 L Albumin 2.0 L Globulin 3.5 Albumin/Globulin Ratio 0.6 L Urine Color Urine Appearance Urine pH Ur Specific [place] Urine Protein Urine Ketones Urine Blood Urine Nitrate Urine Bilirubin Urine Urobilinogen Ur Leukocyte Esterase Urine WBC (Auto) Urine RBC (Auto) Ur Squamous Epith Cells Urine Bacteria Urine Glucose 05/20/18 05/20/18 05/21/18 09:01 09:01 17:23 WBC RBC Hgb Hct MCV MCH MCHC RDW Plt Count MPV Neut % (Auto) Lymph % (Auto) [place] % (Auto) Eos % (Auto) Baso % (Auto) Absolute Neuts (auto) Absolute Lymphs (auto) Absolute Monos (auto) Absolute Eos (auto) Absolute Basos (auto) Absolute Nucleated RBC Nucleated RBC % ESR INR (Anticoag Therapy) APTT Sodium Potassium Chloride Carbon Dioxide Anion Gap BUN Creatinine Est GFR ( Amer) Est GFR (Non-Af Amer) BUN/Creatinine Ratio Glucose Lactic Acid 1.5 Calcium Total Bilirubin AST ALT Alkaline Phosphatase Total Creatine Kinase Troponin I C-Reactive Protein B-Natriuretic Peptide 107 H Total Protein Albumin Globulin Albumin/Globulin Ratio Urine Color Yellow Urine Appearance Cloudy Urine pH 5.0 Ur Specific [place] 1.026 Urine Protein 1+(30 mg/dl) A Urine Ketones Trace A Urine Blood Negative Urine Nitrate Negative Urine Bilirubin Negative Urine Urobilinogen Negative Ur Leukocyte Esterase Negative Urine WBC (Auto) Trace(0-5/hpf) Urine RBC (Auto) Trace(0-2/hpf) Ur Squamous Epith Cells Present A Urine Bacteria Absent Urine Glucose Negative 05/22/18 05/22/18 05/22/18 05:17 05:17 05:17 WBC 20.5 H RBC 2.38 L Hgb 6.7 L Hct 20 L MCV 84 MCH 28 MCHC 34 RDW 17 H Plt Count 161 MPV 6.3 L Neut % (Auto) Lymph % (Auto) [place] % (Auto) Eos % (Auto) Baso % (Auto) Absolute Neuts (auto) Absolute Lymphs (auto) Absolute Monos (auto) Absolute Eos (auto) Absolute Basos (auto) Absolute Nucleated RBC Nucleated RBC % ESR INR (Anticoag Therapy) APTT Sodium 136 Potassium 2.9 L Chloride 111 Carbon Dioxide 20 L Anion Gap 5 BUN 15 Creatinine 0.50 L Est GFR ( Amer) 152.3 Est GFR (Non-Af Amer) 125.9 BUN/Creatinine Ratio 30.0 H Glucose 91 Lactic Acid 0.7 Calcium 7.2 L Total Bilirubin AST ALT Alkaline Phosphatase Total Creatine Kinase Troponin I C-Reactive Protein B-Natriuretic Peptide Total Protein Albumin Globulin Albumin/Globulin Ratio Urine Color Urine Appearance Urine pH Ur Specific [place] Urine Protein Urine Ketones Urine Blood Urine Nitrate Urine Bilirubin Urine Urobilinogen Ur Leukocyte Esterase Urine WBC (Auto) Urine RBC (Auto) Ur Squamous Epith Cells Urine Bacteria Urine Glucose 05/22/18 07:59 WBC RBC Hgb 7.0 L Hct 22 L MCV MCH MCHC RDW Plt Count MPV Neut % (Auto) Lymph % (Auto) [place] % (Auto) Eos % (Auto) Baso % (Auto) Absolute Neuts (auto) Absolute Lymphs (auto) Absolute Monos (auto) Absolute Eos (auto) Absolute Basos (auto) Absolute Nucleated RBC Nucleated RBC % ESR INR (Anticoag Therapy) APTT Sodium Potassium Chloride Carbon Dioxide Anion Gap BUN Creatinine Est GFR ( Amer) Est GFR (Non-Af Amer) BUN/Creatinine Ratio Glucose Lactic Acid Calcium Total Bilirubin AST ALT Alkaline Phosphatase Total Creatine Kinase Troponin I C-Reactive Protein B-Natriuretic Peptide Total Protein Albumin Globulin Albumin/Globulin Ratio Urine Color Urine Appearance Urine pH Ur Specific [place] Urine Protein Urine Ketones Urine Blood Urine Nitrate Urine Bilirubin Urine Urobilinogen Ur Leukocyte Esterase Urine WBC (Auto) Urine RBC (Auto) Ur Squamous Epith Cells Urine Bacteria Urine Glucose Studies: no radiographs today Nutrition: TPN 05/22 Impression: # Perforated viscus s/p exlap with subtotal colectomy POD2 # post surgical open abdomen # Klebsiella bacteremia # Hypokalemia # acute respiratory failure due to septic shock # Septic shock improving Plan: # Perforated viscus s/p exlap with subtotal colectomy POD2 # post surgical open abdomen # Klebsiella bacteremia 1/2 cultures + # Hypokalemia # acute respiratory failure due to septic shock # Septic shock improving # acute anemia due to acute blood loss # hx/o ulcerative colitis on chronic steroids - improving hemodynamics - off levophed since this am - discontinue IVF due to concerns with fluid overload - transfuse 1 unit PRBC - s/p 80 meq KCL suppl today. Check pm K+ after replacement - start TPN today - plant to go to OR tomorrow for ileostomy and abd wall closure - decrease hydrocortisone to 50 mg q6 h today - fentanyl gtt to target CPOT <2 - Propofol to target RASS 0--1 - Continue PIP/TAZO - repeat blood cultures today Critical Care Time: 45 minutes
[2018-05-22] MEDS: fentaNYL INFUSION 50 MCG/ML* 2,500 MCG/50 ML BAG IV SCH (10:10)
--- NOTE | 2018-05-22 11:56 | PN ---
Progress Note - Progress Note Date of Service: 05/22/18 SOAP: Subjective: Awake on ventilator, appears comfortable Levophed off Objective: Temp Pulse Resp BP Pulse Ox 97.9 F 76 10 92/59 97 05/22/18 11:48 05/22/18 11:01 05/22/18 11:00 05/22/18 11:00 05/22/18 11:01 Intake & Output 05/20/18 05/21/18 05/22/18 05/23/18 06:59 06:59 06:59 06:59 Intake Total 6014 5202.1 17 Output Total 285 1497 160 Balance 5729 3705.1 -143 Weight 159 lb 6.307 oz 165 lb 9.074 oz Intake: IV Fluids 5424 3599 ABX - ZOSYN 104 52 Alb[place] 51 LR 1080 2993 NS (0.9%) 1040 503 IVPB 926 ABX - ZOSYN 402 Albmin 524 Medicated IV 587 633.1 CC - Norepinephrine/ 503 333 Levophed CC - Propofol/Diprivan 84 300.1 IV Narcotic Infusion 3 44 17 Fentanyl 3 44 17 Output: G Tube 150 Wound Vac 475 Yuen 285 872 160 PEX: Awake Abd is soft and non-distended. Wound vac in place Laboratory Results - last 24 hr 05/20/18 05/20/18 05/20/18 09:01 09:01 09:01 WBC 13.6 H RBC 2.78 L Hgb 7.6 L Hct 24 L MCV 85 MCH 27 MCHC 32 RDW 16 H Plt Count 412 MPV 5.8 L Neut % (Auto) 82.3 Lymph % (Auto) 13.7 [place] % (Auto) 3.9 Eos % (Auto) 0.1 Baso % (Auto) 0 Absolute Neuts (auto) 11.2 H Absolute Lymphs (auto) 1.9 Absolute Monos (auto) 0.5 Absolute Eos (auto) 0 Absolute Basos (auto) 0 Absolute Nucleated RBC 0 Nucleated RBC % 0 ESR 99 H INR (Anticoag Therapy) 1.22 H APTT 24.4 L Sodium 128 L Potassium 3.4 L Chloride 98 L Carbon Dioxide 23 Anion Gap 7 BUN 22 Creatinine 0.68 Est GFR ( Amer) 106.8 Est GFR (Non-Af Amer) 88.3 BUN/Creatinine Ratio 32.4 H Glucose 78 Lactic Acid Calcium 7.6 L Total Bilirubin 0.80 AST 10 L ALT 9 Alkaline Phosphatase 101 Total Creatine Kinase 18 Troponin I 0.03 C-Reactive Protein 80.04 H B-Natriuretic Peptide Total Protein 5.5 L Albumin 2.0 L Globulin 3.5 Albumin/Globulin Ratio 0.6 L Urine Color Urine Appearance Urine pH Ur Specific [place] Urine Protein Urine Ketones Urine Blood Urine Nitrate Urine Bilirubin Urine Urobilinogen Ur Leukocyte Esterase Urine WBC (Auto) Urine RBC (Auto) Ur Squamous Epith Cells Urine Bacteria Urine Glucose 05/20/18 05/20/18 05/21/18 09:01 09:01 17:23 WBC RBC Hgb Hct MCV MCH MCHC RDW Plt Count MPV Neut % (Auto) Lymph % (Auto) [place] % (Auto) Eos % (Auto) Baso % (Auto) Absolute Neuts (auto) Absolute Lymphs (auto) Absolute Monos (auto) Absolute Eos (auto) Absolute Basos (auto) Absolute Nucleated RBC Nucleated RBC % ESR INR (Anticoag Therapy) APTT Sodium Potassium Chloride Carbon Dioxide Anion Gap BUN Creatinine Est GFR ( Amer) Est GFR (Non-Af Amer) BUN/Creatinine Ratio Glucose Lactic Acid 1.5 Calcium Total Bilirubin AST ALT Alkaline Phosphatase Total Creatine Kinase Troponin I C-Reactive Protein B-Natriuretic Peptide 107 H Total Protein Albumin Globulin Albumin/Globulin Ratio Urine Color Yellow Urine Appearance Cloudy Urine pH 5.0 Ur Specific [place] 1.026 Urine Protein 1+(30 mg/dl) A Urine Ketones Trace A Urine Blood Negative Urine Nitrate Negative Urine Bilirubin Negative Urine Urobilinogen Negative Ur Leukocyte Esterase Negative Urine WBC (Auto) Trace(0-5/hpf) Urine RBC (Auto) Trace(0-2/hpf) Ur Squamous Epith Cells Present A Urine Bacteria Absent Urine Glucose Negative 05/22/18 05/22/18 05/22/18 05:17 05:17 05:17 WBC 20.5 H RBC 2.38 L Hgb 6.7 L Hct 20 L MCV 84 MCH 28 MCHC 34 RDW 17 H Plt Count 161 MPV 6.3 L Neut % (Auto) Lymph % (Auto) [place] % (Auto) Eos % (Auto) Baso % (Auto) Absolute Neuts (auto) Absolute Lymphs (auto) Absolute Monos (auto) Absolute Eos (auto) Absolute Basos (auto) Absolute Nucleated RBC Nucleated RBC % ESR INR (Anticoag Therapy) APTT Sodium 136 Potassium 2.9 L Chloride 111 Carbon Dioxide 20 L Anion Gap 5 BUN 15 Creatinine 0.50 L Est GFR ( Amer) 152.3 Est GFR (Non-Af Amer) 125.9 BUN/Creatinine Ratio 30.0 H Glucose 91 Lactic Acid 0.7 Calcium 7.2 L Total Bilirubin AST ALT Alkaline Phosphatase Total Creatine Kinase Troponin I C-Reactive Protein B-Natriuretic Peptide Total Protein Albumin Globulin Albumin/Globulin Ratio Urine Color Urine Appearance Urine pH Ur Specific [place] Urine Protein Urine Ketones Urine Blood Urine Nitrate Urine Bilirubin Urine Urobilinogen Ur Leukocyte Esterase Urine WBC (Auto) Urine RBC (Auto) Ur Squamous Epith Cells Urine Bacteria Urine Glucose 05/22/18 07:59 WBC RBC Hgb 7.0 L Hct 22 L MCV MCH MCHC RDW Plt Count MPV Neut % (Auto) Lymph % (Auto) [place] % (Auto) Eos % (Auto) Baso % (Auto) Absolute Neuts (auto) Absolute Lymphs (auto) Absolute Monos (auto) Absolute Eos (auto) Absolute Basos (auto) Absolute Nucleated RBC Nucleated RBC % ESR INR (Anticoag Therapy) APTT Sodium Potassium Chloride Carbon Dioxide Anion Gap BUN Creatinine Est GFR ( Amer) Est GFR (Non-Af Amer) BUN/Creatinine Ratio Glucose Lactic Acid Calcium Total Bilirubin AST ALT Alkaline Phosphatase Total Creatine Kinase Troponin I C-Reactive Protein B-Natriuretic Peptide Total Protein Albumin Globulin Albumin/Globulin Ratio Urine Color Urine Appearance Urine pH Ur Specific [place] Urine Protein Urine Ketones Urine Blood Urine Nitrate Urine Bilirubin Urine Urobilinogen Ur Leukocyte Esterase Urine WBC (Auto) Urine RBC (Auto) Ur Squamous Epith Cells Urine Bacteria Urine Glucose Assessment: POD# 2 s/p exlap-subtotal colectomy, open abdomen Sepsis-improving Anemia Malnutrition Plan: IV abx Replete k+ TPN Transfuse 1 U PRBC Ventilator mgmt Return to OR for ileostomy, abdominal wall closure tomorrow.
[2018-05-22] MEDS ORDERED: Alteplase (CATHFLO)* 2 MG VIAL IV ONE (13:00)
[2018-05-22] MEDS ORDERED: TPN* 24 HR with Dextrose 50% Water* 500 ML, Amino Acid Infusion 10%* 850 ML, Sterile Wa... CENTR SCH ×12 (17:00)
[2018-05-22 18:30] LABS: Albumin 1.8 g/dL (3.2-5.2); Albumin/Globulin Ratio 0.9 (1-3); BUN/Creatinine Ratio 34.9 (8-20); Calcium 7.3 mg/dL (8.6-10.3); EGFR African American 181.2 (>60); EGFR Non-African American 149.8 (>60); Magnesium 1.9 mg/dL (1.9-2.7); Phosphorus 2.5 mg/dL (2.5-5.0); Total Protein 3.8 g/dL (6.4-8.9)
[2018-05-23] MEDS: Propofol* 100 ML IV SCH ×5 (00:48→23:12)
[2018-05-23] MEDS: Chlorhexidine MOUTHWASH 0.12%* 15 ML UDC TOPICAL SCH ×6 (00:48→21:18)
[2018-05-23] MEDS: Hydrocortisone INJ* 100 MG VIAL IV SCH ×4 (00:48→17:39)
[2018-05-23 00:51] LABS: Hematocrit 23 % (35-47); Hemoglobin 7.6 g/dl (12.0-16.0)
[2018-05-23] MEDS: Norepinephrine VIAL* 4 MG in NS 0.9% 250 ML* 246 ML IV SCH ×3 (02:08→15:17)
[2018-05-23] MEDS: Piperacillin/Tazobac ADVAN(*) 3.375 GM in NS 0.9% 100 ML* 100 ML IVPB SCH ×3 (03:30→21:09)
[2018-05-23 05:35] LABS: Hematocrit 21 % (35-47); Hemoglobin 7.1 g/dl (12.0-16.0); Mean Corpuscular HGB Conc 34 g/dl (31-36); Mean Corpuscular Hemoglobin 29 pg (27-31); Mean Corpuscular Volume 85 fL (80-97); Mean Platelet Volume 6.7 fL (7.4-10.4); Platelet Count 120 10^3/ul (150-450); Red Cell Distribution Width 16 % (10.5-15); White Blood Count 15.2 10^3/ul (3.5-10.8)
[2018-05-23 05:59] LABS: Albumin 1.5 g/dL (3.2-5.2); Albumin/Globulin Ratio 0.8 (1-3); BUN/Creatinine Ratio 51.4 (8-20); Calcium 6.9 mg/dL (8.6-10.3); EGFR African American 229.8 (>60); EGFR Non-African American 189.9 (>60); Magnesium 1.9 mg/dL (1.9-2.7); Phosphorus 1.1 mg/dL (2.5-5.0); Potassium 4.1 mmol/L (3.5-5.0); Total Bilirubin 0.5 mg/dL (0.2-1.0); Total Protein 3.5 g/dL (6.4-8.9)
[2018-05-23] MEDS: Famotidine IV* 10 MG/ML 2 ML (20 mg) IV SCH (07:30)
--- NOTE | 2018-05-23 09:53 | PN ---
Date of Service: 05/23/18 Critical Care Services: 62 y/o female with ulcerative colitis and recent Hx C diff, admitted with perforated viscus - taken to OR and found to have extensive perforation of transverse colon - underwent subtotal colectomy and brought to ICU, thereafter- intubated, on mechanical ventilation, pressors, on propofol and fentanyl gtt 05/20/18: DOA; colon perf s/p Ex lap with subtotal colectomy, open abdomen 05/22/18: TPN started 05/23/18: anticipate abd closure with ileostomy 24 hours events: Levophed had to be restarted overnight. Received 2U PRBC today. Remains intubated/mechanical vent, on levophed, on fentanyl, on propofol and on TPN Current complains:unable to access due to sedation Vital Signs: Temp Pulse Resp BP SpO2 FiO2 97.6 F 58 9 89/64 95 25 05/23/18 08:00 05/23/18 09:01 05/23/18 09:00 05/23/18 09:00 05/23/18 09:01 05/23 08:00 Physical Exam: Gen: NAD, intubated/mechanically ventilated. Sedated- Propofol, fentanyl gtt HEENT:NCAT, ISAIAS, neck midline, ETT in oral orifice Lungs:Clear to auscultation bilaterally, no wheezes Cardiac: +S1S2, RRR Abdomen: Wound-Vac in place over anterior abdominal wound. Hypoactive BS Extremities:no cyanosis, no edema Neuro:withdraws to pain Fluid Balance (Past 24 Hours): I= O= Net Intake & Output 05/21/18 05/22/18 05/23/18 05/24/18 06:59 06:59 06:59 06:59 Intake Total 6014 5202.1 3075.5 0 Output Total 285 1497 1222 150 Balance 5729 3705.1 1853.5 -150 Weight 159 lb 6.307 oz 165 lb 9.074 oz 169 lb 13.225 oz Intake: IV Fluids 5424 3599 1167 ABX - ZOSYN 104 52 135 Albmin 51 KCL in Sterile Water 323 LR 1080 2993 496 NS (0.9%) 1040 503 213 IVPB 926 415 ABX - ZOSYN 402 232 Albmin 524 KCL in Sterile Water 183 Medicated IV 587 633.1 375.5 CC - Norepinephrine/ 503 333 20.5 Levophed CC - Propofol/Diprivan 84 300.1 355 IV Narcotic Infusion 3 44 188 Fentanyl 3 44 188 TPN/PPN 930 Oral 0 0 Output: NG Tube Drainage Amount 100 G Tube 150 Wound Vac 475 360 Yuen 285 872 762 150 ADLs: Meal Record Start: 05/20/18 18: 39 Freq: 09,13,18 Status: Active Protocol: Created 05/20/18 18:39 System (Rec: 05/20/18 18:39 System ICU-C12) Document 05/22/18 09:00 [id number] (Rec: 05/22/18 09:01 [id number] ICU-C06) Document 05/22/18 13:00 [id number] (Rec: 05/22/18 13:12 [id number] ICU-C06) Document 05/22/18 18:00 [id number] (Rec: 05/22/18 18:07 [id number] ICU-C06) Document 05/23/18 09:00 FBD1314 (Rec: 05/23/18 09:12 [id number] ICU-M23) Intake and Output Start: 05/20/18 08: 16 Freq: Status: Active Protocol: Created 05/20/18 08:16 System (Rec: 05/20/18 08:16 System [id number]) Intake and Output Start: 05/20/18 18: 39 Freq: Q1HR Status: Active Protocol: Created 05/20/18 18:39 System (Rec: 05/20/18 18:39 System ICU-C12) Document 05/20/18 20:00 [id number] (Rec: 05/20/18 20:09 [id number] ICU-C25) Document 05/20/18 22:00 JIG0111 (Rec: 05/20/18 23:21 [id number] ICU-M23) Document 05/20/18 23:00 KSD2513 (Rec: 05/21/18 00:52 SUV4003 ICU-C25) Document 05/21/18 00:00 GFE1751 (Rec: 05/21/18 00:52 [id number] ICU-C25) Document 05/21/18 01:00 TDP3830 (Rec: 05/21/18 03:52 DPT0859 ICU-C25) Document 05/21/18 02:00 BOD7598 (Rec: 05/21/18 03:52 TLS0719 ICU-C25) Document 05/21/18 03:00 IOX4359 (Rec: 05/21/18 03:52 DLG3770 ICU-C25) Document 05/21/18 03:53 GAX3712 (Rec: 05/21/18 04:46 GJT1279 ICU-C25) Document 05/21/18 05:00 GXW3164 (Rec: 05/21/18 05:45 DWB3654 ICU-M23) Document 05/21/18 05:45 IKT7245 (Rec: 05/21/18 05:45 RGX1257 ICU-M23) Document 05/21/18 07:00 RLS2149 (Rec: 05/21/18 07:21 BXS0472 ICU-M23) Document 05/21/18 08:00 OBX6567 (Rec: 05/21/18 09:08 OCV0187 ICU-M23) Document 05/21/18 09:00 HNJ3741 (Rec: 05/21/18 09:08 [id number] ICU-M23) Document 05/21/18 10:00 QMA6195 (Rec: 05/21/18 10:36 [id number] ICU-M23) Document 05/21/18 11:00 JWJ0214 (Rec: 05/21/18 11:47 SRQ1537 ICU-C06) Document 05/21/18 12:00 EPZ2767 (Rec: 05/21/18 12:18 [id number] ICU-M23) Document 05/21/18 13:00 MBI6326 (Rec: 05/21/18 13:04 FAG6219 ICU-M23) Document 05/21/18 14:00 PJU4710 (Rec: 05/21/18 14:03 BLU5041 ICU-M23) Document 05/21/18 15:00 ARQ5009 (Rec: 05/21/18 15:17 GQE3139 ICU-C06) Document 05/21/18 15:59 IPH9644 (Rec: 05/21/18 15:59 GAS5202 ICU-M23) Document 05/21/18 17:00 DXM0133 (Rec: 05/21/18 17:14 NDX5005 ICU-M23) Document 05/21/18 17:55 OIE7317 (Rec: 05/21/18 17:55 YEI3942 ICU-M23) Document 05/21/18 19:00 ZCH9139 (Rec: 05/21/18 19:08 [id number] ICU-C06) Document 05/21/18 20:00 BAH7526 (Rec: 05/21/18 23:15 JHN2883 ICU-C06) Document 05/21/18 21:00 RUS1629 (Rec: 05/21/18 23:15 XQW1947 ICU-C06) Document 05/21/18 22:00 EUP1148 (Rec: 05/21/18 23:15 UWK4132 ICU-C06) Document 05/21/18 23:00 MPZ7238 (Rec: 05/21/18 23:15 NIH4481 ICU-C06) Document 05/22/18 00:00 HAQ6650 (Rec: 05/22/18 03:45 VKU6855 ICU-C06) Document 05/22/18 01:00 YRY8346 (Rec: 05/22/18 04:21 LZM6897 ICU-M23) Document 05/22/18 02:00 DIT9508 (Rec: 05/22/18 04:21 ALL3182 ICU-M23) Document 05/22/18 03:00 ENL8719 (Rec: 05/22/18 04:21 ZAR8630 ICU-M23) Document 05/22/18 04:00 RKG1828 (Rec: 05/22/18 04:21 SVJ2451 ICU-M23) Document 05/22/18 05:00 WDB8875 (Rec: 05/22/18 05:12 OJZ5341 ICU-M23) Document 05/22/18 05:54 AGN4058 (Rec: 05/22/18 05:55 KMX6384 ICU-C06) Document 05/22/18 06:00 LDG4205 (Rec: 05/22/18 06:49 FPJ3921 ICU-M23) Document 05/22/18 07:00 RTM6373 (Rec: 05/22/18 07:07 PIG3006 ICU-M23) Document 05/22/18 08:00 CVR6857 (Rec: 05/22/18 08:46 YXK9544 ICU-M23) Document 05/22/18 10:00 ECX1345 (Rec: 05/22/18 10:14 XUC0024 ICU-M23) Document 05/22/18 11:00 CJM0466 (Rec: 05/22/18 11:32 SLW2148 ICU-C06) Document 05/22/18 12:00 XMT1886 (Rec: 05/22/18 12:42 DWK5611 ICU-M23) Document 05/22/18 13:00 KWV2567 (Rec: 05/22/18 13:12 JSA7713 ICU-C06) Document 05/22/18 14:00 NMT2686 (Rec: 05/22/18 14:17 AIC2768 ICU-M23) Document 05/22/18 15:00 XRV8135 (Rec: 05/22/18 15:02 GFE1501 ICU-M23) Document 05/22/18 16:00 GCM2958 (Rec: 05/22/18 17:26 MZO4710 ICU-M23) Document 05/22/18 17:00 BLM4610 (Rec: 05/22/18 17:26 NEI0290 ICU-M23) Document 05/22/18 18:00 JMW0230 (Rec: 05/22/18 18:07 KRK7498 ICU-C06) Document 05/22/18 19:00 UFR9148 (Rec: 05/22/18 20:05 [id number] ICU-M23) Document 05/22/18 20:00 DZT4929 (Rec: 05/22/18 20:05 RUQ0088 ICU-M23) Document 05/22/18 21:00 YDJ6200 (Rec: 05/22/18 23:01 JHI4324 ICU-C06) Document 05/22/18 22:00 [id number] (Rec: 05/22/18 23:01 DQP5230 ICU-C06) Document 05/22/18 23:00 EEF1015 (Rec: 05/22/18 23:01 SNW0711 ICU-C06) Document 05/23/18 00:00 SQP3021 (Rec: 05/23/18 00:21 VQB2366 ICU-C06) Document 05/23/18 01:00 OQW6742 (Rec: 05/23/18 03:18 TVU9437 ICU-M23) Document 05/23/18 02:00 YTJ2525 (Rec: 05/23/18 03:18 [id number] ICU-M23) Document 05/23/18 03:00 MVV1271 (Rec: 05/23/18 03:18 [id number] ICU-M23) Document 05/23/18 04:00 SIY2963 (Rec: 05/23/18 04:18 ZMK7447 ICU-C06) Document 05/23/18 05:00 [id number] (Rec: 05/23/18 05:23 [id number] ICU-M23) Document 05/23/18 05:43 JCU7115 (Rec: 05/23/18 05:43 [id number] ICU-C06) Document 05/23/18 06:00 NBY2640 (Rec: 05/23/18 06:18 LNB3548 ICU-M23) Document 05/23/18 07:00 NLS7851 (Rec: 05/23/18 07:34 [id number] ICU-M23) Document 05/23/18 08:00 THN9188 (Rec: 05/23/18 08:49 [id number] ICU-C06) Document 05/23/18 09:00 STS3420 (Rec: 05/23/18 09:12 [id number] ICU-M23) Labs: Laboratory Results - last 24 hr 05/20/18 05/20/18 05/20/18 08:57 09:01 09:01 WBC 13.6 H RBC 2.78 L Hgb 7.6 L Hct 24 L MCV 85 MCH 27 MCHC 32 RDW 16 H Plt Count 412 MPV 5.8 L Neut % (Auto) 82.3 Lymph % (Auto) 13.7 [place] % (Auto) 3.9 Eos % (Auto) 0.1 Baso % (Auto) 0 Absolute Neuts (auto) 11.2 H Absolute Lymphs (auto) 1.9 Absolute Monos (auto) 0.5 Absolute Eos (auto) 0 Absolute Basos (auto) 0 Absolute Nucleated RBC 0 Nucleated RBC % 0 ESR 99 H INR (Anticoag Therapy) 1.22 H APTT 24.4 L Patient Temperature ABG pH ABG pH (Temp Correct) ABG pCO2 ABG pCO2 (Temp Corrct ABG pO2 ABG pO2 (Temp Correct ABG HCO3 ABG O2 Saturation ABG Base Excess Respiration Rate Ventilator Type Vent Mode FiO2 Inspiratory Time PEEP Pressure Support Pressure Control EPAP IPAP BiPAP Sodium Potassium Chloride Carbon Dioxide Anion Gap BUN Creatinine Est GFR ( Amer) Est GFR (Non-Af Amer) BUN/Creatinine Ratio Glucose POC Glucose (mg/dL) Lactic Acid Calcium Phosphorus Magnesium Total Bilirubin AST ALT Alkaline Phosphatase Total Creatine Kinase Troponin I C-Reactive Protein B-Natriuretic Peptide Total Protein Albumin Globulin Albumin/Globulin Ratio Triglycerides Blood Type A Positive Antibody Screen Negative Crossmatch See Detail 05/20/18 05/20/18 05/20/18 09:01 09:01 09:01 WBC RBC Hgb Hct MCV MCH MCHC RDW Plt Count MPV Neut % (Auto) Lymph % (Auto) [place] % (Auto) Eos % (Auto) Baso % (Auto) Absolute Neuts (auto) Absolute Lymphs (auto) Absolute Monos (auto) Absolute Eos (auto) Absolute Basos (auto) Absolute Nucleated RBC Nucleated RBC % ESR INR (Anticoag Therapy) APTT Patient Temperature ABG pH ABG pH (Temp Correct) ABG pCO2 ABG pCO2 (Temp Corrct ABG pO2 ABG pO2 (Temp Correct ABG HCO3 ABG O2 Saturation ABG Base Excess Respiration Rate Ventilator Type Vent Mode FiO2 Inspiratory Time PEEP Pressure Support Pressure Control EPAP IPAP BiPAP Sodium 128 L Potassium 3.4 L Chloride 98 L Carbon Dioxide 23 Anion Gap 7 BUN 22 Creatinine 0.68 Est GFR ( Amer) 106.8 Est GFR (Non-Af Amer) 88.3 BUN/Creatinine Ratio 32.4 H Glucose 78 POC Glucose (mg/dL) Lactic Acid 1.5 Calcium 7.6 L Phosphorus Magnesium Total Bilirubin 0.80 AST 10 L ALT 9 Alkaline Phosphatase 101 Total Creatine Kinase 18 Troponin I 0.03 C-Reactive Protein 80.04 H B-Natriuretic Peptide 107 H Total Protein 5.5 L Albumin 2.0 L Globulin 3.5 Albumin/Globulin Ratio 0.6 L Triglycerides Blood Type Antibody Screen Crossmatch 05/22/18 05/22/18 05/22/18 17:55 19:52 20:12 WBC RBC Hgb Hct MCV MCH MCHC RDW Plt Count MPV Neut % (Auto) Lymph % (Auto) [place] % (Auto) Eos % (Auto) Baso % (Auto) Absolute Neuts (auto) Absolute Lymphs (auto) Absolute Monos (auto) Absolute Eos (auto) Absolute Basos (auto) Absolute Nucleated RBC Nucleated RBC % ESR INR (Anticoag Therapy) APTT Patient Temperature 98. 0 f ABG pH 7.36 ABG pH (Temp Correct) Not Reportable ABG pCO2 27 L ABG pCO2 (Temp Corrct Not Reportable ABG pO2 107 H ABG pO2 (Temp Correct Not Reportable ABG HCO3 18.2 L ABG O2 Saturation 95.8 ABG Base Excess -8.6 L Respiration Rate Not Reportable Ventilator Type Not Reportable Vent Mode Not Reportable FiO2 25 Inspiratory Time Not Reportable PEEP Not Reportable Pressure Support Not Reportable Pressure Control Not Reportable EPAP Not Reportable IPAP Not Reportable BiPAP Not Reportable Sodium 136 Potassium 4.0 Chloride 111 Carbon Dioxide 21 L Anion Gap 4 BUN 15 Creatinine 0.43 L Est GFR ( Amer) 181.2 Est GFR (Non-Af Amer) 149.8 BUN/Creatinine Ratio 34.9 H Glucose 105 H POC Glucose (mg/dL) 153 H Lactic Acid Calcium 7.3 L Phosphorus 2.5 Magnesium 1.9 Total Bilirubin 1.00 AST 11 L ALT 10 Alkaline Phosphatase 56 Total Creatine Kinase Troponin I C-Reactive Protein B-Natriuretic Peptide Total Protein 3.8 L Albumin 1.8 L Globulin 2.0 Albumin/Globulin Ratio 0.9 L Triglycerides 291 Blood Type Antibody Screen Crossmatch 05/23/18 05/23/18 05/23/18 00:33 00:33 00:41 WBC RBC Hgb 7.6 L Hct 23 L MCV MCH MCHC RDW Plt Count MPV Neut % (Auto) Lymph % (Auto) [place] % (Auto) Eos % (Auto) Baso % (Auto) Absolute Neuts (auto) Absolute Lymphs (auto) Absolute Monos (auto) Absolute Eos (auto) Absolute Basos (auto) Absolute Nucleated RBC Nucleated RBC % ESR INR (Anticoag Therapy) APTT Patient Temperature ABG pH ABG pH (Temp Correct) ABG pCO2 ABG pCO2 (Temp Corrct ABG pO2 ABG pO2 (Temp Correct ABG HCO3 ABG O2 Saturation ABG Base Excess Respiration Rate Ventilator Type Vent Mode FiO2 Inspiratory Time PEEP Pressure Support Pressure Control EPAP IPAP BiPAP Sodium Potassium Chloride Carbon Dioxide Anion Gap BUN Creatinine Est GFR ( Amer) Est GFR (Non-Af Amer) BUN/Creatinine Ratio Glucose POC Glucose (mg/dL) 275 H 293 H Lactic Acid Calcium Phosphorus Magnesium Total Bilirubin AST ALT Alkaline Phosphatase Total Creatine Kinase Troponin I C-Reactive Protein B-Natriuretic Peptide Total Protein Albumin Globulin Albumin/Globulin Ratio Triglycerides Blood Type Antibody Screen Crossmatch 05/23/18 05/23/18 05/23/18 05:22 05:22 05:22 WBC 15.2 H RBC 2.50 L Hgb 7.1 L Hct 21 L MCV 85 MCH 29 MCHC 34 RDW 16 H Plt Count 120 L MPV 6.7 L Neut % (Auto) Lymph % (Auto) [place] % (Auto) Eos % (Auto) Baso % (Auto) Absolute Neuts (auto) Absolute Lymphs (auto) Absolute Monos (auto) Absolute Eos (auto) Absolute Basos (auto) Absolute Nucleated RBC Nucleated RBC % ESR INR (Anticoag Therapy) APTT Patient Temperature ABG pH ABG pH (Temp Correct) ABG pCO2 ABG pCO2 (Temp Corrct ABG pO2 ABG pO2 (Temp Correct ABG HCO3 ABG O2 Saturation ABG Base Excess Respiration Rate Ventilator Type Vent Mode FiO2 Inspiratory Time PEEP Pressure Support Pressure Control EPAP IPAP BiPAP Sodium 136 Potassium 4.1 Chloride 114 H Carbon Dioxide 21 L Anion Gap 1 L BUN 18 Creatinine 0.35 L Est GFR ( Amer) 229.8 Est GFR (Non-Af Amer) 189.9 BUN/Creatinine Ratio 51.4 H Glucose 288 H POC Glucose (mg/dL) Lactic Acid Calcium 6.9 L Phosphorus 1.1 L Magnesium 1.9 Total Bilirubin 0.50 AST 8 L ALT 8 Alkaline Phosphatase 53 Total Creatine Kinase Troponin I C-Reactive Protein B-Natriuretic Peptide Total Protein 3.5 L Albumin 1.5 L Globulin 2.0 Albumin/Globulin Ratio 0.8 L Triglycerides 307 Blood Type A Positive Antibody Screen Negative Crossmatch See Detail 05/23/18 05/23/18 05:25 09:10 WBC RBC Hgb Hct MCV MCH MCHC RDW Plt Count MPV Neut % (Auto) Lymph % (Auto) [place] % (Auto) Eos % (Auto) Baso % (Auto) Absolute Neuts (auto) Absolute Lymphs (auto) Absolute Monos (auto) Absolute Eos (auto) Absolute Basos (auto) Absolute Nucleated RBC Nucleated RBC % ESR INR (Anticoag Therapy) APTT Patient Temperature ABG pH ABG pH (Temp Correct) ABG pCO2 ABG pCO2 (Temp Corrct ABG pO2 ABG pO2 (Temp Correct ABG HCO3 ABG O2 Saturation ABG Base Excess Respiration Rate Ventilator Type Vent Mode FiO2 Inspiratory Time PEEP Pressure Support Pressure Control EPAP IPAP BiPAP Sodium Potassium Chloride Carbon Dioxide Anion Gap BUN Creatinine Est GFR ( Amer) Est GFR (Non-Af Amer) BUN/Creatinine Ratio Glucose POC Glucose (mg/dL) 365 H 365 H Lactic Acid Calcium Phosphorus Magnesium Total Bilirubin AST ALT Alkaline Phosphatase Total Creatine Kinase Troponin I C-Reactive Protein B-Natriuretic Peptide Total Protein Albumin Globulin Albumin/Globulin Ratio Triglycerides Blood Type Antibody Screen Crossmatch Studies: No radiographic data today Nutrition: TPN 05/22 Impression: # Perforated viscus s/p exlap with subtotal colectomy 05/20 # post surgical open abdomen # Septic shock # Klebsiella pneumoniae and Clostridium Clostridiiforme bacteremia 05/20 # Acute ventilator dependence respiratory failure due to septic shock # Electrolyte derrangements Hypokalemia resolved with replacement Hypocalcemia normalized when corrected for hypoalbuminemia Hypophosphastemia Plan: # Perforated viscus s/p exlap with subtotal colectomy 05/20 # post surgical open abdomen -Plan for repeat Ex lap, ileostomy creation, probable cholecystectomy and abdominal wall closure today 05/[address] Lalito Hickey # Septic shock due to bacteremia -target MAP >65 -on levophed 2mcg/min - Judicious use of IVF due to concerns with fluid overload # Klebsiella pneumoniae and Clostridium Clostridiiforme bacteremia 05/20 -on zosyn -started flagyl 05/23 - repeat BCx from 2 different sites today # Acute ventilator dependence respiratory failure due to septic shock - keep on full support due to anticipated surgery today - daily SWT and SBT - On sedation and analgesia (Fentanyl gtt to target CPOT <2, Propofol to target RASS 0--1) # Electrolyte derrangements Hypokalemia resolved with replacement Hypocalcemia normalized when corrected for hypoalbuminemia Hypophosphastemia -replacement of phos and Mg # acute anemia due to acute blood loss - target hgb >/=8. Will transfuse 2 units of PRBC 05/23 (Pre-OR) # hx/o ulcerative colitis on chronic steroids - Keep hydrocortisone to 50 mg q6 h for now Critical Care Time: 45 minutes
[2018-05-23] MEDS ORDERED: TPN* 24 HR with Dextrose 50% Water* 500 ML, Amino Acid Infusion 10%* 850 ML, Sterile Wa... CENTR SCH ×26 (11:28→17:00)
[2018-05-23] MEDS: metroNIDAZOLE IV 500 MG/100ML* 500 MG/100 ML BAG IVPB SCH ×2 (11:54→21:09)
[2018-05-23] MEDS ORDERED: Magnesium Sulfate 2 GM IV* 2 GM/50 ML BAG IVPB ONE (12:02)
--- NOTE | 2018-05-23 12:09 | PN ---
Progress Note - Progress Note Date of Service: 05/23/18 SOAP: Subjective: Remains on ventilator sedated Back on low dose of Levophed for decreased BP this morning Objective: Temp Pulse Resp BP Pulse Ox 97.6 F 54 10 107/70 96 05/23/18 08:00 05/23/18 11:15 05/23/18 10:00 05/23/18 11:07 05/23/18 11:15 Intake & Output 05/21/18 05/22/18 05/23/18 05/24/18 06:59 06:59 06:59 06:59 Intake Total 6014 5202.1 3075.5 0 Output Total 285 1497 1222 250 Balance 5729 3705.1 1853.5 -250 Weight 159 lb 6.307 oz 165 lb 9.074 oz 169 lb 13.225 oz Intake: IV Fluids 5424 3599 1167 ABX - ZOSYN 104 52 135 Albmin 51 KCL in Sterile Water 323 LR 1080 2993 496 NS (0.9%) 1040 503 213 IVPB 926 415 ABX - ZOSYN 402 232 Albmin 524 KCL in Sterile Water 183 Medicated IV 587 633.1 375.5 CC - Norepinephrine/ 503 333 20.5 Levophed CC - Propofol/Diprivan 84 300.1 355 IV Narcotic Infusion 3 44 188 Fentanyl 3 44 188 TPN/PPN 930 Oral 0 0 Output: NG Tube Drainage Amount 100 G Tube 150 Wound Vac 475 360 100 Yuen 285 872 762 150 PEX: Sedated on ventilator Abd is soft and non-distended. Wound vac in place Laboratory Last Values WBC 15.2 10^3/ul (3.5-10.8) H 05/23/18 05:22 RBC 2.50 10^6/ul (4.00-5.40) L 05/23/18 05:22 Hgb 7.1 g/dl (12.0-16.0) L 05/23/18 05:22 Hct 21 % (35-47) L 05/23/18 05:22 MCV 85 fL (80-97) 05/23/18 05:22 MCH 29 pg (27-31) 05/23/18 05:22 MCHC 34 g/dl (31-36) 05/23/18 05:22 RDW 16 % (10.5-15) H 05/23/18 05:22 Plt Count 120 10^3/ul (150-450) L 05/23/18 05:22 MPV 6.7 fL (7.4-10.4) L 05/23/18 05:22 Neut % (Auto) 95.3 % 05/21/18 05:52 Lymph % (Auto) 3.0 % 05/21/18 05:52 [place] % (Auto) 1.7 % 05/21/18 05:52 Eos % (Auto) 0 % 05/21/18 05:52 Baso % (Auto) 0 % 05/21/18 05:52 Absolute Neuts (auto) 23.4 10^3/ul (1.5-7.7) H 05/21/18 05:52 Absolute Lymphs (auto) 0.7 10^3/ul (1.0-4.8) L 05/21/18 05:52 Absolute Monos (auto) 0.4 10^3/ul (0-0.8) 05/21/18 05:52 Absolute Eos (auto) 0 10^3/ul (0-0.6) 05/21/18 05:52 Absolute Basos (auto) 0 10^3/ul (0-0.2) 05/21/18 05:52 Absolute Nucleated RBC 0 10^3/ul 05/21/18 05:52 Immature Gran % 22 % (0-9) H 05/21/18 00:15 Neutrophils % 77 % 05/21/18 00:15 Band Neutrophils % 20 % (0-8) H 05/21/18 00:15 Monocytes % 1 % 05/21/18 00:15 Metamyelocytes % 1 % (0-2) 05/21/18 00:15 Myelocytes % 1 % (0-1) 05/21/18 00:15 Nucleated RBC % 0 05/21/18 05:52 Abs Neuts (Manual) 21.68 10^3/ul (1.5-7.7) H 05/21/18 00:15 Abs Monocytes (Manual) 0.219 10^3/ul (0-0.8) 05/21/18 00:15 Toxic Granulation 2+ 05/21/18 00:15 Normal RBC Morphology Normal (Normal) 05/21/18 00:15 ESR 99 mm/Hr (0-30) H 05/20/18 09:01 INR (Anticoag Therapy) 1.44 (0.77-1.02) H 05/21/18 05:52 APTT 24.4 seconds (26.0-36.3) L 05/20/18 09:01 Patient Temperature 98. 0 f 05/22/18 20:12 ABG pH 7.36 (7.35-7.45) 05/22/18 20:12 ABG pH (Temp Correct) Not Reportable 05/22/18 20:12 ABG pCO2 27 mmHg (35-45) L 05/22/18 20:12 ABG pCO2 (Temp Corrct Not Reportable 05/22/18 20:12 ABG pO2 107 mmHg (80-100) H 05/22/18 20:12 ABG pO2 (Temp Correct Not Reportable 05/22/18 20:12 ABG HCO3 18.2 mmol/L (19-31) L 05/22/18 20:12 ABG O2 Saturation 95.8 % (94.0-98.0) 05/22/18 20:12 ABG Base Excess -8.6 mmol/L (-2.0-2.0) L 05/22/18 20:12 Respiration Rate Not Reportable 05/22/18 20:12 Ventilator Type Not Reportable 05/22/18 20:12 Vent Mode Not Reportable 05/22/18 20:12 FiO2 25 05/22/18 20:12 Inspiratory Time Not Reportable 05/22/18 20:12 PEEP Not Reportable 05/22/18 20:12 Pressure Support Not Reportable 05/22/18 20:12 Pressure Control Not Reportable 05/22/18 20:12 EPAP Not Reportable 05/22/18 20:12 IPAP Not Reportable 05/22/18 20:12 BiPAP Not Reportable 05/22/18 20:12 Sodium 136 mmol/L (135-145) 05/23/18 05:22 Potassium 4.1 mmol/L (3.5-5.0) 05/23/18 05:22 Chloride 114 mmol/L (101-111) H 05/23/18 05:22 Carbon Dioxide 21 mmol/L (22-32) L 05/23/18 05:22 Anion Gap 1 mmol/L (2-11) L 05/23/18 05:22 BUN 18 mg/dL (6-24) 05/23/18 05:22 Creatinine 0.35 mg/dL (0.51-0.95) L 05/23/18 05:22 Est GFR ( Amer) 229.8 (>60) 05/23/18 05:22 Est GFR (Non-Af Amer) 189.9 (>60) 05/23/18 05:22 BUN/Creatinine Ratio 51.4 (8-20) H 05/23/18 05:22 Glucose 288 mg/dL (70-100) H 05/23/18 05:22 POC Glucose (mg/dL) 365 mg/dL (70-100) H 05/23/18 09:10 Lactic Acid 0.7 mmol/L (0.5-2.0) 05/22/18 05:17 Calcium 6.9 mg/dL (8.6-10.3) L 05/23/18 05:22 Phosphorus 1.1 mg/dL (2.5-5.0) L 05/23/18 05:22 Magnesium 1.9 mg/dL (1.9-2.7) 05/23/18 05:22 Total Bilirubin 0.50 mg/dL (0.2-1.0) 05/23/18 05:22 AST 8 U/L (13-39) L 05/23/18 05:22 ALT 8 U/L (7-52) 05/23/18 05:22 Alkaline Phosphatase 53 U/L (34-104) 05/23/18 05:22 Total Creatine Kinase 18 U/L (10-223) 05/20/18 09:01 Troponin I 0.03 ng/mL (<0.04) 05/20/18 09:01 C-Reactive Protein 80.04 mg/L (<8.01) H 05/20/18 09:01 B-Natriuretic Peptide 107 pg/mL (<=100) H 05/20/18 09:01 Total Protein 3.5 g/dL (6.4-8.9) L 05/23/18 05:22 Albumin 1.5 g/dL (3.2-5.2) L 05/23/18 05:22 Globulin 2.0 g/dL (2-4) 05/23/18 05:22 Albumin/Globulin Ratio 0.8 (1-3) L 05/23/18 05:22 Triglycerides 307 mg/dL 05/23/18 05:22 Urine Color Yellow 05/21/18 17:23 Urine Appearance Cloudy 05/21/18 17:23 Urine pH 5.0 (5-9) 05/21/18 17:23 Ur Specific Peel 1.026 (1.010-1.030) 05/21/18 17:23 Urine Protein 1+(30 mg/dl) (Negative) A 05/21/18 17:23 Urine Ketones Trace (Negative) A 05/21/18 17:23 Urine Blood Negative (Negative) 05/21/18 17:23 Urine Nitrate Negative (Negative) 05/21/18 17:23 Urine Bilirubin Negative (Negative) 05/21/18 17:23 Urine Urobilinogen Negative (Negative) 05/21/18 17:23 Ur Leukocyte Esterase Negative (Negative) 05/21/18 17:23 Urine WBC (Auto) Trace(0-5/hpf) (Absent) 05/21/18 17:23 Urine RBC (Auto) Trace(0-2/hpf) (Absent) 05/21/18 17:23 Ur Squamous Epith Cells Present (Absent) A 05/21/18 17:23 Urine Bacteria Absent (Absent) 05/21/18 17:23 Urine Glucose Negative (Negative) 05/21/18 17:23 Influenza A (Rapid) Negative (Negative) 05/20/18 09:35 Influenza B (Rapid) Negative (Negative) 05/20/18 09:35 Blood Type A Positive 05/23/18 05:22 Antibody Screen Negative 05/23/18 05:22 Crossmatch See Detail 05/23/18 05:22 Blood cultures-Klebsiella and Clostridia Assessment: POD#3 s/p exlap with subtotal colectomy for perforated colon Sepsis Malnutrition Plan: IV abx Transfuse 2 units of PRBC's Replete phos Blood sugar management TPN Ventilator management Return to OR today--PLAN: Exploratory laparotomy, ileostomy creation, probable cholecystectomy and abdominal wall closure. Discussed with patient's sister, Carolina Moreno, on phone and risks and benefits all explained. She gives her verbal consent.
[2018-05-23] MEDS ORDERED: Sodium Phosphate INJ* 30 MMOLE in NS 0.9% 250 ML* 250 ML IVPB ONE (12:30)
[2018-05-23] MEDS ORDERED: fentaNYL* 50 MCG/ML 5 ML VIAL (250 MCG VIAL) ONE (16:41)
[2018-05-23] MEDS ORDERED: Midazolam* 1 MG/ML 5 ML VIAL (5 MG) ONE (16:41)
[2018-05-23] MEDS ORDERED: Cisatracurium* 2 MG/ML MDV 5 ML ONE ×2 (17:23→18:59)
--- NOTE | 2018-05-23 20:02 | BRIEFOPN ---
Brief Operative Note - Surgery Procedures: Procedures OPERATIVE REPORT PRE-OP: Sepsis, S/P exlap 05/20/18 and subtotal colectomy for colon perforation, open abdomen POST-OP:Same PROCEDURE:Exlap, sigmoid colon resection (distal portion), end ileostomy SURGEON: MD Ruperto ANESTHESIA: General, Dr. Joyner ASST:Ac Vásquez NP IVF:800 cc crystalloid EBL:50 cc SPECIMEN:Portion of sigmoid colon DRAIN: none WOUND CLASS:4 COMPLICATIONS: none TO PACU
[2018-05-24] MEDS: Hydrocortisone INJ* 100 MG VIAL IV SCH ×3 (00:24→11:05)
[2018-05-24] MEDS: fentaNYL INFUSION 50 MCG/ML* 2,500 MCG/50 ML BAG IV SCH (00:24)
[2018-05-24] MEDS: Chlorhexidine MOUTHWASH 0.12%* 15 ML UDC TOPICAL SCH ×5 (00:24→11:39)
[2018-05-24] MEDS: Norepinephrine VIAL* 4 MG in NS 0.9% 250 ML* 246 ML IV SCH (02:57)
--- NOTE | 2018-05-24 03:33 | OP ---
DATE OF OPERATION: 05/23/18 - ROOM #ICU-07 DATE OF : 59 SURGEON: Juan Jose Hickey MD EXPORT CLERK: Marcie Vásquez NP ANESTHESIOLOGIST: Dr. Joyner. ANESTHESIA: General. PRE-OP DIAGNOSES: Open abdomen status post subtotal colectomy, 05/20/18; sepsis ; stapled off ileum. POST-OP DIAGNOSES: Open abdomen status post subtotal colectomy, 05/20/18; sepsis; stapled off ileum. OPERATIVE PROCEDURE: 1. Exploratory laparotomy. 2. Resection of distal portion of remaining sigmoid colon. 3. End Allie-style ileostomy. INDICATIONS: Ms. Fadia Moreno is a 62-year-old woman, who presented 3 days ago to the emergency room, noted to be septic with peritonitis. A CT scan showed massive amount of free air. She was taken emergently to the operating room where she was noted to have large perforation of the transverse colon. She has ulcerative colitis as well as recently treated for C. diff colitis. Due to her history and findings of laparotomy, she underwent a subtotal colectomy and the terminal ileum was stapled off and she was taken back to the intensive care unit with an open abdomen. Over the past 3 days, her sepsis has improved and she has been weaned off the Levophed. She continued with antibiotics and has been stable, remaining on the ventilator with sedation. She is now being taken back to the operating room for planned laparotomy with plans for resection of any further involved colon, end ileostomy, and closure of her abdominal wall. Consent for the procedure was obtained from her sister due to the obvious nature of the patient's condition. The risks of, but not limited to, bleeding, infection, intraabdominal abscess formation, injury to peritoneal and retroperitoneal structures, possibility for further surgical intervention were all explained. ESTIMATED BLOOD LOSS: 50 cc. IV FLUIDS: 800 cc. SPECIMENS: Portion of the sigmoid colon. WOUND CLASSIFICATION: III. DRAINS: None. COMPLICATIONS: None. DESCRIPTION OF PROCEDURE: Written and informed consent was obtained, the abdomen was marked with indelible ink, and the patient was already on antibiotics. She was taken from the intensive care unit to the operating room, placed in the supine position. A Yuen catheter and nasogastric tube had already been in place. The abdomen was prepped and draped in the usual sterile fashion. Time-out verification was completed. The wound VAC was then removed and the peritoneal cavity was entered. There was some turbid nonbilious fluid noted in all 4 quadrants and it was thoroughly irrigated. There was no further evidence of purulence. The liver was unremarkable. The gallbladder was noted to be normal. The stomach was also normal as well as the duodenum. Upon running the small bowel in its very proximal portion, there were several fibrinous attachments, which on lysing appeared to be a small transmural tear of the small bowel. This was at a site where the small bowel was adherent to the under portion of the transverse colon and noted to be one of the sites of colon perforation at the initial laparotomy and it was apparent that when we had pinched this off, this may have caused some ischemia, but the small bowel was not involved with the primary process. I closed this small opening, which was at the junction between the bowel and its mesentery in two layers with interrupted 3-0 silk suture. The bowel was completely viable. There were no other remaining abnormalities noted in the small bowel. Attention was then turned to the distal sigmoid colon, which we had left during the emergent operation. This bowel was still purple in color and quite chronically and acutely inflamed, and I did proceed to removing the remainder of the sigmoid countdown to just about the pelvic brim to the rectum. The distal sigmoid was divided with the TA-60 stapler. The mesentery was taken with the LigaSure device. The specimen was handed off. Attention was then turned to fashioning the ileostomy. The end ileum was viable and a circular piece of portion of skin was taken off in the right lower quadrant and the defect was made in the abdominal wall through the lateral portion of the rectus muscle. The ileum was brought up with care to prevent twisting and it appeared to be viable with excellent blood supply once it was through the abdominal wall. The midline incision was then closed at the fascia level interrupted #1 Vicryl suture. This came together well with minimal tension; however, due to the fact that she has been on long-term steroids, and is severely malnourished. I did place three #5 Ethibond retention sutures, 1 below the umbilicus and 2 above the umbilicus, full thickness abdominal wall with 16-Maltese red rubber catheters as bolsters. The entire fascia was then closed with interrupted #1 Vicryl suture. The wound was packed open with a moist Kerlix gauze. The staple line of the ileum was then removed with a cautery and a Allie-style ileostomy was fashioned using 3-0 Vicryl suture to mature the skin after inverting the mucosa without difficulty. An ostomy appliance was applied. Dry sterile dressings were applied. The patient tolerated the procedure, was taken to the intensive care unit in stable, but critical condition. [id number]/[facility] #: [id number] TOSHIA
[2018-05-24] MEDS: Propofol* 100 ML IV SCH ×2 (03:41→09:44)
[2018-05-24] MEDS: Piperacillin/Tazobac ADVAN(*) 3.375 GM in NS 0.9% 100 ML* 100 ML IVPB SCH ×3 (04:21→20:59)
[2018-05-24] MEDS: metroNIDAZOLE IV 500 MG/100ML* 500 MG/100 ML BAG IVPB SCH ×3 (04:22→19:28)
[2018-05-24 04:43] LABS: Hematocrit 38 % (35-47); Hemoglobin 12.6 g/dl (12.0-16.0); Mean Corpuscular HGB Conc 33 g/dl (31-36); Mean Corpuscular Hemoglobin 28 pg (27-31); Mean Corpuscular Volume 85 fL (80-97); Platelet Count 131 10^3/ul (150-450); Red Blood Count 4.47 10^6/ul (4.00-5.40); Red Cell Distribution Width 16 % (10.5-15); White Blood Count 18.8 10^3/ul (3.5-10.8)
[2018-05-24 04:59] LABS: Albumin 1.8 g/dL (3.2-5.2); Albumin/Globulin Ratio 0.7 (1-3); Calcium 7.1 mg/dL (8.6-10.3); EGFR African American 254.9 (>60); EGFR Non-African American 210.6 (>60); Globulin 2.7 g/dL (2-4); Magnesium 2.2 mg/dL (1.9-2.7); Phosphorus 2.4 mg/dL (2.5-5.0); Potassium 4.2 mmol/L (3.5-5.0); Total Bilirubin 0.9 mg/dL (0.2-1.0); Total Protein 4.5 g/dL (6.4-8.9)
[2018-05-24] MEDS: Famotidine IV* 10 MG/ML 2 ML (20 mg) IV SCH (07:25)
--- NOTE | 2018-05-24 10:35 | PN ---
Progress Note - Progress Note Date of Service: 05/24/18 SOAP: Subjective: Stable overnight on ventilator Sedated and comfortable Objective: Temp Pulse Resp BP Pulse Ox 97.8 F 97 12 122/82 95 05/24/18 07:40 05/24/18 10:15 05/24/18 10:00 05/24/18 10:00 05/24/18 10:15 Intake & Output 05/22/18 05/23/18 05/24/18 05/25/18 06:59 06:59 06:59 06:59 Intake Total 5202.1 3075.5 2285 Output Total 1497 1222 1317 60 Balance 3705.1 1853.5 968 -60 Weight 165 lb 9.074 oz 169 lb 13.225 oz 170 lb 10.205 oz Intake: IV Fluids 3599 1167 251 ABX - FLAGYL 84 ABX - ZOSYN 52 135 91 Albmin 51 KCL in Sterile Water 323 LR 2993 496 Magnesium Sulfate 76 NS (0.9%) 503 213 IVPB 926 415 837 ABX - FLAGYL 110 ABX - ZOSYN 402 232 414 Albmin 524 KCL in Sterile Water 183 Magnesium Sulfate 163 Potassium Phosphate 150 Medicated IV 633.1 375.5 473 CC - Norepinephrine/ 333 20.5 66 Levophed CC - Propofol/Diprivan 300.1 355 407 IV Narcotic Infusion 44 188 71 Fentanyl 44 188 71 TPN/PPN 930 653 Oral 0 0 Output: NG Tube Drainage Amount 100 G Tube 150 Wound Vac 475 360 300 Yuen 203 167 0174 60 Ileostomy 15 PEX: Comfortable Abd is soft and slightly distended. Midline dressing intact. Ostomy edematous and pink/viable. Small amount of fluid in bag. Labs noted Blood cultures reviewed Assessment: POD# 1/4 s/p exlap with subtotal colectomy, end ileostomy and abdominal wall closure Sepsis Malnutrition Plan: Wean ventilator Start tube feeds IV abx Wound and ostomy care. IVF Operative findings discussed with patient's sister, Carolina, on the phone last night.
[2018-05-24] MEDS ORDERED: Furosemide IV* 10 MG/ML VIAL (40 MG) IV ONE (11:00)
[2018-05-24] MEDS ORDERED: Potassium Phosphate IV* 15 MMOLE in NS 0.9% 250 ML* 250 ML IVPB ONE (11:00)
[2018-05-24] MEDS ORDERED: Acetaminophen IV 1GM/100ML * 100 ML IVPB ONE (11:00)
--- NOTE | 2018-05-24 12:49 | PN ---
Date of Service: 05/24/18 Critical Care Services: 62 y/o female with ulcerative colitis and recent Hx C diff, admitted with perforated viscus - taken to OR and found to have extensive perforation of transverse colon - underwent subtotal colectomy and brought to ICU, thereafter- intubated, on mechanical ventilation, pressors, on propofol and fentanyl gtt 05/20/18: DOA; colon perf s/p Ex lap with subtotal colectomy, open abdomen 05/22/18: TPN started 05/23/18: Ex Lap, sigmoid colon resection, end ileostomy (Dr Hickey) Other 24 hours events: Levophed off. Extubated (05/24). Off propofol and fentanyl gtt. Off TPN. Received 2U PRBC 05/23 pre-surgery. Current complains: weakness, abdominal pain but tolerable Vital Signs: Temp Pulse Resp BP SpO2 FiO2 98.1 F 113 15 128/89 97 21 05/24/18 12:00 05/24/18 11:30 05/24/18 11:30 05/24/18 11:00 05/24/18 11:55 05/24 07:40 Physical Exam: Gen: NAD HEENT:NCAT, ISAIAS, mucous membranes are pink and moist Lungs:Clear to auscultation bilaterally, no wheezes Cardiac: +S1S2, RRR Abdomen: Wound-Vac in place over anterior abdominal wound. Absent to hypoactive BS Extremities:no cyanosis. 1+ edema LE. Dorsum of L hand edematous Neuro:withdraws to pain Fluid Balance (Past 24 Hours): I= O= Net Intake & Output 05/22/18 05/23/18 05/24/18 05/25/18 06:59 06:59 06:59 06:59 Intake Total 5202.1 3075.5 2285 294.5 Output Total 1497 1222 1317 560 Balance 3705.1 1853.5 968 -265.5 Weight 165 lb 9.074 oz 169 lb 13.225 oz 170 lb 10.205 oz Intake: IV Fluids 3599 1167 251 111 ABX - FLAGYL 84 ABX - ZOSYN 52 135 91 Albmin 51 KCL in Sterile Water 323 LR 2993 496 Magnesium Sulfate 76 NS (0.9%) 503 213 111 IVPB 926 415 837 ABX - FLAGYL 110 ABX - ZOSYN 402 232 414 Albmin 524 KCL in Sterile Water 183 Magnesium Sulfate 163 Potassium Phosphate 150 Medicated IV 633.1 375.5 473 183.5 CC - Norepinephrine/ 333 20.5 66 Levophed CC - Propofol/Diprivan 300.1 355 407 83.5 Tylenol 100 IV Narcotic Infusion 44 188 71 Fentanyl 44 188 71 TPN/PPN 930 653 Oral 0 0 Output: NG Tube Drainage Amount 100 G Tube 150 Wound Vac 475 360 300 Yuen 843 360 1994 560 Ileostomy 15 ADLs: Meal Record Start: 05/20/18 18: 39 Freq: 09,13,18 Status: Active Protocol: Created 05/20/18 18:39 System (Rec: 05/20/18 18:39 System ICU-C12) Document 05/22/18 09:00 [id number] (Rec: 05/22/18 09:01 [id number] ICU-C06) Document 05/22/18 13:00 MKA6831 (Rec: 05/22/18 13:12 DHV9258 ICU-C06) Document 05/22/18 18:00 PIM6178 (Rec: 05/22/18 18:07 QXN4759 ICU-C06) Document 05/23/18 09:00 DKU9232 (Rec: 05/23/18 09:12 PIQ1840 ICU-M23) Document 05/23/18 13:00 RWC4405 (Rec: 05/23/18 14:00 VZR1372 ICU-M23) Document 05/24/18 09:00 EAE3129 (Rec: 05/24/18 10:26 QWE2111 ICU-C06) Intake and Output Start: 05/20/18 08: 16 Freq: Status: Active Protocol: Created 05/20/18 08:16 System (Rec: 05/20/18 08:16 System [id number]) Intake and Output Start: 05/20/18 18: 39 Freq: Q1HR Status: Active Protocol: Created 05/20/18 18:39 System (Rec: 05/20/18 18:39 System ICU-C12) Document 05/20/18 20:00 HUZ0962 (Rec: 05/20/18 20:09 XDI0010 ICU-C25) Document 05/20/18 22:00 RRI8005 (Rec: 05/20/18 23:21 ZES7608 ICU-M23) Document 05/20/18 23:00 JWK9467 (Rec: 05/21/18 00:52 XLS7966 ICU-C25) Document 05/21/18 00:00 ALZ1754 (Rec: 05/21/18 00:52 VMX1776 ICU-C25) Document 05/21/18 01:00 VJU8758 (Rec: 05/21/18 03:52 YHA6676 ICU-C25) Document 05/21/18 02:00 VQN2758 (Rec: 05/21/18 03:52 EQZ3313 ICU-C25) Document 05/21/18 03:00 UAF8097 (Rec: 05/21/18 03:52 XCW8846 ICU-C25) Document 05/21/18 03:53 IOT5390 (Rec: 05/21/18 04:46 LQM7374 ICU-C25) Document 05/21/18 05:00 CJJ3736 (Rec: 05/21/18 05:45 GQN9319 ICU-M23) Document 05/21/18 05:45 NXM8130 (Rec: 05/21/18 05:45 CVS7397 ICU-M23) Document 05/21/18 07:00 USB4680 (Rec: 05/21/18 07:21 UJR8873 ICU-M23) Document 05/21/18 08:00 ZCU2893 (Rec: 05/21/18 09:08 SMX7562 ICU-M23) Document 05/21/18 09:00 WLR2667 (Rec: 05/21/18 09:08 DDD8206 ICU-M23) Document 05/21/18 10:00 BGU7925 (Rec: 05/21/18 10:36 RKM3257 ICU-M23) Document 05/21/18 11:00 QNS0350 (Rec: 05/21/18 11:47 HOW2454 ICU-C06) Document 05/21/18 12:00 LOJ6746 (Rec: 05/21/18 12:18 OVQ5286 ICU-M23) Document 05/21/18 13:00 KZS3629 (Rec: 05/21/18 13:04 BTR1992 ICU-M23) Document 05/21/18 14:00 MRA4573 (Rec: 05/21/18 14:03 XHH7516 ICU-M23) Document 05/21/18 15:00 IHA7088 (Rec: 05/21/18 15:17 SLW5555 ICU-C06) Document 05/21/18 15:59 QHA5507 (Rec: 05/21/18 15:59 FDF4245 ICU-M23) Document 05/21/18 17:00 DZG0201 (Rec: 05/21/18 17:14 YBC1433 ICU-M23) Document 05/21/18 17:55 SYL1541 (Rec: 05/21/18 17:55 DGX1210 ICU-M23) Document 05/21/18 19:00 BRH7846 (Rec: 05/21/18 19:08 HLG0735 ICU-C06) Document 05/21/18 20:00 WVC1410 (Rec: 05/21/18 23:15 LJM1029 ICU-C06) Document 05/21/18 21:00 ESW7807 (Rec: 05/21/18 23:15 OBU1073 ICU-C06) Document 05/21/18 22:00 CNK5449 (Rec: 05/21/18 23:15 UPR1475 ICU-C06) Document 05/21/18 23:00 TGR3521 (Rec: 05/21/18 23:15 JKL9057 ICU-C06) Document 05/22/18 00:00 AVJ2158 (Rec: 05/22/18 03:45 OHY8812 ICU-C06) Document 05/22/18 01:00 NHQ1336 (Rec: 05/22/18 04:21 HFK0493 ICU-M23) Document 05/22/18 02:00 AHC5697 (Rec: 05/22/18 04:21 QKB8025 ICU-M23) Document 05/22/18 03:00 TNA6093 (Rec: 05/22/18 04:21 ORP4185 ICU-M23) Document 05/22/18 04:00 OMQ0346 (Rec: 05/22/18 04:21 DWO3397 ICU-M23) Document 05/22/18 05:00 MXR5574 (Rec: 05/22/18 05:12 SYS7466 ICU-M23) Document 05/22/18 05:54 DEB0767 (Rec: 05/22/18 05:55 TVN2699 ICU-C06) Document 05/22/18 06:00 QTF3352 (Rec: 05/22/18 06:49 MZB9278 ICU-M23) Document 05/22/18 07:00 RHO4534 (Rec: 05/22/18 07:07 DGS5865 ICU-M23) Document 05/22/18 08:00 FGM2395 (Rec: 05/22/18 08:46 XJV0520 ICU-M23) Document 05/22/18 10:00 SDY0294 (Rec: 05/22/18 10:14 BNO8305 ICU-M23) Document 05/22/18 11:00 JVZ9998 (Rec: 05/22/18 11:32 GCW7787 ICU-C06) Document 05/22/18 12:00 ZNC1158 (Rec: 05/22/18 12:42 UKQ4127 ICU-M23) Document 05/22/18 13:00 SFB2588 (Rec: 05/22/18 13:12 NVX7184 ICU-C06) Document 05/22/18 14:00 UXX9093 (Rec: 05/22/18 14:17 SBY1758 ICU-M23) Document 05/22/18 15:00 AXH1176 (Rec: 05/22/18 15:02 CAL4876 ICU-M23) Document 05/22/18 16:00 CRD8677 (Rec: 05/22/18 17:26 UGC5291 ICU-M23) Document 05/22/18 17:00 ZSJ0628 (Rec: 05/22/18 17:26 XFU2118 ICU-M23) Document 05/22/18 18:00 NSB0224 (Rec: 05/22/18 18:07 HYR8913 ICU-C06) Document 05/22/18 19:00 RUZ9338 (Rec: 05/22/18 20:05 XPP4326 ICU-M23) Document 05/22/18 20:00 LKV8500 (Rec: 05/22/18 20:05 SPC8115 ICU-M23) Document 05/22/18 21:00 JFF0033 (Rec: 05/22/18 23:01 CBO4270 ICU-C06) Document 05/22/18 22:00 WDZ2470 (Rec: 05/22/18 23:01 YKI6674 ICU-C06) Document 05/22/18 23:00 DEX3595 (Rec: 05/22/18 23:01 MGA0029 ICU-C06) Document 05/23/18 00:00 XLV7644 (Rec: 05/23/18 00:21 QCK3862 ICU-C06) Document 05/23/18 01:00 UFQ3637 (Rec: 05/23/18 03:18 FDO7415 ICU-M23) Document 05/23/18 02:00 HYH3878 (Rec: 05/23/18 03:18 TOP2061 ICU-M23) Document 05/23/18 03:00 GTX4656 (Rec: 05/23/18 03:18 YAA3074 ICU-M23) Document 05/23/18 04:00 IKI8782 (Rec: 05/23/18 04:18 OVM0959 ICU-C06) Document 05/23/18 05:00 QNZ2496 (Rec: 05/23/18 05:23 NNY9186 ICU-M23) Document 05/23/18 05:43 HEZ8365 (Rec: 05/23/18 05:43 TNJ3671 ICU-C06) Document 05/23/18 06:00 WXL2831 (Rec: 05/23/18 06:18 IJX9444 ICU-M23) Document 05/23/18 07:00 GPK3243 (Rec: 05/23/18 07:34 TUO3490 ICU-M23) Document 05/23/18 08:00 KYR0455 (Rec: 05/23/18 08:49 HLC2656 ICU-C06) Document 05/23/18 09:00 FDG7299 (Rec: 05/23/18 09:12 USR6886 ICU-M23) Document 05/23/18 10:00 JLT4403 (Rec: 05/23/18 11:29 AXE4005 ICU-C06) Document 05/23/18 11:00 ONI8220 (Rec: 05/23/18 13:59 NMY6485 ICU-M23) Document 05/23/18 12:00 FUD4233 (Rec: 05/23/18 13:59 XIP7581 ICU-M23) Document 05/23/18 13:00 CFF0358 (Rec: 05/23/18 14:00 BCS6865 ICU-M23) Document 05/23/18 14:00 PRI9725 (Rec: 05/23/18 15:16 RIM1951 ICU-C06) Document 05/23/18 15:00 HRH7545 (Rec: 05/23/18 15:16 SNZ6789 ICU-C06) Document 05/23/18 16:00 TEQ9233 (Rec: 05/23/18 16:47 XJH0436 ICU-M23) Document 05/23/18 17:00 VWW2768 (Rec: 05/23/18 17:08 SMA7131 ICU-C06) Document 05/23/18 20:00 JEK8818 (Rec: 05/23/18 23:01 OVL9712 ICU-C06) Document 05/23/18 21:00 VBQ9482 (Rec: 05/23/18 23:01 PTV8351 ICU-C06) Document 05/23/18 22:00 TMX4573 (Rec: 05/23/18 23:01 OYF9019 ICU-C06) Document 05/23/18 23:00 LPS4161 (Rec: 05/23/18 23:01 LCT7954 ICU-C06) Document 05/24/18 00:00 BQK7633 (Rec: 05/24/18 00:14 RKI8549 ICU-M23) Document 05/24/18 01:00 SLK0187 (Rec: 05/24/18 03:11 KNU4816 ICU-C06) Document 05/24/18 02:00 JFL3233 (Rec: 05/24/18 03:11 IHY2001 ICU-C06) Document 05/24/18 03:00 UXA3481 (Rec: 05/24/18 03:11 LEI6505 ICU-C06) Document 05/24/18 04:00 QUA6544 (Rec: 05/24/18 04:13 BZW8800 ICU-M23) Document 05/24/18 05:00 OLK1004 (Rec: 05/24/18 05:30 ENS1610 ICU-M23) Document 05/24/18 06:00 MNT1260 (Rec: 05/24/18 06:55 TXZ5202 ICU-C06) Document 05/24/18 06:55 ZAQ2839 (Rec: 05/24/18 06:55 DHH4170 ICU-C06) Document 05/24/18 09:00 KCZ0077 (Rec: 05/24/18 10:26 FSZ0181 ICU-C06) Document 05/24/18 10:00 ZEK8941 (Rec: 05/24/18 10:27 VEG9402 ICU-C06) Document 05/24/18 11:00 KUY4472 (Rec: 05/24/18 11:38 QCE3625 ICU-M23) Document 05/24/18 12:00 IBZ6097 (Rec: 05/24/18 12:26 DST0180 ICU-M23) Labs: Laboratory Results - last 24 hr 05/23/18 05/24/18 05/24/18 05:22 04:24 04:24 WBC 18.8 H RBC 4.47 Hgb 12.6 Hct 38 MCV 85 MCH 28 MCHC 33 RDW 16 H Plt Count 131 L MPV 7.0 L Sodium 138 Potassium 4.2 Chloride 110 Carbon Dioxide 22 Anion Gap 6 BUN 16 Creatinine 0.32 L Est GFR ( Amer) 254.9 Est GFR (Non-Af Amer) 210.6 BUN/Creatinine Ratio 50.0 H Glucose 124 H Calcium 7.1 L Phosphorus 2.4 L Magnesium 2.2 Total Bilirubin 0.90 AST 14 ALT 12 Alkaline Phosphatase 80 Total Protein 4.5 L Albumin 1.8 L Globulin 2.7 Albumin/Globulin Ratio 0.7 L Triglycerides 321 Blood Type A Positive Antibody Screen Negative Crossmatch See Detail Studies: No radiographic data today Nutrition: NPO Impression: # Perforated viscus s/p exlap with subtotal colectomy 05/20 # post surgical open abdomen # Septic shock # Klebsiella pneumoniae and Clostridium Clostridiiforme bacteremia 05/20 # Acute ventilator dependence respiratory failure due to septic shock # Electrolyte derrangements Hypokalemia resolved with replacement Hypocalcemia normalized when corrected for hypoalbuminemia Hypophosphastemia Plan: # Perforated viscus s/p exlap with subtotal colectomy 05/20 s/p ex Lap, sigmoid colon resection, end ileostomy with closure of abdominal wall (Dr Hickey) 05/23 -pain control -surgery recs noted -will need surgery recs on nutrition plans # Septic shock due to bacteremia resolved shock status. - target MAP >65 - Judicious use of IVF due to concerns with fluid overload # Klebsiella pneumoniae and Clostridium Clostridiiforme bacteremia 05/20 -on zosyn. Klebsiella is sensitive to Zosyn - started flagyl 05/23 - repeat BCx from 05/22 and 05/23 NTD. Final pending - Pending Sn on Clostridium - will tailor abx according to sensitivities # Acute ventilator dependence respiratory failure due to septic shock - extubated 05/24 to [place] - incentive spirometry at the bedside # Fluid overload - s/p 1 x lasix 40 mg IV 05/23 pre-extubation # Electrolyte derrangements Hypokalemia resolved with replacement Hypocalcemia normalized when corrected for hypoalbuminemia Hypophosphastemia -replacement of phos today # Acute post-surgical pain - s/p 1 x IV APAP - prn fentanyl # acute anemia due to acute blood loss resolved after transfusion # hx/o ulcerative colitis not on chronic steroids - taper off hydrocortisone-50 mg q6h to q12h # Frailty -PT/OT eval pending - if cleared for oral intake would recommend swallow evaluation DVT PPX: GI PPX: H2B Dispo: Monitor in the ICU Critical care issues: extubation <24h, acute respiratory failure, septic shock, perforated viscus Critical Care Time: 45 minutes
[2018-05-24] MEDS: fentaNYL* 50 MCG/ML 2 ML VIAL (100 MCG VIAL) IV PRN (15:38)
[2018-05-24] MEDS: Morphine VIAL* 10 MG/ML 1 ML VIAL IV PRN ×4 (16:55→22:14)
[2018-05-24] MEDS ORDERED: Hydrocortisone INJ* 100 MG VIAL IV SCH (23:00)
[2018-05-25] MEDS: Morphine VIAL* 10 MG/ML 1 ML VIAL IV PRN ×2 (01:47→07:31)
[2018-05-25] MEDS: metroNIDAZOLE IV 500 MG/100ML* 500 MG/100 ML BAG IVPB SCH ×3 (02:03→18:28)
[2018-05-25] MEDS: Piperacillin/Tazobac ADVAN(*) 3.375 GM in NS 0.9% 100 ML* 100 ML IVPB SCH ×3 (04:03→20:35)
[2018-05-25] MEDS: Famotidine IV* 10 MG/ML 2 ML (20 mg) IV SCH (10:15)
[2018-05-25] MEDS ORDERED: Dextrose 50% Syringe 50 ML* 25 GM/50 ML SYRINGE IV PUSH PRN (10:48)
[2018-05-25] MEDS: Insulin LISPRO* 1 UNITS UNIT SUBCUT SCH ×2 (12:23→17:25)
--- NOTE | 2018-05-25 12:23 | PN ---
Progress Note - Progress Note Date of Service: 05/25/18 SOAP: Subjective: Extubated and comfortable-awake and alert and quite talkative. Objective: Temp Pulse Resp BP Pulse Ox 98.8 F 71 14 124/73 94 05/25/18 08:00 05/25/18 08:01 05/25/18 08:01 05/25/18 08:00 05/25/18 08:01 Intake & Output 05/23/18 05/24/18 05/25/18 05/26/18 06:59 06:59 06:59 06:59 Intake Total 3075.5 2285 1198.5 Output Total 1222 1317 1877 50 Balance 1853.5 968 -678.5 -50 Weight 169 lb 13.225 oz 170 lb 10.205 oz 173 lb 15.115 oz Intake: IV Fluids 1167 251 542 ABX - FLAGYL 84 100 ABX - ZOSYN 135 91 30 KCL in Sterile Water 323 LR 496 Magnesium Sulfate 76 NS (0.9%) 213 157 Potassium Phosphate 255 IVPB 415 837 458 ABX - FLAGYL 110 220 ABX - ZOSYN 232 414 238 KCL in Sterile Water 183 Magnesium Sulfate 163 Potassium Phosphate 150 Medicated IV 375.5 473 183.5 CC - Norepinephrine/ 20.5 66 Levophed CC - Propofol/Diprivan 355 407 83.5 Tylenol 100 IV Narcotic Infusion 188 71 Fentanyl 188 71 TPN/PPN 930 653 Oral 0 0 15 Output: NG Tube Drainage Amount 100 Wound Vac 360 300 Urine 50 Yuen 762 1002 1827 50 Ileostomy 15 PEX: Comfortable-awake and alert-oriented to person and place Abd is soft and slightly distended. No bowel sounds are present. Midline incision clean, pink and open. Packing changed. Ostomy is pink and edematous-minimal green fluid in bag. Labs noted\ Cultures noted Assessment: POD #2/5 s/p exlap with subtotal colectomy and ileostomy Sepsis Malnutrition UC Extubated yesterday Plan: IV abx TPN Continue to wean steroids [employer] ADMINISTR[employer] OOB, pulmonary toilet, physical therapy Sub q heparin Clears-advance diet as tolerated. Tx to floor--discussed with caddie supervisor and hospitalist.
[2018-05-25 12:45] LABS: Hematocrit 36 % (35-47); Hemoglobin 11.7 g/dl (12.0-16.0); Mean Corpuscular HGB Conc 32 g/dl (31-36); Mean Corpuscular Hemoglobin 28 pg (27-31); Mean Corpuscular Volume 86 fL (80-97); Mean Platelet Volume 7.6 fL (7.4-10.4); Platelet Count 134 10^3/ul (150-450); Red Blood Count 4.19 10^6/ul (4.00-5.40); Red Cell Distribution Width 16 % (10.5-15); White Blood Count 19.2 10^3/ul (3.5-10.8)
[2018-05-25 12:59] LABS: Activated Partial Thrombo Time 24.7 seconds (26.0-36.3); INR 1.07 (0.77-1.02)
[2018-05-25] MEDS ORDERED: Morphine PCA ADULT* 5 MG/ML 30 ML PCA SCH (13:00)
[2018-05-25 13:06] LABS: EGFR Non-African American 203.3 (>60)
[2018-05-25] MEDS ORDERED: NS 0.9% 500 ML* 500 ML IV ONE (13:08)
--- NOTE | 2018-05-25 13:10 | PN ---
Date of Service: 05/25/18 - TRANSFER NOTE Critical Care Services: 62 y/o female with ulcerative colitis and recent Hx C diff, admitted with perforated viscus - taken to OR and found to have extensive perforation of transverse colon - underwent subtotal colectomy and brought to ICU, thereafter- intubated, on mechanical ventilation, pressors, on propofol and fentanyl gtt 05/20/18: DOA; colon perf s/p Ex lap with subtotal colectomy, open abdomen 05/22/18: TPN started 05/23/18: Ex Lap, sigmoid colon resection, end ileostomy (Dr Hickey) 05/24/18: Extubated Other 24 hours events: Remains off pressors, sedation, and analgesia. Extubated (05/24). No requirement for transfusion Current complains: weakness. Pain well controlled. No fever. Vital Signs: Temp Pulse Resp BP SpO2 FiO2 98.9 F 97 19 98/74 95 21 05/25/18 12:00 05/25/18 12:15 05/25/18 12:30 05/25/18 12:00 05/25/18 12:15 05/24 07:40 Physical Exam: Gen: NAD, sitting on the chair comfortably HEENT:NCAT, ISAIAS, mucous membranes are pink and moist Lungs:Clear to auscultation bilaterally, no wheezes Cardiac: +S1S2, RRR Abdomen: Wound dressing- Intact. Ileostomy noted in the RQ. Bowel sounds are hard to auscultate due to dressing. Extremities:no cyanosis. 1+ edema LE. Dorsum of L hand edematous Neuro:AAOX 3. No focal neuro deficits Fluid Balance (Past 24 Hours): I= O= Net Intake & Output 05/23/18 05/24/18 05/25/18 05/26/18 06:59 06:59 06:59 06:59 Intake Total 3075.5 2285 1198.5 25 Output Total 1222 1317 1877 185 Balance 1853.5 968 -678.5 -160 Weight 169 lb 13.225 oz 170 lb 10.205 oz 173 lb 15.115 oz Intake: IV Fluids 1167 251 542 ABX - FLAGYL 84 100 ABX - ZOSYN 135 91 30 KCL in Sterile Water 323 LR 496 Magnesium Sulfate 76 NS (0.9%) 213 157 Potassium Phosphate 255 IVPB 415 837 458 ABX - FLAGYL 110 220 ABX - ZOSYN 232 414 238 KCL in Sterile Water 183 Magnesium Sulfate 163 Potassium Phosphate 150 Medicated IV 375.5 473 183.5 CC - Norepinephrine/ 20.5 66 Levophed CC - Propofol/Diprivan 355 407 83.5 Tylenol 100 IV Narcotic Infusion 188 71 Fentanyl 188 71 TPN/PPN 930 653 Oral 0 0 15 25 Output: NG Tube Drainage Amount 100 Wound Vac 360 300 Urine 50 Yuen 762 1002 1827 185 Ileostomy 15 ADLs: Meal Record Start: 05/20/18 18: 39 Freq: 09,13,18 Status: Active Protocol: Created 05/20/18 18:39 System (Rec: 05/20/18 18:39 System ICU-C12) Document 05/22/18 09:00 [id number] (Rec: 05/22/18 09:01 [id number] ICU-C06) Document 05/22/18 13:00 VAU3832 (Rec: 05/22/18 13:12 RCG6449 ICU-C06) Document 05/22/18 18:00 CNH9763 (Rec: 05/22/18 18:07 RTU1245 ICU-C06) Document 05/23/18 09:00 AHQ6060 (Rec: 05/23/18 09:12 GPN5107 ICU-M23) Document 05/23/18 13:00 YOK4124 (Rec: 05/23/18 14:00 GIN2350 ICU-M23) Document 05/24/18 09:00 GBV0270 (Rec: 05/24/18 10:26 QLJ0601 ICU-C06) Document 05/24/18 13:00 ABW3627 (Rec: 05/24/18 13:04 YCE0817 ICU-M23) Document 05/24/18 18:00 HNH6242 (Rec: 05/24/18 18:46 FFW5104 ICU-C06) Document 05/25/18 09:00 HEJ8543 (Rec: 05/25/18 12:31 JCV6807 ICU-C15) Intake and Output Start: 05/20/18 08: 16 Freq: Status: Active Protocol: Created 05/20/18 08:16 System (Rec: 05/20/18 08:16 System [id number]-C04) Intake and Output Start: 05/20/18 18: 39 Freq: Q1HR Status: Active Protocol: Created 05/20/18 18:39 System (Rec: 05/20/18 18:39 System ICU-C12) Document 05/20/18 20:00 LAR0643 (Rec: 05/20/18 20:09 ZRA9363 ICU-C25) Document 05/20/18 22:00 FDN0065 (Rec: 05/20/18 23:21 CHO5613 ICU-M23) Document 05/20/18 23:00 WHR4429 (Rec: 05/21/18 00:52 YWL7532 ICU-C25) Document 05/21/18 00:00 SWR7442 (Rec: 05/21/18 00:52 JDW3756 ICU-C25) Document 05/21/18 01:00 ZVU8653 (Rec: 05/21/18 03:52 JGM1922 ICU-C25) Document 05/21/18 02:00 RSQ4716 (Rec: 05/21/18 03:52 LPY6594 ICU-C25) Document 05/21/18 03:00 OJW8273 (Rec: 05/21/18 03:52 IFP0492 ICU-C25) Document 05/21/18 03:53 DVQ4447 (Rec: 05/21/18 04:46 OKH3452 ICU-C25) Document 05/21/18 05:00 TJU8748 (Rec: 05/21/18 05:45 LUG4893 ICU-M23) Document 05/21/18 05:45 LYI7508 (Rec: 05/21/18 05:45 OQQ3004 ICU-M23) Document 05/21/18 07:00 OBN1859 (Rec: 05/21/18 07:21 WFD2825 ICU-M23) Document 05/21/18 08:00 PQG7158 (Rec: 05/21/18 09:08 VQM4188 ICU-M23) Document 05/21/18 09:00 KLF3052 (Rec: 05/21/18 09:08 PWW6502 ICU-M23) Document 05/21/18 10:00 TWV6182 (Rec: 05/21/18 10:36 GVW8615 ICU-M23) Document 05/21/18 11:00 YHD1189 (Rec: 05/21/18 11:47 QLU3021 ICU-C06) Document 05/21/18 12:00 LKG3376 (Rec: 05/21/18 12:18 MLE2253 ICU-M23) Document 05/21/18 13:00 DSE2020 (Rec: 05/21/18 13:04 OFN2045 ICU-M23) Document 05/21/18 14:00 OEM0592 (Rec: 05/21/18 14:03 MJN4038 ICU-M23) Document 05/21/18 15:00 SSL4450 (Rec: 05/21/18 15:17 WIU0050 ICU-C06) Document 05/21/18 15:59 NRA2637 (Rec: 05/21/18 15:59 NFJ7425 ICU-M23) Document 05/21/18 17:00 PJB5828 (Rec: 05/21/18 17:14 NGE4777 ICU-M23) Document 05/21/18 17:55 CQH0865 (Rec: 05/21/18 17:55 ZYC8947 ICU-M23) Document 05/21/18 19:00 AVS0455 (Rec: 05/21/18 19:08 PEY7230 ICU-C06) Document 05/21/18 20:00 UVN3099 (Rec: 05/21/18 23:15 KCS4369 ICU-C06) Document 05/21/18 21:00 TEB7827 (Rec: 05/21/18 23:15 CMI5993 ICU-C06) Document 05/21/18 22:00 ZAB5510 (Rec: 05/21/18 23:15 QZF0677 ICU-C06) Document 05/21/18 23:00 XUL3588 (Rec: 05/21/18 23:15 JSG5695 ICU-C06) Document 05/22/18 00:00 MGU8554 (Rec: 05/22/18 03:45 MWW2538 ICU-C06) Document 05/22/18 01:00 VDW2289 (Rec: 05/22/18 04:21 ELI1932 ICU-M23) Document 05/22/18 02:00 SVS6330 (Rec: 05/22/18 04:21 HWJ3760 ICU-M23) Document 05/22/18 03:00 OSU4816 (Rec: 05/22/18 04:21 QAZ7421 ICU-M23) Document 05/22/18 04:00 SSE8638 (Rec: 05/22/18 04:21 IFH0845 ICU-M23) Document 05/22/18 05:00 OLD1357 (Rec: 05/22/18 05:12 BMT1622 ICU-M23) Document 05/22/18 05:54 WAL1014 (Rec: 05/22/18 05:55 IBC9683 ICU-C06) Document 05/22/18 06:00 JAB9577 (Rec: 05/22/18 06:49 DUH6039 ICU-M23) Document 05/22/18 07:00 TSH2545 (Rec: 05/22/18 07:07 LRV1815 ICU-M23) Document 05/22/18 08:00 SFF9386 (Rec: 05/22/18 08:46 NZX1224 ICU-M23) Document 05/22/18 10:00 PZY2560 (Rec: 05/22/18 10:14 UJP4212 ICU-M23) Document 05/22/18 11:00 RXL4910 (Rec: 05/22/18 11:32 REY5940 ICU-C06) Document 05/22/18 12:00 GXK9901 (Rec: 05/22/18 12:42 TUK9439 ICU-M23) Document 05/22/18 13:00 ANL4284 (Rec: 05/22/18 13:12 QIS3139 ICU-C06) Document 05/22/18 14:00 UIL3426 (Rec: 05/22/18 14:17 YWT9667 ICU-M23) Document 05/22/18 15:00 HBV9699 (Rec: 05/22/18 15:02 WOF4728 ICU-M23) Document 05/22/18 16:00 TBW7473 (Rec: 05/22/18 17:26 MBY1835 ICU-M23) Document 05/22/18 17:00 QOG2487 (Rec: 05/22/18 17:26 KKY2922 ICU-M23) Document 05/22/18 18:00 NBY6582 (Rec: 05/22/18 18:07 QSE7466 ICU-C06) Document 05/22/18 19:00 TFG9389 (Rec: 05/22/18 20:05 NNC5160 ICU-M23) Document 05/22/18 20:00 BKQ1700 (Rec: 05/22/18 20:05 CNU3000 ICU-M23) Document 05/22/18 21:00 WYI5153 (Rec: 05/22/18 23:01 LWR0096 ICU-C06) Document 05/22/18 22:00 BZI5481 (Rec: 05/22/18 23:01 NRV6557 ICU-C06) Document 05/22/18 23:00 LWD8339 (Rec: 05/22/18 23:01 HZC1779 ICU-C06) Document 05/23/18 00:00 GBU4482 (Rec: 05/23/18 00:21 ZZK1696 ICU-C06) Document 05/23/18 01:00 OBP7115 (Rec: 05/23/18 03:18 BHL8033 ICU-M23) Document 05/23/18 02:00 IVM0380 (Rec: 05/23/18 03:18 AKA2346 ICU-M23) Document 05/23/18 03:00 OGU6972 (Rec: 05/23/18 03:18 SBN8889 ICU-M23) Document 05/23/18 04:00 XOA4516 (Rec: 05/23/18 04:18 DLK6937 ICU-C06) Document 05/23/18 05:00 OBL4451 (Rec: 05/23/18 05:23 NQX9334 ICU-M23) Document 05/23/18 05:43 KEO9466 (Rec: 05/23/18 05:43 GNQ6266 ICU-C06) Document 05/23/18 06:00 CMB3645 (Rec: 05/23/18 06:18 MQY0330 ICU-M23) Document 05/23/18 07:00 OIW0661 (Rec: 05/23/18 07:34 QFA1393 ICU-M23) Document 05/23/18 08:00 KXZ2386 (Rec: 05/23/18 08:49 GGQ8500 ICU-C06) Document 05/23/18 09:00 EWJ0441 (Rec: 05/23/18 09:12 OOG3485 ICU-M23) Document 05/23/18 10:00 ZCA6566 (Rec: 05/23/18 11:29 CWK3983 ICU-C06) Document 05/23/18 11:00 SMA1051 (Rec: 05/23/18 13:59 HZI1100 ICU-M23) Document 05/23/18 12:00 QUT6008 (Rec: 05/23/18 13:59 XLJ4326 ICU-M23) Document 05/23/18 13:00 BTW9788 (Rec: 05/23/18 14:00 FEM8949 ICU-M23) Document 05/23/18 14:00 ZFY3234 (Rec: 05/23/18 15:16 YZL1027 ICU-C06) Document 05/23/18 15:00 MGM6128 (Rec: 05/23/18 15:16 JJE9795 ICU-C06) Document 05/23/18 16:00 ZFQ4100 (Rec: 05/23/18 16:47 WQQ5904 ICU-M23) Document 05/23/18 17:00 JFV3713 (Rec: 05/23/18 17:08 XSM5952 ICU-C06) Document 05/23/18 20:00 DTG7355 (Rec: 05/23/18 23:01 HLJ0190 ICU-C06) Document 05/23/18 21:00 OPY5697 (Rec: 05/23/18 23:01 DXZ9157 ICU-C06) Document 05/23/18 22:00 MWW0976 (Rec: 05/23/18 23:01 SJL8884 ICU-C06) Document 05/23/18 23:00 UBS0942 (Rec: 05/23/18 23:01 BLK9722 ICU-C06) Document 05/24/18 00:00 IMA9052 (Rec: 05/24/18 00:14 JGU2748 ICU-M23) Document 05/24/18 01:00 PPT4013 (Rec: 05/24/18 03:11 SBI4385 ICU-C06) Document 05/24/18 02:00 VWU2522 (Rec: 05/24/18 03:11 LPT8630 ICU-C06) Document 05/24/18 03:00 DPX7900 (Rec: 05/24/18 03:11 UOG7909 ICU-C06) Document 05/24/18 04:00 SFX1214 (Rec: 05/24/18 04:13 BHW3983 ICU-M23) Document 05/24/18 05:00 AUF9324 (Rec: 05/24/18 05:30 ZEW6537 ICU-M23) Document 05/24/18 06:00 FQY8844 (Rec: 05/24/18 06:55 KRE0965 ICU-C06) Document 05/24/18 06:55 SFK5299 (Rec: 05/24/18 06:55 RYV0239 ICU-C06) Document 05/24/18 09:00 WCP2427 (Rec: 05/24/18 10:26 IZL0550 ICU-C06) Document 05/24/18 10:00 USF5116 (Rec: 05/24/18 10:27 STB8304 ICU-C06) Document 05/24/18 11:00 HDJ3935 (Rec: 05/24/18 11:38 TPY9228 ICU-M23) Document 05/24/18 12:00 UVP5662 (Rec: 05/24/18 12:26 EVX6349 ICU-M23) Document 05/24/18 13:00 USG0210 (Rec: 05/24/18 13:02 MEV6873 ICU-M23) Document 05/24/18 13:47 ZEW1950 (Rec: 05/24/18 13:47 SFZ0955 ICU-M23) Document 05/24/18 15:00 ELX9716 (Rec: 05/24/18 15:05 UUN6311 ICU-M23) Document 05/24/18 16:00 VVD7305 (Rec: 05/24/18 16:37 DEH0101 ICU-C06) Document 05/24/18 17:39 ZXX7249 (Rec: 05/24/18 17:40 LMW7386 ICU-C06) Document 05/24/18 18:00 XWD2528 (Rec: 05/24/18 18:46 DNS6120 ICU-C06) Document 05/24/18 18:57 ALN9646 (Rec: 05/24/18 18:58 CED3290 ICU-M23) Document 05/24/18 20:00 RCM4454 (Rec: 05/24/18 20:35 XSC5380 ICU-C06) Document 05/24/18 21:00 BHI4548 (Rec: 05/24/18 21:20 WBL8010 ICU-C06) Document 05/24/18 22:00 TUN8472 (Rec: 05/24/18 22:31 MEL4350 ICU-C06) Document 05/24/18 23:00 AAE6204 (Rec: 05/24/18 23:37 UTW7892 ICU-M23) Document 05/25/18 00:00 FXF6293 (Rec: 05/25/18 00:07 JOS9340 ICU-M23) Document 05/25/18 01:00 TLV0691 (Rec: 05/25/18 01:12 UEC8826 ICU-M23) Document 05/25/18 01:58 XKB5019 (Rec: 05/25/18 01:58 RXJ7479 ICU-M23) Document 05/25/18 04:00 VQE8715 (Rec: 05/25/18 04:19 NEZ9819 ICU-M23) Document 05/25/18 06:00 KPJ6053 (Rec: 05/25/18 06:04 BUH2920 ICU-M23) Document 05/25/18 07:00 ILA8083 (Rec: 05/25/18 08:05 ETS0566 ICU-C15) Document 05/25/18 08:00 PZI8659 (Rec: 05/25/18 12:30 LZV5368 ICU-C15) Document 05/25/18 09:00 RGJ1656 (Rec: 05/25/18 12:30 NFB1451 ICU-C15) Document 05/25/18 10:00 UNQ0286 (Rec: 05/25/18 12:30 SJG9127 ICU-C15) Document 05/25/18 11:00 LVD7778 (Rec: 05/25/18 12:30 TIF6429 ICU-C15) Document 05/25/18 12:00 ULI5286 (Rec: 05/25/18 12:30 OZJ2498 ICU-C15) Labs: Laboratory Results - last 24 hr 05/20/18 05/20/18 05/20/18 09:01 09:01 09:01 WBC 13.6 H RBC 2.78 L Hgb 7.6 L Hct 24 L MCV 85 MCH 27 MCHC 32 RDW 16 H Plt Count 412 MPV 5.8 L Neut % (Auto) 82.3 Lymph % (Auto) 13.7 [place] % (Auto) 3.9 Eos % (Auto) 0.1 Baso % (Auto) 0 Absolute Neuts (auto) 11.2 H Absolute Lymphs (auto) 1.9 Absolute Monos (auto) 0.5 Absolute Eos (auto) 0 Absolute Basos (auto) 0 Absolute Nucleated RBC 0 Nucleated RBC % 0 ESR 99 H INR (Anticoag Therapy) 1.22 H APTT 24.4 L Sodium 128 L Potassium 3.4 L Chloride 98 L Carbon Dioxide 23 Anion Gap 7 BUN 22 Creatinine 0.68 Est GFR ( Amer) 106.8 Est GFR (Non-Af Amer) 88.3 BUN/Creatinine Ratio 32.4 H Glucose 78 POC Glucose (mg/dL) Lactic Acid Calcium 7.6 L Total Bilirubin 0.80 AST 10 L ALT 9 Alkaline Phosphatase 101 Total Creatine Kinase 18 Troponin I 0.03 C-Reactive Protein 80.04 H B-Natriuretic Peptide Total Protein 5.5 L Albumin 2.0 L Globulin 3.5 Albumin/Globulin Ratio 0.6 L 05/20/18 05/20/18 05/25/18 09:01 09:01 12:11 WBC RBC Hgb Hct MCV MCH MCHC RDW Plt Count MPV Neut % (Auto) Lymph % (Auto) [place] % (Auto) Eos % (Auto) Baso % (Auto) Absolute Neuts (auto) Absolute Lymphs (auto) Absolute Monos (auto) Absolute Eos (auto) Absolute Basos (auto) Absolute Nucleated RBC Nucleated RBC % ESR INR (Anticoag Therapy) APTT Sodium Potassium Chloride Carbon Dioxide Anion Gap BUN Creatinine Est GFR ( Amer) Est GFR (Non-Af Amer) BUN/Creatinine Ratio Glucose POC Glucose (mg/dL) 92 Lactic Acid 1.5 Calcium Total Bilirubin AST ALT Alkaline Phosphatase Total Creatine Kinase Troponin I C-Reactive Protein B-Natriuretic Peptide 107 H Total Protein Albumin Globulin Albumin/Globulin Ratio 05/25/18 05/25/18 12:11 12:11 WBC 19.2 H RBC 4.19 Hgb 11.7 L Hct 36 MCV 86 MCH 28 MCHC 32 RDW 16 H Plt Count 134 L MPV 7.6 Neut % (Auto) Lymph % (Auto) [place] % (Auto) Eos % (Auto) Baso % (Auto) Absolute Neuts (auto) Absolute Lymphs (auto) Absolute Monos (auto) Absolute Eos (auto) Absolute Basos (auto) Absolute Nucleated RBC Nucleated RBC % ESR INR (Anticoag Therapy) 1.07 H APTT 24.7 L Sodium Potassium Chloride Carbon Dioxide Anion Gap BUN Creatinine Est GFR ( Amer) Est GFR (Non-Af Amer) BUN/Creatinine Ratio Glucose POC Glucose (mg/dL) Lactic Acid Calcium Total Bilirubin AST ALT Alkaline Phosphatase Total Creatine Kinase Troponin I C-Reactive Protein B-Natriuretic Peptide Total Protein Albumin Globulin Albumin/Globulin Ratio Studies: No radiographic data today Nutrition: clears and advance as tolerated Impression: 62 yo F with hx/o UC admitted for perforated colon s/p repair during this hospitalization # Perforated viscus s/p exlap with subtotal colectomy 05/20\ s/p ex Lap, sigmoid colon resection, end ileostomy with closure of abdominal wall (Dr Hickey) 05/23 # Septic shock resolved # Klebsiella pneumoniae and Clostridium Clostridiiforme bacteremia 05/20 # Acute ventilator dependence respiratory failure due to septic shock extubated on 05/24 # Electrolyte derrangements Hypokalemia resolved with replacement Hypocalcemia normalized when corrected for hypoalbuminemia Hypophosphastemia # Progressive Leukocytosis # Borderline hypotension with tachycardia ASx # Malnutrition albumin 1.8 Plan: # Perforated viscus s/p exlap with subtotal colectomy 05/20 s/p ex Lap, sigmoid colon resection, end ileostomy with closure of abdominal wall (Dr Hickey) 05/23 -pain control -surgery recs noted -will need surgery recs on nutrition plans # Klebsiella pneumoniae and Clostridium Clostridiiforme bacteremia 05/20 BCx negative to date since 05/22 -on zosyn. Klebsiella is sensitive to Zosyn - started flagyl 05/23 - repeat BCx from 05/22 and 05/23 NTD. Final pending - Pending Sn on Clostridium - will tailor abx according to sensitivities # Progressive Leukocytosis clinically non-toxic/non-septic appearance Afebrile, with negative Cx in >48 hours suspect steroid induced -monitor WBC in AM # Borderline hypotension with tachycardia ASx suspect due to hypovolemia -trial of NS 500cc bolus x 1 # Malnutrition chronic albumin 1.8 -TPN -encourage oral intake with protein supplementation # Acute post-surgical pain optimally controlled - prn tylenol and IV morphine - will discontinue [employer] given good pain control # Acute ventilator dependence respiratory failure due to septic shock - extubated 05/24 to NC -->now on RA - incentive spirometry at the bedside # Electrolyte derrangements Hypokalemia resolved with replacement Hypocalcemia normalized when corrected for hypoalbuminemia Hypophosphastemia s/p replacement # acute anemia due to acute blood loss resolved after transfusion # hx/o ulcerative colitis not on chronic steroids - taper prednisone starting tomorrow 25 mg daily and decrease by 5 mg every 3 days if clinically tolerated # Frailty -PT/OT eval pending DVT PPX: SQH GI PPX: H2B Dispo: Stable to transfer to Surgical floor today Critical Care Time: 45 minutes
[2018-05-25] MEDS: Heparin VIAL(*) 5000 UNITS/ML VIAL (FIVE THOUSAND) SUBCUT SCH ×2 (13:31→22:08)
[2018-05-25] MEDS ORDERED: Morphine VIAL* 10 MG/ML 1 ML VIAL IV PRN (13:45)
[2018-05-25] MEDS ORDERED: Acetaminophen TAB* 325 MG PO PRN (13:46)
[2018-05-25 14:26] LABS: ABS Basophils 0 10^3/ul (0-0.2); ABS Eosinophils 0 10^3/ul (0-0.6); ABS Lymphocytes 1.8 10^3/ul (1.0-4.8); ABS Monocytes 0.6 10^3/ul (0-0.8); ABS Neutrophils 16.9 10^3/ul (1.5-7.7); ABS Nucleated RBC 0 10^3/ul; Eosinophil % 0.1 %; Lymphocyte % 9.2 %; Nucleated Red Blood Cells % 0.2
[2018-05-25] MEDS ORDERED: TPN* 24 HR with Dextrose 50% Water* 500 ML, Amino Acid Infusion 10%* 850 ML, Sterile Wa... CENTR SCH ×12 (17:00)
[2018-05-25] MEDS: Melatonin 3 MG TAB PO SCH (20:35)
[2018-05-26] MEDS: Insulin LISPRO* 1 UNITS UNIT SUBCUT SCH ×5 (00:03→20:50)
[2018-05-26] MEDS: Morphine INJ* 2 MG/ML 1 ML SYRINGE (TWO MG - NEW SYRINGE VERSION) IV PRN (00:04)
[2018-05-26] MEDS: metroNIDAZOLE IV 500 MG/100ML* 500 MG/100 ML BAG IVPB SCH ×3 (02:54→19:08)
[2018-05-26] MEDS: Piperacillin/Tazobac ADVAN(*) 3.375 GM in NS 0.9% 100 ML* 100 ML IVPB SCH (04:04)
[2018-05-26] MEDS: Heparin VIAL(*) 5000 UNITS/ML VIAL (FIVE THOUSAND) SUBCUT SCH ×3 (06:22→22:16)
[2018-05-26] MEDS: Famotidine IV* 10 MG/ML 2 ML (20 mg) IV SCH (10:03)
[2018-05-26] MEDS: predniSONE TAB* 5 MG PO SCH (10:04)
[2018-05-26] MEDS ORDERED: Zolpidem TAB* 5 MG PO PRN (10:52)
[2018-05-26] MEDS ORDERED: Alteplase (CATHFLO)* 2 MG VIAL IV ONE ×2 (12:19→20:00)
[2018-05-26 13:34] LABS: Hematocrit 37 % (35-47); Hemoglobin 12.1 g/dl (12.0-16.0); Mean Corpuscular HGB Conc 32 g/dl (31-36); Mean Corpuscular Hemoglobin 28 pg (27-31); Mean Corpuscular Volume 88 fL (80-97); Mean Platelet Volume 7.8 fL (7.4-10.4); Platelet Count 165 10^3/ul (150-450); Red Blood Count 4.25 10^6/ul (4.00-5.40); Red Cell Distribution Width 15 % (10.5-15); White Blood Count 21.3 10^3/ul (3.5-10.8)
[2018-05-26 13:38] LABS: Albumin 1.9 g/dL (3.2-5.2); Albumin/Globulin Ratio 0.6 (1-3); BUN/Creatinine Ratio 53.1 (8-20); Calcium 7.1 mg/dL (8.6-10.3); EGFR African American 254.9 (>60); EGFR Non-African American 210.6 (>60); Globulin 3.2 g/dL (2-4); Magnesium 1.8 mg/dL (1.9-2.7); Phosphorus 1.2 mg/dL (2.5-5.0); Total Bilirubin 0.8 mg/dL (0.2-1.0); Total Protein 5.1 g/dL (6.4-8.9)
[2018-05-26 13:39] LABS: BUN/Creatinine Ratio 52.9 (8-20); Calcium 7.2 mg/dL (8.6-10.3); EGFR African American 237.7 (>60); EGFR Non-African American 196.4 (>60); Potassium 3.1 mmol/L (3.5-5.0)
--- NOTE | 2018-05-26 15:49 | PN ---
Progress Note - Progress Note Date of Service: 05/26/18 SOAP: Subjective: Weak and cannot transfer herself No N/V, pain adequately controlled No SOB or CP Objective: Temp Pulse Resp BP Pulse Ox 98.5 F 114 16 133/80 98 05/26/18 07:36 05/26/18 07:36 05/26/18 07:36 05/26/18 07:36 05/26/18 07:36 Intake & Output 05/24/18 05/25/18 05/26/18 05/27/18 06:59 06:59 06:59 06:59 Intake Total 2285 1198.5 790 340 Output Total 1317 1877 890 460 Balance 968 -678.5 -100 -120 Weight 170 lb 10.205 oz 173 lb 15.115 oz Intake: IV Fluids 251 542 515 140 ABX - FLAGYL 84 100 105 ABX - ZOSYN 91 30 Magnesium Sulfate 76 NS (0.9%) 157 515 35 Potassium Phosphate 255 IVPB 837 458 200 ABX - FLAGYL 110 220 100 ABX - ZOSYN 414 238 100 Magnesium Sulfate 163 Potassium Phosphate 150 Medicated IV 473 183.5 CC - Norepinephrine/ 66 Levophed CC - Propofol/Diprivan 407 83.5 Tylenol 100 IV Narcotic Infusion 71 Fentanyl 71 TPN/PPN 653 Oral 0 15 75 200 Output: Wound Vac 300 Urine 50 Hu[place] 1002 1827 890 250 Liquid Stool 60 Colostomy 150 Ileostomy 15 Other: Date of Last Bowel 05/26/18 Movement # Bowel Movements 2 Estimated Stool Amount Small PEX: Abd is soft and non-distended. Bowel sounds are present, ostomy pink with bilious fluid in bag.Wound is pink and healthy, open and wound Vac placed. Ext with 2 + edema Labs noted-WBC elevated, electrolytes noted Cultures noted Assessment: POD # 6/3 s/p exlap subtotal colectomy, ileostomy Sepsis Malnutrition Plan: IV abx-appreciate ID consult TPN Wound VAC D/C huizar Physical therapy Full liquid diet Subq heparin
--- NOTE | 2018-05-26 15:57 | PN ---
Subjective Date of Service: 05/26/18 Interval History: HOSPITALIST PROGRESS NOTE Patient seen and examined at bedside. Care reviewed and d/w Navya Vega RN. She offers no new complaints today. Family History: Unchanged from Admission Social History: Unchanged from Admission Past Medical History: Unchanged from Admission Objective Active Medications: Acetaminophen (Tylenol Tab*) 650 mg PO Q6H PRN PRN Reason: FEVER/PAIN Dextrose (D50w Syringe 50 Ml*) 12.5 gm IV PUSH .FOR FS < 60 - SS PRN PRN Reason: FS < 60 Famotidine (Pepcid Iv*) 20 mg IV DAILY [facility] Last Admin: 05/26/18 10:03 Dose: 20 mg Heparin Sodium (Porcine) (Heparin Flush Picc/Ml/Cvc(*)) 1 - 3 ml FLUSH 0600, 1800 [facility]; Protocol Last Admin: 05/26/18 06:18 Dose: 1 ml Heparin Sodium (Porcine) (Heparin Vial(*)) 5,000 units SUBCUT Q8HR [facility] Last Admin: 05/26/18 13:54 Dose: 5,000 units Metronidazole/Sodium Chloride (Flagyl 500 Mg Ivpb*) 500 mg in 100 mls @ 100 mls /hr IVPB Q8H [facility] Last Admin: 05/26/18 11:38 Dose: 100 mls/hr Dextrose 500 ml/ Amino Acids 850 ml/ Sterile Water 150 ml/Fat Emulsion Intravenous 250 ml/ Sodium Chloride 100 meq/Potassium Chloride 50 meq/Potassium Phosphate 15 mmole/Calcium Gluconate 15 meq/Magnesium Sulfate 10 meq/ Multivitamins 10 ml/ Trace Metals 1 ml/ Nutrition ( Parenteral) 1,850.721 mls @ 77.113 mls/hr CENTR 1700 [facility] Stop: 05/26/18 16:59 Last Admin: 05/25/18 17:17 Dose: 77.113 mls/hr Ceftriaxone Sodium 1 gm/ (Sodium Chloride) 50 mls @ 200 mls/hr IVPB Q24H [facility] Dextrose 500 ml/ Amino Acids 850 ml/ Sterile Water 150 ml/Fat Emulsion Intravenous 250 ml/ Sodium Chloride 100 meq/Potassium Chloride 70 meq/Potassium Phosphate 20 mmole/Calcium Gluconate 10 meq/Magnesium Sulfate 15 meq/ Multivitamins 10 ml/ Trace Metals 1 ml/ Insulin Human Regular 20 units/ Nutrition ( Parenteral) 1,853.0662 mls @ 77.211 mls/hr CENTR 1700 [facility]; Protocol Insulin Human Lispro (Humalog*) 0 units SUBCUT FS Q4 ICU [facility]; Protocol Melatonin (Melatonin) 6 mg PO BEDTIME [facility] Last Admin: 05/25/18 20:35 Dose: 6 mg Morphine Sulfate (Morphine Inj ((Syringe))*) 2 mg IV Q4H PRN PRN Reason: PAIN Last Admin: 05/26/18 00:04 Dose: 2 mg Ondansetron HCl (Zofran Inj*) 4 mg IV Q6H PRN PRN Reason: NAUSEA Prednisone (Deltasone Tab*) 25 mg PO DAILY [facility] Stop: 05/28/18 09:01 Last Admin: 05/26/18 10:04 Dose: 25 mg Prednisone (Deltasone Tab*) 20 mg PO DAILY [facility] Stop: 05/31/18 09:01 Prednisone (Deltasone Tab*) 15 mg PO DAILY [facility] Stop: 06/03/18 09:01 Prednisone (Deltasone Tab*) 10 mg PO DAILY [facility] Stop: 06/06/18 09:01 Prednisone (Deltasone Tab*) 5 mg PO DAILY [facility] Stop: 06/09/18 09:01 Zolpidem Tartrate (Ambien Tab*) 5 mg PO BEDTIME PRN PRN Reason: INSOMNIA Selected Entries 05/26/18 03:30 Temperature 99.2 F Pulse Rate 105 Respiratory 18 Rate Blood Pressure 124/70 (mmHg) O2 Sat by Pulse 98 Oximetry Oxygen Devices in Use Now: None Appearance: Well built lady sitting up in a recliner in NAD Eyes: No Scleral Icterus Ears/Nose/Mouth/Throat: Mucous Membranes Moist Neck: Trachea Midline Abdominal: - - Soft, pink ostomy, BS+ Neurological: Alert and Oriented x 3, - - Moves all 4 ext, but deconditioned - Nutrition: Malnutrition Diagnosis/Plan Malnutrition Assessment by Registered Dietitian: Malnutrition Assessment Clinical Characteristics Acute,Moderate Malnutrition Assessment: - po intake < 75% EEE x > 7 days Criteria - significant wt loss 14.2% in past one month Malnutrition Assessment: 1. TPN to be ordered 05/22; suggest TPN base "A " Interventions (Pharmacy made aware) 2. follow clinical response and ability to transition back to po intake Malnutrition Assessment: Goals 1. adequate nutrition provision, initially via TPN, to support rehydration, stable wt, and lean body mass 2. achieve and maintain serum electrolytes within normal ranges 3. ultimately, tolerance to po intake without exacerbation of diarrhea or abd pain 4. ultimately, regulation of bowel pattern without diarrhea (or constipation) Result Diagrams: 05/26/18 13:12 05/26/18 13:12 Assess/Plan/Problems-Billing Assessment: Mrs Moreno is a 62yo F with PMH of ulcerative colitis, recent C diff colitis, HTN, who presented to ED on 05/20/18 with c/o abdominal pain, found to have perforated viscus. Complex hospital course includes ex lap for large transverse colon perforation s/p subtotal colectomy, initially with open abdome; returned to OR on 05/23/18 for sigmoid resection and ileostomy; septic shock with Klebsiella and Clostridium septicemia; acute respiratory failure requiring intubation/MV, extubated 05/24/18; malnutrition. Transferred to surgical floor on 05/25/18. Hospitalist service consulted to assist with management of TPN induced hyperglycemia. - Patient Problems (1) Perforated viscus Comment: - S/p ex lap for large transverse colon perforation s/p subtotal colectomy, initially with open abdome; returned to OR on 05/23/18 for sigmoid resection and ileostomy. - Management as per Surgery. (2) Septicemia Comment: - Blood cultures were positive for Klebsiella pneumoniae and Clostridium clostridiiforme. - F/u blood cultures from 05/23 show no growth. - Continue Ceftriaxone and Metronidazole. (3) Hyperglycemia Comment: - In the setting of TPN and steroid use. - Check A1c. - Continue Lispro SS - will probably need low dose Lantus while on TPN. - Expect her glucose to normalize after steroid course completed and back on PO diet sans TPN. (4) Protein-calorie malnutrition, moderate Comment: - Meets criteria for Acute moderate protein calorie malnutrition with po intake < 75% EEE x > 7 days and significant wt loss 14.2% in past one month. - Dietitian input appreciated. (5) Respiratory failure Comment: - Acute respiratory failure requiring intubation/MV secondary to septic shock, extubated 05/24/18. - Now on RA. (6) Ulcerative colitis Comment: - Continue prednisone taper. (7) Hypokalemia Comment: - Replete. (8) Hypophosphatemia Comment: - Replete. (9) Hypomagnesemia Comment: - Replete. (10) Physical deconditioning Comment: - Continue PT/OT as tolerated - may need KETAN on discharge. (11) DVT prophylaxis Comment: - SQ heparin. (12) Full code status Status and Disposition: Hospitalist service will continue to follow with you.
--- NOTE | 2018-05-26 16:17 | CONS ---
CONSULTATION REPORT: DATE OF CONSULT: 05/26/18. REQUESTING PHYSICIAN: Dr. Hickey. CONSULTING SERVICE: Infectious Disease. REASON FOR CONSULT: 1. Large bowel perforation, klebsiella, peritonitis, bacteremia. 2. Ulcerative colitis. Recent possible C. difficile colitis, for which she was treated. Had a followup endoscopy, which did not show any residual. She now had some pseudomembranous colitis, histology. The differential for that is also broad. So most commonly C. diff or PRC for that was negative. It looks to be associated with inflammatory bowel and other clostridial species as well. She did grow a Clostridium clostridioforme in peritoneal fluid. 3. Ulcerative colitis, status post subtotal colectomy. 4. Hypertension. RECOMMENDATIONS: We will stop Zosyn and start ceftriaxone 1 g a day. She will continue Flagyl 500 mg IV every 8 hours. Follow her course here, which I think should include IV antibiotics at least through the weekend. Given that the organism in the blood was pansensitive gram-negative, I think she will able to switch to an oral antibiotic regimen. HISTORY OF PRESENT ILLNESS: This is a 62-year-old woman with ulcerative colitis , recently treated for C. difficile colitis by positive PCR result back in March with minimal improvement in her GI symptoms. Scoped again, felt to be more of a ulcerative colitis flare. Had corticosteroid therapy and then developed severe abdominal pain on 05/20/18, so she came to the hospital. CT showed free air, dilated right colon, transverse colon, and actual luminal focused area of the splenic flexure. She was taken to the operating room by Dr. Hickey on 05/20/18 for laparoscopy converted to laparotomy and subtotal collectomy. Initial blood cultures grew klebsiella and Clostridium clostridioforme. Followup cultures postoperatively were negative in the blood. She went back to OR on 05/23/18 for resection of distal sigmoid colon and ileostomy. Cultures then grew klebsiella, the sensitivity data is pending. She has been on Zosyn since then. She had initial fever, which has resolved. She has mild abdominal bloating and discomfort. Her white count was 13,000 on admission, up to 24,000 on 05/21/18, fluctuated in the teens and 19 today. She is having some liquid stool in the ostomy. No pain and no prosthetic material present. PAST MEDICAL HISTORY: 1. Ulcerative colitis. 2. Hypertension. MEDICATIONS: 1. Zosyn 3.375 g every 8 hours. 2. Famotidine IV. 3. Tylenol as needed. 4. Heparin subcutaneous injection. 5. Insulin Lispro. 6. Melatonin. 7. Flagyl 500 mg every 8 hours. 8. Prednisone. ALLERGIES: DIATRIZOATE. FAMILY HISTORY: No recurrent infections. SOCIAL HISTORY: She lives by herself. She is a nonsmoker. No injection drugs. REVIEW OF SYSTEMS: All negative except as noted above to a 14-point review. PHYSICAL EXAM: Vital Signs: Temperature 37.3, heart rate 100, respiratory rate 18, blood pressure 124/70, oxygen saturation 98% on room air. In general, she is awake, not in distress. Neurologic: She is oriented x3. Follows all commands. HEENT: There is no conjunctival hemorrhage. Oropharynx without lesions. Neck: Supple without mass. Heart: Regular and tachycardic without murmurs. Lungs: Decreased breath sounds at base bilaterally without wheeze or rales. Abdomen: Soft. There is a midline incision, which is packed and bandaged. There are retention sutures. There is no surrounding erythema. There is diffuse mild tenderness to palpation. Skin: There is no rash or splinter hemorrhage. Musculoskeletal: There is no spine tenderness to palpation. She has anasarca. DIAGNOSTIC STUDIES/LAB DATA: White blood cell count 19, hemoglobin 11, platelets 134. Creatinine is 0.3. Please see impression and recommendations outlined above, which I have discussed with Dr. Hickey. Thanks for asking me to Ms. Moreno in consultation. [id number]/[facility] #: [id number] [facility]ITAL[facility]
[2018-05-26] MEDS ORDERED: TPN* 24 HR with Dextrose 50% Water* 500 ML, Amino Acid Infusion 10%* 850 ML, Sterile Wa... CENTR SCH ×13 (17:00)
[2018-05-26] MEDS: Alteplase (CATHFLO)* 2 MG VIAL IV ONE ×2 (17:24→17:28)
[2018-05-26] MEDS: cefTRIAXone(*) 1 GM in NS 0.9% 50 ML* 50 ML IVPB SCH (18:19)
[2018-05-26] MEDS ORDERED: Al Hydrox/Mg Hydrox/Simet LIQ* 30 ML UDC PO PRN (19:57)
[2018-05-26] MEDS ORDERED: Pantoprazole IV* 40 MG IV ONE (20:00)
[2018-05-26] MEDS: Melatonin 3 MG TAB PO SCH (22:24)
[2018-05-26] MEDS ORDERED: Metoclopramide IV* 5 MG/ML 2 ML VIAL IV PRN (23:27)
[2018-05-27] MEDS: Insulin LISPRO* 1 UNITS UNIT SUBCUT SCH ×6 (00:43→21:26)
[2018-05-27] MEDS: metroNIDAZOLE IV 500 MG/100ML* 500 MG/100 ML BAG IVPB SCH ×4 (03:25→21:39)
[2018-05-27] MEDS: Heparin VIAL(*) 5000 UNITS/ML VIAL (FIVE THOUSAND) SUBCUT SCH ×3 (05:28→21:35)
[2018-05-27 05:51] LABS: Anion Gap 5 mmol/L (2-11); Blood Urea Nitrogen 17 mg/dL (6-24); CO2 Carbon Dioxide 23 mmol/L (22-32); Calcium 6.8 mg/dL (8.6-10.3); Chloride 107 mmol/L (101-111); EGFR African American 274.6 (>60); EGFR Non-African American 226.9 (>60); Glucose 111 mg/dL (70-100); Magnesium 1.8 mg/dL (1.9-2.7); Phosphorus 1.5 mg/dL (2.5-5.0); Sodium 135 mmol/L (135-145)
[2018-05-27] MEDS: Famotidine IV* 10 MG/ML 2 ML (20 mg) IV SCH (09:51)
[2018-05-27] MEDS: predniSONE TAB* 5 MG PO SCH (09:52)
[2018-05-27] MEDS ORDERED: Potassium Chloride LIQUID* 20 MEQ PACKET PO ONE (11:30)
[2018-05-27] MEDS ORDERED: traMADol TAB* 50 MG PO PRN (11:38)
--- NOTE | 2018-05-27 11:46 | PN ---
Progress Note - Progress Note Date of Service: 05/27/18 SOAP: Subjective: Pt seen and examined. Feeling fatigue, no sleep, no nausea, but burping, pos appetite has not walked in 1 month Objective: Temp Pulse Resp BP Pulse Ox 98.3 F 89 18 122/70 99 05/27/18 07:39 05/27/18 07:39 05/27/18 07:39 05/27/18 07:39 05/27/18 07:39 Intake & Output 05/26/18 05/27/18 05/27/18 22:59 06:59 14:59 Intake Total 1878 260 50 Output Total 250 275 400 Balance 1628 -15 -350 a and ox3, nad abdo: soft/ ND/ tender dressing intact ileostomy: some output Ext: 2 +pitting edema labs noted Assessment: total colectomy, ileostomy, open incision Plan: PO meds, OOB Rehab/PT cont TPN, advance diet
[2018-05-27] MEDS ORDERED: Calcium Gluconate INJ* 1 GM in NS 0.9% 50 ML* 50 ML IV ONE (12:00)
--- NOTE | 2018-05-27 13:34 | PN ---
Subjective Date of Service: 05/27/18 Interval History: Pt reports slowly improving.Abd pain slightly better.swage tender Family History: Unchanged from Admission Social History: Unchanged from Admission Past Medical History: Unchanged from Admission Objective Active Medications: Acetaminophen (Tylenol Tab*) 650 mg PO Q6H PRN PRN Reason: FEVER/PAIN Al Hydrox/Mg Hydrox/Simethicone (Maalox Plus*) 15 ml PO Q6H PRN PRN Reason: HEARTBURN Last Admin: 05/26/18 20:41 Dose: 15 ml Dextrose (D50w Syringe 50 Ml*) 12.5 gm IV PUSH .FOR FS < 60 - SS PRN PRN Reason: FS < 60 Famotidine (Pepcid Iv*) 20 mg IV DAILY [facility] Last Admin: 05/27/18 09:51 Dose: 20 mg Heparin Sodium (Porcine) (Heparin Flush Picc/Ml/Cvc(*)) 1 - 3 ml FLUSH 0600, 1800 [facility]; Protocol Last Admin: 05/27/18 05:27 Dose: 1 ml Heparin Sodium (Porcine) (Heparin Vial(*)) 5,000 units SUBCUT Q8HR [facility] Last Admin: 05/27/18 05:28 Dose: 5,000 units Metronidazole/Sodium Chloride (Flagyl 500 Mg Ivpb*) 500 mg in 100 mls @ 100 mls /hr IVPB Q8H [facility] Last Admin: 05/27/18 12:00 Dose: 100 mls/hr Ceftriaxone Sodium 1 gm/ (Sodium Chloride) 50 mls @ 200 mls/hr IVPB Q24H [facility] Last Admin: 05/26/18 18:19 Dose: 200 mls/hr Dextrose 500 ml/ Amino Acids 850 ml/ Sterile Water 150 ml/Fat Emulsion Intravenous 250 ml/ Sodium Chloride 100 meq/Potassium Chloride 70 meq/Potassium Phosphate 20 mmole/Calcium Gluconate 10 meq/Magnesium Sulfate 15 meq/ Multivitamins 10 ml/ Trace Metals 1 ml/ Insulin Human Regular 20 units/ Nutrition ( Parenteral) 1,853.0662 mls @ 77.211 mls/hr [facility]EN[facility] 1700 [facility]; Protocol Stop: 05/27/18 16:59 Last Admin: 05/26/18 17:43 Dose: 77.211 mls/hr Dextrose 500 ml/ Amino Acids 850 ml/ Sterile Water 150 ml/Fat Emulsion Intravenous 250 ml/ Sodium Chloride 100 meq/Potassium Chloride 100 meq/ Potassium Phosphate 20 mmole/Calcium Gluconate 10 meq/Magnesium Sulfate 15 meq/ Multivitamins 10 ml/ Trace Metals 1 ml/ Insulin Human Regular 20 units/ Nutrition ( Parenteral) 1,868.0662 mls @ 77.836 mls/hr [facility] [address] [facility]; Protocol Insulin Human Lispro (Humalog*) 0 units SUBCUT FS Q4 ICU [facility]; Protocol Last Admin: 05/27/18 13:20 Dose: 3 units Melatonin (Melatonin) 6 mg PO BEDTIME [facility] Last Admin: 05/26/18 22:24 Dose: Not Given Metoclopramide HCl (Reglan Iv*) 10 mg IV Q6H PRN PRN Reason: NAUSEA Last Admin: 05/26/18 23:46 Dose: 10 mg Morphine Sulfate (Morphine Inj ((Syringe))*) 2 mg IV Q4H PRN PRN Reason: PAIN Last Admin: 05/26/18 00:04 Dose: 2 mg Ondansetron HCl (Zofran Inj*) 4 mg IV Q6H PRN PRN Reason: NAUSEA Last Admin: 05/26/18 22:16 Dose: 4 mg Prednisone (Deltasone Tab*) 25 mg PO DAILY [facility] Stop: 05/28/18 09:01 Last Admin: 05/27/18 09:52 Dose: 25 mg Prednisone (Deltasone Tab*) 20 mg PO DAILY [facility] Stop: 05/31/18 09:01 Prednisone (Deltasone Tab*) 15 mg PO DAILY [facility] Stop: 06/03/18 09:01 Prednisone (Deltasone Tab*) 10 mg PO DAILY [facility] Stop: 06/06/18 09:01 Prednisone (Deltasone Tab*) 5 mg PO DAILY [facility] Stop: 06/09/18 09:01 Tramadol HCl (Ultram*) 50 mg PO BEDTIME PRN PRN Reason: PAIN Zolpidem Tartrate (Ambien Tab*) 5 mg PO BEDTIME PRN PRN Reason: INSOMNIA Last Admin: 05/26/18 20:49 Dose: 5 mg Vital Signs - 8 hr 05/27/18 05/27/18 07:39 12:03 Temperature 98.3 F 97.4 F Pulse Rate 89 99 Respiratory 18 18 Rate Blood Pressure 122/70 112/68 (mmHg) O2 Sat by Pulse 99 99 Oximetry Oxygen Devices in Use Now: None Eyes: No Scleral Icterus Ears/Nose/Mouth/Throat: NL Teeth, Lips, Gums Neck: NL Appearance and Movements; NL JVP Respiratory: Clear to Auscultation Cardiovascular: NL Sounds; No Murmurs; No JVD, RRR Abdominal: - - Appropriately tender, ostomy and wound vac in place.BS+ no rebound no guarding Extremities: No Edema - 2+ Edema bilaterally, - - 2 Neurological: Alert and Oriented x 3 - Nutrition: Malnutrition Diagnosis/Plan Malnutrition Assessment by Registered Dietitian: Malnutrition Assessment Clinical Characteristics Acute,Moderate Malnutrition Assessment: - po intake < 75% EEE x > 7 days Criteria - significant wt loss 14.2% in past one month Malnutrition Assessment: 1. TPN to be ordered 05/22; suggest TPN base "A " Interventions (Pharmacy made aware) 2. follow clinical response and ability to transition back to po intake Malnutrition Assessment: Goals 1. adequate nutrition provision, initially via TPN, to support rehydration, stable wt, and lean body mass 2. achieve and maintain serum electrolytes within normal ranges 3. ultimately, tolerance to po intake without exacerbation of diarrhea or abd pain 4. ultimately, regulation of bowel pattern without diarrhea (or constipation) Result Diagrams: 05/26/18 13:12 05/27/18 05:25 Microbiology and Other Data: Microbiology 05/23/18 12:05 Blood Culture - Preliminary Blood Venous No Growth Day 4 05/23/18 17:54 Anaerobic Culture - Preliminary Body Fluid - Peritoneal No Growth Day 3 05/23/18 17:54 Gram Stain - Final Peritoneal Fluid Body Fluid Culture - Preliminary Klebsiella Pneumoniae Skin and Soft Tissue MRSA/MSSA (PCR - Final Mrsa Negative S.aureus Negative 05/22/18 17:31 Aerobic Blood Culture - Preliminary Blood Venous No Growth Day 4 Anaerobic Blood Culture - Preliminary No Growth Day 4 05/23/18 14:10 Aerobic Blood Culture - Preliminary Blood Venous No Growth Day 3 Anaerobic Blood Culture - Preliminary No Growth Day 3 05/20/18 09:01 Aerobic Blood Culture - Final Blood Venous No Growth Day 5 Anaerobic Blood Culture - Final Clostridium Clostridiiforme 05/20/18 08:57 Aerobic Blood Culture - Final Blood Venous No Growth Day 5 Anaerobic Blood Culture - Final Klebsiella Pneumoniae Clostridium Clostridiiforme 05/21/18 17:23 Urine Culture - Final Urine No Growth (<1,000 CFU/mL) 05/20/18 09:13 Stool Culture - Final Stool Stool Gross Appearance - Final Shiga Toxin I & II - Final Negative Shiga Toxin 1 & 2 C. difficile DNA Amplification - Final 027 Presumptive NEGATIVE Toxigenic C.diff NEGATIVE 05/20/18 09:13 Influenza Types A,B Antigen - Final Nasal Specimen received for Influenza A/B Molecular testing 05/20/18 18:57 Nasal Screen MRSA (PCR) - Final Nasal Mrsa Not Detected Assess/Plan/Problems-Billing Assessment: Mrs Moreno is a 62yo F with PMH of ulcerative colitis, recent C diff colitis, HTN, who presented to ED on 05/20/18 with c/o abdominal pain, found to have perforated viscus. Complex hospital course includes ex lap for large transverse colon perforation s/p subtotal colectomy, initially with open abdome; returned to OR on 05/23/18 for sigmoid resection and ileostomy; septic shock with Klebsiella and Clostridium septicemia; acute respiratory failure requiring intubation/MV, extubated 05/24/18; malnutrition. Transferred to surgical floor on 05/25/18. Hospitalist service consulted to assist with management of TPN induced hyperglycemia. - Patient Problems (1) Septicemia Current Visit: Yes Status: Acute Code(s): A41.9 - SEPSIS, UNSPECIFIED ORGANISM SNOMED Code(s): 893261617 Comment: - Blood cultures were positive for Klebsiella pneumoniae and Clostridium clostridiiforme. - F/u blood cultures from 05/23 show no growth. - Continue Ceftriaxone and Metronidazole. (2) Perforated viscus Current Visit: Yes Status: Acute Code(s): R19.8 - OTH SYMPTOMS AND SIGNS INVOLVING THE DGSTV SYS AND ABDOMEN SNOMED Code(s): 916633215 Comment: - S/p ex lap for large transverse colon perforation s/p subtotal colectomy, initially with open abdome; returned to OR on 05/23/18 for sigmoid resection and ileostomy. - Management as per Surgery. (3) Hyperglycemia Current Visit: Yes Status: Acute Code(s): R73.9 - HYPERGLYCEMIA, UNSPECIFIED SNOMED Code(s): 10048874 Comment: - In the setting of TPN and steroid use. - Check A1c. - Continue Lispro SS - will probably need low dose Lantus while on TPN. - Expect her glucose to normalize after steroid course completed and back on PO diet sans TPN. (4) Hypokalemia Current Visit: Yes Status: Acute Code(s): E87.6 - HYPOKALEMIA SNOMED Code( s): 88333844 Comment: - Replete. (5) Hypomagnesemia Current Visit: Yes Status: Acute Code(s): E83.42 - HYPOMAGNESEMIA SNOMED Code(s): 988738446 Comment: - Replete. (6) Hypophosphatemia Current Visit: Yes Status: Acute Code(s): E83.39 - OTHER DISORDERS OF PHOSPHORUS METABOLISM SNOMED Code(s): 5381285 Comment: - Replete. (7) Physical deconditioning Current Visit: Yes Status: Acute Code(s): R53.81 - OTHER MALAISE SNOMED Code(s): 37603740664116 Comment: - Continue PT/OT as tolerated - may need KETAN on discharge. (8) Protein-calorie malnutrition, moderate Current Visit: Yes Status: Acute Code(s): E44.0 - MODERATE PROTEIN-CALORIE MALNUTRITION SNOMED Code(s): 605043405 Comment: - Meets criteria for Acute moderate protein calorie malnutrition with po intake < 75% EEE x > 7 days and significant wt loss 14.2% in past one month. - Dietitian input appreciated. (9) Respiratory failure Current Visit: Yes Status: Acute Code(s): J96.90 - RESPIRATORY FAILURE, UNSP , UNSP W HYPOXIA OR HYPERCAPNIA SNOMED Code(s): 297749424 Comment: - Acute respiratory failure requiring intubation/MV secondary to septic shock, extubated 05/24/18. - Now on RA. (10) Ulcerative colitis Current Visit: Yes Status: Acute Code(s): K51.90 - ULCERATIVE COLITIS, UNSPECIFIED, WITHOUT COMPLICATIONS SNOMED Code(s): 36145512 Comment: - Continue prednisone taper. (11) DVT prophylaxis Current Visit: Yes Status: Acute Code(s): PRT3692 - SNOMED Code(s): 819878282 Comment: - SQ heparin. (12) Full code status Current Visit: Yes Status: Acute Code(s): Z78.9 - OTHER SPECIFIED HEALTH STATUS SNOMED Code(s): 513913134 Status and Disposition: Hospitalist service will continue to follow with you.
[2018-05-27] MEDS: cefTRIAXone(*) 1 GM in NS 0.9% 50 ML* 50 ML IVPB SCH (16:25)
[2018-05-27] MEDS: TPN* 24 HR with Dextrose 50% Water* 500 ML, Amino Acid Infusion 10%* 850 ML, Sterile Wa... CENTR SCH ×13 (17:40)
[2018-05-27] MEDS: Melatonin 3 MG TAB PO SCH (21:28)
[2018-05-28] MEDS: Insulin LISPRO* 1 UNITS UNIT SUBCUT SCH ×7 (00:30→23:57)
[2018-05-28 05:08] LABS: ABS Basophils 0 10^3/ul (0-0.2); ABS Eosinophils 0.1 10^3/ul (0-0.6); ABS Lymphocytes 1.6 10^3/ul (1.0-4.8); ABS Monocytes 0.9 10^3/ul (0-0.8); ABS Neutrophils 13.6 10^3/ul (1.5-7.7); ABS Nucleated RBC 0 10^3/ul; Eosinophil % 0.6 %; Hematocrit 29 % (35-47); Hemoglobin 9.5 g/dl (12.0-16.0); Lymphocyte % 10.1 %; Mean Corpuscular HGB Conc 33 g/dl (31-36); Mean Corpuscular Hemoglobin 29 pg (27-31); Mean Corpuscular Volume 87 fL (80-97); Mean Platelet Volume 7.9 fL (7.4-10.4); Nucleated Red Blood Cells % 0; Platelet Count 202 10^3/ul (150-450); Red Blood Count 3.34 10^6/ul (4.00-5.40); Red Cell Distribution Width 16 % (10.5-15); White Blood Count 16.2 10^3/ul (3.5-10.8)
[2018-05-28] MEDS: metroNIDAZOLE IV 500 MG/100ML* 500 MG/100 ML BAG IVPB SCH ×3 (05:23→20:16)
[2018-05-28 05:28] LABS: ALT 12 U/L (7-52); AST 16 U/L (13-39); Albumin 1.7 g/dL (3.2-5.2); Albumin/Globulin Ratio 0.7 (1-3); Alkaline Phosphatase 75 U/L (34-104); Anion Gap 3 mmol/L (2-11); Blood Urea Nitrogen 18 mg/dL (6-24); CO2 Carbon Dioxide 24 mmol/L (22-32); Chloride 106 mmol/L (101-111); EGFR African American 274.6 (>60); EGFR Non-African American 226.9 (>60); Globulin 2.6 g/dL (2-4); Glucose 141 mg/dL (70-100); Potassium 3.9 mmol/L (3.5-5.0); Sodium 133 mmol/L (135-145); Total Protein 4.3 g/dL (6.4-8.9)
[2018-05-28] MEDS: Heparin VIAL(*) 5000 UNITS/ML VIAL (FIVE THOUSAND) SUBCUT SCH ×3 (06:27→22:48)
--- NOTE | 2018-05-28 10:01 | PN ---
Progress Note - Progress Note Date of Service: 05/28/18 SOAP: Subjective: Pt seen and examined. Feeling a little better today. still sad. Little sleep, appetite improving Objective: Temp Pulse Resp BP Pulse Ox 98.4 F 84 16 114/69 99 05/28/18 07:50 05/28/18 07:50 05/28/18 07:50 05/28/18 07:50 05/28/18 07:50 Intake & Output 05/27/18 05/28/18 05/28/18 22:59 06:59 14:59 Intake Total 1752 122 Output Total 330 575 175 Balance 1422 -453 -175 neg I/Os a and o x3 attempted to pull herself up, very weak abdo: soft/ ND/ NT vac dressing and retention sutures in place, no redness ileostomy: liquid and gas output continued LE edema labs noted Laboratory Last Values WBC 16.2 10^3/ul (3.5-10.8) H 05/28/18 04:47 RBC 3.34 10^6/ul (4.00-5.40) L 05/28/18 04:47 Hgb 9.5 g/dl (12.0-16.0) L 05/28/18 04:47 Hct 29 % (35-47) L 05/28/18 04:47 MCV 87 fL (80-97) 05/28/18 04:47 MCH 29 pg (27-31) 05/28/18 04:47 MCHC 33 g/dl (31-36) 05/28/18 04:47 RDW 16 % (10.5-15) H 05/28/18 04:47 Plt Count 202 10^3/ul (150-450) 05/28/18 04:47 MPV 7.9 fL (7.4-10.4) 05/28/18 04:47 Neut % (Auto) 83.9 % 05/28/18 04:47 Lymph % (Auto) 10.1 % 05/28/18 04:47 [place] % (Auto) 5.3 % 05/28/18 04:47 Eos % (Auto) 0.6 % 05/28/18 04:47 Baso % (Auto) 0.1 % 05/28/18 04:47 Absolute Neuts (auto) 13.6 10^3/ul (1.5-7.7) H 05/28/18 04:47 Absolute Lymphs (auto) 1.6 10^3/ul (1.0-4.8) 05/28/18 04:47 Absolute Monos (auto) 0.9 10^3/ul (0-0.8) H 05/28/18 04:47 Absolute Eos (auto) 0.1 10^3/ul (0-0.6) 05/28/18 04:47 Absolute Basos (auto) 0 10^3/ul (0-0.2) 05/28/18 04:47 Absolute Nucleated RBC 0 10^3/ul 05/28/18 04:47 Immature Gran % 22 % (0-9) H 05/21/18 00:15 Neutrophils % 77 % 05/21/18 00:15 Band Neutrophils % 20 % (0-8) H 05/21/18 00:15 Monocytes % 1 % 05/21/18 00:15 Metamyelocytes % 1 % (0-2) 05/21/18 00:15 Myelocytes % 1 % (0-1) 05/21/18 00:15 Nucleated RBC % 0 05/28/18 04:47 Abs Neuts (Manual) 21.68 10^3/ul (1.5-7.7) H 05/21/18 00:15 Abs Monocytes (Manual) 0.219 10^3/ul (0-0.8) 05/21/18 00:15 Toxic Granulation 2+ 05/21/18 00:15 Normal RBC Morphology Normal (Normal) 05/21/18 00:15 ESR 99 mm/Hr (0-30) H 05/20/18 09:01 INR (Anticoag Therapy) 1.07 (0.77-1.02) H 05/25/18 12:11 APTT 24.7 seconds (26.0-36.3) L 05/25/18 12:11 Patient Temperature 98. 0 f 05/22/18 20:12 ABG pH 7.36 (7.35-7.45) 05/22/18 20:12 ABG pH (Temp Correct) Not Reportable 05/22/18 20:12 ABG pCO2 27 mmHg (35-45) L 05/22/18 20:12 ABG pCO2 (Temp Corrct Not Reportable 05/22/18 20:12 ABG pO2 107 mmHg (80-100) H 05/22/18 20:12 ABG pO2 (Temp Correct Not Reportable 05/22/18 20:12 ABG HCO3 18.2 mmol/L (19-31) L 05/22/18 20:12 ABG O2 Saturation 95.8 % (94.0-98.0) 05/22/18 20:12 ABG Base Excess -8.6 mmol/L (-2.0-2.0) L 05/22/18 20:12 Respiration Rate Not Reportable 05/22/18 20:12 Ventilator Type Not Reportable 05/22/18 20:12 Vent Mode Not Reportable 05/22/18 20:12 FiO2 25 05/22/18 20:12 Inspiratory Time Not Reportable 05/22/18 20:12 PEEP Not Reportable 05/22/18 20:12 Pressure Support Not Reportable 05/22/18 20:12 Pressure Control Not Reportable 05/22/18 20:12 EPAP Not Reportable 05/22/18 20:12 IPAP Not Reportable 05/22/18 20:12 BiPAP Not Reportable 05/22/18 20:12 Sodium 133 mmol/L (135-145) L 05/28/18 04:47 Potassium 3.9 mmol/L (3.5-5.0) 05/28/18 04:47 Chloride 106 mmol/L (101-111) 05/28/18 04:47 Carbon Dioxide 24 mmol/L (22-32) 05/28/18 04:47 Anion Gap 3 mmol/L (2-11) 05/28/18 04:47 BUN 18 mg/dL (6-24) 05/28/18 04:47 Creatinine < 0.30 mg/dL (0.51-0.95) L 05/28/18 04:47 Est GFR ( Amer) 274.6 (>60) 05/28/18 04:47 Est GFR (Non-Af Amer) 226.9 (>60) 05/28/18 04:47 BUN/Creatinine Ratio 60.0 (8-20) H 05/28/18 04:47 Glucose 141 mg/dL (70-100) H 05/28/18 04:47 POC Glucose (mg/dL) 173 mg/dL (70-100) H 05/28/18 08:35 Hemoglobin A1c 6.2 % (4.0-5.6) H 05/27/18 05:25 Lactic Acid 0.7 mmol/L (0.5-2.0) 05/22/18 05:17 Calcium 7.0 mg/dL (8.6-10.3) L 05/28/18 04:47 Phosphorus 1.5 mg/dL (2.5-5.0) L 05/27/18 05:25 Magnesium 1.8 mg/dL (1.9-2.7) L 05/27/18 05:25 Total Bilirubin 0.50 mg/dL (0.2-1.0) 05/28/18 04:47 AST 16 U/L (13-39) 05/28/18 04:47 ALT 12 U/L (7-52) 05/28/18 04:47 Alkaline Phosphatase 75 U/L (34-104) 05/28/18 04:47 Total Creatine Kinase 18 U/L (10-223) 05/20/18 09:01 Troponin I 0.03 ng/mL (<0.04) 05/20/18 09:01 C-Reactive Protein 80.04 mg/L (<8.01) H 05/20/18 09:01 B-Natriuretic Peptide 107 pg/mL (<=100) H 05/20/18 09:01 Total Protein 4.3 g/dL (6.4-8.9) L 05/28/18 04:47 Albumin 1.7 g/dL (3.2-5.2) L 05/28/18 04:47 Globulin 2.6 g/dL (2-4) 05/28/18 04:47 Albumin/Globulin Ratio 0.7 (1-3) L 05/28/18 04:47 Prealbumin 10 mg/dL (18-38) L 05/26/18 13:12 Triglycerides 164 mg/dL 05/26/18 13:12 Cholesterol 119 mg/dL 05/26/18 13:12 Urine Color Yellow 05/21/18 17:23 Urine Appearance Cloudy 05/21/18 17:23 Urine pH 5.0 (5-9) 05/21/18 17:23 Ur Specific [place] 1.026 (1.010-1.030) 05/21/18 17:23 Urine Protein 1+(30 mg/dl) (Negative) A 05/21/18 17:23 Urine Ketones Trace (Negative) A 05/21/18 17:23 Urine Blood Negative (Negative) 05/21/18 17:23 Urine Nitrate Negative (Negative) 05/21/18 17:23 Urine Bilirubin Negative (Negative) 05/21/18 17:23 Urine Urobilinogen Negative (Negative) 05/21/18 17:23 Ur Leukocyte Esterase Negative (Negative) 05/21/18 17:23 Urine WBC (Auto) Trace(0-5/hpf) (Absent) 05/21/18 17:23 Urine RBC (Auto) Trace(0-2/hpf) (Absent) 05/21/18 17:23 Ur Squamous Epith Cells Present (Absent) A 05/21/18 17:23 Urine Bacteria Absent (Absent) 05/21/18 17:23 Urine Glucose Negative (Negative) 05/21/18 17:23 Influenza A (Rapid) Negative (Negative) 05/20/18 09:35 Influenza B (Rapid) Negative (Negative) 05/20/18 09:35 Blood Type A Positive 05/23/18 05:22 Antibody Screen Negative 05/23/18 05:22 Crossmatch See Detail 05/23/18 05:22 Assessment: s/p total colectomy, ileostomy, open wound, malnutrition Plan: continue PO and tpn abx OOB, PT, rehab vac dressing change tomorrow
[2018-05-28] MEDS: predniSONE TAB* 5 MG PO SCH (10:09)
[2018-05-28] MEDS: Famotidine IV* 10 MG/ML 2 ML (20 mg) IV SCH (10:11)
--- NOTE | 2018-05-28 10:42 | PN ---
Subjective Date of Service: 05/28/18 Interval History: Pt little sad and didnt sleep last night.Otherwise no complaints.No nausea.Abd pain improved Family History: Unchanged from Admission Social History: Unchanged from Admission Past Medical History: Unchanged from Admission Objective Active Medications: Acetaminophen (Tylenol Tab*) 650 mg PO Q6H PRN PRN Reason: FEVER/PAIN Al Hydrox/Mg Hydrox/Simethicone (Maalox Plus*) 15 ml PO Q6H PRN PRN Reason: HEARTBURN Last Admin: 05/26/18 20:41 Dose: 15 ml Dextrose (D50w Syringe 50 Ml*) 12.5 gm IV PUSH .FOR FS < 60 - SS PRN PRN Reason: FS < 60 Famotidine (Pepcid Iv*) 20 mg IV DAILY [facility] Last Admin: 05/28/18 10:11 Dose: 20 mg Heparin Sodium (Porcine) (Heparin Flush Picc/Ml/Cvc(*)) 1 - 3 ml FLUSH 0600, 1800 [facility]; Protocol Last Admin: 05/28/18 10:27 Dose: 2 ml Heparin Sodium (Porcine) (Heparin Vial(*)) 5,000 units SUBCUT Q8HR [facility] Last Admin: 05/28/18 06:27 Dose: 5,000 units Ceftriaxone Sodium 1 gm/ (Sodium Chloride) 50 mls @ 200 mls/hr IVPB Q24H [facility] Last Admin: 05/27/18 16:25 Dose: 200 mls/hr Dextrose 500 ml/ Amino Acids 850 ml/ Sterile Water 150 ml/Fat Emulsion Intravenous 250 ml/ Sodium Chloride 100 meq/Potassium Chloride 100 meq/ Potassium Phosphate 20 mmole/Calcium Gluconate 10 meq/Magnesium Sulfate 15 meq/ Multivitamins 10 ml/ Trace Metals 1 ml/ Insulin Human Regular 20 units/ Nutrition ( Parenteral) 1,868.0662 mls @ 77.836 mls/hr CENTR 1700 [facility]; Protocol Last Admin: 05/27/18 17:40 Dose: 77.836 mls/hr Metronidazole/Sodium Chloride (Flagyl 500 Mg Ivpb*) 500 mg in 100 mls @ 100 mls /hr IVPB 0500,1300,2100 [facility] Last Admin: 05/28/18 05:23 Dose: 100 mls/hr Insulin Human Lispro (Humalog*) 0 units SUBCUT FS Q4 ICU [facility]; Protocol Last Admin: 05/28/18 10:11 Dose: 3 units Melatonin (Melatonin) 6 mg PO BEDTIME [facility] Last Admin: 05/27/18 21:28 Dose: Not Given Metoclopramide HCl (Reglan Iv*) 10 mg IV Q6H PRN PRN Reason: NAUSEA Last Admin: 05/26/18 23:46 Dose: 10 mg Morphine Sulfate (Morphine Inj ((Syringe))*) 2 mg IV Q4H PRN PRN Reason: PAIN Last Admin: 05/26/18 00:04 Dose: 2 mg Ondansetron HCl (Zofran Inj*) 4 mg IV Q6H PRN PRN Reason: NAUSEA Last Admin: 05/26/18 22:16 Dose: 4 mg Prednisone (Deltasone Tab*) 20 mg PO DAILY [facility] Stop: 05/31/18 09:01 Prednisone (Deltasone Tab*) 15 mg PO DAILY [facility] Stop: 06/03/18 09:01 Prednisone (Deltasone Tab*) 10 mg PO DAILY [facility] Stop: 06/06/18 09:01 Prednisone (Deltasone Tab*) 5 mg PO DAILY [facility] Stop: 06/09/18 09:01 Tramadol HCl (Ultram*) 50 mg PO BEDTIME PRN PRN Reason: PAIN Zolpidem Tartrate (Ambien Tab*) 5 mg PO BEDTIME PRN PRN Reason: INSOMNIA Last Admin: 05/26/18 20:49 Dose: 5 mg Vital Signs - 8 hr 05/28/18 05/28/18 04:22 07:50 Temperature 97.6 F 98.4 F Pulse Rate 84 84 Respiratory 20 16 Rate Blood Pressure 120/70 114/69 (mmHg) O2 Sat by Pulse 100 99 Oximetry Oxygen Devices in Use Now: None Eyes: No Scleral Icterus Neck: NL Appearance and Movements; NL JVP Respiratory: Symmetrical Chest Expansion and Respiratory Effort, Clear to Auscultation Cardiovascular: NL Sounds; No Murmurs; No JVD, RRR Abdominal: - - wound vac and ostomy in place.appropriately tender.no rebound no guarding Extremities: - - 2+ Edema Neurological: Alert and Oriented x 3 - Nutrition: Malnutrition Diagnosis/Plan Malnutrition Assessment by Registered Dietitian: Malnutrition Assessment Clinical Characteristics Acute,Moderate Malnutrition Assessment: - po intake < 75% EEE x > 7 days Criteria - significant wt loss 14.2% in past one month Malnutrition Assessment: 1. TPN to be ordered 05/22; suggest TPN base "A " Interventions (Pharmacy made aware) 2. follow clinical response and ability to transition back to po intake Malnutrition Assessment: Goals 1. adequate nutrition provision, initially via TPN, to support rehydration, stable wt, and lean body mass 2. achieve and maintain serum electrolytes within normal ranges 3. ultimately, tolerance to po intake without exacerbation of diarrhea or abd pain 4. ultimately, regulation of bowel pattern without diarrhea (or constipation) Result Diagrams: 05/28/18 04:47 05/28/18 04:47 Microbiology and Other Data: Microbiology 05/23/18 12:05 Blood Culture - Preliminary Blood Venous No Growth Day 4 05/23/18 17:54 Anaerobic Culture - Preliminary Body Fluid - Peritoneal No Growth Day 3 05/23/18 17:54 Gram Stain - Final Peritoneal Fluid Body Fluid Culture - Preliminary Klebsiella Pneumoniae Skin and Soft Tissue MRSA/MSSA (PCR - Final Mrsa Negative S.aureus Negative 05/22/18 17:31 Aerobic Blood Culture - Preliminary Blood Venous No Growth Day 4 Anaerobic Blood Culture - Preliminary No Growth Day 4 05/23/18 14:10 Aerobic Blood Culture - Preliminary Blood Venous No Growth Day 3 Anaerobic Blood Culture - Preliminary No Growth Day 3 05/20/18 09:01 Aerobic Blood Culture - Final Blood Venous No Growth Day 5 Anaerobic Blood Culture - Final Clostridium Clostridiiforme 05/20/18 08:57 Aerobic Blood Culture - Final Blood Venous No Growth Day 5 Anaerobic Blood Culture - Final Klebsiella Pneumoniae Clostridium Clostridiiforme 05/21/18 17:23 Urine Culture - Final Urine No Growth (<1,000 CFU/mL) 05/20/18 09:13 Stool Culture - Final Stool Stool Gross Appearance - Final Shiga Toxin I & II - Final Negative Shiga Toxin 1 & 2 C. difficile DNA Amplification - Final 027 Presumptive NEGATIVE Toxigenic C.diff NEGATIVE 05/20/18 09:13 Influenza Types A,B Antigen - Final Nasal Specimen received for Influenza A/B Molecular testing 05/20/18 18:57 Nasal Screen MRSA (PCR) - Final Nasal Mrsa Not Detected Assess/Plan/Problems-Billing Assessment: Mrs Moreno is a 62yo F with PMH of ulcerative colitis, recent C diff colitis, HTN, who presented to ED on 05/20/18 with c/o abdominal pain, found to have perforated viscus. Complex hospital course includes ex lap for large transverse colon perforation s/p subtotal colectomy, initially with open abdome; returned to OR on 05/23/18 for sigmoid resection and ileostomy; septic shock with Klebsiella and Clostridium septicemia; acute respiratory failure requiring intubation/MV, extubated 05/24/18; malnutrition. Transferred to surgical floor on 05/25/18. Hospitalist service consulted to assist with management of TPN induced hyperglycemia. - Patient Problems (1) Septicemia Current Visit: Yes Status: Acute Code(s): A41.9 - SEPSIS, UNSPECIFIED ORGANISM SNOMED Code(s): 291946801 Comment: - Blood cultures were positive for Klebsiella pneumoniae and Clostridium clostridiiforme. - F/u blood cultures from 05/23 show no growth. - Continue Ceftriaxone and Metronidazole. (2) Perforated viscus Current Visit: Yes Status: Acute Code(s): R19.8 - OTH SYMPTOMS AND SIGNS INVOLVING THE DGSTV SYS AND ABDOMEN SNOMED Code(s): 461971848 Comment: - S/p ex lap for large transverse colon perforation s/p subtotal colectomy, initially with open abdome; returned to OR on 05/23/18 for sigmoid resection and ileostomy. - Management as per Surgery. (3) Hyperglycemia Current Visit: Yes Status: Acute Code(s): R73.9 - HYPERGLYCEMIA, UNSPECIFIED SNOMED Code(s): 22177171 Comment: - In the setting of TPN and steroid use. - Check A1c. - Continue Lispro SS - will probably need low dose Lantus while on TPN. - Expect her glucose to normalize after steroid course completed and back on PO diet sans TPN. (4) Hypokalemia Current Visit: Yes Status: Acute Code(s): E87.6 - HYPOKALEMIA SNOMED Code( s): 17100667 Comment: - Repleted. (5) Hypomagnesemia Current Visit: Yes Status: Acute Code(s): E83.42 - HYPOMAGNESEMIA SNOMED Code(s): 449675087 Comment: - Repleted. (6) Hypophosphatemia Current Visit: Yes Status: Acute Code(s): E83.39 - OTHER DISORDERS OF PHOSPHORUS METABOLISM SNOMED Code(s): 7438126 Comment: - Repleted. (7) Physical deconditioning Current Visit: Yes Status: Acute Code(s): R53.81 - OTHER MALAISE SNOMED Code(s): 27210283973024 Comment: - Continue PT/OT as tolerated - may need KETAN on discharge. (8) Protein-calorie malnutrition, moderate Current Visit: Yes Status: Acute Code(s): E44.0 - MODERATE PROTEIN-CALORIE MALNUTRITION SNOMED Code(s): 098668429 Comment: - Meets criteria for Acute moderate protein calorie malnutrition with po intake < 75% EEE x > 7 days and significant wt loss 14.2% in past one month. - Dietitian input appreciated. (9) Respiratory failure Current Visit: Yes Status: Acute Code(s): J96.90 - RESPIRATORY FAILURE, UNSP , UNSP W HYPOXIA OR HYPERCAPNIA SNOMED Code(s): 160748728 Comment: - Acute respiratory failure requiring intubation/MV secondary to septic shock, extubated 05/24/18. - Now on RA. (10) Ulcerative colitis Current Visit: Yes Status: Acute Code(s): K51.90 - ULCERATIVE COLITIS, UNSPECIFIED, WITHOUT COMPLICATIONS SNOMED Code(s): 67599049 Comment: - Continue prednisone taper. (11) DVT prophylaxis Current Visit: Yes Status: Acute Code(s): EWX5203 - SNOMED Code(s): 141481590 Comment: - SQ heparin. (12) Full code status Current Visit: Yes Status: Acute Code(s): Z78.9 - OTHER SPECIFIED HEALTH STATUS SNOMED Code(s): 665664503 Status and Disposition: Hospitalist service will continue to follow with you.
[2018-05-28] MEDS: cefTRIAXone(*) 1 GM in NS 0.9% 50 ML* 50 ML IVPB SCH (15:18)
[2018-05-28] MEDS: TPN* 24 HR with Dextrose 50% Water* 500 ML, Amino Acid Infusion 10%* 850 ML, Sterile Wa... CENTR SCH ×13 (17:45)
[2018-05-28] MEDS: Melatonin 3 MG TAB PO SCH (20:19)
[2018-05-29] MEDS: Insulin LISPRO* 1 UNITS UNIT SUBCUT SCH ×6 (04:17→21:43)
[2018-05-29] MEDS: metroNIDAZOLE IV 500 MG/100ML* 500 MG/100 ML BAG IVPB SCH ×3 (04:20→21:20)
[2018-05-29 05:06] LABS: Hematocrit 28 % (35-47); Hemoglobin 9.2 g/dl (12.0-16.0); Mean Corpuscular HGB Conc 33 g/dl (31-36); Mean Corpuscular Hemoglobin 29 pg (27-31); Mean Corpuscular Volume 88 fL (80-97); Mean Platelet Volume 7.6 fL (7.4-10.4); Platelet Count 205 10^3/ul (150-450); Red Blood Count 3.19 10^6/ul (4.00-5.40); Red Cell Distribution Width 17 % (10.5-15); White Blood Count 15.1 10^3/ul (3.5-10.8)
[2018-05-29 05:22] LABS: Anion Gap 2 mmol/L (2-11); Blood Urea Nitrogen 17 mg/dL (6-24); CO2 Carbon Dioxide 23 mmol/L (22-32); Calcium 6.7 mg/dL (8.6-10.3); Chloride 104 mmol/L (101-111); EGFR African American 274.6 (>60); EGFR Non-African American 226.9 (>60); Glucose 138 mg/dL (70-100); Magnesium 1.9 mg/dL (1.9-2.7); Phosphorus 1.9 mg/dL (2.5-5.0); Potassium 4.2 mmol/L (3.5-5.0); Sodium 129 mmol/L (135-145)
[2018-05-29 05:32] LABS: ABS Basophils 0 10^3/ul (0-0.2); ABS Eosinophils 0 10^3/ul (0-0.6); ABS Lymphocytes 1.3 10^3/ul (1.0-4.8); ABS Monocytes 0.6 10^3/ul (0-0.8); ABS Neutrophils 13.1 10^3/ul (1.5-7.7); ABS Nucleated RBC 0 10^3/ul; Eosinophil % 0.2 %; Lymphocyte % 8.4 %; Nucleated Red Blood Cells % 0
[2018-05-29] MEDS: Heparin VIAL(*) 5000 UNITS/ML VIAL (FIVE THOUSAND) SUBCUT SCH ×3 (05:57→21:44)
[2018-05-29] MEDS: Famotidine IV* 10 MG/ML 2 ML (20 mg) IV SCH (07:53)
[2018-05-29] MEDS: predniSONE TAB* 20 MG PO SCH (07:53)
[2018-05-29] MEDS: Morphine INJ* 2 MG/ML 1 ML SYRINGE (TWO MG - NEW SYRINGE VERSION) IV PRN (09:13)
[2018-05-29] MEDS ORDERED: Potassium Phosphate IV* 10 MMOLE in NS 0.9% 250 ML* 250 ML IVPB ONE (11:00)
--- NOTE | 2018-05-29 11:06 | PN ---
Subjective Date of Service: 05/29/18 Interval History: Patient seen and examined at bedside. Denies fever, chills, shortness of breath , chest discomfort, N/V/D. States that she has a poor appetite, she is hungry and then has no appetite once the food arrives. We discussed that this is common with Flagyl. Abdominal discomfort is improving. Tele: sinus rhythm, rate 70-90's. Family History: Unchanged from Admission Social History: Unchanged from Admission Past Medical History: Unchanged from Admission Objective Active Medications: Acetaminophen (Tylenol Tab*) 650 mg PO Q6H PRN Reason: FEVER/PAIN Al Hydrox/Mg Hydrox/Simethicone (Maalox Plus*) 15 ml PO Q6H PRN Reason: HEARTBURN Dextrose (D50w Syringe 50 Ml*) 12.5 gm IV PUSH .FOR FS < 60 - SS PRN Reason: FS < 60 Famotidine (Pepcid Iv*) 20 mg IV DAILY [facility] Heparin Sodium (Porcine) (Heparin Flush Picc/Ml/Cvc(*)) 1 - 3 ml FLUSH 0600, 1800 [facility]; Protocol Heparin Sodium (Porcine) (Heparin Vial(*)) 5,000 units SUBCUT Q8HR [facility] Ceftriaxone Sodium 1 gm/ (Sodium Chloride) 50 mls @ 200 mls/hr IVPB Q24H [facility] Dextrose 500 ml/ Amino Acids 850 ml/ Sterile Water 150 ml/Fat Emulsion Intravenous 250 ml/ Sodium Chloride 100 meq/Potassium Chloride 100 meq/ Potassium Phosphate 20 mmole/Calcium Gluconate 10 meq/Magnesium Sulfate 15 meq/ Multivitamins 10 ml/ Trace Metals 1 ml/ Insulin Human Regular 20 units/ Nutrition ( Parenteral) 1,868.0662 mls @ 77.836 mls/hr CENTR 1700 [facility]; Protocol Metronidazole/Sodium Chloride (Flagyl 500 Mg Ivpb*) 500 mg in 100 mls @ 100 mls /hr IVPB 0500,1300,2100 [facility] Insulin Human Lispro (Humalog*) 0 units SUBCUT FS Q4 ICU [facility]; Protocol Melatonin (Melatonin) 6 mg PO BEDTIME [facility] Metoclopramide HCl (Reglan Iv*) 10 mg IV Q6H PRN Reason: NAUSEA Morphine Sulfate (Morphine Inj ((Syringe))*) 2 mg IV Q4H PRN Reason: PAIN Ondansetron HCl (Zofran Inj*) 4 mg IV Q6H SD Reason: NAUSEA Prednisone (Deltasone Tab*) 20 mg PO DAILY [facility] Stop: 05/31/18 09:01 Prednisone (Deltasone Tab*) 15 mg PO DAILY [facility] Stop: 06/03/18 09:01 Prednisone (Deltasone Tab*) 10 mg PO DAILY [facility] Stop: 06/06/18 09:01 Prednisone (Deltasone Tab*) 5 mg PO DAILY [facility] Stop: 06/09/18 09:01 Tramadol HCl (Ultram*) 50 mg PO BEDTIME PRN Reason: PAIN Zolpidem Tartrate (Ambien Tab*) 5 mg PO BEDTIME PRN Reason: INSOMNI Vital Signs - 8 hr 05/29/18 05/29/18 05/29/18 03:51 07:18 09:13 Temperature 98.2 F 98.4 F Pulse Rate 79 81 Respiratory 18 16 14 Rate Blood Pressure 123/71 113/68 (mmHg) O2 Sat by Pulse 99 99 Oximetry Oxygen Devices in Use Now: None Appearance: NAD, sitting up in a chair Ears/Nose/Mouth/Throat: Mucous Membranes Moist Respiratory: Symmetrical Chest Expansion and Respiratory Effort, Clear to Auscultation Cardiovascular: NL Sounds; No Murmurs; No JVD, RRR Abdominal: NL Sounds; No Tenderness; No Distention Extremities: - - 1-2+ bilateral LE edema Skin: No Rash or Ulcers Neurological: Alert and Oriented x 3, NL Muscle Strength and Tone Nutrition: Taking PO's - Nutrition: Malnutrition Diagnosis/Plan Malnutrition Assessment by Registered Dietitian: Malnutrition Assessment Clinical Characteristics Acute,Moderate Malnutrition Assessment: - po intake < 75% EEE x > 7 days Criteria - significant wt loss 14.2% in past one month Malnutrition Assessment: 1. TPN to be ordered 05/22; suggest TPN base "A " Interventions (Pharmacy made aware) 2. follow clinical response and ability to transition back to po intake Malnutrition Assessment: Goals 1. adequate nutrition provision, initially via TPN, to support rehydration, stable wt, and lean body mass 2. achieve and maintain serum electrolytes within normal ranges 3. ultimately, tolerance to po intake without exacerbation of diarrhea or abd pain 4. ultimately, regulation of bowel pattern without diarrhea (or constipation) Result Diagrams: 05/29/18 04:50 05/29/18 04:50 Microbiology and Other Data: Microbiology 05/23/18 12:05 Blood Culture - Preliminary Blood Venous No Growth Day 4 05/23/18 17:54 Anaerobic Culture - Preliminary Body Fluid - Peritoneal No Growth Day 3 05/23/18 17:54 Gram Stain - Final Peritoneal Fluid Body Fluid Culture - Preliminary Klebsiella Pneumoniae Skin and Soft Tissue MRSA/MSSA (PCR - Final Mrsa Negative S.aureus Negative 05/22/18 17:31 Aerobic Blood Culture - Preliminary Blood Venous No Growth Day 4 Anaerobic Blood Culture - Preliminary No Growth Day 4 05/23/18 14:10 Aerobic Blood Culture - Preliminary Blood Venous No Growth Day 3 Anaerobic Blood Culture - Preliminary No Growth Day 3 05/20/18 09:01 Aerobic Blood Culture - Final Blood Venous No Growth Day 5 Anaerobic Blood Culture - Final Clostridium Clostridiiforme 05/20/18 08:57 Aerobic Blood Culture - Final Blood Venous No Growth Day 5 Anaerobic Blood Culture - Final Klebsiella Pneumoniae Clostridium Clostridiiforme 05/21/18 17:23 Urine Culture - Final Urine No Growth (<1,000 CFU/mL) 05/20/18 09:13 Stool Culture - Final Stool Stool Gross Appearance - Final Shiga Toxin I & II - Final Negative Shiga Toxin 1 & 2 C. difficile DNA Amplification - Final 027 Presumptive NEGATIVE Toxigenic C.diff NEGATIVE 05/20/18 09:13 Influenza Types A,B Antigen - Final Nasal Specimen received for Influenza A/B Molecular testing 05/20/18 18:57 Nasal Screen MRSA (PCR) - Final Nasal Mrsa Not Detected Assess/Plan/Problems-Billing Assessment: Mrs Moreno is a 62yo F with PMH of ulcerative colitis, recent C diff colitis, HTN, who presented to ED on 05/20/18 with c/o abdominal pain, found to have perforated viscus. Complex hospital course includes ex lap for large transverse colon perforation s/p subtotal colectomy, initially with open abdome; returned to OR on 05/23/18 for sigmoid resection and ileostomy; septic shock with Klebsiella and Clostridium septicemia; acute respiratory failure requiring intubation/MV, extubated 05/24/18; malnutrition. Transferred to surgical floor on 05/25/18. Hospitalist service consulted to assist with management of TPN induced hyperglycemia. - Patient Problems (1) Perforated viscus Code(s): R19.8 - OTH SYMPTOMS AND SIGNS INVOLVING THE DGSTV SYS AND ABDOMEN SNOMED Code(s): 408677852 Comment: - S/p ex lap for large transverse colon perforation s/p subtotal colectomy, initially with open abdome; returned to OR on 05/23/18 for sigmoid resection and ileostomy - Management as per Surgery (2) Septicemia Code(s): A41.9 - SEPSIS, UNSPECIFIED ORGANISM SNOMED Code(s): 423827310 Comment: - Blood cultures were positive for Klebsiella pneumoniae and Clostridium clostridiiforme - F/U blood cultures from 05/23 show no growth, day 5 - ID consult, input appreciated - Continue Ceftriaxone and Metronidazole (day 710) (3) Hyperglycemia Code(s): R73.9 - HYPERGLYCEMIA, UNSPECIFIED SNOMED Code(s): 16233030 Comment: - Glucose 170-190's - In the setting of TPN and steroid use - HgA1c 6.2 - Continue Lispro SS - Expect her glucose to normalize after steroid course completed and back on PO diet and TPN discontinued (4) Hypokalemia Code(s): E87.6 - HYPOKALEMIA SNOMED Code(s): 66036020 Comment: - Resolved (5) Hypomagnesemia Code(s): E83.42 - HYPOMAGNESEMIA SNOMED Code(s): 127145372 Comment: - Resolved (6) Hypophosphatemia Code(s): E83.39 - OTHER DISORDERS OF PHOSPHORUS METABOLISM SNOMED Code(s): 9214341 Comment: - Will give replacement today - Recheck labs in the AM (7) Hypocalcemia Code(s): E83.51 - HYPOCALCEMIA SNOMED Code(s): 2024942 Comment: - Corrected calcim is 8.5 - Continue to monitor (8) Physical deconditioning Code(s): R53.81 - OTHER MALAISE SNOMED Code(s): 09977263755125 Comment: - Continue PT/OT as tolerated - May need KETAN on discharge (9) Protein-calorie malnutrition, moderate Code(s): E44.0 - MODERATE PROTEIN-CALORIE MALNUTRITION SNOMED Code(s): 598038951 Comment: - Meets criteria for Acute moderate protein calorie malnutrition with po intake < 75% EEE x > 7 days and significant wt loss 14.2% in past one month - Dietitian input appreciated (10) Respiratory failure Code(s): J96.90 - RESPIRATORY FAILURE, UNSP, UNSP W HYPOXIA OR HYPERCAPNIA SNOMED Code(s): 318517358 Comment: - Resolved - Acute respiratory failure requiring intubation/MV secondary to septic shock, extubated 05/24/18 (11) Ulcerative colitis Code(s): K51.90 - ULCERATIVE COLITIS, UNSPECIFIED, WITHOUT COMPLICATIONS SNOMED Code(s): 36000996 Comment: - Continue prednisone taper (12) DVT prophylaxis Code(s): RBD0618 - SNOMED Code(s): 606374066 Comment: - SQ heparin (13) Full code status Code(s): Z78.9 - OTHER SPECIFIED HEALTH STATUS SNOMED Code(s): 164018149 Status and Disposition: Inpatient. Disposition per General Surgery. Thank you for this consultation, Hospitalists will continue to follow along. Attending: Edwin Quintana
--- NOTE | 2018-05-29 11:26 | PN ---
Progress Note - Progress Note Date of Service: 05/29/18 SOAP: Subjective: CC: peritonitis HPI: 62 year old woman with perforated large bowel s/p colectomy, pain improving and apparently less packin in abd incision per RN. Sleeping ok, discouraged overall. Objective: Vital Signs Temp 36.9 C 05/29/18 07:18 Pulse 81 05/29/18 07:18 Resp 14 05/29/18 09:13 BP 113/68 05/29/18 07:18 Pulse Ox 99 05/29/18 07:18 Intake & Output 05/28/18 05/29/18 05/29/18 18:59 06:59 18:59 Intake Total 2204 450 Output Total 1025 1325 600 Balance 1179 -875 -600 Intake: IV Fluids 20 NS (0.9%) 20 IVPB 105 ABX - FLAGYL 105 TPN/PPN 1759 Oral 320 450 Output: Urine 250 475 600 Colostomy 175 Ileostomy 600 850 Gen:awake, no distress HEENT: no thrush Heart:RRR no murmur Lungs:CTA BL Abd:+BS NTND midline incision, retention sutures, packed Skin: no rash Laboratory Results - last 24 hr 05/28/18 05/28/18 05/28/18 11:49 17:16 20:05 WBC RBC Hgb Hct MCV MCH MCHC RDW Plt Count MPV Neut % (Auto) Lymph % (Auto) Potter % (Auto) Eos % (Auto) Baso % (Auto) Absolute Neuts (auto) Absolute Lymphs (auto) Absolute Monos (auto) Absolute Eos (auto) Absolute Basos (auto) Absolute Nucleated RBC Nucleated RBC % Sodium Potassium Chloride Carbon Dioxide Anion Gap BUN Creatinine Est GFR ( Amer) Est GFR (Non-Af Amer) BUN/Creatinine Ratio Glucose POC Glucose (mg/dL) 161 H 164 H 185 H Calcium Phosphorus Magnesium 05/28/18 05/29/18 05/29/18 23:51 04:05 04:50 WBC RBC Hgb Hct MCV MCH MCHC RDW Plt Count MPV Neut % (Auto) Lymph % (Auto) Potter % (Auto) Eos % (Auto) Baso % (Auto) Absolute Neuts (auto) Absolute Lymphs (auto) Absolute Monos (auto) Absolute Eos (auto) Absolute Basos (auto) Absolute Nucleated RBC Nucleated RBC % Sodium 129 L Potassium 4.2 Chloride 104 Carbon Dioxide 23 Anion Gap 2 BUN 17 Creatinine < 0.30 L Est GFR ( Amer) 274.6 Est GFR (Non-Af Amer) 226.9 BUN/Creatinine Ratio 56.0 H Glucose 138 H POC Glucose (mg/dL) 183 H 189 H Calcium 6.7 L Phosphorus 1.9 L Magnesium 1.9 05/29/18 05/29/18 04:50 07:59 WBC 15.1 H RBC 3.19 L Hgb 9.2 L Hct 28 L MCV 88 MCH 29 MCHC 33 RDW 17 H Plt Count 205 MPV 7.6 Neut % (Auto) 87.0 Lymph % (Auto) 8.4 Potter % (Auto) 4.3 Eos % (Auto) 0.2 Baso % (Auto) 0.1 Absolute Neuts (auto) 13.1 H Absolute Lymphs (auto) 1.3 Absolute Monos (auto) 0.6 Absolute Eos (auto) 0 Absolute Basos (auto) 0 Absolute Nucleated RBC 0 Nucleated RBC % 0 Sodium Potassium Chloride Carbon Dioxide Anion Gap BUN Creatinine Est GFR ( Amer) Est GFR (Non-Af Amer) BUN/Creatinine Ratio Glucose POC Glucose (mg/dL) 173 H Calcium Phosphorus Magnesium Assessment: 1. polymicorbial peritonitis, improving 2. large bowel perforation s/p colectomy and ileostomy 3. Ulcerative Colitis Plan: 1. ceftriaxone/flagyl day 11/01, may switch to PO depending on po intake Discussed with Dr Hickey
[2018-05-29] MEDS: cefTRIAXone(*) 1 GM in NS 0.9% 50 ML* 50 ML IVPB SCH (15:27)
--- NOTE | 2018-05-29 15:45 | ECHO ---
Patient: JULIO C BELTRAN [facility] Rec#: [id number] : 1955 Date: 05/29/2018 Age: 62y Height: 168 cm / 66.1 in Weight: 79 kg / 174.1 lbs Sex: F BSA: 1.89 Room#: 348 Admit Date#: 05/20/2018 Type: Inpatient Referring: Suzanne Oswald NP Reading: Mitchell Ruffin MD Hospital Attendant: Swati Hidalgo RDCS CC: Braydon Landeros NP Transthoracic Echocardiogram Indication: Short run of VT BP: 109/68 HR: 94 Rhythm: NSR Findings History: HTN, s/p colectomy,and ileostomy 05/20/2018. Technical Comments: The study is technically difficult. Study done with patient OOB in recliner chair. The study is technically limited due to patient body habitus. Completed at 1436. The study was technically limited due to the patient's inability to lay in the left lateral decubitus position. Left Ventricle: The left ventricular chamber size is normal. Global left ventricular wall motion and contractility are within normal limits. Left ventricular systolic function is at the lower limits of normal. The estimated ejection fraction is 50-55%. Abnormal left ventricular diastolic function is observed. Left Atrium: The left atrial chamber size is normal. Right Ventricle: The right ventricular cavity size is normal. The right ventricular global systolic function is mildly reduced. Right Atrium: The right atrial cavity size is normal. Aortic Valve: The aortic valve structure is not well visualized. There is no evidence of aortic stenosis. Mitral Valve: The mitral valve leaflets appear normal. There is no evidence of mitral regurgitation. There is no evidence of mitral stenosis. Tricuspid Valve: The tricuspid valve leaflets are normal. There is no evidence of tricuspid valve regurgitation. Unable to estimate the right ventricular systolic pressure. There is no tricuspid stenosis. Pulmonic Valve: The pulmonic valve appears normal. There is no evidence of pulmonic regurgitation. There is no pulmonic stenosis. Pericardium: A pericardial fat pad is visualized. Aorta: The ascending aorta is not well visualized. There is no dilatation of the aortic arch. There is no dilation of the aortic root. Pulmonary Artery: The main pulmonary artery appears normal. Venous: The venous system is not well visualized. Conclusions The left ventricular chamber size is normal. Left ventricular systolic function is at the lower limits of normal. The estimated ejection fraction is 50-55%. The right ventricular global systolic function is mildly reduced. There is no evidence of aortic stenosis. There is no evidence of mitral regurgitation. There is no evidence of tricuspid valve regurgitation. Unable to estimate the right ventricular systolic pressure. The ascending aorta is not well visualized. Measurements Name Value Normal Range RVIDd (AP) 2D 2.5 cm (0.9 - 2.6) RVDdMajor (2D) 2.4 cm (2.2 - 4.4) RAd ISD 4CH 3.6 cm (3.4 - 4.9) RA (A4C)W 2.8 cm (2.9 - 4.6) IVSd (2D) 0.7 cm (0.6 - 1) LVPWd (2D) 0.6 cm (0.6 - 1) LVIDd (2D) 5 cm (3.6 - 5.4) LVIDs (2D) 4.1 cm - LV FS (2D) 19 % (25 - 45) Aortic Annulus 1.7 cm (1.4 - 2.6) Ao root diameter (2D) 3 cm (2.1 - 3.5) Aortic arch 2.7 cm (1.8 - 3.4) Descending Ao 0.6 cm - LA dimension (AP) 2D 2.4 cm (2.3 - 3.8) LAd ISD 4CH 4.2 cm (2.9 - 5.3) LA ISD 4CH W 3.2 cm (2.5 - 4.5) Name Value Normal Range MV E-wave Vmax 0.5 m/sec - MV deceleration time 172 msec - MV A-wave Vmax 0.7 m/sec - MV E:A ratio 0.7 ratio - LV septal e' Vmax 0.05 m/sec - LV lateral e' Vmax 0.08 m/sec - LV E:e' septal ratio 14 ratio - LV E:e' lateral ratio 8.75 ratio - Name Value Normal Range AV Vmax 1.4 m/sec - AV VTI 21.4 cm - AV peak gradient 8 mmHg - AV mean gradient 4 mmHg - LVOT Vmax 1.1 m/sec - LVOT VTI 20.7 cm - LVOT peak gradient 5 mmHg - LVOT mean gradient 3 mmHg - Name Value Normal Range PV Vmax 0.9 m/sec - PV peak gradient 3 mmHg -
--- NOTE | 2018-05-29 16:02 | PN ---
Progress Note - Progress Note Date of Service: 05/29/18 SOAP: Subjective: She is doing much better Tolerating soft diet Pain improved She is getting stronger Objective: Temp Pulse Resp BP Pulse Ox 97.7 F 97 16 109/68 99 05/29/18 11:43 05/29/18 11:43 05/29/18 11:43 05/29/18 11:43 05/29/18 11:43 Intake & Output 05/27/18 05/28/18 05/29/18 05/30/18 06:59 06:59 06:59 06:59 Intake Total 2478 2129 2654 225 Output Total 985 2505 2350 975 Balance 1493 -376 304 -750 Intake: IV Fluids 350 142 20 ABX - FLAGYL 315 107 NS (0.9%) 35 35 20 IVPB 185 105 ABX - FLAGYL 105 105 Calcium Gluconate 60 NS (0.9%) 20 TPN/PPN 1558 1752 1759 Oral 570 50 770 225 Output: Urine 0 350 725 850 Yuen 500 800 Liquid Stool 60 Colostomy 425 1355 175 Ileostomy 1450 125 Other: Date of Last Bowel 0 Movement # Bowel Movements 2 Estimated Stool Amount Small PEX: Comfortable in chair Abd is soft and slightly distended. Bowel sounds are present. Wound vac in place Ostomy is pink and there is bilious fluid in the bag Ext 1-2 + edema Labs noted Assessment: S/P subtotal colectomy with ileostomy--ulcerative colitis with perforation Sepsis-improving Malnutrition Plan: Soft diet TPN until adequate po Start Tincture of opium to slow GI motility, hopefully decrease ileostomy output. Also avoid water-start electrolyte solutions for oral intake. IV abx-appreciate ID consult Physical therapy Wound VAC to midline incision.
[2018-05-29] MEDS ORDERED: Opium Tincture* 6 MG/0.6 ML ORAL.LIQ SYRINGE PO SCH (17:00)
[2018-05-29] MEDS: TPN* 24 HR with Dextrose 50% Water* 500 ML, Amino Acid Infusion 10%* 850 ML, Sterile Wa... CENTR SCH ×13 (17:20)
[2018-05-29] MEDS: Opium Tincture* 6 MG/0.6 ML ORAL.LIQ SYRINGE PO SCH (21:18)
[2018-05-29] MEDS: Melatonin 3 MG TAB PO SCH (21:45)
[2018-05-30] MEDS: Insulin LISPRO* 1 UNITS UNIT SUBCUT SCH ×6 (01:07→22:37)
[2018-05-30] MEDS: metroNIDAZOLE IV 500 MG/100ML* 500 MG/100 ML BAG IVPB SCH ×3 (05:41→23:02)
[2018-05-30] MEDS: Heparin VIAL(*) 5000 UNITS/ML VIAL (FIVE THOUSAND) SUBCUT SCH ×3 (05:43→22:35)
[2018-05-30 06:25] LABS: Anion Gap 3 mmol/L (2-11); Blood Urea Nitrogen 16 mg/dL (6-24); CO2 Carbon Dioxide 22 mmol/L (22-32); Calcium 6.9 mg/dL (8.6-10.3); Chloride 103 mmol/L (101-111); EGFR African American 274.6 (>60); EGFR Non-African American 226.9 (>60); Glucose 116 mg/dL (70-100); Phosphorus 1.7 mg/dL (2.5-5.0); Potassium 4.3 mmol/L (3.5-5.0); Sodium 128 mmol/L (135-145)
[2018-05-30] MEDS: Famotidine IV* 10 MG/ML 2 ML (20 mg) IV SCH (08:20)
[2018-05-30] MEDS: Opium Tincture* 6 MG/0.6 ML ORAL.LIQ SYRINGE PO SCH ×2 (08:20→23:06)
[2018-05-30] MEDS: predniSONE TAB* 20 MG PO SCH (08:21)
[2018-05-30 09:42] LABS: Magnesium 1.8 mg/dL (1.9-2.7)
[2018-05-30] MEDS ORDERED: Magnesium Sulfate 2 GM IV* 2 GM/50 ML BAG IVPB ONE (09:50)
--- NOTE | 2018-05-30 12:34 | PN ---
Progress Note - Progress Note Date of Service: 05/30/18 SOAP: Subjective: Doing well-slept much better last night Appetite improving-increased amounts of soft diet Ileostomy functioning Objective: Temp Pulse Resp BP Pulse Ox 98.7 F 121 16 102/67 98 05/30/18 12:10 05/30/18 12:10 05/30/18 12:10 05/30/18 12:10 05/30/18 12:10 Intake & Output 05/28/18 05/29/18 05/30/18 05/31/18 06:59 06:59 06:59 06:59 Intake Total 2129 2654 3872 197.4 Output Total 2505 2350 2350 325 Balance -086 377 4511 -127.6 Intake: IV Fluids 142 20 431 197.4 ABX - FLAGYL 107 105 105 Magnesium Sulfate 55 NS (0.9%) 35 20 22 37.4 Potassium Phosphate 304 IVPB 185 105 ABX - FLAGYL 105 105 Calcium Gluconate 60 NS (0.9%) 20 TPN/PPN 1752 1759 1776 Oral 50 770 1665 Output: Urine 360 882 3927 200 Yuen 800 Colostomy 1355 175 175 125 Ileostomy 1450 125 PEX:Comfortable Abd is soft and slightly distended. Bowel sounds are present. Wound vac in place. Ostomy is pink with bilious fluid in bag. Assessment: S/P subtotal colectomy with ileostomy for UC Malnutrition Sepsis-improved Plan: IV abx Wean prednisone Increase po-probable d/c TPN tomorrow Phys Rx Wound Vac PPI and subq heparin.
[2018-05-30] MEDS: cefTRIAXone(*) 1 GM in NS 0.9% 50 ML* 50 ML IVPB SCH (15:18)
--- NOTE | 2018-05-30 16:15 | PN ---
Subjective Date of Service: 05/30/18 Interval History: Patient seen and examined at bedside. Denies fever, chills, shortness of breath , chest discomfort, N/V/D. She reports some palpitations and tremors that she feels is secondary to steroids. She would like to have the steroids moved to later in the day and not when she first gets up. Tele: Sinus rhythm, rate 110-120's, was up to 140's earlier today when she was moving and working with PT. Family History: Unchanged from Admission Social History: Unchanged from Admission Past Medical History: Unchanged from Admission Objective Active Medications: Acetaminophen (Tylenol Tab*) 650 mg PO Q6H PRN Reason: FEVER/PAIN Al Hydrox/Mg Hydrox/Simethicone (Maalox Plus*) 15 ml PO Q6H PRN Reason: HEARTBURN Dextrose (D50w Syringe 50 Ml*) 12.5 gm IV PUSH .FOR FS < 60 - SS PRN Reason: FS < 60 Famotidine (Pepcid Iv*) 20 mg IV DAILY MAIDA Heparin Sodium (Porcine) (Heparin Flush Picc/Ml/Cvc(*)) 1 - 3 ml FLUSH 0600, 1800 MAIDA; Protocol Heparin Sodium (Porcine) (Heparin Vial(*)) 5,000 units SUBCUT Q8HR MAIDA Ceftriaxone Sodium 1 gm/ (Sodium Chloride) 50 mls @ 200 mls/hr IVPB Q24H MAIDA Dextrose 500 ml/ Amino Acids 850 ml/ Sterile Water 150 ml/Fat Emulsion Intravenous 250 ml/ Sodium Chloride 100 meq/Potassium Chloride 100 meq/ Potassium Phosphate 20 mmole/Calcium Gluconate 10 meq/Magnesium Sulfate 15 meq/ Multivitamins 10 ml/ Trace Metals 1 ml/ Insulin Human Regular 20 units/ Nutrition ( Parenteral) 1,868.0662 mls @ 77.836 mls/hr CENTR 1700 MAIDA; Protocol Metronidazole/Sodium Chloride (Flagyl 500 Mg Ivpb*) 500 mg in 100 mls @ 100 mls /hr IVPB 0500,1300,2100 MAIDA Insulin Human Lispro (Humalog*) 0 - 15 units SUBCUT Q4HR MAIDA; Protocol Melatonin (Melatonin) 6 mg PO BEDTIME MA[facility] Metoclopramide HCl (Reglan Iv*) 10 mg IV Q6H PRN Reason: NAUSEA Morphine Sulfate (Morphine Inj ((Syringe))*) 2 mg IV Q4H PRN Reason: PAIN Ondansetron HCl (Zofran Inj*) 4 mg IV Q6H PRN Reason: NAUSEA Opium Tincture (Opium Tincture*) 6 mg PO BID [facility] Prednisone (Deltasone Tab*) 20 mg PO DAILY [facility] Stop: 05/31/18 09:01 Prednisone (Deltasone Tab*) 15 mg PO DAILY [facility] Stop: 06/03/18 09:01 Prednisone (Deltasone Tab*) 10 mg PO DAILY [facility] Stop: 06/06/18 09:01 Prednisone (Deltasone Tab*) 5 mg PO DAILY [facility] Stop: 06/09/18 09:01 Tramadol HCl (Ultram*) 50 mg PO BEDTIME PRN Reason: PAIN Zolpidem Tartrate (Ambien Tab*) 5 mg PO BEDTIME PRN Reason: INSOMNIA Vital Signs - 8 hr 05/30/18 05/30/18 05/30/18 08:20 10:59 12:10 Temperature 98.7 F Pulse Rate 121 Respiratory 18 18 16 Rate Blood Pressure 102/67 (mmHg) O2 Sat by Pulse 98 Oximetry 05/30/18 15:54 Temperature 98.5 F Pulse Rate 115 Respiratory 17 Rate Blood Pressure 105/61 (mmHg) O2 Sat by Pulse 98 Oximetry Oxygen Devices in Use Now: None Appearance: NAD, sitting up in a chair Ears/Nose/Mouth/Throat: Mucous Membranes Moist Respiratory: Symmetrical Chest Expansion and Respiratory Effort, Clear to Auscultation Cardiovascular: NL Sounds; No Murmurs; No JVD, RRR - , tachy Abdominal: NL Sounds; No Tenderness; No Distention Extremities: - - 1+2 edema to bilateral LEs Neurological: Alert and Oriented x 3, - - Generalized weakness Lines/Tubes/Other Access: Clean, Dry and Intact PICC Line - patent and benign Nutrition: Taking PO's - Nutrition: Malnutrition Diagnosis/Plan Malnutrition Assessment by Registered Dietitian: Malnutrition Assessment Clinical Characteristics Acute,Moderate Malnutrition Assessment: - po intake < 75% EEE x > 7 days Criteria - significant wt loss 14.2% in past one month Malnutrition Assessment: 1. TPN to be ordered 05/22; suggest TPN base "A " Interventions (Pharmacy made aware) 2. follow clinical response and ability to transition back to po intake Malnutrition Assessment: Goals 1. adequate nutrition provision, initially via TPN, to support rehydration, stable wt, and lean body mass 2. achieve and maintain serum electrolytes within normal ranges 3. ultimately, tolerance to po intake without exacerbation of diarrhea or abd pain 4. ultimately, regulation of bowel pattern without diarrhea (or constipation) Result Diagrams: 05/29/18 04:50 05/30/18 05:45 Microbiology and Other Data: Microbiology 05/23/18 12:05 Blood Culture - Preliminary Blood Venous No Growth Day 4 05/23/18 17:54 Anaerobic Culture - Preliminary Body Fluid - Peritoneal No Growth Day 3 05/23/18 17:54 Gram Stain - Final Peritoneal Fluid Body Fluid Culture - Preliminary Klebsiella Pneumoniae Skin and Soft Tissue MRSA/MSSA (PCR - Final Mrsa Negative S.aureus Negative 05/22/18 17:31 Aerobic Blood Culture - Preliminary Blood Venous No Growth Day 4 Anaerobic Blood Culture - Preliminary No Growth Day 4 05/23/18 14:10 Aerobic Blood Culture - Preliminary Blood Venous No Growth Day 3 Anaerobic Blood Culture - Preliminary No Growth Day 3 05/20/18 09:01 Aerobic Blood Culture - Final Blood Venous No Growth Day 5 Anaerobic Blood Culture - Final Clostridium Clostridiiforme 05/20/18 08:57 Aerobic Blood Culture - Final Blood Venous No Growth Day 5 Anaerobic Blood Culture - Final Klebsiella Pneumoniae Clostridium Clostridiiforme 05/21/18 17:23 Urine Culture - Final Urine No Growth (<1,000 CFU/mL) 05/20/18 09:13 Stool Culture - Final Stool Stool Gross Appearance - Final Shiga Toxin I & II - Final Negative Shiga Toxin 1 & 2 C. difficile DNA Amplification - Final 027 Presumptive NEGATIVE Toxigenic C.diff NEGATIVE 05/20/18 09:13 Influenza Types A,B Antigen - Final Nasal Specimen received for Influenza A/B Molecular testing 05/20/18 18:57 Nasal Screen MRSA (PCR) - Final Nasal Mrsa Not Detected Assess/Plan/Problems-Billing Assessment: Mrs Moreno is a 62yo F with PMH of ulcerative colitis, recent C diff colitis, HTN, who presented to ED on 05/20/18 with c/o abdominal pain, found to have perforated viscus. Complex hospital course includes ex lap for large transverse colon perforation s/p subtotal colectomy, initially with open abdome; returned to OR on 05/23/18 for sigmoid resection and ileostomy; septic shock with Klebsiella and Clostridium septicemia; acute respiratory failure requiring intubation/MV, extubated 05/24/18; malnutrition. Transferred to surgical floor on 05/25/18. Hospitalist service consulted to assist with management of TPN induced hyperglycemia. - Patient Problems (1) Perforated viscus Code(s): R19.8 - OTH SYMPTOMS AND SIGNS INVOLVING THE DGSTV SYS AND ABDOMEN SNOMED Code(s): 751007609 Comment: - S/p ex lap for large transverse colon perforation s/p subtotal colectomy, initially with open abdome; returned to OR on 05/23/18 for sigmoid resection and ileostomy - Management as per Surgery (2) Septicemia Code(s): A41.9 - SEPSIS, UNSPECIFIED ORGANISM SNOMED Code(s): 538038480 Comment: - Blood cultures were positive for Klebsiella pneumoniae and Clostridium clostridiiforme - F/U blood cultures from 05/23 show no growth, day 5 - ID consult, input appreciated - Continue Ceftriaxone and Metronidazole (day 12/02) (3) Tachycardia Code(s): R00.0 - TACHYCARDIA, UNSPECIFIED SNOMED Code(s): 1263740 Comment: - Heart rate up to 140-160's this AM with movement - Reports few palpitations in the AM - Afebrile, no tachypnea, no hypoxia, no shortness of breath - Low suspicion for a PE as she is not hypoxic or tachypnic - Suspect secondary to pain - Will consider further work-up (chest xray or CTA) if she continues to be tachycardic (4) Ventricular tachycardia (paroxysmal) Code(s): I47.2 - VENTRICULAR TACHYCARDIA SNOMED Code(s): 22966754 Comment: - 3 run beat of v tach yesterday - Optimize electrolytes - Echo without significant findings (5) Hyperglycemia Code(s): R73.9 - HYPERGLYCEMIA, UNSPECIFIED SNOMED Code(s): 61943919 Comment: - Glucose 130-200's - In the setting of TPN and steroid use - HgA1c 6.2 - Continue Lispro SS - Expect her glucose to normalize after steroid course completed and back on PO diet and TPN discontinued (6) Hypokalemia Code(s): E87.6 - HYPOKALEMIA SNOMED Code(s): 35399594 Comment: - Resolved (7) Hypomagnesemia Code(s): E83.42 - HYPOMAGNESEMIA SNOMED Code(s): 021931613 Comment: - Resolved (8) Hypophosphatemia Code(s): E83.39 - OTHER DISORDERS OF PHOSPHORUS METABOLISM SNOMED Code(s): 3606841 Comment: - Will give replacement today - Recheck labs in the AM (9) Hypocalcemia Code(s): E83.51 - HYPOCALCEMIA SNOMED Code(s): 8852675 Comment: - Corrected calcium is 8.5 - Continue to monitor (10) Physical deconditioning Code(s): R53.81 - OTHER MALAISE SNOMED Code(s): 58950701853487 Comment: - Continue PT/OT as tolerated - May need KETAN on discharge (11) Protein-calorie malnutrition, moderate Code(s): E44.0 - MODERATE PROTEIN-CALORIE MALNUTRITION SNOMED Code(s): 500537613 Comment: - Meets criteria for Acute moderate protein calorie malnutrition with po intake < 75% EEE x > 7 days and significant wt loss 14.2% in past one month - Dietitian input appreciated (12) Respiratory failure Code(s): J96.90 - RESPIRATORY FAILURE, UNSP, UNSP W HYPOXIA OR HYPERCAPNIA SNOMED Code(s): 794538743 Comment: - Resolved - Acute respiratory failure requiring intubation/MV secondary to septic shock, extubated 05/24/18 (13) Ulcerative colitis Code(s): K51.90 - ULCERATIVE COLITIS, UNSPECIFIED, WITHOUT COMPLICATIONS SNOMED Code(s): 78724655 Comment: - Continue prednisone taper (14) DVT prophylaxis Code(s): JMJ7608 - SNOMED Code(s): 957870480 Comment: - SQ heparin (15) Full code status Code(s): Z78.9 - OTHER SPECIFIED HEALTH STATUS SNOMED Code(s): 594024119 Status and Disposition: Inpatient. Disposition per General Surgery. Will need KETAN at discharge due to physical deconditioning. Thank you for this consultation, Hospitalists will continue to follow along. Attending: Edwin Quintana
[2018-05-30] MEDS: TPN* 24 HR with Dextrose 50% Water* 500 ML, Amino Acid Infusion 10%* 850 ML, Sterile Wa... CENTR SCH ×13 (16:59)
[2018-05-30] MEDS ORDERED: Potassium Phosphate IV* 15 MMOLE in NS 0.9% 250 ML* 250 ML IVPB ONE (17:55)
[2018-05-30] MEDS ORDERED: NS 0.9% 1000 ML** 1,000 ML IV SCH (20:00)
[2018-05-30] MEDS: Melatonin 3 MG TAB PO SCH (23:08)
[2018-05-31] MEDS: Insulin LISPRO* 1 UNITS UNIT SUBCUT SCH ×6 (02:41→22:00)
[2018-05-31] MEDS: metroNIDAZOLE IV 500 MG/100ML* 500 MG/100 ML BAG IVPB SCH (06:00)
[2018-05-31] MEDS: Heparin VIAL(*) 5000 UNITS/ML VIAL (FIVE THOUSAND) SUBCUT SCH ×3 (06:09→22:03)
[2018-05-31 07:20] LABS: BUN/Creatinine Ratio 44.1 (8-20); Calcium 7.1 mg/dL (8.6-10.3); EGFR African American 237.7 (>60); EGFR Non-African American 196.4 (>60); Phosphorus 2.8 mg/dL (2.5-5.0); Potassium 4.3 mmol/L (3.5-5.0)
[2018-05-31] MEDS: Famotidine IV* 10 MG/ML 2 ML (20 mg) IV SCH (09:27)
[2018-05-31] MEDS: Opium Tincture* 6 MG/0.6 ML ORAL.LIQ SYRINGE PO SCH ×2 (09:27→22:41)
--- NOTE | 2018-05-31 09:40 | PN ---
Progress Note - Progress Note Date of Service: 05/31/18 SOAP: Subjective: Continues to improve Tolerating po and appetite increasing Making large amounts of urine Remains weak Objective: Temp Pulse Resp BP Pulse Ox 98.1 F 95 16 129/65 100 05/31/18 08:06 05/31/18 08:06 05/31/18 08:06 05/31/18 08:06 05/31/18 08:06 Intake & Output 05/29/18 05/30/18 05/31/18 06/01/18 06:59 06:59 06:59 06:59 Intake Total 2654 3872 2615.4 Output Total 2350 2350 2635 Balance 304 1522 -19.6 Intake: IV Fluids 20 431 307.4 ABX - FLAGYL 105 215 Magnesium Sulfate 55 NS (0.9%) 20 22 37.4 Potassium Phosphate 304 IVPB 105 ABX - FLAGYL 105 TPN/PPN 1759 1776 1798 Oral 770 1665 510 Output: Urine 725 2050 1960 Colostomy 175 175 225 Ileostomy 1450 125 450 Other: Estimated Void Medium # Voids 1 Abd: Soft and slightly distended. Bowel sounds are present. Ostomy pink-thicker bilious fluid in bag Wound vac in place Labs noted Assessment: S/P subtotal colectomy with ileostomy for perforation colon--ulcerative colitis Sepsis-resolved Malnutrition-po improving Deconditioning Plan: Soft diet D/C TPN Wean steroids IV abx-convert to oral abx per ID if needed. Wound vac change today Physical therapy. Case mgmt--rehab indicated and applications in progress. She should be ready from surgical and medical standpoint for D/C on Tuesday to rehab.
[2018-05-31] MEDS ORDERED: predniSONE TAB* 20 MG PO SCH (12:00)
[2018-05-31] MEDS ORDERED: Morphine VIAL* 10 MG/ML 1 ML VIAL IV ONE (13:00)
--- NOTE | 2018-05-31 14:09 | PN ---
Subjective Date of Service: 05/31/18 Interval History: Patient is feeling better today. Patient is feeling very hungry and feels as if her oral intake is improving daily. Patient is apprehensive about her wound vac change later as this is the most painful procedure she has to go through. Patient has only moderate pain in her abdomen. Patient has been having urinary frequency, dysuria, and a feeling of incomplete emptying. Patient denies dizziness, CP, SOB, F/C, palpitations, or other pain. Family History: Unchanged from Admission Social History: Unchanged from Admission Past Medical History: Unchanged from Admission Objective Active Medications: Acetaminophen (Tylenol Tab*) 650 mg PO Q6H PRN PRN Reason: FEVER/PAIN Al Hydrox/Mg Hydrox/Simethicone (Maalox Plus*) 15 ml PO Q6H PRN PRN Reason: HEARTBURN Last Admin: 05/26/18 20:41 Dose: 15 ml Dextrose (D50w Syringe 50 Ml*) 12.5 gm IV PUSH .FOR FS < 60 - SS PRN PRN Reason: FS < 60 Famotidine (Pepcid Iv*) 20 mg IV DAILY [facility] Last Admin: 05/31/18 09:27 Dose: 20 mg Heparin Sodium (Porcine) (Heparin Flush Picc/Ml/Cvc(*)) 1 - 3 ml FLUSH 0600, 1800 [facility]; Protocol Last Admin: 05/31/18 09:32 Dose: 2 ml Heparin Sodium (Porcine) (Heparin Vial(*)) 5,000 units SUBCUT Q8HR [facility] Last Admin: 05/31/18 06:09 Dose: 5,000 units Ceftriaxone Sodium 1 gm/ (Sodium Chloride) 50 mls @ 200 mls/hr IVPB Q24H [facility] Stop: 05/31/18 23:59 Last Admin: 05/30/18 15:18 Dose: 200 mls/hr Insulin Human Lispro (Humalog*) 0 - 15 units SUBCUT Q4HR [facility]; Protocol Last Admin: 05/31/18 10:14 Dose: Not Given Melatonin (Melatonin) 6 mg PO BEDTIME [facility] Last Admin: 05/30/18 23:08 Dose: Not Given Metoclopramide HCl (Reglan Iv*) 10 mg IV Q6H PRN PRN Reason: NAUSEA Last Admin: 05/26/18 23:46 Dose: 10 mg Morphine Sulfate (Morphine Inj ((Syringe))*) 2 mg IV Q4H PRN PRN Reason: PAIN Last Admin: 05/29/18 09:13 Dose: 2 mg Ondansetron HCl (Zofran Inj*) 4 mg IV Q6H PRN PRN Reason: NAUSEA Last Admin: 05/26/18 22:16 Dose: 4 mg Opium Tincture (Opium Tincture*) 6 mg PO BID [facility] Last Admin: 05/31/18 09:27 Dose: Not Given Prednisone (Deltasone Tab*) 15 mg PO DAILY@1200 [facility] Stop: 06/03/18 12:01 Prednisone (Deltasone Tab*) 10 mg PO DAILY@1200 [facility] Stop: 06/06/18 12:01 Prednisone (Deltasone Tab*) 5 mg PO DAILY@1200 [facility] Stop: 06/09/18 12:01 Tramadol HCl (Ultram*) 50 mg PO BEDTIME PRN PRN Reason: PAIN Zolpidem Tartrate (Ambien Tab*) 5 mg PO BEDTIME PRN PRN Reason: INSOMNIA Last Admin: 05/26/18 20:49 Dose: 5 mg Vital Signs - 8 hr 05/31/18 05/31/18 05/31/18 08:00 08:06 11:38 Temperature 98.1 F 98.9 F Pulse Rate 95 116 Respiratory 18 16 16 Rate Blood Pressure 129/65 109/67 (mmHg) O2 Sat by Pulse 100 100 Oximetry 05/31/18 13:31 Temperature Pulse Rate Respiratory 18 Rate Blood Pressure (mmHg) O2 Sat by Pulse Oximetry Oxygen Devices in Use Now: None Appearance: Patient is a 62yo female who appears stated age and is sitting in the bed in [facility]. Eyes: No Scleral Icterus, PERRLA Ears/Nose/Mouth/Throat: NL Teeth, Lips, Gums, Clear Oropharnyx, Mucous Membranes Moist Neck: NL Appearance and Movements; NL JVP, Trachea Midline Respiratory: Symmetrical Chest Expansion and Respiratory Effort, Clear to Auscultation Cardiovascular: NL Sounds; No Murmurs; No JVD, No Edema, - - Tachycardia Abdominal: No Hepatosplenomegaly, - - Tender to Palpitation, Midline incision and wound vac in place. Colostomy draining brown stool. Lymphatic: No Cervical Adenopathy Extremities: No Edema, No Clubbing, Cyanosis Skin: No Nodules or Sclerosis Neurological: Alert and Oriented x 3, NL Sensation, NL Muscle Strength and Tone , - - CN II-XII intact. - Nutrition: Malnutrition Diagnosis/Plan Malnutrition Assessment by Registered Dietitian: Malnutrition Assessment Clinical Characteristics Acute,Moderate Malnutrition Assessment: - po intake < 75% EEE x > 7 days Criteria - significant wt loss 14.2% in past one month Malnutrition Assessment: 1. TPN to be ordered 05/22; suggest TPN base "A " Interventions (Pharmacy made aware) 2. follow clinical response and ability to transition back to po intake Malnutrition Assessment: Goals 1. adequate nutrition provision, initially via TPN, to support rehydration, stable wt, and lean body mass 2. achieve and maintain serum electrolytes within normal ranges 3. ultimately, tolerance to po intake without exacerbation of diarrhea or abd pain 4. ultimately, regulation of bowel pattern without diarrhea (or constipation) Result Diagrams: 05/29/18 04:50 05/31/18 06:19 Microbiology and Other Data: Microbiology 05/23/18 12:05 Blood Culture - Preliminary Blood Venous No Growth Day 4 05/23/18 17:54 Anaerobic Culture - Preliminary Body Fluid - Peritoneal No Growth Day 3 05/23/18 17:54 Gram Stain - Final Peritoneal Fluid Body Fluid Culture - Preliminary Klebsiella Pneumoniae Skin and Soft Tissue MRSA/MSSA (PCR - Final Mrsa Negative S.aureus Negative 05/22/18 17:31 Aerobic Blood Culture - Preliminary Blood Venous No Growth Day 4 Anaerobic Blood Culture - Preliminary No Growth Day 4 05/23/18 14:10 Aerobic Blood Culture - Preliminary Blood Venous No Growth Day 3 Anaerobic Blood Culture - Preliminary No Growth Day 3 05/20/18 09:01 Aerobic Blood Culture - Final Blood Venous No Growth Day 5 Anaerobic Blood Culture - Final Clostridium Clostridiiforme 05/20/18 08:57 Aerobic Blood Culture - Final Blood Venous No Growth Day 5 Anaerobic Blood Culture - Final Klebsiella Pneumoniae Clostridium Clostridiiforme 05/21/18 17:23 Urine Culture - Final Urine No Growth (<1,000 CFU/mL) 05/20/18 09:13 Stool Culture - Final Stool Stool Gross Appearance - Final Shiga Toxin I & II - Final Negative Shiga Toxin 1 & 2 C. difficile DNA Amplification - Final 027 Presumptive NEGATIVE Toxigenic C.diff NEGATIVE 05/20/18 09:13 Influenza Types A,B Antigen - Final Nasal Specimen received for Influenza A/B Molecular testing 05/20/18 18:57 Nasal Screen MRSA (PCR) - Final Nasal Mrsa Not Detected Assess/Plan/Problems-Billing Assessment: Mrs Moreno is a 62yo F with PMH of ulcerative colitis, recent C diff colitis, HTN, who presented to ED on 05/20/18 with c/o abdominal pain, found to have perforated viscus. Complex hospital course includes ex lap for large transverse colon perforation s/p subtotal colectomy, initially with open abdome; returned to OR on 05/23/18 for sigmoid resection and ileostomy; septic shock with Klebsiella and Clostridium septicemia; acute respiratory failure requiring intubation/MV, extubated 05/24/18; malnutrition. Transferred to surgical floor on 05/25/18. Hospitalist service consulted to assist with management of TPN induced hyperglycemia. - Patient Problems (1) Perforated viscus Current Visit: Yes Status: Acute Code(s): R19.8 - OTH SYMPTOMS AND SIGNS INVOLVING THE DGSTV SYS AND ABDOMEN SNOMED Code(s): 161597724 Comment: - S/p ex lap for large transverse colon perforation s/p subtotal colectomy, initially with open abdome; returned to OR on 05/23/18 for sigmoid resection and ileostomy - Colostomy functioning well, Bowel function returning slowly. - Management as per Surgery (2) Hyperglycemia Current Visit: Yes Status: Acute Code(s): R73.9 - HYPERGLYCEMIA, UNSPECIFIED SNOMED Code(s): 70936681 Comment: - Continue Lispro SS, change to ACHS - Expect her glucose to normalize after steroid course completed and back on PO diet and TPN discontinued - Likely will be able to discontinue tomorrow. (3) Hypocalcemia Current Visit: Yes Status: Acute Code(s): E83.51 - HYPOCALCEMIA SNOMED Code(s): 2321532 Comment: - Corrected calcium is 8.5 - Continue to monitor (4) Hypokalemia Current Visit: Yes Status: Acute Code(s): E87.6 - HYPOKALEMIA SNOMED Code( s): 63693025 Comment: - Resolved - Monitor (5) Hypomagnesemia Current Visit: Yes Status: Acute Code(s): E83.42 - HYPOMAGNESEMIA SNOMED Code(s): 572909593 Comment: - Resolved - Monitor (6) Hypophosphatemia Current Visit: Yes Status: Acute Code(s): E83.39 - OTHER DISORDERS OF PHOSPHORUS METABOLISM SNOMED Code(s): 7054987 Comment: - Will give replacement today - Recheck labs in the AM (7) Physical deconditioning Current Visit: Yes Status: Acute Code(s): R53.81 - OTHER MALAISE SNOMED Code(s): 86675845869644 Comment: - Continue PT/OT as tolerated - May need KETAN on discharge (8) Protein-calorie malnutrition, moderate Current Visit: Yes Status: Acute Code(s): E44.0 - MODERATE PROTEIN-CALORIE MALNUTRITION SNOMED Code(s): 666887645 Comment: - Meets criteria for Acute moderate protein calorie malnutrition with po intake < 75% EEE x > 7 days and significant wt loss 14.2% in past one month - Dietitian input appreciated - Oral intake improving, TPN stopped per surgery (9) Ulcerative colitis Current Visit: Yes Status: Acute Code(s): K51.90 - ULCERATIVE COLITIS, UNSPECIFIED, WITHOUT COMPLICATIONS SNOMED Code(s): 72249347 Comment: - Continue prednisone taper - Follow up outpatient GI for possible Steroid sparing therapy if indicated. (10) DVT prophylaxis Current Visit: Yes Status: Acute Code(s): KTL7274 - SNOMED Code(s): 250368892 Comment: - SQ heparin (11) Full code status Current Visit: Yes Status: Acute Code(s): Z78.9 - OTHER SPECIFIED HEALTH STATUS SNOMED Code(s): 180372490 Status and Disposition: Inpatient. Disposition per General Surgery. Will need KETAN at discharge due to physical deconditioning. Thank you for this consultation, Hospitalists will continue to follow along.
[2018-05-31] MEDS: cefTRIAXone(*) 1 GM in NS 0.9% 50 ML* 50 ML IVPB SCH (14:51)
[2018-05-31] MEDS: Morphine INJ* 2 MG/ML 1 ML SYRINGE (TWO MG - NEW SYRINGE VERSION) IV PRN (18:14)
[2018-05-31] MEDS: Melatonin 3 MG TAB PO SCH (22:41)
[2018-06-01] MEDS: Heparin VIAL(*) 5000 UNITS/ML VIAL (FIVE THOUSAND) SUBCUT SCH ×3 (06:25→23:07)
[2018-06-01 06:55] LABS: ABS Basophils 0 10^3/ul (0-0.2); ABS Eosinophils 0.1 10^3/ul (0-0.6); ABS Lymphocytes 2.3 10^3/ul (1.0-4.8); ABS Monocytes 0.8 10^3/ul (0-0.8); ABS Neutrophils 9.8 10^3/ul (1.5-7.7); ABS Nucleated RBC 0 10^3/ul; Eosinophil % 0.6 %; Hematocrit 28 % (35-47); Hemoglobin 8.9 g/dl (12.0-16.0); Lymphocyte % 17.4 %; Mean Corpuscular HGB Conc 33 g/dl (31-36); Mean Corpuscular Hemoglobin 29 pg (27-31); Mean Corpuscular Volume 89 fL (80-97); Mean Platelet Volume 7.2 fL (7.4-10.4); Nucleated Red Blood Cells % 0; Platelet Count 360 10^3/ul (150-450); Red Blood Count 3.08 10^6/ul (4.00-5.40); Red Cell Distribution Width 18 % (10.5-15)
[2018-06-01 07:09] LABS: BUN/Creatinine Ratio 42.9 (8-20); Calcium 7.5 mg/dL (8.6-10.3); EGFR African American 229.8 (>60); EGFR Non-African American 189.9 (>60); Magnesium 1.9 mg/dL (1.9-2.7); Phosphorus 3.3 mg/dL (2.5-5.0); Potassium 4.1 mmol/L (3.5-5.0)
[2018-06-01] MEDS: Insulin LISPRO* 1 UNITS UNIT SUBCUT SCH (09:06)
[2018-06-01] MEDS: Morphine INJ* 2 MG/ML 1 ML SYRINGE (TWO MG - NEW SYRINGE VERSION) IV PRN (09:06)
[2018-06-01] MEDS: Famotidine IV* 10 MG/ML 2 ML (20 mg) IV SCH (09:10)
[2018-06-01] MEDS: Opium Tincture* 6 MG/0.6 ML ORAL.LIQ SYRINGE PO SCH ×2 (09:11→23:09)
--- NOTE | 2018-06-01 11:15 | PN ---
Progress Note - Progress Note Date of Service: 06/01/18 SOAP: Subjective: Doing well, appetite improving and taking more po Ileostomy drainage thickening up Minimal discomfort Objective: Temp Pulse Resp BP Pulse Ox 98.6 F 81 16 102/61 100 06/01/18 07:18 06/01/18 07:18 06/01/18 10:28 06/01/18 07:18 06/01/18 07:18 Intake & Output 05/30/18 05/31/18 06/01/18 06/02/18 06:59 06:59 06:59 06:59 Intake Total 3872 2615.4 1040 300 Output Total 2350 2635 200 Balance 1522 -19.6 840 300 Intake: IV Fluids 431 307.4 ABX - FLAGYL 105 215 Magnesium Sulfate 55 NS (0.9%) 22 37.4 Potassium Phosphate 304 TPN/PPN 1776 1798 Oral 8871 721 4094 300 Output: Urine 2050 1960 100 Colostomy 175 225 100 Ileostomy 125 450 Other: Estimated Void Medium Large # Voids 1 1 PEX: Comfortable Lungs are clear' ABd is soft and slightly distended. Wound vac in place. Ostomy pink with green thick fluid in bag. Ext 1-2 edema Laboratory Results - last 24 hr 05/31/18 05/31/18 05/31/18 05:59 17:30 21:34 WBC RBC Hgb Hct MCV MCH MCHC RDW Plt Count MPV Neut % (Auto) Lymph % (Auto) [place] % (Auto) Eos % (Auto) Baso % (Auto) Absolute Neuts (auto) Absolute Lymphs (auto) Absolute Monos (auto) Absolute Eos (auto) Absolute Basos (auto) Absolute Nucleated RBC Nucleated RBC % Sodium Potassium Chloride Carbon Dioxide Anion Gap BUN Creatinine Est GFR ( Amer) Est GFR (Non-Af Amer) BUN/Creatinine Ratio Glucose POC Glucose (mg/dL) 118 H 140 H 145 H Calcium Phosphorus Magnesium 06/01/18 06/01/18 06:27 06:27 WBC 13.0 H RBC 3.08 L Hgb 8.9 L Hct 28 L MCV 89 MCH 29 MCHC 33 RDW 18 H Plt Count 360 MPV 7.2 L Neut % (Auto) 75.3 Lymph % (Auto) 17.4 [place] % (Auto) 6.4 Eos % (Auto) 0.6 Baso % (Auto) 0.3 Absolute Neuts (auto) 9.8 H Absolute Lymphs (auto) 2.3 Absolute Monos (auto) 0.8 Absolute Eos (auto) 0.1 Absolute Basos (auto) 0 Absolute Nucleated RBC 0 Nucleated RBC % 0 Sodium 131 L Potassium 4.1 Chloride 104 Carbon Dioxide 25 Anion Gap 2 BUN 15 Creatinine 0.35 L Est GFR ( Amer) 229.8 Est GFR (Non-Af Amer) 189.9 BUN/Creatinine Ratio 42.9 H Glucose 81 POC Glucose (mg/dL) Calcium 7.5 L Phosphorus 3.3 Magnesium 1.9 Assessment: S/P subtotal colectomy with ileostomy for perforation--ulcerative colitis Malnutrition Deconditioning Plan: Soft diet Off antibiotics TPN D/C'd Wound VAC D/C tomorrow ti [facility] for rehab.
[2018-06-01] MEDS ORDERED: traMADol TAB* 50 MG PO PRN (12:16)
[2018-06-01] MEDS: predniSONE TAB* 5 MG PO SCH (12:20)
--- NOTE | 2018-06-01 14:25 | PN ---
Subjective Date of Service: 06/01/18 Interval History: Patient is feeling well today, patient denies CP, SOB, F/C, patient's dysuria is improving. Patient has moderate abdominal pain which is better with rest and can get severe with movement. Patient denies dizziness, palpitations, or other pain. Patient is very excited for her discharge tomorrow. Family History: Unchanged from Admission Social History: Unchanged from Admission Past Medical History: Unchanged from Admission Objective Active Medications: Acetaminophen (Tylenol Tab*) 650 mg PO Q6H PRN PRN Reason: FEVER/PAIN Al Hydrox/Mg Hydrox/Simethicone (Maalox Plus*) 15 ml PO Q6H PRN PRN Reason: HEARTBURN Last Admin: 05/26/18 20:41 Dose: 15 ml Dextrose (D50w Syringe 50 Ml*) 12.5 gm IV PUSH .FOR FS < 60 - SS PRN PRN Reason: FS < 60 Famotidine (Pepcid Iv*) 20 mg IV DAILY [facility] Last Admin: 06/01/18 09:10 Dose: 20 mg Heparin Sodium (Porcine) (Heparin Flush Picc/Ml/Cvc(*)) 1 - 3 ml FLUSH 0600, 1800 [facility]; Protocol Last Admin: 06/01/18 06:29 Dose: 3 ml Heparin Sodium (Porcine) (Heparin Vial(*)) 5,000 units SUBCUT Q8HR [facility] Last Admin: 06/01/18 06:25 Dose: 5,000 units Melatonin (Melatonin) 6 mg PO BEDTIME [facility] Last Admin: 05/31/18 22:41 Dose: Not Given Metoclopramide HCl (Reglan Iv*) 10 mg IV Q6H PRN PRN Reason: NAUSEA Last Admin: 05/26/18 23:46 Dose: 10 mg Morphine Sulfate (Morphine Inj ((Syringe))*) 2 mg IV Q4H PRN PRN Reason: PAIN Last Admin: 06/01/18 09:06 Dose: 2 mg Ondansetron HCl (Zofran Inj*) 4 mg IV Q6H PRN PRN Reason: NAUSEA Last Admin: 05/26/18 22:16 Dose: 4 mg Opium Tincture (Opium Tincture*) 6 mg PO BID [facility] Last Admin: 06/01/18 09:11 Dose: Not Given Prednisone (Deltasone Tab*) 15 mg PO DAILY@1200 [facility] Stop: 06/03/18 12:01 Last Admin: 06/01/18 12:20 Dose: 15 mg Prednisone (Deltasone Tab*) 10 mg PO DAILY@1200 [facility] Stop: 06/06/18 12:01 Prednisone (Deltasone Tab*) 5 mg PO DAILY@1200 [facility] Stop: 06/09/18 12:01 Tramadol HCl (Ultram*) 50 mg PO Q6H PRN PRN Reason: PAIN Zolpidem Tartrate (Ambien Tab*) 5 mg PO BEDTIME PRN PRN Reason: INSOMNIA Last Admin: 05/26/18 20:49 Dose: 5 mg Vital Signs - 8 hr 06/01/18 06/01/18 06/01/18 07:18 08:00 09:06 Temperature 98.6 F Pulse Rate 81 Respiratory 16 16 16 Rate Blood Pressure 102/61 (mmHg) O2 Sat by Pulse 100 Oximetry 06/01/18 06/01/18 10:28 11:11 Temperature 98.5 F Pulse Rate 103 Respiratory 16 16 Rate Blood Pressure 101/68 (mmHg) O2 Sat by Pulse 99 Oximetry Oxygen Devices in Use Now: None Appearance: Patient is a 62yo female who appears stated age and is sitting in the bed in [facility]. Eyes: No Scleral Icterus, PERRLA Ears/Nose/Mouth/Throat: NL Teeth, Lips, Gums, Clear Oropharnyx, Mucous Membranes Moist Neck: NL Appearance and Movements; NL JVP, Trachea Midline Respiratory: Symmetrical Chest Expansion and Respiratory Effort, Clear to Auscultation Cardiovascular: NL Sounds; No Murmurs; No JVD, RRR, No Edema Abdominal: No Hepatosplenomegaly, - - Midline incision covered in a wound vac. Lymphatic: No Cervical Adenopathy Extremities: No Edema, No Clubbing, Cyanosis Neurological: Alert and Oriented x 3, NL Sensation, NL Muscle Strength and Tone , - - CN II-XII intact. - Nutrition: Malnutrition Diagnosis/Plan Malnutrition Assessment by Registered Dietitian: Malnutrition Assessment Clinical Characteristics Acute,Moderate Malnutrition Assessment: - po intake < 75% EEE x > 7 days Criteria - significant wt loss 14.2% in past one month Malnutrition Assessment: 1. TPN to be ordered 05/22; suggest TPN base "A " Interventions (Pharmacy made aware) 2. follow clinical response and ability to transition back to po intake Malnutrition Assessment: Goals 1. adequate nutrition provision, initially via TPN, to support rehydration, stable wt, and lean body mass 2. achieve and maintain serum electrolytes within normal ranges 3. ultimately, tolerance to po intake without exacerbation of diarrhea or abd pain 4. ultimately, regulation of bowel pattern without diarrhea (or constipation) Result Diagrams: 06/01/18 06:27 06/01/18 06:27 Microbiology and Other Data: Microbiology 05/23/18 12:05 Blood Culture - Preliminary Blood Venous No Growth Day 4 05/23/18 17:54 Anaerobic Culture - Preliminary Body Fluid - Peritoneal No Growth Day 3 05/23/18 17:54 Gram Stain - Final Peritoneal Fluid Body Fluid Culture - Preliminary Klebsiella Pneumoniae Skin and Soft Tissue MRSA/MSSA (PCR - Final Mrsa Negative S.aureus Negative 05/22/18 17:31 Aerobic Blood Culture - Preliminary Blood Venous No Growth Day 4 Anaerobic Blood Culture - Preliminary No Growth Day 4 05/23/18 14:10 Aerobic Blood Culture - Preliminary Blood Venous No Growth Day 3 Anaerobic Blood Culture - Preliminary No Growth Day 3 05/20/18 09:01 Aerobic Blood Culture - Final Blood Venous No Growth Day 5 Anaerobic Blood Culture - Final Clostridium Clostridiiforme 05/20/18 08:57 Aerobic Blood Culture - Final Blood Venous No Growth Day 5 Anaerobic Blood Culture - Final Klebsiella Pneumoniae Clostridium Clostridiiforme 05/21/18 17:23 Urine Culture - Final Urine No Growth (<1,000 CFU/mL) 05/20/18 09:13 Stool Culture - Final Stool Stool Gross Appearance - Final Shiga Toxin I & II - Final Negative Shiga Toxin 1 & 2 C. difficile DNA Amplification - Final 027 Presumptive NEGATIVE Toxigenic C.diff NEGATIVE 05/20/18 09:13 Influenza Types A,B Antigen - Final Nasal Specimen received for Influenza A/B Molecular testing 05/20/18 18:57 Nasal Screen MRSA (PCR) - Final Nasal Mrsa Not Detected Assess/Plan/Problems-Billing Assessment: Mrs Moreno is a 62yo F with PMH of ulcerative colitis, recent C diff colitis, HTN, who presented to ED on 05/20/18 with c/o abdominal pain, found to have perforated viscus. Complex hospital course includes ex lap for large transverse colon perforation s/p subtotal colectomy, initially with open abdome; returned to OR on 05/23/18 for sigmoid resection and ileostomy; septic shock with Klebsiella and Clostridium septicemia; acute respiratory failure requiring intubation/MV, extubated 05/24/18; malnutrition. Transferred to surgical floor on 05/25/18. Hospitalist service consulted to assist with management of TPN induced hyperglycemia. - Patient Problems (1) Perforated viscus Current Visit: Yes Status: Acute Code(s): R19.8 - OTH SYMPTOMS AND SIGNS INVOLVING THE DGSTV SYS AND ABDOMEN SNOMED Code(s): 665627627 Comment: - S/p ex lap for large transverse colon perforation s/p subtotal colectomy, initially with open abdomen; returned to OR on 05/23/18 for sigmoid resection and ileostomy - Colostomy functioning well, Bowel function returning slowly. - Management as per Surgery - Continue wound vac (2) Hyperglycemia Current Visit: Yes Status: Acute Code(s): R73.9 - HYPERGLYCEMIA, UNSPECIFIED SNOMED Code(s): 06926433 Comment: - Normoglycemic, discontinue monitoring. (3) Hypocalcemia Current Visit: Yes Status: Acute Code(s): E83.51 - HYPOCALCEMIA SNOMED Code(s): 3730992 Comment: - Corrected calcium is 8.5 - Continue to monitor (4) Hypokalemia Current Visit: Yes Status: Acute Code(s): E87.6 - HYPOKALEMIA SNOMED Code( s): 27118196 Comment: - Resolved - Monitor (5) Hypomagnesemia Current Visit: Yes Status: Acute Code(s): E83.42 - HYPOMAGNESEMIA SNOMED Code(s): 158426909 Comment: - Resolved - Monitor (6) Hypophosphatemia Current Visit: Yes Status: Acute Code(s): E83.39 - OTHER DISORDERS OF PHOSPHORUS METABOLISM SNOMED Code(s): 7590882 Comment: - Normal - Recheck labs in the AM (7) Physical deconditioning Current Visit: Yes Status: Acute Code(s): R53.81 - OTHER MALAISE SNOMED Code(s): 21358953816096 Comment: - Continue PT/OT as tolerated - May need KETAN on discharge (8) Protein-calorie malnutrition, moderate Current Visit: Yes Status: Acute Code(s): E44.0 - MODERATE PROTEIN-CALORIE MALNUTRITION SNOMED Code(s): 315706787 Comment: - Meets criteria for Acute moderate protein calorie malnutrition with po intake < 75% EEE x > 7 days and significant wt loss 14.2% in past one month - Dietitian input appreciated - Oral intake improving, TPN stopped per surgery (9) Ulcerative colitis Current Visit: Yes Status: Acute Code(s): K51.90 - ULCERATIVE COLITIS, UNSPECIFIED, WITHOUT COMPLICATIONS SNOMED Code(s): 34684923 Comment: - Continue prednisone taper - Follow up outpatient GI for possible Steroid sparing therapy if indicated. (10) DVT prophylaxis Current Visit: Yes Status: Acute Code(s): WBJ2380 - SNOMED Code(s): 089274681 Comment: - SQ heparin (11) Full code status Current Visit: Yes Status: Acute Code(s): Z78.9 - OTHER SPECIFIED HEALTH STATUS SNOMED Code(s): 587998310 Status and Disposition: Inpatient. Disposition per General Surgery. Will need KETAN at discharge due to physical deconditioning. Thank you for this consultation, Hospitalists will continue to follow along.
[2018-06-01 15:54] LABS: Urine Appearance Cloudy; Urine Bacteria Absent (Absent); Urine Bilirubin Negative (Negative); Urine Blood 1+ (Negative); Urine Color Yellow; Urine Glucose Negative (Negative); Urine Ketones Negative (Negative); Urine Nitrite Negative (Negative); Urine Protein Negative (Negative); Urine Red Blood Cell Trace(0-2/hpf) (Absent); Urine Specific Gravity 1.015 (1.010-1.030); Urine Squamous Epithelial Cell Present (Absent); Urine Urobilinogen Negative (Negative); Urine White Blood Cell Trace(0-5/hpf) (Absent)
[2018-06-01] MEDS: Melatonin 3 MG TAB PO SCH (23:11)
[2018-06-02] MEDS: Heparin VIAL(*) 5000 UNITS/ML VIAL (FIVE THOUSAND) SUBCUT SCH (06:04)
[2018-06-02 06:44] LABS: BUN/Creatinine Ratio 32.4 (8-20); Calcium 7.4 mg/dL (8.6-10.3); EGFR African American 237.7 (>60); EGFR Non-African American 196.4 (>60); Magnesium 1.8 mg/dL (1.9-2.7); Phosphorus 2.8 mg/dL (2.5-5.0); Potassium 3.8 mmol/L (3.5-5.0)
[2018-06-02] MEDS ORDERED: Magnesium Sulfate 2 GM IV* 2 GM/50 ML BAG IVPB ONE (06:55)
[2018-06-02 08:07] LABS: ABS Basophils 0 10^3/ul (0-0.2); ABS Eosinophils 0.1 10^3/ul (0-0.6); ABS Lymphocytes 1.9 10^3/ul (1.0-4.8); ABS Monocytes 0.7 10^3/ul (0-0.8); ABS Neutrophils 7.1 10^3/ul (1.5-7.7); ABS Nucleated RBC 0 10^3/ul; Eosinophil % 0.8 %; Hematocrit 24 % (35-47); Lymphocyte % 19.6 %; Mean Corpuscular HGB Conc 33 g/dl (31-36); Mean Corpuscular Hemoglobin 30 pg (27-31); Mean Corpuscular Volume 89 fL (80-97); Mean Platelet Volume 7.7 fL (7.4-10.4); Nucleated Red Blood Cells % 0; Platelet Count 350 10^3/ul (150-450); Red Blood Count 2.71 10^6/ul (4.00-5.40); Red Cell Distribution Width 18 % (10.5-15); White Blood Count 9.8 10^3/ul (3.5-10.8)
[2018-06-02] MEDS: Opium Tincture* 6 MG/0.6 ML ORAL.LIQ SYRINGE PO SCH (09:39)
[2018-06-02] MEDS: Famotidine IV* 10 MG/ML 2 ML (20 mg) IV SCH (09:40)
[2018-06-02] MEDS ORDERED: Morphine VIAL* 10 MG/ML 1 ML VIAL ONE (10:03)
[2018-06-02] MEDS ORDERED: Morphine INJ* 2 MG/ML 1 ML SYRINGE (TWO MG - NEW SYRINGE VERSION) IV ONE (10:05)
[2018-06-02] MEDS ORDERED: Morphine VIAL* 10 MG/ML 1 ML VIAL IV ONE (10:05)
--- NOTE | 2018-06-02 10:52 | PN ---
Progress Note - Progress Note Date of Service: 06/02/18 SOAP: Subjective: Doing well-she is ready for discharge Tolerating po and appetite improving No pain Objective: Temp Pulse Resp BP Pulse Ox 98.3 F 97 16 109/60 100 06/02/18 07:23 06/02/18 07:23 06/02/18 10:06 06/02/18 07:23 06/02/18 07:23 Intake & Output 05/31/18 06/01/18 06/02/18 06/03/18 06:59 06:59 06:59 06:59 Intake Total 2615.4 1040 1080 Output Total 2635 200 350 Balance -19.6 840 730 Intake: IV Fluids 307.4 ABX - FLAGYL 215 Magnesium Sulfate 55 NS (0.9%) 37.4 TPN/PPN 1798 Oral 510 1040 1080 Output: Urine 1960 100 150 Colostomy 225 100 200 Ileostomy 450 Other: Estimated Void Medium Large Medium Large # Voids 1 1 1 PEX: Comfortable Lungs are clear Abd is soft and non-distended. Ostomy pink with fluid in bag. Wound is clean and granulating. Retention sutures removed. Wound vac changed. Ext 1+ edema Labs noted Assessment: S/P exlap with subtotal colectomy with ileostomy--perforation, ulcerative colitis Malnutrition Deconditioning Plan: D/C to [facility] today for rehab Wound vac Steroid wean per medicine PPI Tincture of opium to control ileostomy output. No further antibiotics Office follow up
--- NOTE | 2018-06-02 11:57 | DS ---
CC: Dr. Napoleon Wagner; Braydon Landeros NP; Dr. Denver Sotelo; [facility] DATE OF ADMISSION: 05/20/2018. DATE OF DISCHARGE: 06/02/2018. DATE OF DICTATION : 06/02/2018. DISPOSITION: To [facility] for further rehabilitation. CONDITION ON DISCHARGE: Good. PRINCIPAL PROCEDURE PERFORMED: 1. Emergent subtotal colectomy with open abdomen. 2. Return to operating room for creation of end ileostomy, sigmoid colon resection, enclosure of abd ominal wall. SECONDARY DIAGNOSES: 1. Hypertension. 2. Ulcerative colitis. 3. Recent clostridium difficile colitis. WOUND INSTRUCTIONS: The patient had a wound VAC placed which is to be changed on Tuesday, Tuesday a tuesday and placed to suction of 125 milligrams of mercury. She also had an ileostomy requiring rou mayda ileostomy are. MEDICATIONS ON DISCHARGE: 1. Pepcid 20 mg p.o. b.i.d. 2. Tylenol prn. 3. Melatonin 3 mg at bedtime. 4. Zofran 4 mg ODT tablet prn. 5. Opium Tincture 6 mg/0.6 mm cc b.i.d. 6. Prednisone taper including 10 mg for 3 days and subsequently 5 mg for 3 days, and subsequently di scontinue. 7. Tramadol 50 mg daily. 8. Zolpidem 5 mg at bedtime prn. FOLLOW-UP: Surgical follow-up was made to be seen at [facility] office on June 21 at 1:30 p.m. Follow-up with Gastroenterology as well as Medicine will also be arranged. HISTORY OF PRESENT ILLNESS: Ms. Fadia Moreno is a 62-year-old woman with a long history of ulcera tive colitis who was recently admitted to [facility] for treatment of a clostridium diffic ile colitis. This was felt to be adequately treated with oral Vancomycin. She was treated with high dose oral Prednisone for her refractory ulcerative colitis. She presented to the emergency room with several days of severe abdominal pain with worsening symptom s of weakness, poor oral intake, and fevers. She was noted to have generalized abdominal discomfort with peritonitis and a CT scan showed a massive amount of free intra-abdominal air, and surgical cons ultation was obtained. HOSPITAL COURSE: The patient was seen in emergent surgical consultation in the emergency room. On t he day of presentation, she was taken to the operating room where she was noted to have a transverse colon perforation. Due to her history of ulcerative colitis, she also had an extensive amount of col itis in the left and descending colon. She underwent an emergent subtotal colectomy and was taken to the Intensive Care Unit, intubated with an open abdomen requiring Levophed and other pressors for bl ood pressure maintenance. She was started on broad spectrum IV antibiotics and maintained on a venti lator for the next 72 hours. Her sepsis progressively improved. She did have klebsiella as well as clostridium grow from her bloo d. An Infectious Disease consultation with Dr. Sotelo was obtained and she was treated with the ap propriate IV antibiotics for ten days. On hospital day number four, she was taken back to the operating room for a second laparotomy where s he underwent creation of an end ileostomy, further resection of the distal sigmoid colon and primary closure of her abdominal wall. Postoperatively, she was extubated the next day. Her overall hospital course was that of progressive improvement. She was started on total parenteral nutrition. She was continued on a steroid regimen which included a slow wean as per above. A wound VAC was placed in the midline abdomen. Physical therapy was initiated. On hospital day number six, she was transferred to the regular [facility] floor. Her ileostomy began functioning and she was started on a tincture of opium to control its output. Her diet was rapidly advanced to a regular diet when she began tolerating it well. Physical therapy was started. Her antibiotics were discontinued. On the day of discharge, her PICC line was removed and her wound VAC was changed. She was discharged to [facility] for further rehabilitation and care. [id number]/[facility] #: [id number]
[2018-06-02] MEDS: predniSONE TAB* 5 MG PO SCH (12:14)
--- NOTE | 2018-06-02 12:19 | PN ---
Progress Note - Progress Note Date of Service: 06/02/18 SOAP: Subjective: [Pt is resting comfortably on her hospital bed and is in good spirits. She is exited, yet anxious to be going to the [facility] for rehabilitation. She states she is feeling well today and much better than she has as of late. She complains of 3/10 pain of her midline abdominal incision and generalized weakness and an inability to walk. Pt denies fever, chills, chest pain, SOB, or difficulty sleeping.] Objective: [ Vital Signs Temp 98.3 F 06/02/18 07:23 Pulse 97 06/02/18 07:23 Resp 16 06/02/18 11:43 BP 109/60 06/02/18 07:23 Pulse Ox 100 06/02/18 07:23 Intake & Output 06/01/18 06/02/18 06/02/18 18:59 06:59 18:59 Intake Total 500 580 Output Total 150 200 Balance 350 380 Intake: Oral 500 580 Output: Urine 150 Colostomy 200 Other: Estimated Void Large Medium Large # Voids 1 1 General: Well developed and well nourished female is resting on her hospital bed and is in no acute distress. Pt is pleasant and appropriate in conversation. Heart: S1,S2. RRR. No M/R/G Lungs: Slightly diminished breathe sounds noted. No adventitious lung sounds were appreciated with auscultation. Abdomen: Midline incision with wound vac in place. Dressing is clean, dry and intact. No signs of abnormal erythema or discharge. Ileostomy pouch is functioning appropriately. Stool within bag is thick and brown. + gas in bag. No tenderness to palpation of the ileostomy. Mild tenderness to palpation around the midline incision. No other abdominal pain Extremities: Lower extremities reveal pitting edema, bilaterally.] Assessment: [62 y/o Female with a hx of ulcerative colitis POD# 10 s/p subtotal colectomy with ileostomy due to transverse colon perforation.] Plan: [-Discharge this afternoon to [facility] for rehabilitation and wound management.] -PPI -Continue woundvac -Steroid taper per medicine -D/c antibiotics -Tincture of opium to control ileostomy output -Follow up with surgical office
[2018-06-02 12:56] VITALS: BP 111/81
[2018-06-04] MEDS ORDERED: predniSONE TAB* 10 MG PO SCH (12:00)
[2018-06-07] MEDS ORDERED: predniSONE TAB* 5 MG PO SCH (12:00)
== END 2018-06-02 13:20 | DRG 710 ==
LOC: ED 07:46 → ICU 17:30 → SSU 05-25 14:47
PROVIDERS: ADMIT Internal Medicine Critical Care Medicine; ATTEND Surgery
PROC: 0BH17EZ Insertion of Endotracheal Airway into Trachea, Via Natural or Artificial Opening (ICD-10-PCS; 2018-05-20)
PROC: 5A1955Z Respiratory Ventilation, Greater than 96 Consecutive Hours (ICD-10-PCS; 2018-05-20)
PROC: 05H533Z Insertion of Infusion Device into Right Subclavian Vein, Percutaneous Approach (ICD-10-PCS; 2018-05-20)
PROC: 0DBF0ZZ Excision of Right Large Intestine, Open Approach (ICD-10-PCS; 2018-05-20)
PROC: 30233N1 Transfusion of Nonautologous Red Blood Cells into Peripheral Vein, Percutaneous Approach (ICD-10-PCS; 2018-05-23)
PROC: 0DH67UZ Insertion of Feeding Device into Stomach, Via Natural or Artificial Opening (ICD-10-PCS; 2018-05-23)
PROC: 0DBN0ZZ Excision of Sigmoid Colon, Open Approach (ICD-10-PCS; 2018-05-23)
PROC: 0D1B0Z4 Bypass Ileum to Cutaneous, Open Approach (ICD-10-PCS; principal; 2018-05-23 17:30)
DX: A41.59 Other Gram-negative sepsis (principal); K65.0 Generalized (acute) peritonitis; K63.1 Perforation of intestine (nontraumatic); R65.21 Severe sepsis with septic shock; J96.00 Acute respiratory failure, unspecified whether with hypoxia or hypercapnia; K51.90 Ulcerative colitis, unspecified, without complications; D62 Acute posthemorrhagic anemia; E44.0 Moderate protein-calorie malnutrition; I47.2 Ventricular tachycardia; I10 Essential (primary) hypertension; H26.9 Unspecified cataract; E83.51 Hypocalcemia; E87.6 Hypokalemia; E83.39 Other disorders of phosphorus metabolism; G89.18 Other acute postprocedural pain; R54 Age-related physical debility; R73.9 Hyperglycemia, unspecified; Y92.239 Unspecified place in hospital as the place of occurrence of the external cause; T38.0X5A Adverse effect of glucocorticoids and synthetic analogues, initial encounter; E86.0 Dehydration; R60.1 Generalized edema; Z88.2 Allergy status to sulfonamides; Z88.8 Allergy status to other drugs, medicaments and biological substances; Z98.41 Cataract extraction status, right eye; Z83.3 Family history of diabetes mellitus; Z87.891 Personal history of nicotine dependence; Z68.28 Body mass index [BMI] 28.0-28.9, adult
CPT/HCPCS: 36415; 71045; 74177; 76000; 80048; 80053; 81003; 81015; 82465; 82550; 82565; 82803; 83036; 83605; 83735; 83880; 84100; 84134; 84478; 84484; 84520; 85014; 85018; 85025; 85027; 85610; 85652; 85730; 86140; 86850; 86900; 86901; 86922; 87040; 87045; 87046; 87070; 87073; 87076; 87077; 87086; 87186; 87205; 87493; 87640; 87641; 87899; 88307; 93005; 93306; 94002; 94003; 99285; A9270-GY; C1751; C1776; G8987-GO-CN; G8988-GO-CI; J0610; J0696; J1644; J1720; J1940; J2250; J2270; J2405; J2543; J2704; J2765; J2997; J3010; J3380; J3475; J3480; J3490; J7512; P9040; P9045; Q9967

== ENCOUNTER → 2018-09-22 16:56 | Emergency (ER) | payer OTHER ==
[~2018-09-22 16:56] MED LIST: Tamsulosin CAP* 0.4 MG PO ONE; oxyCODONE/Acetamin 5/325 MG* TAB PO ONE
--- OUTSIDE RECORDS SUMMARY | 2018-09-22 17:11 | XMS REPORT | Continuity of Care Document ---
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 PayID: [id number] [place] [address] Effective: 2017 Policy Number: [id number] [facility] Julio C Beltran Expires: 2018 Group Name: [employer] [address] [address] PayID: [id number] [place] [address] Effective: 2018 Policy Number: [facility] Julio C Beltran [id number] Medicaid PayID: [id number] [address] [place] [address] Social History Type Date Description Comments Sex [...] due to finances Allergies, Adverse Reactions, Alerts Active Allergies Reaction Severity Comments Date Sulfa dx as a child, not sure of the reaction 08/18/2010 Lialda 10/24/2017 Azathioprine 10/24/2017 Medications Active Medications SIG Qnty Indications Ordering Provider Date Melatonin take one tablet by 30caps G47.00 Braydon Landeros, 08/31/2018 3mg mouth at bedtime [facility] [employer] [facility] [facility] Capsules Tramadol HCL take one tablet by 30tabs M16.9 Braydon Landeros, 08/31/2018 50mg mouth before bed [employer] Tablets if needed for hip pain Imodium A-D 1 by mouth every 4 30tabs Braydon Landeros, 12/19/2017 2mg hours if needed [employer] Tablets for diarrhea Tizanidine HCL take 1 tablet by 30tabs M54.32 Braydon Landeros, 12/13/2017 2mg mouth three times [employer] [facility] Tablets daily as needed for muscle spasm Diclofenac Sodium apply 4gms of gel 100gm M54.32 Braydon Landeros, 2017 1% to left hip four [employer] [facility] Gel times daily if needed for pain Fluoxetine HCL Take One Capsule 30caps F41.9 Braydon Landeros, 10/31/2017 (PMDD) By Mouth Every [employer] [facility] 10mg Capsules Morning Prednisone Take Three Tablets Unknown 10mg By Mouth Every Day Tablets And Taper as Directed Randy Gibson, 1.2gm Tablets DR De Dios Not Covered, PT Unknown 10mg/ML (1%) [employer] Tincture Contacted 07/12\\Take 0.6ML Twice A Day MDD 2 New Image Drainable [place], Juan Jose Pouch 44mm Pouch Misc History Medications Tramadol HCL Take One Tablet 45tabs M54.32 Braydon Trevino 12/13/2017 - 50mg By Mouth Four [place], [employer] [facility] 08/31/2018 Tablets Times A Day as Needed For Pain; Maximum Daily Dose=4 Fluoxetine HCL 1 by mouth every 90caps F41.9 [place] RArjun 10/24/2017 - 20mg day [place], [employer] [facility] 10/31/2017 Capsules Famciclovir 2 by mouth twice 4tabs Braydon Trevino 04/01/2017 - 500mg daily for 1 day Storm [facility] [employer] [facility] [facility] 10/24/2017 Tablets [facility] one tab by mouth [facility]tabs [facility].512 [facility] - [facility] twice daily with [facility] 10/24/2017 Tablets food for pain/inflammatio n Tizanidine HCL take one tablet 30tabs M25.512 [facility]2016 - 4mg by mouth four [facility] 10/24/2017 Tablets times a day as needed for muscle spasm Bentyl 1 tablet tid prn 15caps R19.7 Swati Mendenhall, 06/16/2016 - 10mg Capsules diarrhea, [facility] 11/08/2016 bloating and cramping Oxybutynin Chloride Take One Tablet 60tabs N31.9 Swati Mendenhall, 2012 - By Mouth Twice A [facility] 10/09/2016 5mg Tablets Day For Bladder Spasms Omeprazole 1 po qd-ac for 30caps 535.00 [facility] 04/[facility]2013 - 20mg stomach acid [facility] 10/29/[address] Hoskins- apply to rectum 30gm Swati Mendenhall, 08/18/2012 - 2.5% Cream bid up to 2 [facility] 10/29/2013 weeks. Lisinopril take one tablet 90tabs I10 [facility] R. 07/24/2012 - 20mg by mouth every [facility] 08/31/2018 Tablets day Lisinopril 1 po qd 30tabs 401.9 Swati Mendenhall, 06/26/2012 - 10mg [facility] 07/24/2012 Tablets Valium 1 po bid prn 10ten 300.00 [facility] R. 04/09/2010 - 2mg Tablets anxiety [facility] 03/26/2013 Bentyl 1 po tid stomach 30caps Shawnti R. 03/05/2010 - 10mg Capsules pain, cramping, [facility] 10/29/2013 bloating Xanax 1/2 to 1 po tid 60sixty 300.00 [place] R. 03/02/2010 - 0.25mg Tablets prn anxiety. SHELLY Landeros 04/09/2010 Sertraline HCL one po daily for 30tabs 300.00 Braydon LoretoArjun 03/11/2009 - 25mg anxiety SHELLY Landeros 03/05/2010 Tablets Azathioprine Randy Bhakta - 50mg MD Freddie 10/24/2017 Tablets Immunizations CPT Code Status Date Vaccine Lot # [id number] Refused 06/09/2015 Influenza Virus Vaccine, Quadrivalent, 3 Yr > Quad , Preserv Free Vital Signs Date Vital Result Comment 08/31/2018 3:30pm Weight 149.00 lb Weight 67.586 kg BP Systolic 110 mmHg BP Diastolic 72 mmHg Heart Rate 84 /min Body Temperature 98.4 F Respiratory Rate 16 /min O2 % BldC Oximetry 97 % 03/14/2018 11:17am Weight 184.00 lb Weight 83.462 [...] Heart Rate 92 /min Last Menstrual Period [id number] Having Pap Elsewhere Results Test Date Facility Test Result H/L Range Note Laboratory test 05/20/2018 [facility] Packed Cells SEE RESULTS 1, 2 finding [phone] BELO <SEE NOTE> Type & Screen 05/20/2018 [facility] Patient Blood A Positive [phone] Type Antibody Screen NEGATIVE Laboratory test 05/20/2018 [facility] Partial 24.4 seconds Low 26.0-36.3 3 finding [phone] Thrombo Time PTT Erythrocyte Sed Rate 99 mm/Hr High 0-30 4 C Difficile PCR SEE RESULT BELOW 5 Inr/Protime 05/20/2018 [facility] Inr 1.22 High 0.77-1.02 [phone] Laboratory test 05/20/2018 [facility] Creatine 18 U/ L N 10-223 6 finding [phone] Kinase(CK) C Reactive Protein 80.04 mg/L High <8.01 7 Lactic Acid 1.5 mmol/L N 0.5-2.0 8 Troponin-I (TnI) 0.03 ng/mL <0.04 9 B-Type Natriuretic Peptide BNP 107 pg/mL High <=100 10 Comp Metabolic 05/20/2018 [facility] Sodium 128 mmol/ L Low 135-145 Panel [phone] Potassium 3.4 mmol/L Low 3.5-5.0 Chloride 98 mmol/L Low 101-111 Co2 Carbon Dioxide 23 mmol/L N 22-32 Anion Gap 7 mmol/L N 2-11 Glucose 78 mg/dL N 70-100 Blood Urea Nitrogen 22 mg/dL N 6-24 Creatinine 0.68 mg/dL N 0.51-0.95 BUN/Creatinine Ratio 32.4 High 8-20 Calcium 7.6 mg/dL Low 8.6-10.3 Total Protein 5.5 g/dL Low 6.4-8.9 Albumin 2.0 g/dL Low 3.2-5.2 Globulin 3.5 g/dL N 2-4 Albumin/Globulin Ratio 0.6 Low 1-3 Total Bilirubin 0.80 mg/dL N 0.2-1.0 Alkaline Phosphatase 101 U/L N 34-104 Alt 9 U/L N 7-52 Ast 10 U/L Low 13-39 Egfr Non- 88.3 >60 Egfr 106.8 >60 11 Laboratory test 05/20/2018 [facility] Rapid Influenza SEE RESULT 12 finding [phone] A B Antigen BELOW Stool Culture SEE RESULT BELOW 13 CBC Auto 05/20/2018 [facility] White Blood 13.6 10^3/ uL High 3.5-10.8 Diff [phone] Count Red Blood Count 2.78 10^6/uL Low 4.00-5.40 Hemoglobin 7.6 g/dL Low 12.0-16.0 Hematocrit 24 % Low 35-47 Mean Corpuscular Volume 85 fL N 80-97 Mean Corpuscular Hemoglobin 27 pg N 27-31 Mean Corpuscular HGB Conc 32 g/dL N 31-36 Red Cell Distribution Width 16 % High 10.5-15 Platelet Count 412 10^3/uL N 150-450 Mean Platelet Volume 5.8 fL Low 7.4-10.4 Abs Neutrophils 11.2 10^3/uL High 1.5-7.7 Abs Lymphocytes 1.9 10^3/uL N 1.0-4.8 Abs Monocytes 0.5 10^3/uL N 0-0.8 Abs Eosinophils 0 10^3/uL N 0-0.6 Abs Basophils 0 10^3/uL N 0-0.2 Abs Nucleated RBC 0 10^3/uL Granulocyte % 82.3 % Lymphocyte % 13.7 % Monocyte % 3.9 % Eosinophil % 0.1 % Basophil % 0 % Nucleated Red Blood Cells % 0 Laboratory test 05/20/2018 [facility] Lactic Acid 1.0 mmol/L N 0.5-2.0 14 finding [phone] Rapid Influenza 05/20/2018 [facility] Influenza A NEGATIVE Negative 15 A & B Molecular [phone] Molecular Influenza B Molecular NEGATIVE Negative Laboratory test 05/20/2018 [facility] Stool Culture SEE RESULT 16 finding [phone] BELOW Influenza A & B Request SEE RESULT BELOW 17 Inr/Protime 05/20/2018 [facility] Inr 1.22 High 0.77-1.02 [phone] Laboratory test 05/20/2018 [facility] Partial 24.4 Low 26.0-36.3 18 finding [phone] Thrombo seconds Time PTT Lactic Acid 1.5 mmol/L N 0.5-2.0 19 Comp Metabolic 05/20/2018 [facility] Sodium 128 mmol/ L Low 135-145 Panel [phone] Potassium 3.4 mmol/L Low 3.5-5.0 Chloride 98 mmol/L Low 101-111 Co2 Carbon Dioxide 23 mmol/L N 22-32 Anion Gap 7 mmol/L N 2-11 Glucose 78 mg/dL N 70-100 Blood Urea Nitrogen 22 mg/dL N 6-24 Creatinine 0.68 mg/dL N 0.51-0.95 BUN/Creatinine Ratio 32.4 High 8-20 Calcium 7.6 mg/dL Low 8.6-10.3 Total Protein 5.5 g/dL Low 6.4-8.9 Albumin 2.0 g/dL Low 3.2-5.2 Globulin 3.5 g/dL N 2-4 Albumin/Globulin Ratio 0.6 Low 1-3 Total Bilirubin 0.80 mg/dL N 0.2-1.0 Alkaline Phosphatase 101 U/L N 34-104 Alt 9 U/L N 7-52 Ast 10 U/L Low 13-39 Egfr Non- 88.3 >60 Egfr 106.8 >60 20 Urine Culture And 05/20/2018 [facility] Urine Culture SEE RESULT 21 Sensitivities [phone] BELOW Urinalysis Profile 05/20/2018 [facility] Urine Color Yellow [phone] Urine Appearance Cloudy Urine Specific [place] 1.026 N 1.010-1.030 Urine pH 5.0 N 5-9 Urine Urobilinogen Negative Negative Urine Ketones Trace Abnormal Negative Urine Protein 1+(30 mg/dL) Abnormal Negative Urine Leukocytes Negative Negative Urine Blood Negative Negative Urine Nitrite Negative Negative Urine Bilirubin Negative Negative Urine Glucose Negative Negative Urine White Blood Cell Trace(0-5/hpf) Absent Urine Red Blood Cell Trace(0-2/hpf) Absent Urine Bacteria Absent Absent Urine Squamous Epithelial Cell Present Abnormal Absent Laboratory test 05/20/2018 [facility] C Difficile PCR SEE RESULT 22 finding [phone] BELOW Blood Culture SEE RESULT BELOW 23 Type & Screen 05/20/2018 [facility] Patient Blood A Positive [phone] Type Antibody Screen NEGATIVE Laboratory test 05/20/2018 [facility] Creatine Kinase 18 U/L N 10-223 24 finding [phone] C Reactive Protein 80.04 mg/L High <8.01 25 Troponin-I (TnI) 0.03 ng/mL <0.04 26 B-Type Natriuretic Peptide BNP 107 pg/mL High <=100 27 CBC Auto 05/20/2018 [facility] White Blood 13.6 10^3/ uL High 3.5-10.8 Diff [phone] Count Red Blood Count 2.78 10^6/uL Low 4.00-5.40 Hemoglobin 7.6 g/dL Low 12.0-16.0 Hematocrit 24 % Low 35-47 Mean Corpuscular Volume 85 fL N 80-97 Mean Corpuscular Hemoglobin 27 pg N 27-31 Mean Corpuscular HGB Conc 32 g/dL N 31-36 Red Cell Distribution Width 16 % High 10.5-15 Platelet Count 412 10^3/uL N 150-450 Mean Platelet Volume 5.8 fL Low 7.4-10.4 Abs Neutrophils 11.2 10^3/uL High 1.5-7.7 Abs Lymphocytes 1.9 10^3/uL N 1.0-4.8 Abs Monocytes 0.5 10^3/uL N 0-0.8 Abs Eosinophils 0 10^3/uL N 0-0.6 Abs Basophils 0 10^3/uL N 0-0.2 Abs Nucleated RBC 0 10^3/uL Granulocyte % 82.3 % Lymphocyte % 13.7 % Monocyte % 3.9 % Eosinophil % 0.1 % Basophil % 0 % Nucleated Red Blood Cells % 0 Laboratory test 05/20/2018 [facility] Erythrocyte Sed 99 mm/Hr High 0-30 28 finding [phone] Rate Laboratory test 04/13/2018 [facility] Lactic Acid 0.6 N 0.5-2.0 29 finding [phone] mmol/L Urine Culture And 04/13/2018 [facility] Urine Culture SEE 30 Sensitivities [phone] RESULT BELOW Comp Metabolic 04/13/2018 [facility] Sodium 131 Low 135-145 Panel [phone] mmol/L Potassium 3.4 mmol/L Low 3.5-5.0 Chloride 99 mmol/L Low 101-111 Co2 Carbon Dioxide 25 mmol/L N 22-32 Anion Gap 7 mmol/L N 2-11 Glucose 113 mg/dL High 70-100 Blood Urea Nitrogen 8 mg/dL N 6-24 Creatinine 0.56 mg/dL N 0.51-0.95 BUN/Creatinine Ratio 14.3 N 8-20 Calcium 8.2 mg/dL Low 8.6-10.3 Total Protein 6.4 g/dL N 6.4-8.9 Albumin 2.6 g/dL Low 3.2-5.2 Globulin 3.8 g/dL N 2-4 Albumin/Globulin Ratio 0.7 Low 1-3 Total Bilirubin 1.20 mg/dL High 0.2-1.0 Alkaline Phosphatase 163 U/L High 34-104 Alt 21 U/L N 7-52 Ast 20 U/L N 13-39 Egfr Non- 110.4 >60 Egfr 133.6 >60 31 Laboratory test 04/13/2018 [facility] Lipase 34 U/L N 11.0-82.0 finding [phone] C Reactive Protein 248.81 mg/L High <8.01 CBC Auto Diff 04/13/2018 [facility] White Blood 10.7 10^3/uL N 3.5-10.8 [phone] Count Red Blood Count 3.58 10^6/uL Low 4.00-5.40 Hemoglobin 10.5 g/dL Low 12.0-16.0 Hematocrit 31 % Low 35-47 Mean Corpuscular Volume 86 fL N 80-97 Mean Corpuscular Hemoglobin 29 pg N 27-31 Mean Corpuscular HGB Conc 34 g/dL N 31-36 Red Cell Distribution Width 14 % N 10.5-15 Platelet Count 587 10^3/uL High 150-450 Mean Platelet Volume 6.2 fL Low 7.4-10.4 Abs Neutrophils 8.5 10^3/uL High 1.5-7.7 Abs Lymphocytes 1.4 10^3/uL N 1.0-4.8 Abs Monocytes 0.7 10^3/uL N 0-0.8 Abs Eosinophils 0.1 10^3/uL N 0-0.6 Abs Basophils 0 10^3/uL N 0-0.2 Abs Nucleated RBC 0 10^3/uL Nucleated Red Blood Cells % 0 Manual Differential 04/13/2018 [facility] Immature 14 % High 0-9 [phone] Granulocytes Neutrophil % 76 % Band % 14 % High 0-8 Lymphocytes % 5 % Monocytes % 5 % Macrocytosis 1+ Microcytosis 1+ Hypochromasia 1+ Urinalysis Profile 04/13/2018 [facility] Urine Color Sveta [phone] Urine Appearance Cloudy Urine Specific [place] 1.023 N 1.010-1.030 Urine pH 5.0 N 5-9 Urine Urobilinogen Negative Negative Urine Ketones Negative Negative Urine Protein Negative Negative Urine Leukocytes Negative Negative Urine Blood 2+ Abnormal Negative Urine Nitrite Negative Negative Urine Bilirubin Negative Negative Urine Glucose Negative Negative Urine White Blood Cell 1+(6-10/hpf) Abnormal Absent Urine Red Blood Cell 2+(6-10/hpf) Abnormal Absent Urine Bacteria 1+ Abnormal Absent Urine Squamous Epithelial Cell Present Abnormal Absent Laboratory test 04/05/2018 [facility] Lactic Acid 2.4 mmol/L High 0.5-2.0 32 finding [phone] Rapid Influenza 04/05/2018 [facility] Influenza A NEGATIVE Negative 33 A & B Molecular [phone] Molecular Influenza B Molecular NEGATIVE Negative Laboratory test 04/05/2018 [facility] Partial 26.6 seconds N 26.0-36.3 finding [phone] Thrombo Time PTT Fibrinogen 699.1 mg/dL High 110.8-404.3 Troponin-I (TnI) 0.00 ng/mL <0.04 34 Laboratory test 04/05/2018 [facility] Influenza A & B SEE RESULT 35 finding [phone] Request BELOW Comp Metabolic 04/05/2018 [facility] Sodium 128 mmol/ L Low 135-1 Panel [phone] 45 Potassium 3.0 mmol/L Low 3.5-5.0 Chloride 94 mmol/L Low 101-111 Co2 Carbon Dioxide 22 mmol/L N 22-32 Anion Gap 12 mmol/L High 2-11 Glucose 114 mg/dL High 70-100 Blood Urea Nitrogen 16 mg/dL N 6-24 Creatinine 1.31 mg/dL High 0.51-0.95 BUN/Creatinine Ratio 12.2 N 8-20 Calcium 8.5 mg/dL Low 8.6-10.3 Total Protein 7.1 g/dL N 6.4-8.9 Albumin 3.3 g/dL N 3.2-5.2 Globulin 3.8 g/dL N 2-4 Albumin/Globulin Ratio 0.9 Low 1-3 Total Bilirubin 1.00 mg/dL N 0.2-1.0 Alkaline Phosphatase 95 U/L N 34-104 Alt 12 U/L N 7-52 Ast 16 U/L N 13-39 Egfr Non- 41.4 >60 Egfr 50.1 >60 36 Laboratory test 04/05/2018 [facility] Magnesium 1.8 mg/dL Low 1.9-2.7 finding [phone] Amylase 55 U/L N 29-103 Lipase 20 U/L N 11.0-82.0 Creatine Kinase 124 U/L N 10-223 C Reactive Protein 312.46 mg/L High <8.01 Lactic Acid 2.2 mmol/L High 0.5-2.0 37 Ammonia 41 mcmol/L N 16-53 B-Type Natriuretic Peptide BNP 33 pg/mL <=100 Procalcitonin 2.5 ng/mL High <0.6 38 CBC Auto 04/05/2018 [facility] White Blood 12.3 10^3/ uL High 3.5-10.8 Diff [phone] Count Red Blood Count 4.13 10^6/uL N 4.00-5.40 Hemoglobin 12.3 g/dL N 12.0-16.0 Hematocrit 36 % N 35-47 Mean Corpuscular Volume 88 fL N 80-97 Mean Corpuscular Hemoglobin 30 pg N 27-31 Mean Corpuscular HGB Conc 34 g/dL N 31-36 Red Cell Distribution Width 14 % N 10.5-15 Platelet Count 360 10^3/uL N 150-450 Mean Platelet Volume 7.2 fL Low 7.4-10.4 Manual Differential 04/05/2018 [facility] Immature 8 % N 0-9 [phone] Granulocytes Neutrophil % 68 % Band % 6 % N 0-8 Lymphocytes % 10 % Monocytes % 13 % Basophil % 1 % Metamyelocytes % 1 % N 0-2 Myelocytes % 1 % N 0-1 Abs Neutrophils 9.3 10^3/uL High 1.5-7.7 Abs Lymphocytes 1.2 10^3/uL N 1.0-4.8 Abs Monocytes 1.6 10^3/uL High 0-0.8 Abs Basophils 0.1 10^3/uL N 0-0.2 Toxic Granulation 2+ Comments (SEE NOTE) 39 Laboratory test 04/05/2018 [facility] Erythrocyte Sed 95 mm/Hr High 0-30 finding [phone] Rate C Difficile PCR SEE RESULT BELOW 40 Urinalysis Profile 04/05/2018 [facility] Urine Color Sveta [phone] Urine Appearance Turbid Urine Specific [place] 1.028 N 1.010-1.030 Urine pH 5.0 N 5-9 Urine Urobilinogen Negative Negative Urine Ketones Negative Negative Urine Protein 1+(30 mg/dL) Abnormal Negative Urine Leukocytes Trace Abnormal Negative Urine Blood 1+ Abnormal Negative Urine Nitrite Negative Negative Urine Bilirubin Negative Negative Urine Glucose Negative Negative Urine White Blood Cell 3+(>20/hpf) Abnormal Absent Urine Red Blood Cell 2+(6-10/hpf) Abnormal Absent Urine Bacteria 1+ Abnormal Absent Urine Squamous Epithelial Cell Present Abnormal Absent Urine Calcium Oxalate Cryst Present Abnormal Absent Urine Culture And 04/05/2018 [facility] Urine Culture SEE 41 Sensitivities [phone] RESULT BELOW Laboratory test 04/05/2018 [facility] Blood Culture SEE 42 finding [phone] RESULT BELOW Laboratory test 03/14/2018 In House Lab Strep Screen neg Neg finding [phone] Laboratory test 10/24/2017 [facility] Hemoglobin A1c 6.4 % High 4.0-5. 43 finding [phone] (Glyco HGB) 6 Manual 10/24/2017 [facility] Immature 18 % High 0- 9 Differential [phone] Granulocytes Neutrophil % 71 % N 38-83 Band % 11 % High 0-8 Lymphocytes % 8 % Low 25-47 Monocytes % 3 % N 0-7 Eosinophils % 0 % N 0-6 Basophil % 0 % N 0-2 Metamyelocytes % 2 % N 0-2 Myelocytes % 5 % High 0-1 Abs Neutrophils 12.2 10^3/uL High 1.5-7.7 Abs Lymphocytes 1.4 10^3/uL N 1.0-4.8 Abs Monocytes 0.5 10^3/uL N 0-0.8 Abs Eosinophils 0 10^3/uL N 0-0.6 Abs Basophils 0 10^3/uL N 0-0.2 RBC Morphology Normal Normal Comp Metabolic Panel 10/24/2017 [facility] Sodium 139 mmol/L N 135-145 [phone] Potassium 4.5 mmol/L N 3.5-5.0 Chloride 102 mmol/L N 101-111 Co2 Carbon Dioxide 25 mmol/L N 22-32 Anion Gap 12 mmol/L High 2-11 Glucose 113 mg/dL High 70-100 Blood Urea Nitrogen 21 mg/dL N 6-24 Creatinine 1.08 mg/dL High 0.51-0.95 BUN/Creatinine Ratio 19.4 N 8-20 Calcium 9.2 mg/dL N 8.6-10.3 Total Protein 6.9 g/dL N 6.4-8.9 Albumin 4.0 g/dL N 3.2-5.2 Globulin 2.9 g/dL N 2-4 Albumin/Globulin Ratio 1.4 N 1-3 Total Bilirubin 0.40 mg/dL N 0.2-1.0 Alkaline Phosphatase 58 U/L N 34-104 Alt 11 U/L N 7-52 Ast 12 U/L Low 13-39 Egfr Non- 51.8 >60 Egfr 62.6 >60 44 CBC Auto 10/24/2017 [facility] White Blood 17.2 10^3/ uL High 3.5-10.8 Diff [phone] Count Red Blood Count 4.27 10^6/uL N 4.00-5.40 Hemoglobin 13.4 g/dL N 12.0-16.0 Hematocrit 40 % N 35-47 Mean Corpuscular Volume 94 fL N 80-97 Mean Corpuscular Hemoglobin 31 pg N 27-31 Mean Corpuscular HGB Conc 34 g/dL N 31-36 Red Cell Distribution Width 14 % N 10.5-15 Platelet Count 436 10^3/uL N 150-450 Mean Platelet Volume 7.6 um3 N 7.4-10.4 Abs Neutrophils 15.2 10^3/uL High 1.5-7.7 Abs Lymphocytes 1.3 10^3/uL N 1.0-4.8 Abs Monocytes 0.5 10^3/uL N 0-0.8 Abs Eosinophils 0.1 10^3/uL N 0-0.6 Abs Basophils 0 10^3/uL N 0-0.2 Laboratory test 10/24/2017 [facility] TSH (Thyroid 0.67 mcIU/mL N 0.34-5.60 45 finding [phone] Stim Horm) Rast Gluten Ige <0.35 kU/L 46 Laboratory test 06/22/2016 [facility] Surgical SEE RESULT 47 finding [phone] Interface BELOW Order CBC Auto Diff 06/21/2016 [facility] White Blood 13.4 High 3.5-3 [phone] Count 10^3/uL 0.8 Red Blood Count 4.24 10^6/uL N 4.0-5.4 Hemoglobin 12.7 g/dL N 12.0-16.0 Hematocrit 37 % N 35-47 Mean Corpuscular Volume 88 fL N 80-97 Mean Corpuscular Hemoglobin 30 pg N 27-31 Mean Corpuscular HGB Conc 34 g/dL N 31-36 Red Cell Distribution Width 13 % N 10.5-15 Platelet Count 324 10^3/uL N 150-450 Mean Platelet Volume 7 um3 Low 7.4-10.4 Abs Neutrophils 10.4 10^3/uL High 1.5-7.7 Abs Lymphocytes 1.6 10^3/uL N 1.0-4.8 Abs Monocytes 1.0 10^3/uL High 0-0.8 Abs Eosinophils 0.3 10^3/uL N 0-0.6 Abs Basophils 0.1 10^3/uL N 0-0.2 Abs Nucleated RBC 0 10^3/uL N Granulocyte % 77.7 % N 38-83 Lymphocyte % 11.9 % Low 25-47 Monocyte % 7.7 % N 1-9 Eosinophil % 2.2 % N 0-6 Basophil % 0.5 % N 0-2 Nucleated Red Blood Cells % 0 N Comp Metabolic 06/21/2016 [facility] Sodium 131 mmol/ L Low 133-145 Panel [phone] Potassium 3.1 mmol/L Low 3.5-5.0 Chloride 99 mmol/L Low 101-111 Co2 Carbon Dioxide 24 mmol/L N 22-32 Anion Gap 8 mmol/L N 2-11 Glucose 105 mg/dL High 70-100 Blood Urea Nitrogen 10 mg/dL N 6-24 Creatinine 1.07 mg/dL High 0.51-0.95 BUN/Creatinine Ratio 9.3 N 8-20 Calcium 8.9 mg/dL N 8.6-10.3 Total Protein 7.5 g/dL N 6.4-8.9 Albumin 3.7 g/dL N 3.2-5.2 Globulin 3.8 g/dL N 2-4 Albumin/Globulin Ratio 1.0 N 1-3 Total Bilirubin 0.60 mg/dL N 0.2-1.0 Alkaline Phosphatase 82 U/L N 34-104 Alt 19 U/L N 7-52 Ast 15 U/L N 13-39 Egfr Non- 52.7 N >60 Egfr 67.7 N >60 48 Laboratory test 06/21/2016 [facility] Stool For SEE RESULT 49 finding [phone] Blood BELOW Inr/Protime 06/21/2016 [facility] Inr 1.16 High 0.89- [phone] 1.11 Laboratory test 06/21/2016 [facility] Partial 24.3 seconds Low 26.0- finding [phone] Thrombo Time 36.3 PTT Type & Screen 06/21/2016 [facility] Patient A Positive N [phone] Blood Type Antibody Screen NEGATIVE N Laboratory test 06/21/2016 [facility] Lipase 39 U/L N 11.0-82.0 finding [phone] Laboratory test 06/19/2016 [facility] C Difficile SEE RESULT 50 finding [phone] PCR BELOW Stool Panel 06/17/2016 [facility] Stool Culture SEE RESULT 51, 52 (CMC) [phone] BELOW O&P Ova & Parasites Screen SEE RESULT BELOW 53 Laboratory test 06/16/2016 [facility] Amylase 108 U/ L High 29-103 54 finding [phone] Lipase 86 U/L High 11.0-82.0 55 Comp Metabolic Panel 06/16/2016 [facility] Sodium 136 mmol/L N 133-145 [phone] Potassium 4.6 mmol/L N 3.5-5.0 Chloride 103 mmol/L N 101-111 Co2 Carbon Dioxide 26 mmol/L N 22-32 Anion Gap 7 mmol/L N 2-11 Glucose 97 mg/dL N 70-100 Blood Urea Nitrogen 11 mg/dL N 6-24 Creatinine 0.94 mg/dL N 0.51-0.95 BUN/Creatinine Ratio 11.7 N 8-20 Calcium 9.6 mg/dL N 8.6-10.3 Total Protein 7.5 g/dL N 6.4-8.9 Albumin 4.2 g/dL N 3.2-5.2 Globulin 3.3 g/dL N 2-4 Albumin/Globulin Ratio 1.3 N 1-3 Total Bilirubin 0.50 mg/dL N 0.2-1.0 Alkaline Phosphatase 93 U/L N 34-104 Alt 21 U/L N 7-52 Ast 21 U/L N 13-39 Egfr Non- 61.2 N >60 Egfr 78.7 N >60 56 CBC Auto Diff 06/16/2016 [facility] White Blood 10.8 10^3/uL N 3.5-10.8 [phone] Count Red Blood Count 4.52 10^6/uL N 4.0-5.4 Hemoglobin 13.6 g/dL N 12.0-16.0 Hematocrit 41 % N 35-47 Mean Corpuscular Volume 91 fL N 80-97 Mean Corpuscular Hemoglobin 30 pg N 27-31 Mean Corpuscular HGB Conc 33 g/dL N 31-36 Red Cell Distribution Width 13 % N 10.5-15 Platelet Count 318 10^3/uL N 150-450 Mean Platelet Volume 8 um3 N 7.4-10.4 Abs Neutrophils 7.6 10^3/uL N 1.5-7.7 Abs Lymphocytes 1.9 10^3/uL N 1.0-4.8 Abs Monocytes 1.0 10^3/uL High 0-0.8 Abs Eosinophils 0.3 10^3/uL N 0-0.6 Abs Basophils 0.1 10^3/uL N 0-0.2 Abs Nucleated RBC 0 10^3/uL N Granulocyte % 70.2 % N 38-83 Lymphocyte % 17.4 % Low 25-47 Monocyte % 9.4 % High 1-9 Eosinophil % 2.4 % N 0-6 Basophil % 0.6 % N 0-2 Nucleated Red Blood Cells % 0 N CBC Auto Diff 06/09/2015 [facility] White Blood 5.7 10^3/uL N 3.5-10.8 [phone] Count Red Blood Count 4.43 10^6/uL N 4.0-5.4 Hemoglobin 13.6 g/dL N 12.0-16.0 Hematocrit 41 % N 35-47 Mean Corpuscular Volume 93 fL N 80-97 Mean Corpuscular Hemoglobin 31 pg N 27-31 Mean Corpuscular HGB Conc 33 g/dL N 31-36 Red Cell Distribution Width 13 % N 10.5-15 Platelet Count 296 10^3/uL N 150-450 Mean Platelet Volume 8 um3 N 7.4-10.4 Abs Neutrophils 2.8 10^3/uL N 1.5-7.7 Abs Lymphocytes 2.4 10^3/uL N 1.0-4.8 Abs Monocytes 0.4 10^3/uL N 0-0.8 Abs Eosinophils 0.1 10^3/uL N 0-0.6 Abs Basophils 0 10^3/uL N 0-0.2 Abs Nucleated RBC 0 10^3/uL N Granulocyte % 49.1 % N 38-83 Lymphocyte % 42.1 % N 25-47 Monocyte % 6.2 % N 1-9 Eosinophil % 1.9 % N 0-6 Basophil % 0.7 % N 0-2 Nucleated Red Blood Cells % 0 N Comp Metabolic Panel 06/09/2015 [facility] Sodium 135 mmol/L N 133-145 [phone] Potassium 4.8 mmol/L N 3.5-5.0 Chloride 102 mmol/L N 101-111 Co2 Carbon Dioxide 29 mmol/L N 22-32 Anion Gap 4 mmol/L N 2-11 Glucose 95 mg/dL N 70-100 Blood Urea Nitrogen 13 mg/dL N 6-24 Creatinine 0.94 mg/dL N 0.51-0.95 BUN/Creatinine Ratio 13.8 N 8-20 Calcium 9.4 mg/dL N 8.6-10.3 Total Protein 7.6 g/dL N 6.4-8.9 Albumin 4.5 g/dL N 3.2-5.2 Globulin 3.1 g/dL N 2-4 Albumin/Globulin Ratio 1.5 N 1-3 Total Bilirubin 0.50 mg/dL N 0.2-1.0 Alkaline Phosphatase 74 U/L N 34-104 Alt 40 U/L N 7-52 Ast 33 U/L N 13-39 Egfr Non- 61.4 N >60 Egfr 78.9 N >60 57 Laboratory 06/09/2015 [facility] TSH (Thyroid Stim 1.55 N 0.34-5.60 test finding [phone] Horm) ?IU/mL Lipid Profile 06/09/2015 [facility] Triglycerides 148 mg/dL N 58 (Trig/Chol/HDL [phone] ) Cholesterol 185 mg/dL N 59 HDL Cholesterol 50.8 mg/dL N 60 LDL Cholesterol 105 mg/dL N 61 CBC Auto Diff 10/29/2013 [facility] White Blood 5.4 10^3/uL N 4.8-10.8 62 [phone] Count Red Blood Count 4.27 10^6/uL N 4.0-5.4 Hemoglobin 13.5 g/dL N 12.0-16.0 Hematocrit 40 % N 35-47 Mean Corpuscular Volume 93 fL N 80-97 Mean Corpuscular Hemoglobin 32 pg High 27-31 Mean Corpuscular HGB Conc 34 g/dL N 31-36 Red Cell Distribution Width 13 % N 10.5-15 Platelet Count 289 10^3/uL N 150-450 Mean Platelet Volume 8 um3 N 7.4-10.4 Abs Neutrophils 2.4 10^3/uL N 1.5-7.7 Abs Lymphocytes 2.5 10^3/uL N 1.0-4.8 Abs Monocytes 0.4 10^3/uL N 0-0.8 Abs Eosinophils 0.1 10^3/uL N 0-0.6 Abs Basophils 0.1 10^3/uL N 0-0.2 Abs Nucleated RBC 0 10^3/uL N Granulocyte % 43.8 % N 38-83 Lymphocyte % 46.2 % N 25-47 Monocyte % 7.6 % N 1-9 Eosinophil % 1.4 % N 0-6 Basophil % 1.0 % N 0-2 Nucleated Red Blood Cells % 0.1 N Comp Metabolic Panel 10/29/2013 [facility] Sodium 136 mmol/L N 133-145 [phone] Potassium 4.4 mmol/L N 3.7-5.6 Chloride 102 mmol/L N 101-111 Co2 Carbon Dioxide 28 mmol/L N 22-32 Anion Gap 6 mmol/L N 2-11 Glucose 96 mg/dL N 70-100 Blood Urea Nitrogen 13 mg/dL N 6-24 Creatinine 0.91 mg/dL N 0.51-0.95 BUN/Creatinine Ratio 14.3 N 8-20 Calcium 9.3 mg/dL N 8.6-10.3 Total Protein 7.4 g/dL N 6.4-8.9 Albumin 4.5 g/dL N 3.2-5.2 Globulin 2.9 g/dL N 2-4 Albumin/Globulin Ratio 1.6 N 1-3 Total Bilirubin 0.40 mg/dL N 0.2-1.0 Alkaline Phosphatase 89 U/L N 34-104 Alt 44 U/L N 7-52 Ast 40 U/L High 13-39 Egfr Non- 63.9 N >60 Egfr 82.2 N >60 63 Laboratory test 10/29/2013 [facility] TSH (Thyroid 1.50 N 0.34-5.60 64 finding [phone] Stimulating Horm) IU/mL Lipid Profile 10/29/2013 [facility] Triglycerides 107 mg/dL N 65 (Trig/Chol/HDL) [phone] Cholesterol 182 mg/dL N 66 HDL Cholesterol 48.4 mg/dL N 67 LDL Cholesterol 112 mg/dL N 68 Urine DIP 04/19/2013 In House Lab Leukocytes neg Neg (607)- - Urine Nitrites neg Neg Urine pH 5 5-6 Total Protein, Urine neg Neg Urine Glucose norm Norm Urine Ketones neg Neg Urobilinogen norm Norm Urine Bilirubin neg Neg Urine Blood trace Neg Specific Cl[place] 1.015 1.01-1.02 CBC No Diff 04/02/2013 [facility] White Blood 6.8 10^ 3/uL 4.8-10.8 [phone] Count Red Blood Count 4.28 10^6/uL 4.0-5.4 Hemoglobin 13.3 g/dL 12.0-16.0 Hematocrit 40 % 35-47 Mean Corpuscular Volume 93 fL 80-97 Mean Corpuscular Hemoglobin 31 pg 27-31 Mean Corpuscular HGB Conc 34 g/dL 31-36 Red Cell Distribution Width 13 % 10.5-15 Platelet Count 308 10^3/uL 150-450 Mean Platelet Volume 9 um3 7.4-10.4 Laboratory test 04/02/2013 [facility] Amylase 103 U/ L 20-120 finding [phone] Lipase 33 U/L 22-51 H Pylori Iga 04/02/2013 [facility] Helicobacter Negative Negative [phone] pylori IgA Ab H pylori IgA Ab Index 13.40 69 H.Pylori Igg 04/02/2013 [facility] Helicobacter Negative Negative AB [phone] pylori IgG Ab H pylori IgG AB Index 3.31 70 H.Pylori Igm 04/02/2013 [facility] Helicobacter Negative Negative AB [phone] pylori IgM Ab H pylori IgM AB Index 14.60 71 Urine DIP 08/18/2010 In House Lab Leukocytes neg Neg (607)- - Urine Nitrites neg Neg Urine pH 5 5-6 Total Protein, Urine neg Neg Urine Glucose norm Norm Urine Ketones neg Neg Urobilinogen norm Norm Urine Bilirubin neg Neg Urine Blood trace Neg Specific [place] n/a Low 1.01-1.02 Urine DIP 03/24/2010 In House Lab Leukocytes NEG Neg (607)- - Urine Nitrites NEG Neg Urine pH 5 5-6 Total Protein, Urine NEG Neg Urine Glucose NORM Norm Urine Ketones NEG Neg Urobilinogen NORM Norm Urine Bilirubin NEG Neg Urine Blood NEG Neg Specific [place] N/A Low 1.01-1.02 Urine Culture & 03/24/2010 [facility] Urine Culture NG 72 Sensitivi [phone] Sensitivi Laboratory test 06/05/2009 In House Lab Strep Screen NEG Neg finding (607)- - Laboratory test 03/11/2009 [facility] TSH 2.29 0.34-5.60 finding [phone] MIU/ML Comp Metabolic 03/11/2009 [facility] Sodium 139 135-145 Panel [phone] mmol/L Potassium 4.9 mmol/L 3.5-5.0 Chloride 103 mmol/L 101-111 Co2 (Carbon Dioxide) 28.0 mmol/L 22-32 Anion Gap 8.0 mmol/L 2-11 73 Glucose 88 mg/dL 70-100 74 BUN 12 mg/dL 6-24 Creatinine 0.80 mg/dL 0.50-1.40 One Over Creatinine 1.20 BUN/Creatinine Ratio 15.0 8-20 Calcium 9.7 mg/dL 8.1-9.9 75 Total Protein 7.4 GM/DL 6.2-8.1 Albumin 4.1 GM/DL 3.6-5.4 Globulin 3.3 GM/DL 2-4 Albumin/Globulin Ratio 1.2 1-3 Bilirubin Total 0.8 mg/dL 0.4-1.5 76 Alkaline Phosphatase 83 U/L 30-110 Alt (SGPT) 41 U/L 14-54 Ast (Sgot) 34 U/L 12-42 eGFR Non- 80.4 > 60 eGFR 97.3 > 60 77 CBC With 03/11/2009 [facility] White Blood 8.9 CUMM 4.8-10.8 Electronic Diff [phone] Count Red Cell Count 4.44 CUMM 4.2-5.4 [...] Eosinophils 0.1 0-0.6 Abs Basophils 0.1 0-0.2 Lipid Profile 03/11/2009 [facility] Triglyceride 180 mg/dL 40-200 (Trig/Chol/HDL) [phone] Cholesterol 226 mg/dL High Less Than 200 78 High Density Lipoprotein 42 mg/dL 40-60 79 Cholesterol/HDL Ratio 5.38 AVERAGE High 1-4.44 Low Density Lipoprotein 148 mg/dL High Less Than 100 80 1 Unable to obtain, RN notified 2 SEE RESULTS BELOW [id number] AP PC TRANSFUSED 05/20/18 1619 [id number] AP PC TRANSFUSED 05/20/18 1452 [id number] AP PC TRANSFUSED 05/22/18 1435 3 Unable to obtain, RN notified 4 Unable to obtain, RN notified 5 SEE RESULT BELOW Name: JULIO C BELTRAN : [address]: Bessy Avila MD Acct: [id number] Unit: [id number] AGE: 62 Location: ED Re05/20/18 SEX: F Status: REG ER SPEC: [id number] EFREN: 05/20/18 [facility] DR: Bessy Avila MD REQ: [id number] RECD: 05/20/18 STATUS: RES [facility] DR: Braydon Landeros WASTEWATER OPERATOR _ SOURCE: STOOL SPDESC: ORDERED: C. diff PCR, Stool Culture Procedure Result Reported Site Stool Culture PENDING Stool Specimen Description Final 05/20/18- 0943 ML Stool Color Gillespie Stool Form Nonformed Stool Consistency Liquid Shiga Toxin 1 2 PENDING C. difficile PCR Final 05/20/18- 1406 ML Organism 1 027 Presumptive NEGATIVE Organism 2 Toxigenic C.diff NEGATIVE * ML - Main Lab . END OF REPORT DEPARTMENT OF PATHOLOGY, [address] [place] [address] Yinka Hobbs M.D. Director [facility] # [id number] 6 Unable to obtain, RN notified 7 Unable to obtain, RN notified 8 [facility] Severe Sepsis and Septic Shock Management Bundle Measure requires all lactic acids initially measuring >2.0 mmol/L be repeated. 9 Troponin-I testing on Plasma Separator Tubes (PST) has a known false positive rate of 0.20-0.40%. All positive troponins reflex immediate secondary confirmatory testing. 10 Unable to obtain, RN notified 11 Because ethnic data is not always readily [...] 15-29 5 Kidney failure <15 (or dialysis) 12 SEE RESULT BELOW Name: JULIO C BELTRAN : [address]: Bessy Avila MD Acct: [id number] Unit: [id number] AGE: 62 Location: ED Re05/20/18 SEX: F Status: REG ER SPEC: [id number] EFREN: 05/20/18 [facility] DR: Bessy Avila MD REQ: [id number] RECD: 05/20/18 STATUS: JANELLE RUDD DR: Braydon Landeros WASTEWATER OPERATOR _ SOURCE: NASAL SPDESC: ORDERED: Flu A B Request Procedure Result Reported Site Rapid Influenza A B Request Final 05/20/18931 ML Specimen received for Influenza A/B Molecular testing * ML - Main Lab . END OF REPORT DEPARTMENT OF PATHOLOGY, [address] [place] [address] Yinka Hobbs M.D. Director [facility] # [id number] 13 SEE RESULT BELOW Name: JULIO C BELTRAN : [address]: Bessy Avila MD Acct: [id number] Unit: [id number] AGE: 62 Location: ED Re05/20/18 SEX: F Status: REG ER SPEC: [id number] EFREN: 05/20/18 [facility] DR: Bessy Avila MD REQ: [id number] RECD: 05/20/18 STATUS: RES TOBIN DR: Braydon Landeros NP _ SOURCE: STOOL SPDESC: ORDERED: Stool Culture Procedure Result Reported Site Stool Culture PENDING Stool Specimen Description Final 01/26/19- 0943 ML Stool Color Gillespie Stool Form Nonformed Stool Consistency Liquid Shiga Toxin 1 2 PENDING * ML - Main Lab . END OF REPORT DEPARTMENT OF PATHOLOGY, [address] [place] [address] Yinka Hobbs M.D. Director [facility] # [id number] 14 [facility] Severe Sepsis and Septic Shock Management Bundle Measure requires all lactic acids initially measuring >2.0 mmol/L be repeated. 15 Grinder Outside Diameter: [id number] 16 SEE RESULT BELOW Name: JULIO C BELTRAN : [address]: Bessy Avila MD Acct: [id number] Unit: [id number] AGE: 62 Location: ED Re05/20/18 SEX: F Status: REG ER SPEC: [id number] EFREN: 05/20/[address]: Bessy Avila MD REQ: [id number] RECD: 05/20/18 STATUS: RES OTHR DR: Braydon Landeros WASTEWATER OPERATOR _ SOURCE: STOOL SPDESC: ORDERED: Stool Culture Procedure Result Reported Site Stool Culture PENDING Stool Specimen Description Final 05/20/18942 ML Stool Color Gillespie Stool Form Nonformed Stool Consistency Liquid Shiga Toxin 1 2 PENDING * ML - Main Lab . END OF REPORT DEPARTMENT OF PATHOLOGY, [address] [place] [address] Yinka Hobbs M.D. Director [facility] # [id number] 17 SEE RESULT BELOW Name: JULIO C BELTRAN : [address]: Bessy Avila MD Acct: [id number] Unit: [id number] AGE: 62 Location: ED Re05/20/18 SEX: F Status: REG ER SPEC: [id number] EFREN: 05/20/[address]: Bessy Avila MD REQ: [id number] RECD: 05/20/18 STATUS: COMP [facility] DR: Braydon Landeros WASTEWATER OPERATOR _ SOURCE: NASAL SPDESC: ORDERED: Flu A B Request Procedure Result Reported Site Rapid Influenza A B Request Final 05/20/18931 ML Specimen received for Influenza A/B Molecular testing * ML - Main Lab . END OF REPORT DEPARTMENT OF PATHOLOGY, [address] [place] [address] Yinka Hobbs M.D. Director [facility] # [id number] 18 Unable to obtain, RN notified 19 [facility] Severe Sepsis and Septic Shock Management Bundle Measure requires all lactic acids initially measuring >2.0 mmol/L be repeated. 20 Because ethnic data is not always readily [...] 15-29 5 Kidney failure <15 (or dialysis) 21 SEE RESULT BELOW Name: BELTRANJULIO C : [address]: Eloy Mclean MD Acct: [id number] Unit: [id number] AGE: 62 Location: ICU [id number] Re05/20/18 SEX: F Status: ADM IN SPEC: [id number] EFREN: 05/21/18 [facility] DR: Bessy Avila MD REQ: [id number] RECD: 05/21/18 STATUS: COMP OTHR DR: Sofya Hickey MD _ SOURCE: URINE SPDESC: ORDERED: Urine Culture Procedure Result Reported Site Urine Culture Final 05/22/18- 1604 ML No Growth (<1,000 CFU/mL) * ML - Main Lab . END OF REPORT DEPARTMENT OF PATHOLOGY, [address] [place] [address] Yinka Hobbs M.D. Director [facility] # [id number] 22 SEE RESULT BELOW Name: JULIO C BELTRAN : [address]: Elyo Mclean MD Acct: [id number] Unit: [id number] AGE: 62 Location: ICU [id number] Re05/20/18 SEX: F Status: ADM IN SPEC: [id number] EFREN: 05/20/[address]: Bessy Avila MD REQ: [id number] RECD: 05/20/18 STATUS: RES OTHR DR: Braydon Hickey MD _ SOURCE: STOOL SPDESC: ORDERED: Ac miller PCR, Stool Culture Procedure Result Reported Site Stool Culture Final 05/22/18- 1113 ML Result No enteric pathogens isolated Testing [...] the microbiology lab if sensitivities are required. Stool Specimen Description Final 05/20/18- 0943 ML Stool Color Gillespie Stool Form Nonformed Stool Consistency Liquid Shiga Toxin 1 2 PENDING C. difficile PCR Final 05/20/18- 1406 ML Organism 1 027 Presumptive NEGATIVE Organism 2 Toxigenic C.diff NEGATIVE CONTINUED ON NEXT PAGE DEPARTMENT OF PATHOLOGY, [address] [place] [address] Yinka Hobbs M.D. Director [facility] # [id number] Patient: JULIO C BELTRAN [id number] (Continued) Specimen: [id number] Collected: 05/20/18 Received: 05/20/18 (Continued) Procedure Result Reported Site C. difficile PCR Final (continued) 05/20/18- 1406 * [facility] - Jorge Luis Chavez . END OF REPORT DEPARTMENT OF PATHOLOGY, [address] [place] [address] Yinka Hobbs M.D. Director [facility] # [id number] 23 SEE RESULT BELOW Name: JULIO C BELTRAN : [address]: Sofya Davila MD Acct: [id number] Unit: [id number] AGE: 62 Location: ICU [id number] Re05/20/18 SEX: F Status: ADM IN SPEC: [id number] EFREN: 05/20/1857 [facility] DR: Bessy Avila MD REQ: [id number] RECD: 05/20/18 STATUS: COMP OTHR DR: Sofya Hickey MD _ SOURCE: BLOOD,VENO SPDESC: ORDERED: Blood Cult COMMENTS: Verbal CLOSTRIDIUM to by [id number] at 1050 on 05/23/18. Results read back accurately. Unable to obtain, RN notified Verbal to [id number] by [id number] at 2020 on 05/21/18. Results read back accurately. Procedure Result Reported Site Aerobic Culture Bottle Final 05/25/18- 0922 ML No Growth Day 5 Anaerobic Culture Bottle Final 05/23/18- 1041 ML Anaerobic Btl Gram Stain Gram Negative Bacilli Organism 1 KLEBSIELLA PNEUMONIAE Organism 2 CLOSTRIDIUM CLOSTRIDIIFORME Anaerobic sensitivities are not routinely performed. Positive isolates will be saved for one week. Please call the Microbiology Laboratory if susceptibility testing is needed. 1. KLEBSIELLA PNEUMONIAE M.I.C. RX --------- ------ Ampicillin R Cefazolin <=4 S Cefepime <=1 S Ceftriaxone <=1 S Ciprofloxacin <=0.25 S Gentamicin <=1 S CONTINUED ON NEXT PAGE DEPARTMENT OF PATHOLOGY, [address] [place] [address] Yinka Hobbs M.D. Director [facility] # [id number] Patient: RUBYJULIO C [id number] (Continued) Specimen: [id number] Collected: 05/20/18 Received: 05/20/18 (Continued) Procedure Result Reported Site Anaerobic Culture Bottle Final (continued) 05/23/18- 104 1. KLEBSIELLA PNEUMONIAE (continued) M.I.C. RX --------- ------ Levofloxacin <=0.12 S Meropenem <=0.25 S Tetracycline <=1 S Pipercillin/Tazobactam <=4 S Trimethoprim/Sulfamethoxazole <=20 S Amoxicillin/Clavulanic Acid 8 S Aztreonam <=1 S Contact the Microbiology Department for any additional antibiotic reporting. * ML - Main Lab . END OF REPORT DEPARTMENT OF PATHOLOGY, [address] [place] [address] Yinka Hobbs M.D. Director [facility] # [id number] 24 Unable to obtain, RN notified 25 Unable to obtain, RN notified 26 Troponin-I testing on Plasma Separator Tubes (PST) has a known false positive rate of 0.20-0.40%. All positive troponins reflex immediate secondary confirmatory testing. 27 Unable to obtain, RN notified 28 Unable to obtain, RN notified 29 Specimen hemolyzed. Result may not be valid. [facility] Severe Sepsis and Septic Shock Management Bundle Measure requires all lactic acids initially measuring >2.0 mmol/L be repeated. 30 SEE RESULT BELOW Name: JULIO C BELTRAN : [address]: Rachel Jj DO Acct: [id number] Unit: [id number] AGE: 62 Location: [place] [address] Re04/13/18 SEX: F Status: ADM IN SPEC: [id number] EFREN: 04/13/18-1515 [facility] [address]: Anthony Deng MD REQ: [id number] RECD: 04/13/18 STATUS: JANELLE RUDD DR: Braydon Landeros WASTEWATER OPERATOR _ SOURCE: URINE SPDESC: ORDERED: Urine Culture Procedure Result Reported Site Urine Culture Final 04/14/18- 1402 ML No Growth (<1,000 CFU/mL) * ML - Main Lab . END OF REPORT DEPARTMENT OF PATHOLOGY, [address] [place] [address] Yinka Hobbs M.D. Director [facility] # [id number] 31 Because ethnic data is not always readily [...] 15-29 5 Kidney failure <15 (or dialysis) 32 Critical Result LACT:2.4 Called to RANDOLPH at: 16:57:27 by:[id number] Read back by:RANDOLPH [facility] Severe Sepsis and Septic Shock Management Bundle Measure requires all lactic acids initially measuring >2.0 mmol/L be repeated. 33 Grinder Outside Diameter: [id number] 34 Troponin-I testing on Plasma Separator Tubes (PST) has a known false positive rate of 0.20-0.40%. All positive troponins reflex immediate secondary confirmatory testing. 35 SEE RESULT BELOW Name: JULIO C BELTRAN : [address]: Joel Daniel MD Acct: [id number] Unit: [id number] AGE: 62 Location: ED Re04/05/18 SEX: F Status: REG ER SPEC: [id number] EFREN: 04/05/18-[address]: Joel Daniel MD REQ: [id number] RECD: 04/05/18 STATUS: JANELLE RUDD DR: Braydon Landeros WASTEWATER OPERATOR _ SOURCE: NASAL SPDESC: ORDERED: Flu A B Request Procedure Result Reported Site Rapid Influenza A B Request Final 04/05/18- 1156 ML Specimen received for Influenza A/B Molecular testing * - [facility] . END OF REPORT DEPARTMENT OF PATHOLOGY, [address] [place] [address] Yinka Hobbs M.D. Director [facility] # [id number] 36 Because ethnic data is not always readily [...] 15-29 5 Kidney failure <15 (or dialysis) 37 Critical Result LACT:2.2 Called to HERMAN at: 12:26:24 by:[id number] Read back by:HERMAN [facility] Severe Sepsis and Septic Shock Management Bundle Measure requires all lactic acids initially measuring >2.0 mmol/L be repeated. 38 Interpretive information available on [facility] Test Catalog at [email or web address] 39 RARE TOXIC VACUOLES SEEN IN NEUTROPHILS 40 SEE RESULT BELOW Name: JULIO C BELTRAN : [address]: Ramez Hernandes MD Acct: [id number] Unit: [id number] AGE: 62 Location: [place] [id number] Re04/05/18 SEX: F Status: ADM Leeann SPEC: [id number] EFREN: 04/05/[address]: Joel Daniel MD REQ: [id number] RECD: 04/05/18 STATUS: JANELLE RUDD DR: Braydon Landeros WASTEWATER OPERATOR _ SOURCE: STOOL SPDESC: ORDERED: C. diff PCR, Fecal Lactoferr COMMENTS: Verbal to [id number] by [email or web address] at 1436 on 04/05/18. Results read back accurately. Procedure Result Reported Site Stool Specimen Description Final 04/05/18- 1342 ML Stool Color Gillespie Stool Form Nonformed Stool Consistency Liquid C. difficile PCR Final 04/05/18- 1439 ML Organism 1 027 Presumptive NEGATIVE Organism 2 Toxigenic C.diff POSITIVE Fecal Lactoferrin (Stool WBC) Final 04/06/18- 0924 ML Fecal Lactoferrin Positive by Immunoassay TEST LIMITATIONS: Assay detects elevated levels of lactoferrin released from fecal leukocytes as a marker of intestinal inflammation. The test may not be appropriate in immunocompromised persons. Fecal samples from breast fed infants should not be used with this assay. * ML - Main Lab . END OF REPORT DEPARTMENT OF PATHOLOGY, [address] [place] [address] Yinka Hobbs M.D. Director [facility] # [id number] 41 SEE RESULT BELOW Name: JULIO C BELTRAN : [address]: Ramez Hernandes MD Acct: [id number] Unit: [id number] AGE: 62 Location: [place] [address] Re04/05/18 SEX: F Status: ADM Leeann SPEC: [id number] EFREN: 04/05/18-1123 [facility] DR: Joel Daniel MD REQ: [id number] RECD: 04/05/18 STATUS: JANELLE RUDD DR: Braydon Landeros WASTEWATER OPERATOR _ SOURCE: URINE SPDESC: ORDERED: Urine Culture Procedure Result Reported Site Urine Culture Final 04/06/18- 1209 ML No Growth (<1,000 CFU/mL) * ML - Main Lab . END OF REPORT DEPARTMENT OF PATHOLOGY, [address] [place] [address] Yinka Hobbs M.D. Director [facility] # [id number] 42 SEE RESULT BELOW Name: JULIO C BELTRAN DOB: [address]: Alma Gilliam MD Acct: [id number] Unit: [id number] AGE: 62 Location: [place] [address] Re04/07/18 SEX: F Status: ADM IN SPEC: [id number] EFREN: 04/05/18 [facility] DR: Joel Daniel MD REQ: [id number] RECD: 04/05/18 STATUS: COMP TOBIN DR: Braydon Landeros WASTEWATER OPERATOR _ SOURCE: BLOOD,VENO SPDESC: ORDERED: Blood Cult Procedure Result Reported Site Aerobic Culture Bottle Final 04/10/18- 7 ML No Growth Day 5 Anaerobic Culture Bottle Final 04/10/18- 1157 ML No Growth Day 5 * - [facility] . END OF REPORT DEPARTMENT OF PATHOLOGY, [address] [place] [address] Yinka Hobbs M.D. Director [facility] # [id number] 43 Therapeutic target for the treatment of diabetes mellitus patients is <7% HBA1C, and in selective patients <6.0%. Please refer to [place] [employer] diabetic care guidelines for further information. 44 Because ethnic data is not always readily [...] 15-29 5 Kidney failure <15 (or dialysis) 45 [id number] 46 Class 0 (Negative <0.35) Test Performed by: [facility] [address] [place] [id number] 47 SEE RESULT BELOW Name: JULIO C BELTRAN : [address]: Umm Bess DO Acct: [id number] Unit: [id number] AGE: 60 Location: [facility] 417- Re06/21/16 Dis: 06/23/16 SEX: F Status: DIS IN SPEC: [id number] EFREN: 06/22/16-161 [facility] [address]: Randy Bhakta MD REQ: [id number] RECD: 06/22/16 STATUS: KELLE RUDD DR: Alex [...] performed at Main Lab DEPARTMENT OF PATHOLOGY, [address] [place] [address] Yinka Hobbs M.D. Director [facility] # [id number] 48 Because ethnic data is not always readily [...] 15-29 5 Kidney failure <15 (or dialysis) 49 SEE RESULT BELOW Name: JULIO C BELTRAN : [address]: Phoenix Dale MD Acct: [id number] Unit: [id number] AGE: 60 Location: ED Re06/21/16 SEX: F Status: REG ER SPEC: [id number] EFREN: 06/21/16 [facility] DR: Carolina MOLINA REQ: [id number] RECD: 06/21/16 STATUS: JANELLE RUDD DR: Alex Singleton MD _ SOURCE: STOOL SPDESC: ORDERED: Hemoccult Procedure Result Reported Site Stool Specimen Description Final 06/21/16808 ML Stool Color Greenish Brown Stool Form Nonformed Stool Consistency Soft Stool Occult Blood Final 06/21/16808 ML Stool Occult Blood Positive * ML - MAIN LAB ([facility]) . END OF REPORT * ML=Testing performed at Main Lab DEPARTMENT OF PATHOLOGY, [address] [place] [address] Yinka Hobbs M.D. Director [facility] # [id number] 50 SEE RESULT BELOW Name: JULIO C BELTRAN : [address]: Anthony Vazquez MD Acct: [id number] Unit: [id number] AGE: 60 Location: ED Re06/19/16 SEX: F Status: REG ER SPEC: [id number] EFREN: 06/19/16 [facility] DR: Anthony Vazquez MD REQ: [id number] RECD: 06/19/16 STATUS: JANELLE RUDD DR: Alex Singleton MD _ SOURCE: STOOL SPDESC: ORDERED: C. diff PCR Procedure Result Reported Site Stool Specimen Description Final 06/19/16- 08 ML Stool Color Brown Stool Form Nonformed Stool Consistency Liquid C. difficile PCR Final 06/19/16- 0911 ML Organism 1 027 Presumptive NEGATIVE Organism 2 Toxigenic C.diff NEGATIVE * ML - MAIN LAB ([facility]) . END OF REPORT * ML=Testing performed at Main Lab DEPARTMENT OF PATHOLOGY, [address] [place] [address] Yinka Hobbs M.D. Director [facility] # [id number] 51 Verbal to KIMI BLACK by [id number] at 1013 on 06/18/16. 52 SEE RESULT BELOW Name: JULIO C BELTRAN : [address]: Swati Mendenhall NP Acct: [id number] Unit: [id number] AGE: 60 Location: [facility] Re06/17/16 SEX: F Status: REG REF SPEC: [id number] EFREN: 06/17/16-699 [facility] DR: Swati Mendenhall NP REQ: [id number] RECD: 06/18/16 STATUS: COMP _ SOURCE: STOOL SPDESC: ORDERED: Stool Culture, O P: Giar/Crypt COMMENTS: Verbal to KIMI BLACK by [id number] at 1013 on 06/18/16. Procedure Result Reported [...] performed at Main Lab DEPARTMENT OF PATHOLOGY, [address] [place] [address] Yinka Hobbs M.D. Director [facility] # [id number] Patient: JULIO C BELTRAN [id number] (Continued) Specimen: [id number] Collected: 06/17/16 Received: 06/18/16 (Continued) Procedure Result Reported Site O P: Giardia/Cryptospor Screen Final (continued) 06/18/16 1201 Giardia and cryptosporidium antigen testing performed by enzyme immunoassay. If patient is immunocompromised or has traveled to or is from a developing country, a full ova and parasite exam with microscopic (OPMIC) is recommended. All samples will be held one month in case full ova and parasite testing is requested. Contact the Microbiology Department at [phone]. TEST LIMITATIONS: As with all diagnostic procedures, [...] and are not recommended. * ML - [facility] ([facility]) . END OF REPORT * ML=Testing performed at Main Lab DEPARTMENT OF PATHOLOGY, [address] [place] [address] Yinka Hobbs M.D. Director [facility] # [id number] 53 SEE RESULT BELOW Name: JULIO C BELTRAN : [address]: Swati Mendenhall NP Acct: [id number] Unit: [id number] AGE: 60 Location: [facility] Re06/17/16 SEX: F Status: REG REF SPEC: [id number] EFREN: 06/17/[address]: Swati Mendenhall NP REQ: [id number] RECD: 06/18/16 STATUS: RES _ SOURCE: STOOL SPDESC: ORDERED: Stool Culture, O P: Giar/Crypt COMMENTS: Verbal to KIMI BLACK by [id number] at 1013 on 06/18/16. Procedure Result Reported [...] is requested. Contact the Microbiology Department at [phone]. TEST LIMITATIONS: As with all diagnostic procedures, [...] performed at Main Lab DEPARTMENT OF PATHOLOGY, [address] [place] [address] Yinka Hobbs M.D. Director [facility] # [id number] Patient: JULIO C BELTRAN [id number] (Continued) Specimen: [id number] Collected: 06/17/16 Received: 06/18/16 (Continued) Procedure Result [...] not recommended. * ML - MAIN LAB ([facility]) . END OF REPORT * ML=Testing performed at Main Lab DEPARTMENT OF PATHOLOGY, [address] [place] [address] Yinka Hobbs M.D. Director [facility] # [id number] 54 [id number] 56 Because ethnic data is not always readily [...] 15-29 5 Kidney failure <15 (or dialysis) 57 Because ethnic data is not always readily [...] 15-29 5 Kidney failure <15 (or dialysis) 58 Desirable <150 Borderline high 150-199 High 200-499 Very High >500 59 Desirable <200 Borderline high 200-239 High >239 60 Low <40 Desirable: 40-60 High: >60 61 Desirable: <100 mg/dL Near Optimal: 100-129 mg/dL Borderline High: 130-159 mg/dL High: 160-189 mg/dL Very High: >189 mg/dL 62 FASTING 63 Because ethnic data is not always readily [...] 15-29 5 Kidney failure <15 (or dialysis) 64 FASTING 65 Desirable <150 Borderline high 150-199 High 200-499 Very High >500 66 Desirable <200 Borderline high 200-239 High >239 67 Low <40 Desirable: 40-60 High: >60 68 Desirable <100 Near Optimal 100-129 Borderline high 130-159 High 160-189 Very High >189 69 Results with Index Values of <18.00 are negative. Test Performed by: [address] [address] Network Security Officer: Stewart Wilson III, M.D. 70 Results with Index Values of <8.95 are negative. Test Performed by: [place] [address] Network Security Officer: Stewart Wilson III, M.D. 71 Results with Index Values of <36.00 are negative. Test Performed by: [place] [address] Network Security Officer: Stewart Wilson III, M.D. 72 FINAL: NO GROWTH DAY 2 (<1,000 CFU/mL) 73 Anion gap measurement may be of limited value in the presence of any alkalosis, especially in a combined acid base disorder. . 74 Note change in reference range as of 12/14/07. The change was based on recommendations from the [place] [employer]. 75 Please note change in reference range effective 07 . 76 A metabolite of Naproxen, O-desmethylnaproxen, has been shown to interfere with the Jendrassik-Wakefield method for measuring total bilirubin. Samples from patients who have taken Naproxen have shown spurious elevation in total bilirubin levels. 77 Because ethnic data is not always readily [...] 15-29 5 Kidney failure <15 (or dialysis) 78 CHOLESTEROL INTERPRETATION: Desirable: Less than 200 MG/DL Borderline-High Risk: 200-239 MG/DL High-Risk: 240 MG/DL and over 79 HDL INTERPRETATION: Undesirable: High Risk: Less than 40 MG/DL Desirable: Low Risk: Greater than 60 MG/DL 80 LDL INTERPRETATION: Low Risk Optimal Level: LDL Less than 100 MG/DL Near or Above Optimal: LDL 100-129 MG/DL Borderline High Risk: LDL 130-159 MG/DL High Risk: LDL 160-189 MG/DL Very High Risk: LDL Greater than 189 MG/DL Procedures Date Code Description Status 03/11/2009 83062 EKG, at Least 12 Leads w/Interpretation and Report Completed Encounters Type Date Location Provider Dx Diagnosis Office Visit 03/14/2018 Main Office Sarah Brooks NP J06.9 Acute upper 11:15a respiratory infection, unspecified Office Visit 12/13/2017 Main Office Braydon Landeros, M54.32 Sciatica, left side 11:15a [employer] Office Visit 10/24/2017 Main Office Braydon Landeros, F41.9 Anxiety disorder, 11:30a [employer] unspecified K51.911 Ulcerative colitis, unspecified with rectal bleeding Office Visit 12/09/2016 4:00p Main Office Braydon Trevino M25.512 Pain in left Storm, [employer] shoulder Office Visit 06/16/2016 9:30a Main Office Swati Mendenhall, R19.7 Diarrhea, [employer] unspecified Office Visit 06/09/2015 8:45a Main Office Braydon Trevino Z00.00 Encntr for general Storm, [employer] adult medical exam w/o abnormal findings Z12.31 Encntr screen mammogram for malignant neoplasm of breast Office Visit 01/14/2014 11:00a Main Office Braydon Trevino 787.91 Diarrhea Storm, [employer] Office Visit 10/29/2013 8:45a Main Office Braydon Trevino V72.84 Examination Storm, [employer] Preoperative Unspec 366.9 Cataract Unspec V72.62 Laboratory Exam Ordered as Part Of Routine General Med Exam Office Visit 07/30/2013 10:15a Main Office Braydon Landeros, 706.2 Sebaceous Cyst [employer] 300.00 Anxiety State Unspec Office Visit 04/19/2013 11:45a Main Office Braydon Trevino 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 535.00 Gastritis Acute W/O Storm, [employer] Hemorrhage Office Visit 03/26/2013 3:15p Main Office Shawnti R. 558.9 Gastroenteritis & Storm, [employer] Colitis Noninfectious Other Office Visit 07/24/2012 4:15p Main Office Swati 401.9 Hypertension Unspec Oksana, [employer] Office Visit 06/26/2012 8:45a Main Office Swati 401.9 Hypertension Unspec Oksana, [employer] Office Visit 08/18/2010 11:00a Main Office Shawnti R. V72.84 Examination Storm, [employer] Preoperative Unspec 366.9 Cataract Unspec 796.2 Blood Pressure Reading Elevated W/O Hypertension Office Visit 04/09/2010 8:45a Main Office Shawnti R. 300.00 Anxiety State Storm, [employer] Unspec Office Visit 03/24/2010 8:45a Main Office Shawnti R. 788.1 Dysuria Storm, [employer] Office Visit 03/02/2010 8:30a Main Office Shawnti R. 300.00 Anxiety State Storm, [employer] Unspec Office Visit 06/05/2009 12:45p Main Office Shawnti R. 465.9 URI Upper Storm, [employer] Respiratory Infections Acute Unspec Sites Office Visit 03/11/2009 2:30p Main Office Shawnti R. 300.00 Anxiety State Storm, [employer] Unspec 785.0 Tachycardia Unspec 278.02 Overweight Plan of Treatment 08/31/2018 - Braydon Landeros, [facility]-CK51.911 Ulcerative colitis, unspecified with rectal bleedingComments:doing well, able to return to work, continue to follow with [facility]16.9 Osteoarthritis of hip, unspecifiedNew Medication:Tramadol HCL 50 mg - take one tablet by mouth before bed if needed for hip painComments: continue tramadol as needed for ddhdvemkuI30.00 Insomnia, unspecifiedNew Medication:Melatonin 3 mg - take one tablet by mouth at bedtimeComments: continue melatonin
--- OUTSIDE RECORDS SUMMARY | 2018-09-22 17:11 | XMS REPORT | Continuity of Care Document ---
:1955 External Reference #:[id number] Author Name Magaly Pedro Care Team Providers Name Role Phone Braydon Landeros NP Primary Care Physician Unavailable Payers Date Identification Numbers Payment Provider Subscriber Policy Number: [id number] Bebo Beltran PayID: [id number] [address] [place] [address] Expires: 2018 Policy Number: [id number] Medicaid Julio C Beltran Group Name: 1 1 [facility] Federal [employer] GP PayID: [id number] [address] [place] [address] Effective: 2017 Policy Number: [id number] Of [facility] Julio C Beltran Expires: 2018 PayID: [id number] [address] [address] [place] [address] Advance Directives Description No Information Available Problems Active Problems Provider Date Ulcerative colitis Randy Bhakta MD Onset: 07/22/2006 Note: no extraintestinal manifestation; office note 2006 reveals a flare / original Dx of UC [id number] (after family ) treated with Cortenemas then; then no ongoing treatment over 13 yrs; once again with gradual onset of Sx UC seen in 2006 and prednisone used for remission after she perceived side effects from Asacol (01/24/07 had post injestion nausea over a few days); once again after ten yrs with no Sx and no maintenance Rx - flare in May 2016 seen in ER and after no help from Megan or Barbararo admitted 3 days and after she is completely well on prednisone ; July 08 2017 after apparent stomach virus Essential hypertension Randy Bhakta MD Onset: 07/22/2012 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 Randy Bhakta MD Onset: 09/16/1965 Note: from childhood and in 2017 she recalls no details; Chronic ulcerative pancolitis [facility] Onset: 07/29/2017 Family History Date Family Member(s) Observation Comments Father due to Natural Causes () - at 90 Mother due to Alzheimer's Disease () - at 70 Grandmother Ulcerative Colitis Social History Type Date Description Comments Sex Unknown Tobacco Use Start: Unknown Patient has never smoked Smoking Status Reviewed: 08/28/18 Patient has never smoked Allergies, Adverse Reactions, Alerts Active Allergies Reaction Severity Comments Date Sulfa Antibiotics 10/22/2014 Medications Active Medications SIG Qnty Indications Ordering Provider Date Mesalamine 1 supp pr hs 30units [facility], DO 08/28/2018 1000mg Suppository Opium 3 drops by mouth Unknown 10mg/ML (1%) three times a Tincture day; code c chronic diarrhea History Medications Cholestyramine 4g PO daily to 378gm [facility], DO 04/26/2018 - 4GM/Dose bid for prn 05/09/2018 Powder diarrhea. Rowasa Enemas use 1 enema every 1680ml [facility] 04/24/2018 - 4GM/60ML night. 04/24/2018 Enema Rowasa 1 every night at [facility] 04/24/2018 - Enema bedtime 04/24/2018 Mesalamine one enema every 420units [facility] DO 04/24/2018 - 4gm Enema night 05/09/2018 Fluoxetine HCL 1 by mouth every Unknown 10/24/2017 - 20mg day 10/27/2017 Capsules Azathioprine 1 by mouth every 90tabs Randy Shirley 09/29/2017 - 50mg Tablets dacia Bhakta MD 10/24/2017 Lialda 4 by mouth every 120tabs Randy Shirley 08/22/2017 - 1.2gm Tablets DR dacia Bhakta MD 08/24/2017 [facility] [address] [facility] - 10[facility] Tablets Daily By Mouth 06/25/2018 Prednisone 1 by mouth every 60tabs Randy Shirley 09/16/2016 - 2.5mg Tablets dacia Bhakta MD 07/07/2017 Balsalazide Disodium 3 by mouth three 270caps Randy Shirley 09/16/2016 - 750mg times a day MD Yony 07/29/2017 Capsules Lisinopril Take One Tablet Unknown 06/27/2012 - 20mg Tablets By Mouth Every 05/09/2018 Day Prednisone Take 6 Tablets By Unknown - 10mg Tablets Mouth Daily For 5 07/07/2017 Days Then Decrease By 1 2 Tablet E Immunizations Description No Information Available Vital Signs Date Vital Result Comment 08/28/2018 10:14am Height 66 inches 5'6" Weight 148.00 lb BP Systolic 158 mmHg BP Diastolic 86 mmHg Heart Rate 90 /min BMI (Body Mass Index) 23.9 kg/m2 06/26/2018 1:09pm Height 66 inches 5'6" Weight 147.00 lb BP Systolic 97 mmHg BP Diastolic 82 mmHg Heart Rate 120 /min BMI (Body Mass Index) 23.7 kg/m2 05/09/2018 1:51pm Height 66 inches 5'6" Weight [...] Date Facility Test Result H/L Range Note CBC W/Auto 08/28/2018 [facility] White Blood 8.5 3/UL 4.8-10.[address] Count Ser (!) [place] [address] Auto CNT [phone] RBC Red Blood Count 4.31 X106/UL 4.20-6.20 Hemoglobin Blood 12.8 g/dL 12.0-18.0 Hematocrit 38.7 % 35-52 MCV (Corpuscular Volume) 89.9 FL 79-97 MCH (Corpuscular Hemoglobin) 29.8 pg 27-31 MCHC (Corpuscular Hemog Conc) 33.2 g/dL 32.0-36.0 RDW 16.4 % High 10.5-15.0 Platelet Count Blood Auto CNT 378 X103/UL 150-450 MPV 6.7 FL Low 7.4-10.4 Lymph% 35.5 % 20.0-45.0 [place]% 2.9 % 1.0-9.0 Neutrophil % 61.6 % 38.0-83.0 Absolute Lymphocytes 3.0 X103/UL 1.0-4.8 Absolute Monocytes 0.2 X103/UL 0.0-0.8 Absolute Neutrophils 5.2 X103/UL 1.5-7.7 Laboratory test 08/28/2018 [facility] Esr Sedimentation 36 MM High 0-[address] Rate(!) [place] [address] [phone] Comp Metabolic 08/28/2018 [facility] Sodium 138 N 135-145 Panel mmol/L Potassium 4.5 mmol/L N 3.5-5.0 Chloride 103 mmol/L N 101-111 Co2 Carbon Dioxide 28 mmol/L N 22-32 Anion Gap 7 mmol/L N 2-11 Glucose 93 mg/dL N 70-100 Blood Urea Nitrogen 16 mg/dL N 6-24 Creatinine 0.64 mg/dL N 0.51-0.95 BUN/Creatinine Ratio 25.0 High 8-20 Calcium 10.2 mg/dL N 8.6-10.3 Total Protein 8.2 g/dL N 6.4-8.9 Albumin 4.6 g/dL N 3.2-5.2 Globulin 3.6 g/dL N 2-4 Albumin/Globulin Ratio 1.3 N 1-3 Total Bilirubin 0.40 mg/dL N 0.2-1.0 Alkaline Phosphatase 79 U/L N 34-104 Alt 14 U/L N 7-52 Ast 17 U/L N 13-39 Egfr Non- 94.3 >60 Egfr 114.1 >60 1 Laboratory test 08/28/2018 [facility] C Reactive 1.32 mg/L N <8.01 2 finding Protein CMP(!) 05/09/2018 [facility] Sodium(!) 129 mEq/L Low 134 -149 [address] [place], [place] [id number] [phone] Potassium(!) 5.5 mEq/L 3.6-5.5 Chloride Serum/Plasma(!) 98 [...] U/L 10-40 Protein Total 6.4 g/dL 6.2-8.1 CBC W/Auto 05/09/2018 [facility] White 20.9 High 4.8- 10.8 Differential(!) [address] [facility] Blood 3/[place] [address] Count Ser [phone] Auto CNT RBC Red Blood Count 3.43 [...] Low 7.4-10.4 Lymph% 11.7 % Low 20.0-45.0 [place]% 5.2 % 1.0-9.0 Neutrophil % 83.1 % High 38.0-83.0 Absolute Lymphocytes 2.4 X103/UL 1.0-4.8 Absolute Monocytes 1.1 X103/UL High 0.0-0.8 Absolute Neutrophils 17.4 X103/UL High 1.5-7.7 Inflammation 05/09/2018 [facility] Esr Sedimentation 120 MM High 0-20 Panel(!) [address] Rate(!) [place] [address] [phone] C-Reative Protein 116.8 High <5.0 Laboratory test 05/09/2018 [facility] Hepatitis B Core Negative Negative 3 finding AB Total Hepatitis B Kira AB 05/09/2018 [facility] Hepatitis B Not Immune Abnormal Immune Titer Surface AB Hep B Surf AB Level < 3.10 mIU/mL >12 Laboratory test 05/09/2018 [facility] Hepatitis B Nonreactive Nonreactive 4 finding Surface Ag Quantiferon Gold 05/09/2018 [facility] QuantiFERON-Tb Indeterminate Abnormal Negative 5 TB Gold Plus TB1 Ag minus Nil Result 0 IU/mL TB2 Ag minus Nil Result 0 IU/mL TB Mitogen minus Nil Result 0.04 IU/mL TB Nil Result 0.01 IU/mL 6 Laboratory test 04/17/2018 [facility] Surgical SEE RESULT 7 finding Interface Order BELOW Laboratory test 04/17/2018 [facility] C Difficile PCR <pending> finding Unspec Spec Culture Stool 04/14/2018 [facility] Culture Stool <pending> Occult Blood 04/14/2018 [facility] Z#Other <pending> Diagnos Observations Xray 04/06/2018 [facility] Radiology Chest Ap Portable <pending> Xray 04/05/2018 [facility] Rad[place] CT, Abd & Pelvis <pending> W/ Contrast Culture Stool 04/05/2018 [facility] Culture Stool <pending> Laboratory test 04/05/2018 [facility] Difficile PCR <pending> finding Unspec Spec Laboratory test 09/29/2017 [facility] Miscellaneous See Comment 8 finding Test CBC W/Auto 09/29/2017 [facility] White Blood Count 11.5 3/ UL High 4.8- Differential(!) [address] [facility] Ser Auto CNT 10.8 [place] [address] [phone] RBC Red Blood Count 4.33 X106/UL 4.20-6.20 Hemoglobin Blood 13.6 g/dL 12.0-18.0 Hematocrit 43.2 % 35-52 MCV (Corpuscular Volume) 99.7 FL High 79-97 MCH (Corpuscular Hemoglobin) 31.5 pg High 27-31 MCHC (Corpuscular Hemog Conc) 31.6 g/dL Low 32.0-36.0 RDW 16.6 % High 10.5-15.0 Platelet Count Blood Auto CNT 282 X103/UL 150-450 MPV 7.2 FL Low 7.4-10.4 Lymph% 36.0 % 20.0-45.0 [place]% 4.5 % 1.0-9.0 Neutrophil % 59.5 % 38.0-83.0 Absolute Lymphocytes 4.1 X103/UL 1.0-4.8 Absolute Monocytes 0.5 X103/UL 0.0-0.8 Absolute Neutrophils 6.8 X103/UL 1.5-7.7 CMP(!) 09/29/2017 [facility] Sodium(!) 137 mEq/L 134- 149 [address] [place] [address] [phone] Potassium(!) 4.8 mEq/L 3.6-5.5 Chloride Serum/Plasma(!) 103 [...] [facility] Amylase(!) 108 U/L 25-[address] [place] [address] [phone] CBC W/Auto 07/08/2017 [facility] White Blood 9.0 3/UL 4.8-10.8 Differential(!) [facility] [place] [address] CNT [phone] RBC Red Blood Count 4.77 X106/UL 4.20-6.20 Hemoglobin Blood 14.5 g/dL 12.0-18.0 Hematocrit 45.2 % 35-52 MCV (Corpuscular Volume) 94.7 FL 79-97 MCH (Corpuscular Hemoglobin) 30.4 pg 27-31 MCHC (Corpuscular Hemog Conc) 32.1 g/dL 32.0-36.0 RDW 14.9 % 10.5-15.0 Platelet Count Blood Auto CNT 334 X103/UL 150-450 MPV 7.4 FL 7.4-10.4 Lymph% 31.5 % 20.0-45.0 [place]% 5.9 % 1.0-9.0 Neutrophil % 62.6 % 38.0-83.0 Absolute Lymphocytes 2.8 X103/UL 1.0-4.8 Absolute Monocytes 0.5 X103/UL 0.0-0.8 Absolute Neutrophils 5.6 X103/UL 1.5-7.7 CMP(!) 07/08/2017 [facility] Sodium(!) 137 mEq/L 134- 149 [facility] [place] [address] [phone] Potassium(!) 4.8 mEq/L 3.6-5.5 Chloride Serum/Plasma(!) 102 [...] Auto CNT <pending> MPV <pending> Lymph% <pending> [place]% <pending> Neutrophil % <pending> Absolute Lymphocytes <pending> Absolute Monocytes <pending> Absolute Neutrophils <pending> BMP W/Egfr 06/23/2016 [facility] Sodium(!) <pending> Potassium(!) <pending> Chloride Serum/Plasma(!) <pending> Carbon Dioxide Ser/Plasm(!) <pending> Calcium Ser/Plasma Mass/Vol(!) <pending> Glucose Serum(!) <pending> Laboratory test finding 06/22/2016 [facility] Surgical Interface SEE RESULT BELOW 9 Order 1 Because ethnic data is not always readily [...] 15-29 5 Kidney failure <15 (or dialysis) 2 [id number] 3 Test Performed by: [facility] [place] [address] 4 [id number] 5 Indeterminate due to a low interferon-gamma level in the mitogen (positive control) tube. This may occur due to a low lymphocyte count, reduced lymphocyte activity or inability of the patient's lymphocytes to generate interferon-gamma. The reference range for the 'Mitogen minus Nil Result' is >=0.5 IU/mL. 6 Test Performed by: [facility] [place] [address] 7 SEE RESULT BELOW Name: JULIO C BELTRAN : [address]: Ramez Hernandes MD Acct: [id number] Unit: [id number] AGE: 62 Location: [place] [address] Re04/13/18 SEX: F Status: ADM IN SPEC: [id number] FEREN: 04/17/[address] [facility] [address]: Nato Yadav MD REQ: [id number] RECD: 04/17/18 STATUS: KELLE RUDD DR: Rachel [...] 0953 END OF REPORT DEPARTMENT OF PATHOLOGY, [address] [place] [address] Yinka Hobbs M.D. Director [facility] # [id number] 8 Test Result Flag Unit RefValue TPMT Activity Profile, RBC Interpretation See Comment *Normal* In this whole blood sample, the profile of activity of thiopurine methyltransferase using three different substrates was normal or essentially normal. ADDITIONAL INFORMATION Liquid Chromatography-Tandem Mass Spectrometry (LC-MS/MS) This test was developed and its performance characteristics determined by [facility] in a manner consistent with CLIA requirements. This test has not been cleared or approved by the U.S. Food and Drug Administration. 6-Methylmercaptopurine 4.39 nmol/mL/h 3.00-6.66 6- 7.44 nmol/mL/h 5.04-9.57 Methylmercaptopurine riboside 6-Methylthioguanine 4.45 nmol/mL/h 2.70-5.84 riboside Reviewed By See Comment RESULT: Nestor Solorzano M.D., Ph.D. Test Performed by: [facility] - [address] [address] 9 SEE RESULT BELOW Name: JULIO C BELTRAN : [address]: Umm Bess DO Acct: [id number] Unit: [id number] AGE: 60 Location: [place] [address] Re06/21/16 Dis: 06/23/16 SEX: F Status: DIS IN SPEC: [id number] EFREN: 06/22/[address] [facility] [address]: Randy Bhakta MD REQ: [id number] RECD: 06/22/16 STATUS: KELLE RUDD DR: Alex [...] performed at Main Lab DEPARTMENT OF PATHOLOGY, [address] [place] [id number] Yinka Hobbs M.D. Director [facility] # [id number] Procedures Date Code Description Status 04/17/2018 23390 Moderate Sedation Services; Same Phys Intl 15 Mins; PT >=5 Completed Years 04/17/2018 54930 Flexible Sigmoidoscopy W/ Biopsy Completed 06/22/2016 13325 Moderate Sedation Services; Same Phys Each Additional 15 Completed Mins 06/22/2016 67013 Moderate Sedation Services; Same Phys Intl 15 Mins; PT >=5 Completed Years 06/22/2016 60650 Colonscopy+Biopsy Completed 06/22/2016 43940 EGD+Biopsy Single Or Multiple Completed 01/17/2007 99971 Flexible Sigmoidoscopy W/ Biopsy Completed Encounters Type Date Location Provider Dx Diagnosis Office Visit 06/26/2018 [facility] Wagner K51.918 Ulcerative 1:[facility] WAT[facility] colitis, unspecified with other complication Z93.2 Ileostomy status T38.0x5A Adverse effect of glucocort/synth analog, init 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 Office 05/09/2018 [facility] Wagner K51.018 Ulcerative Visit 2:15p [facility] (chronic) pancolitis with other complication K51.918 Ulcerative colitis, unspecified with other complication R19.7 Diarrhea, unspecified Z79.899 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 Office 10/31/2017 [facility] Randy Shirley K51.90 Ulcerative Visit 7:45a [facility] Bh[facility] MD colitis, unspecified, without complications I10 Essential (primary) hypertension Z79.899 Other correction (current) drug therapy Office 09/29/2017 [facility] Randy Shirley K51.90 Ulcerative Visit 8:00a [facility] Op[facility] Bhakta MD colitis, unspecified, without complications Z88.2 Allergy status to sulfonamides status R10.9 Unspecified abdominal pain Office 08/22/2017 [facility] Randy Shirley K51.00 Ulcerative Visit 4:00p [facility] Bhakta MD (chronic) pancolitis without complications K51.90 Ulcerative colitis, unspecified, without complications I10 Essential (primary) hypertension Office 07/29/2017 [facility] Layne Haro K51.00 Ulcerative Visit 11:30[facility] Jeanne Desai, (chronic) PA-C pancolitis without complications Office 07/08/2017 [facility] Randy Bond1.90 Ulcerative Visit 8:45a [facility] MD colitis, unspecified, without complications I10 Essential (primary) hypertension Office 09/16/2016 [facility] Randy Bond1.90 Ulcerative Visit 8:30a [facility] Bhak[facility] MD colitis, unspecified, without complications Office 07/22/2016 [facility] Randy Bond1.Delma Ulcerative Visit 1:00p [facility] MD colitis, unspecified, without complications Plan of Treatment No Information Available
--- OUTSIDE RECORDS SUMMARY | 2018-09-22 17:11 | XMS REPORT | Continuity of Care Document ---
:1955 External Reference #:[id number] Author Name Napoleon Wagner DO Address [address] [place] [address] Care Team Providers Name Role Phone Braydon Landeros NP Primary Care Physician Unavailable Payers Date Identification Numbers Payment Provider Subscriber Policy Number: [id number] Bebo Beltran PayID: [id number] [address] [place] [address] Expires: 2018 Policy Number: [id number] Medicaid Julio C Beltran Group Name: 1 1 [facility] [employer] GP PayID: [id number] [address] [place] [address] Effective: 2017 Policy Number: [id number] [place] [employer] [place] Julio C Beltran Expires: 2018 PayID: [id number] [address] [address] [place] [address] Advance Directives Description No Information Available Problems Active Problems Provider Date Ulcerative colitis Randy Bhakta MD Onset: 07/22/2006 Note: no extraintestinal manifestation; office note 2006 reveals a flare / original Dx of UC ml2003 (after family ) treated with Cortenemas then; [...] she recalls no details; Chronic ulcerative pancolitis Layne Desai PA-C Onset: 07/29/2017 Family History Date Family Member(s) [...] Date Mesalamine 1 supp pr hs 30units [facility], DO 08/28/2018 1000mg Suppository Opium 3 drops by mouth Unknown 10mg/ML (1%) three times a Tincture day; code c chronic diarrhea History Medications Cholestyramine 4g PO daily to 378gm [facility], DO 04/26/2018 - 4GM/Dose bid for prn 05/09/2018 Powder diarrhea. Rowasa Enemas use 1 enema every 1680ml [facility], DO 04/24/2018 - 4GM/60ML night. 04/24/2018 Enema Rowasa 1 every night at [facility] 04/24/2018 - Enema bedtime 04/24/2018 Mesalamine one enema every 420units [facility], DO 04/24/2018 - 4gm Enema night 05/09/2018 Fluoxetine HCL 1 by mouth every Unknown 10/24/2017 - 20mg day 10/27/2017 Capsules Azathioprine 1 by mouth every 90tabs Randy Shirley 09/29/2017 - 50mg Tablets dacia Bhakta MD 10/24/2017 Lialda 4 by mouth every 120tabs Randy Shirley 08/22/2017 - 1.2gm Tablets DR dacia Bhakta MD 08/24/2017 Prednisone take 4 Tablets 120tabs [facility], DO 07/08/2017 - 10mg Tablets Daily By Mouth [...] [address] Count Ser (!) [place] [address] Auto CNT [phone] RBC Red Blood Count 4.31 X106/UL 4.20-6.20 Hemoglobin Blood 12.8 g/dL 12.0-18.0 Hematocrit 38.7 % 35-52 MCV (Corpuscular Volume) 89.9 FL 79-97 MCH (Corpuscular Hemoglobin) 29.8 pg 27-31 MCHC (Corpuscular Hemog Conc) 33.2 g/dL 32.0-36.0 RDW 16.4 % High 10.5-15.0 Platelet Count Blood Auto CNT 378 X103/UL 150-450 MPV 6.7 FL Low 7.4-10.4 Lymph% 35.5 % 20.0-45.0 [place]% 2.9 % 1.0-9.0 Neutrophil % 61.6 % 38.0-83.0 Absolute Lymphocytes 3.0 X103/UL 1.0-4.8 Absolute Monocytes 0.2 X103/UL 0.0-0.8 Absolute Neutrophils 5.2 X103/UL 1.5-7.7 Laboratory test 08/28/2018 [facility] Esr Sedimentation 36 MM High 0-[address] Rate(!) [place], [place] [id number] [phone] Comp Metabolic 08/28/2018 [facility] Sodium 138 N [...] Sodium(!) 129 mEq/L Low 134 -149 2435 [place] [address] [phone] Potassium(!) 5.5 mEq/L 3.6-5.5 Chloride Serum/Plasma(!) 98 [...] White 20.9 High 4.8- 10.8 Differential(!) [address] [facility] Blood 3/[place] [address] Count Ser [phone] Auto CNT RBC Red Blood Count 3.43 [...] Low 7.4-10.4 Lymph% 11.7 % Low 20.0-45.0 [place]% 5.2 % 1.0-9.0 Neutrophil % 83.1 % High 38.0-83.0 Absolute Lymphocytes 2.4 X103/UL 1.0-4.8 Absolute Monocytes 1.1 X103/UL High 0.0-0.8 Absolute Neutrophils 17.4 X103/UL High 1.5-7.7 Inflammation 05/09/2018 [facility] Esr Sedimentation 120 MM High 0-20 Panel(!) [address] Rate(!) [place], [place] [id number] [phone] C-Reative Protein 116.8 High <5.0 Laboratory test [place] [facility] [place] Core Negative Negative 3 finding AB Total Hepatitis B Kira AB 05/09/2018 [facility] [place] B Not Immune Abnormal Immune Titer Surface AB Hep B Surf AB Level < 3.10 mIU/mL >12 Laboratory test 05/09/2018 [facility] [place] B Nonreactive Nonreactive 4 finding Surface Ag Quantiferon Gold 05/09/2018 [facility] [place] QuantiFERON-Tb Indeterminate Abnormal Negative 5 TB Gold Plus TB1 Ag minus Nil Result 0 IU/mL TB2 Ag minus Nil Result 0 IU/mL TB Mitogen minus Nil Result 0.04 IU/mL TB Nil Result 0.01 IU/mL 6 Laboratory test 04/17/2018 [facility] [place] SEE RESULT 7 finding Interface Order BELOW Laboratory test 04/17/2018 [facility] C Difficile PCR <pending> finding Unspec Spec Culture Stool 04/14/2018 [facility] Culture Stool <pending> Occult Blood 04/14/2018 [facility] Z#Other <pending> Diagnos Observations Xray 04/06/2018 [facility] [place] Chest Ap Portable <pending> Xray 04/05/2018 [facility] [place], Abd & Pelvis <pending> W/ Contrast Culture Stool 04/05/2018 [facility] Culture Stool <pending> Laboratory test 04/05/2018 [facility] Difficile PCR <pending> finding Unspec Spec Laboratory test 09/29/2017 [facility] [place] Miscellaneous See Comment 8 finding Test CBC W/Auto 09/29/2017 [facility] White Blood Count 11.5 3/ UL High 4.8- Differential(!) [address] [facility] Ser Auto CNT 10.8 [place] [address] [phone] RBC Red Blood Count 4.33 X106/UL 4.20-6.20 Hemoglobin Blood 13.6 g/dL 12.0-18.0 Hematocrit 43.2 % 35-52 MCV (Corpuscular Volume) 99.7 FL High 79-97 MCH (Corpuscular Hemoglobin) 31.5 pg High 27-31 MCHC (Corpuscular Hemog Conc) 31.6 g/dL Low 32.0-36.0 RDW 16.6 % High 10.5-15.0 Platelet Count Blood Auto CNT 282 X103/UL 150-450 MPV 7.2 FL Low 7.4-10.4 Lymph% 36.0 % 20.0-45.0 [place]% 4.5 % 1.0-9.0 Neutrophil % 59.5 % 38.0-83.0 Absolute Lymphocytes 4.1 X103/UL 1.0-4.8 Absolute Monocytes 0.5 X103/UL 0.0-0.8 Absolute Neutrophils 6.8 X103/UL 1.5-7.7 CMP(!) 09/29/2017 [facility] Sodium(!) 137 mEq/L 134- 149 2435 [place] [address] [phone] Potassium(!) 4.8 mEq/L 3.6-5.5 Chloride Serum/Plasma(!) 103 [...] [facility] Amylase(!) 108 U/L 25-[address] [place] [address] [phone] CBC W/Auto 07/08/2017 [facility] White Blood 9.0 3/UL 4.8-10.8 Differential(!) Critical [facility] hospital[facility] [place] [address] CNT [phone] RBC Red Blood Count 4.77 X106/UL 4.20-6.20 Hemoglobin Blood 14.5 g/dL 12.0-18.0 Hematocrit 45.2 % 35-52 MCV (Corpuscular Volume) 94.7 FL 79-97 MCH (Corpuscular Hemoglobin) 30.4 pg 27-31 MCHC (Corpuscular Hemog Conc) 32.1 g/dL 32.0-36.0 RDW 14.9 % 10.5-15.0 Platelet Count Blood Auto CNT 334 X103/UL 150-450 MPV 7.4 FL 7.4-10.4 Lymph% 31.5 % 20.0-45.0 [place]% 5.9 % 1.0-9.0 Neutrophil % 62.6 % 38.0-83.0 Absolute Lymphocytes 2.8 X103/UL 1.0-4.8 Absolute Monocytes 0.5 X103/UL 0.0-0.8 Absolute Neutrophils 5.6 X103/UL 1.5-7.7 CMP(!) 07/08/2017 [facility] Sodium(!) 137 mEq/L 134- 149 [facility] [place] [address] [phone] Potassium(!) 4.8 mEq/L 3.6-5.5 Chloride Serum/Plasma(!) 102 [...] Auto CNT <pending> MPV <pending> Lymph% <pending> [place]% <pending> Neutrophil % <pending> Absolute Lymphocytes <pending> Absolute Monocytes <pending> Absolute Neutrophils <pending> BMP W/Egfr 06/23/2016 [facility] Sodium(!) <pending> Potassium(!) <pending> Chloride Serum/Plasma(!) <pending> Carbon Dioxide Ser/Plasm(!) <pending> Calcium Ser/Plasma Mass/Vol(!) <pending> Glucose Serum(!) <pending> Laboratory test finding 06/22/2016 [facility] [place] Interface SEE RESULT BELOW 9 Order [...] 5 Kidney failure <15 (or dialysis) 2 [id number] 3 Test Performed by: [facility] [place] [address] 4 [id number] 5 Indeterminate due to a low interferon-gamma level in the mitogen (positive control) tube. This may occur due to a low lymphocyte count, reduced lymphocyte activity or inability of the patient's lymphocytes to generate interferon-gamma. The reference range for the 'Mitogen minus Nil Result' is >=0.5 IU/mL. 6 Test Performed by: [facility] [place] [address] 7 SEE RESULT BELOW Name: JULIO C BELTRAN : [address]: Ramez Hernandes MD Acct: [id number] Unit: [id number] AGE: 62 Location: [place] [address] Re04/13/18 SEX: F Status: ADM IN SPEC: [id number] EFREN: 04/17/18 [facility] DR: Nato Yadav MD REQ: [id number] RECD: 04/17/18 STATUS: KELLE RUDD DR: Rachel [...] 0953 END OF REPORT DEPARTMENT OF PATHOLOGY, [address] [place] [address] Yinka Hobbs M.D. Director [facility] # [id number] 8 Test Result Flag Unit RefValue TPMT Activity Profile, RBC Interpretation See Comment *Normal* In this whole blood sample, the profile of activity of thiopurine methyltransferase using three different substrates was normal or essentially normal. ADDITIONAL INFORMATION Liquid Chromatography-Tandem Mass Spectrometry (LC-MS/MS) This test was developed and its performance characteristics determined by [facility] in a manner consistent with CLIA requirements. This test has not been cleared or approved by the U.S. Food and Drug Administration. 6-Methylmercaptopurine 4.39 nmol/mL/h 3.00-6.66 6- 7.44 nmol/mL/h 5.04-9.57 Methylmercaptopurine riboside 6-Methylthioguanine 4.45 nmol/mL/h 2.70-5.84 riboside Reviewed By See Comment RESULT: Nestor Solorzano M.D., Ph.D. Test Performed by: [facility] - [address] [address] 9 SEE RESULT BELOW Name: JULIO C BELTRAN : [address]: Umm Bess DO Acct: [id number] Unit: [id number] AGE: 60 Location: [place] [address] Re06/21/16 Dis: 06/23/16 SEX: F Status: DIS IN SPEC: [id number] EFREN: 06/22/16-1615 [facility] DR: [place] Bhakta MD REQ: [id number] RECD: 06/22/16 STATUS: KELLE RUDD DR: Alex [...] performed at Main Lab DEPARTMENT OF PATHOLOGY, [address] [place] [address] Yinka Hobbs M.D. Director [facility] # [id number] Procedures Date Code Description Status 04/17/2018 58760 Moderate Sedation Services; Same Phys Intl 15 Mins; PT >=5 Completed Years 04/17/2018 19907 Flexible Sigmoidoscopy W/ Biopsy Completed 06/22/2016 38022 Moderate Sedation Services; Same Phys Each Additional 15 Completed Mins 06/22/2016 53474 Moderate Sedation Services; Same Phys Intl 15 Mins; PT >=5 Completed Years 06/22/2016 16789 Colonscopy+Biopsy Completed 06/22/2016 57602 EGD+Biopsy Single Or Multiple Completed 01/17/2007 05518 Flexible Sigmoidoscopy W/ Biopsy Completed Encounters Type Date Location Provider Dx Diagnosis Office Visit 06/26/2018 [facility] Napoleon Wagner K51.918 Ulcerative 1:00p [facility] Opal WATSON colitis, unspecified with other complication Z93.2 Ileostomy status T38.0x5A Adverse effect of glucocort/synth analog, init 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 Office 05/09/2018 [facility] Napoleon Wagner K51.018 Ulcerative Visit 2:15p [facility] Opal WATSON (chronic) pancolitis with other complication K51.918 Ulcerative colitis, unspecified with other complication R19.7 Diarrhea, unspecified Z79.899 Other detention (current) drug therapy Office 10/31/2017 [facility] Randy Shirley K51.90 Ulcerative Visit 7:45a [facility] Opal Bhakta MD colitis, unspecified, without complications I10 Essential (primary) hypertension Z79.899 Other detention (current) drug therapy Office 09/29/2017 [facility] Randy [...] K51.00 Ulcerative Visit 11:30a [facility] Des[facility], (chronic) PA-C pancolitis without complications Office 07/08/2017 [facility] Randy Bond1.90 Ulcerative Visit 8:45a [facility] Bhakta MD colitis, unspecified, without complications I10 Essential (primary) hypertension Office 09/16/2016 [facility] Randy Bond1.90 Ulcerative Visit 8:30a [facility] Bhakta MD colitis, unspecified, without complications Office 07/22/2016 [facility] Randy Bond1.90 Ulcerative Visit 1:00p [facility] Opal Bhakta MD colitis, unspecified, without complications Plan of Treatment No Information Available
--- OUTSIDE RECORDS SUMMARY | 2018-09-22 17:11 | XMS REPORT | Continuity of Care Document ---
:1955 External Reference #:[id number] Author Name Napoleon Wagner DO Address [address] [place] [address] Care Team Providers Name Role Phone Braydon Landeros NP Primary Care Physician Unavailable Payers Date Identification Numbers Payment Provider Subscriber Policy Number: [id number] Bebo Beltran PayID: [id number] [address] [place] [address] Expires: 2018 Policy Number: [id number] Medicaid Julio C Beltran Group Name: 1 1 [facility] [place] [employer] PayID: [id number] [address] [place] [address] Effective: 2017 Policy Number: [id number] [employer] [place] Julio C Beltran Expires: 2018 PayID: [id number] [address] [address] [place] [address] Advance Directives Description No Information Available Problems Active Problems Provider Date Ulcerative colitis [place] Bhakta MD Onset: 07/22/2006 Note: no extraintestinal manifestation; office note 2006 reveals a flare / original Dx of UC [id number] (after family ) treated with Cortenemas then; [...] Date Mesalamine 1 supp pr hs 30units [facility], DO 08/28/2018 1000mg Suppository Opium 3 drops by mouth Unknown 10mg/ML (1%) three times a Tincture day; code c chronic diarrhea History Medications Cholestyramine 4g PO daily to 378gm [facility], DO 04/26/2018 - 4GM/Dose bid for prn 05/09/2018 Powder diarrhea. Rowasa Enemas use 1 enema every 1680ml [facility], DO 04/24/2018 - 4GM/60ML night. 04/24/2018 Enema Rowasa 1 every night at [facility] 04/24/2018 - Enema bedtime 04/24/2018 Mesalamine one enema every 420units [facility], DO 04/24/2018 - 4gm Enema night 05/09/2018 Fluoxetine HCL 1 by mouth every Unknown 10/24/2017 - 20mg day 10/27/2017 Capsules Azathioprine 1 by mouth every 90tabs Randy Shirley 09/29/2017 - 50mg Tablets dacia Bhakta MD 10/24/2017 Lialda 4 by mouth every 120tabs Randy Shirley 08/22/2017 - 1.2gm Tablets DR dacia Bhakta MD 08/24/2017 Prednisone take 4 Tablets 120tabs [facility], DO 07/08/2017 - 10mg Tablets Daily [...] [address] Count Ser (!) [place] [address] Auto CNT [phone] RBC Red Blood Count 4.31 X106/UL 4.20-6.20 Hemoglobin Blood 12.8 g/dL 12.0-18.0 Hematocrit 38.7 % 35-52 MCV (Corpuscular Volume) 89.9 FL 79-97 MCH (Corpuscular Hemoglobin) 29.8 pg 27-31 MCHC (Corpuscular Hemog Conc) 33.2 g/dL 32.0-36.0 RDW 16.4 % High 10.5-15.0 Platelet Count Blood Auto CNT 378 X103/UL 150-450 MPV 6.7 FL Low 7.4-10.4 Lymph% 35.5 % 20.0-45.0 Hyde% 2.9 % 1.0-9.0 Neutrophil % 61.6 % 38.0-83.0 Absolute Lymphocytes 3.0 X103/UL 1.0-4.8 Absolute Monocytes 0.2 X103/UL 0.0-0.8 Absolute Neutrophils 5.2 X103/UL 1.5-7.7 Laboratory test 08/28/2018 [facility] Esr Sedimentation 36 MM High 0-20 finding [address] Rate(!) [place], [place] [address] [phone] Comp Metabolic 08/28/2018 [facility] Sodium 138 N [...] Sodium(!) 129 mEq/L Low 134 -149 2435 [place] [address] [phone] Potassium(!) 5.5 mEq/L 3.6-5.5 Chloride Serum/Plasma(!) 98 [...] White 20.9 High 4.8- 10.8 Differential(!) 2435 [facility] Blood 3/[place] [address] Count Ser [phone] Auto CNT RBC Red Blood Count 3.43 [...] Low 7.4-10.4 Lymph% 11.7 % Low 20.0-45.0 Hyde% 5.2 % 1.0-9.0 Neutrophil % 83.1 % High 38.0-83.0 Absolute Lymphocytes 2.4 X103/UL 1.0-4.8 Absolute Monocytes 1.1 X103/UL High 0.0-0.8 Absolute Neutrophils 17.4 X103/UL High 1.5-7.7 Inflammation 05/09/2018 [facility] Esr Sedimentation 120 MM High 0-20 Panel(!) [address] [facility] [facility] [address] Rate(!) [place], [place] [address] [phone] C-Reative Protein 116.8 High <5.0 Laboratory test 05/09/2018 [facility] [place] Hepatitis B Core Negative Negative 3 finding AB Total Hepatitis B Kira AB 05/09/2018 [facility] [place] Hepatitis B Not Immune Abnormal Immune Titer Surface AB Hep B Surf AB Level < 3.10 mIU/mL >12 Laboratory test 05/09/2018 [facility] [place] Hepatitis B Nonreactive Nonreactive 4 finding Surface Ag Quantiferon Gold 05/09/2018 [facility] [place] QuantiFERON-Tb Indeterminate Abnormal Negative 5 TB Gold Plus TB1 Ag minus Nil Result 0 IU/mL TB2 Ag minus Nil Result 0 IU/mL TB Mitogen minus Nil Result 0.04 IU/mL TB Nil Result 0.01 IU/mL 6 Laboratory test 04/17/2018 [facility] [place] Surgical SEE RESULT 7 finding Interface Order BELOW Laboratory test 04/17/2018 [facility] Difficile PCR <pending> finding Unspec Spec Culture Stool 04/14/2018 [facility] Culture Stool <pending> Occult Blood 04/14/2018 [facility] Z#Other <pending> Diagnos Observations Xray 04/06/2018 [facility] [place] Radiology Chest Ap Portable <pending> Xray 04/05/2018 [facility] [place] CT, Abd & Pelvis <pending> W/ Contrast Culture Stool 04/05/2018 [facility] Culture Stool <pending> Laboratory test 04/05/2018 [facility] C Difficile PCR <pending> finding Unspec Spec Laboratory test 09/29/2017 [facility] [place] Miscellaneous See Comment 8 finding Test CBC W/Auto 09/29/2017 [facility] White Blood Count 11.5 3/ UL High 4.8- Differential(!) 2435 [facility] Ser Auto CNT 10.8 [place] [address] [phone] RBC Red Blood Count 4.33 X106/UL 4.20-6.20 Hemoglobin Blood 13.6 g/dL 12.0-18.0 Hematocrit 43.2 % 35-52 MCV (Corpuscular Volume) 99.7 FL High 79-97 MCH (Corpuscular Hemoglobin) 31.5 pg High 27-31 MCHC (Corpuscular Hemog Conc) 31.6 g/dL Low 32.0-36.0 RDW 16.6 % High 10.5-15.0 Platelet Count Blood Auto CNT 282 X103/UL 150-450 MPV 7.2 FL Low 7.4-10.4 Lymph% 36.0 % 20.0-45.0 Hyde% 4.5 % 1.0-9.0 Neutrophil % 59.5 % 38.0-83.0 Absolute Lymphocytes 4.1 X103/UL 1.0-4.8 Absolute Monocytes 0.5 X103/UL 0.0-0.8 Absolute Neutrophils 6.8 X103/UL 1.5-7.7 CMP(!) 09/29/2017 [facility] Sodium(!) 137 mEq/L 134- 149 2435 [place] [address] [phone] Potassium(!) 4.8 mEq/L 3.6-5.5 Chloride Serum/Plasma(!) 103 [...] [facility] Amylase(!) 108 U/L 25-[address] [place] [address] [phone] CBC W/Auto 07/08/2017 [facility] White Blood 9.0 3/UL 4.8-10.8 Differential(!) [facility] [place] [place] [address] CNT [phone] RBC Red Blood Count 4.77 X106/UL 4.20-6.20 Hemoglobin Blood 14.5 g/dL 12.0-18.0 Hematocrit 45.2 % 35-52 MCV (Corpuscular Volume) 94.7 FL 79-97 MCH (Corpuscular Hemoglobin) 30.4 pg 27-31 MCHC (Corpuscular Hemog Conc) 32.1 g/dL 32.0-36.0 RDW 14.9 % 10.5-15.0 Platelet Count Blood Auto CNT 334 X103/UL 150-450 MPV 7.4 FL 7.4-10.4 Lymph% 31.5 % 20.0-45.0 Hyde% 5.9 % 1.0-9.0 Neutrophil % 62.6 % 38.0-83.0 Absolute Lymphocytes 2.8 X103/UL 1.0-4.8 Absolute Monocytes 0.5 X103/UL 0.0-0.8 Absolute Neutrophils 5.6 X103/UL 1.5-7.7 CMP(!) 07/08/2017 [facility] Sodium(!) 137 mEq/L 134- 149 [facility] [place] [address] [phone] Potassium(!) 4.8 mEq/L 3.6-5.5 Chloride Serum/Plasma(!) 102 [...] Auto CNT <pending> MPV <pending> Lymph% <pending> Hyde% <pending> Neutrophil % <pending> Absolute Lymphocytes <pending> Absolute Monocytes <pending> Absolute Neutrophils <pending> BMP W/Egfr 06/23/2016 [facility] Sodium(!) <pending> Potassium(!) <pending> Chloride Serum/Plasma(!) <pending> Carbon Dioxide Ser/Plasm(!) <pending> Calcium Ser/Plasma Mass/Vol(!) <pending> Glucose Serum(!) <pending> Laboratory test finding 06/22/2016 [facility] [place] Surgical Interface SEE RESULT BELOW 9 Order [...] 5 Kidney failure <15 (or dialysis) 2 [id number] 3 Test Performed by: [facility] [place] [address] 4 [id number] 5 Indeterminate due to a low interferon-gamma level in the mitogen (positive control) tube. This may occur due to a low lymphocyte count, reduced lymphocyte activity or inability of the patient's lymphocytes to generate interferon-gamma. The reference range for the 'Mitogen minus Nil Result' is >=0.5 IU/mL. 6 Test Performed by: [facility] [place] [place] [address] 7 SEE RESULT BELOW Name: JULIO C BELTRAN : [address]: Ramez Hernandes MD Acct: [id number] Unit: [id number] AGE: 62 Location: [place] [address] Re04/13/18 SEX: F Status: ADM IN SPEC: [id number] EFREN: 04/17/[address] [facility] [address]: Nato Yadav MD REQ: [id number] RECD: 04/17/18 STATUS: KELLE RUDD DR: Rachel [...] 0953 END OF REPORT DEPARTMENT OF PATHOLOGY, [address] [place] [place] [address] Yinka Hobbs M.D. Director [facility] # [id number] 8 Test Result Flag Unit RefValue TPMT Activity Profile, RBC Interpretation See Comment *Normal* In this whole blood sample, the profile of activity of thiopurine methyltransferase using three different substrates was normal or essentially normal. ADDITIONAL INFORMATION Liquid Chromatography-Tandem Mass Spectrometry (LC-MS/MS) This test was developed and its performance characteristics determined by [facility] in a manner consistent with CLIA requirements. This test has not been cleared or approved by the U.S. Food and Drug Administration. 6-Methylmercaptopurine 4.39 nmol/mL/h 3.00-6.66 6- 7.44 nmol/mL/h 5.04-9.57 Methylmercaptopurine riboside 6-Methylthioguanine 4.45 nmol/mL/h 2.70-5.84 riboside Reviewed By See Comment RESULT: Nestor Solorzano M.D., Ph.D. Test Performed by: [facility] - [address] [address] 9 SEE RESULT BELOW Name: JULIO C BELTRAN : [address]: Umm Bess DO Acct: [id number] Unit: [id number] AGE: 60 Location: [place] [address] Re06/21/16 Dis: 06/23/16 SEX: F Status: DIS IN SPEC: [id number] EFREN: 06/22/16-[address] [facility] [address]: [place] Bhakta MD REQ: [id number] RECD: 06/22/16 STATUS: KELLE RUDD DR: Alex [...] performed at Main Lab DEPARTMENT OF PATHOLOGY, [address] [place] [address] Yinka Hobbs M.D. Director [facility] # [id number] Procedures Date Code Description Status 04/17/2018 60971 Moderate Sedation Services; Same Phys Intl 15 Mins; PT >=5 Completed Years 04/17/2018 81937 Flexible Sigmoidoscopy W/ Biopsy Completed 06/22/2016 09542 Moderate Sedation Services; Same Phys Each Additional 15 Completed Mins 06/22/2016 09348 Moderate Sedation Services; Same Phys Intl 15 Mins; PT >=5 Completed Years 06/22/2016 44597 Colonscopy+Biopsy Completed 06/22/2016 99068 EGD+Biopsy Single Or Multiple Completed 01/17/2007 04871 Flexible Sigmoidoscopy W/ Biopsy Completed Encounters Type [...] other complication R19.7 Diarrhea, unspecified Z79.899 Other residential (current) drug therapy Office 10/31/2017 Gastroenter[facility] Randy Shirley K51.90 Ulcerative Visit 7:45a [facility] Opal Bhakta MD colitis, unspecified, without complications I10 Essential (primary) hypertension Z79.899 Other residential (current) drug therapy Office 09/29/2017 Gastroenterology Randy [...]
[2018-09-22 17:39] LABS: ABS Basophils 0.1 10^3/ul (0-0.2); ABS Eosinophils 0.1 10^3/ul (0-0.6); ABS Lymphocytes 2.2 10^3/ul (1.0-4.8); ABS Monocytes 0.6 10^3/ul (0-0.8); ABS Neutrophils 8.1 10^3/ul (1.5-7.7); Eosinophil % 0.5 %; Hematocrit 39 % (35-47); Hemoglobin 12.8 g/dL (12.0-16.0); Lymphocyte % 20.1 %; Mean Corpuscular HGB Conc 33 g/dL (31-36); Mean Corpuscular Hemoglobin 29 pg (27-31); Mean Corpuscular Volume 87 fL (80-97); Mean Platelet Volume 7.1 fL (7.4-10.4); Platelet Count 337 10^3/uL (150-450); Red Blood Count 4.48 10^6 /uL (3.70-4.87); Red Cell Distribution Width 15 % (10.5-15); White Blood Count 11.1 10^3/uL (3.5-10.8)
[2018-09-22 17:45] LABS: INR 1.01 (0.82-1.09)
[2018-09-22 17:56] LABS: Albumin 4.3 g/dL (3.2-5.2); Albumin/Globulin Ratio 1.1 (1-3); BUN/Creatinine Ratio 19.8 (8-20); C Reactive Protein 3.13 mg/L (<8.01); Calcium 10.1 mg/dL (8.6-10.3); EGFR African American 63.8 (>60); EGFR Non-African American 52.7 (>60); Potassium 4.6 mmol/L (3.5-5.0); Total Bilirubin 0.5 mg/dL (0.2-1.0); Total Protein 8.3 g/dL (6.4-8.9)
--- NOTE | 2018-09-22 19:21 | ED ---
Abdominal Pain/Female - HPI Summary HPI Summary: The patient is a 63 y/o F presenting to [facility] with a chief complaint of sudden onset LLQ pain starting at 1200 today with worsening throughout the day. The pain started at 1200, which she states felt like "gas pains," so she took Gas-X pills to no relief around 1500 since the pain had been intermittently persistent since onset. The pain continued to worsen and started to radiate to the left flank, so she came to the ED around 1700. The sharp pain is currently rated 8/10 in severity. She denies fever and urinary symptoms including dysuria and hematuria. She reports that she had an ileostomy in April 2018 on the right side, and she still has part of her sigmoid, which currently is affected by ulcerative colitis. She notes that she didn't have this section removed because it was not emergent, and her GI physician did not think it was the correct time to remove it since she had gone through recent surgery. There are no further complaints at this time. Former smoker, rare EtOH, occasional marijuana use. Hx of HTN and IBS. - History of Current Complaint Chief Complaint: EDAbdPain Stated Complaint: "POSS BLOCKAGE/NOTHING IN COLOSTEMY BAG" PER PT Time Seen by Provider: 09/22/18 19:07 Hx Obtained From: Patient Onset/Duration: Sudden Onset, Lasting Hours - since 1200 today, Still Present Timing: Hours Severity Initially: Mild Severity Currently: Moderate Pain Intensity: 8 Pain Scale Used: 0-10 Numeric Location: Discrete At: LLQ Radiates: Yes Radiates to: Flank - left Character: Sharp Aggravating Factor(s): Nothing Alleviating Factor(s): Nothing - Gas-X antacids taken to no relief Associated Signs and Symptoms: Negative: Fever, Urinary Symptoms - no dysuria or hematuria Allergies/Adverse Reactions: Allergies Allergy/AdvReac Type Severity Reaction Status Date / Time diatrizoate meglumine Allergy Vomiting Verified 09/22/18 17:04 [From Gastrografin] diatrizoate sodium Allergy Vomiting Verified 09/22/18 17:04 [From Gastrografin] Sulfa (Sulfonamide Allergy Hives Verified 09/22/18 17:04 Antibiotics) Home Medications: Home Medications Opium Tincture* 6 mg PO DAILY 09/22/18 [History Confirmed 09/22/18] PMH/Surg Hx/FS Hx/Imm Hx Endocrine/Hematology History: Denies: Hx Diabetes Cardiovascular History: Reports: Hx Hypertension Denies: Other Cardiovascular Problems/Disorders GI History: Reports: Hx Irritable Bowel, Other GI Disorders - hx ulcerative colitis, C difficile colitis History: Denies: Hx Dialysis, Hx Renal Disease, Other Problems/Disorders Sensory History: Reports: Hx Cataracts, Hx Contacts or Glasses Denies: Hx Hearing Aid Opthamlomology History: Reports: Hx Cataracts, Hx Contacts or Glasses - Cancer History Hx Chemotherapy: No Hx Radiation Therapy: No - Surgical History Surgery Procedure, Year, and Place: [place] [facility] [place] RIGHT [place] APRIL 2018, [facility] [place] Hx Anesthesia Reactions: No - Immunization History Date of Tetanus Vaccine: unk Date of Influenza Vaccine: fall 2017 Infectious Disease History: No Infectious Disease History: Reports: Hx Clostridium Difficile Denies: Traveled Outside the [place] in Last 30 Days - Family History Known Family History: Positive: Diabetes - Father. , Other - No cancer. - Social History Alcohol Use: None Hx Substance Use: No Substance Use Type: Reports: Marijuana Substance Use Comment - Amount & Last Used: RARE Hx Tobacco Use: Yes Smoking Status (MU): Former Smoker Type: Cigarettes Amount Used/How Often: PACK A DAY Have You Smoked in the Last Year: No Review of Systems Negative: Fever Positive: Abdominal Pain - pain in the LLQ radiating into left flank Negative: dysuria, hematuria All Other Systems Reviewed And Are Negative: Yes Physical Exam - Summary Physical Exam Summary: Appearance: Well appearing, no pain distress Skin: warm, dry, reflects adequate perfusion Head/face: normal Eyes: EOMI, CHRISTOS ENT: normal Neck: supple, non-tender Respiratory: CTA, breath sounds present Cardiovascular: RRR, pulses symmetrical Abdomen: tenderness in LLQ, soft, ileostomy on RLQ Musculoskeletal: normal, strength/ROM intact Neuro: normal, sensory motor intact, A&Ox3 Triage Information Reviewed: Yes Vital Signs On Initial Exam: Initial Vitals Temp Pulse Resp BP Pulse Ox 98.4 F 87 16 136/94 100 09/22/18 17:01 09/22/18 17:01 09/22/18 17:01 09/22/18 17:01 09/22/18 17:01 Vital Signs Reviewed: Yes Diagnostics - Vital Signs Vital Signs Temp Pulse Resp BP Pulse Ox 09/22/18 17:01 98.4 F 87 16 136/94 100 - Laboratory Lab Results: Lab Results 09/22/18 09/22/18 09/22/18 Range/Units 17:28 17:28 17:28 WBC 11.1 H (3.5-10.8) 10^3/uL RBC 4.48 (3.70-4.87) 10^6 /uL Hgb 12.8 (12.0-16.0) g/dL Hct 39 (35-47) % MCV 87 (80-97) fL MCH 29 (27-31) pg MCHC 33 (31-36) g/dL RDW 15 (10.5-15) % Plt Count 337 (150-450) 10^3/uL MPV 7.1 L (7.4-10.4) fL Neut % (Auto) 73.2 % Lymph % (Auto) 20.1 % [place] % (Auto) 5.7 % Eos % (Auto) 0.5 % Baso % (Auto) 0.5 % Absolute Neuts (auto) 8.1 H (1.5-7.7) 10^3/ul Absolute Lymphs (auto) 2.2 (1.0-4.8) 10^3/ul Absolute Monos (auto) 0.6 (0-0.8) 10^3/ul Absolute Eos (auto) 0.1 (0-0.6) 10^3/ul Absolute Basos (auto) 0.1 (0-0.2) 10^3/ul Absolute Nucleated RBC 0.0 10^3/ul Nucleated RBC % 0.0 INR (Anticoag Therapy) 1.01 (0.82-1.09) Sodium 138 (135-145) mmol/L Potassium 4.6 (3.5-5.0) mmol/L Chloride 105 (101-111) mmol/L Carbon Dioxide 25 (22-32) mmol/L Anion Gap 8 (2-11) mmol/L BUN 21 (6-24) mg/dL Creatinine 1.06 H (0.51-0.95) mg/dL Est GFR ( Amer) 63.8 (>60) Est GFR (Non-Af Amer) 52.7 (>60) BUN/Creatinine Ratio 19.8 (8-20) Glucose 112 H (70-100) mg/dL Lactic Acid (0.5-2.0) mmol/L Calcium 10.1 (8.6-10.3) mg/dL Total Bilirubin 0.50 (0.2-1.0) mg/dL AST 34 (13-39) U/L ALT 37 (7-52) U/L Alkaline Phosphatase 115 H (34-104) U/L C-Reactive Protein 3.13 (<8.01) mg/L Total Protein 8.3 (6.4-8.9) g/dL Albumin 4.3 (3.2-5.2) g/dL Globulin 4.0 (2-4) g/dL Albumin/Globulin Ratio 1.1 (1-3) Lipase 40 (11.0-82.0) U/L 09/22/18 Range/Units 17:28 WBC (3.5-10.8) 10^3/uL RBC (3.70-4.87) 10^6 /uL Hgb (12.0-16.0) g/dL Hct (35-47) % MCV (80-97) fL MCH (27-31) pg MCHC (31-36) g/dL RDW (10.5-15) % Plt Count (150-450) 10^3/uL MPV (7.4-10.4) fL Neut % (Auto) % Lymph % (Auto) % [place] % (Auto) % Eos % (Auto) % Baso % (Auto) % Absolute Neuts (auto) (1.5-7.7) 10^3/ul Absolute Lymphs (auto) (1.0-4.8) 10^3/ul Absolute Monos (auto) (0-0.8) 10^3/ul Absolute Eos (auto) (0-0.6) 10^3/ul Absolute Basos (auto) (0-0.2) 10^3/ul Absolute Nucleated RBC 10^3/ul Nucleated RBC % INR (Anticoag Therapy) (0.82-1.09) Sodium (135-145) mmol/L Potassium (3.5-5.0) mmol/L Chloride (101-111) mmol/L Carbon Dioxide (22-32) mmol/L Anion Gap (2-11) mmol/L BUN (6-24) mg/dL Creatinine (0.51-0.95) mg/dL Est GFR ( Amer) (>60) Est GFR (Non-Af Amer) (>60) BUN/Creatinine Ratio (8-20) Glucose (70-100) mg/dL Lactic Acid 1.7 (0.5-2.0) mmol/L Calcium (8.6-10.3) mg/dL Total Bilirubin (0.2-1.0) mg/dL AST (13-39) U/L ALT (7-52) U/L Alkaline Phosphatase (34-104) U/L C-Reactive Protein (<8.01) mg/L Total Protein (6.4-8.9) g/dL Albumin (3.2-5.2) g/dL Globulin (2-4) g/dL Albumin/Globulin Ratio (1-3) Lipase (11.0-82.0) U/L Result Diagrams: 09/22/18 17:28 09/22/18 17:28 Lab Statement: Any lab studies that have been ordered have been reviewed, and results considered in the medical decision making process. - CT Abd/Pel CT CT Interpretation Completed By: Radiologist Summary of CT Findings: Left hydronephrosis with 2 mm calculi at the left ureteropelvic junction. Perinephric infiltration of fat is noted. No definite bowel obstruction is noted. Stool is noted in the right ileostomy. ED physician has reviewed this radiology report. Re-Evaluation - Re-Evaluation First Eval Re-Evaluation Time: 20:30 Comment: I spoke with the patient concerning results and discharge home with urology follow up. Abdominal Pain Fem Course/Dx - Course Course Of Treatment: The patient is a 63 y/o F presenting to [facility] with a chief complaint of sudden onset LLQ pain starting at 1200 today with worsening throughout the day even after taking antacids at 1500. The sharp pain started to radiate to the left flank, but she denies urinary symptoms at this time. Hx of ileostomy on the right, ulcerative colitis, and IBS. Upon physical exam, the patient exhibits ileostomy on RLQ and tenderness in LLQ. In the ED course, the patient was administered Percocet and Flomax for pain. Blood work and UA obtained. CT Abd/Pel impression reveals left hydronephrosis with 2mm renal calculi in the left uteropelvic junction with perinephric infiltration of fat but without bowel obstruction. She is diagnosed with renal calculi and abdominal pain. She will be discharged home with prescription for Percocet and Flomax, and she will follow up with PCP and Dr. Fields, urology, in 2-3 days. She agrees with this plan and understands the need for return to the ED for any new or worsening symptoms. - Diagnoses Differential Diagnosis: Positive: Diverticulitis, Renal Colic, Urinary Tract Infection Provider Diagnoses: Renal calculi, Abdominal pain Discharge - Sign-Out/Discharge Documenting (check all that apply): Patient Departure - Patient will be discharged home. Patient Received Moderate/Deep Sedation with Procedure: No - Discharge Plan Condition: Stable Disposition: HOME Prescriptions: Oxycodone HCl/Acetaminophen [Percocet] 1 tab PO TID #15 tab MDD 3 Tamsulosin CAP* [Flomax CAP*] 0.4 mg PO DAILY #14 cap Patient Education Materials: Kidney Stones (ED), Abdominal Pain (ED) Referrals: Braydon Landeros NP [Primary Care Provider] - 3 Days Toro Fields MD [Medical Doctor] - 3 Days Additional Instructions: Please take medication as prescribed. Follow up with your primary care provider and urology in 2-3 days. RETURN TO THE EMERGENCY DEPARTMENT FOR ANY NEW OR WORSENING SYMPTOMS. - Billing Disposition and Condition Condition: STABLE Disposition: Home - Attestation Statements Document Initiated by Osiris: Yes Documenting Scribe: Yael Carroll Provider For Whom Osiris is Documenting (Include Credential): Dr. Anthony Vazquez MD Scribe Attestation: Yael Busby scribed for Dr. Anthony Vazquez MD on 09/22/18 at 2323. Scribe Documentation Reviewed: Yes Provider Attestation: The documentation as recorded by the Yael briones accurately reflects the service I personally performed and the decisions made by me, Dr. Anthony Vazquez MD Status of Scribe Document: Viewed
[2018-09-22 19:47] LABS: Urine Appearance Cloudy; Urine Bacteria Absent (Absent); Urine Bilirubin Negative (Negative); Urine Blood 1+ (Negative); Urine Color Yellow; Urine Glucose Negative (Negative); Urine Ketones Trace (Negative); Urine Nitrite Negative (Negative); Urine Protein Negative (Negative); Urine Red Blood Cell 2+(6-10/hpf) (Absent); Urine Specific Gravity 1.026 (1.010-1.030); Urine Squamous Epithelial Cell Present (Absent); Urine Urobilinogen Negative (Negative); Urine White Blood Cell Trace(0-5/hpf) (Absent)
[2018-09-22 20:39] VITALS: BP 133/93
== END | disposition home or self-care (01) ==
LOC: ED 16:56
DX: N20.0 Calculus of kidney (principal); R10.32 Left lower quadrant pain; I10 Essential (primary) hypertension; Z88.2 Allergy status to sulfonamides; Z87.891 Personal history of nicotine dependence
CPT/HCPCS: 36415; 74176; 80053; 81003; 81015; 83605; 83690; 85025; 85610; 86140; 87086; 99283; A9270-GY

== ENCOUNTER 2019-05-03 08:00 | Inpatient (IN) | payer OTHER ==
--- NOTE | 2019-04-24 17:58 | HP ---
HISTORY AND PHYSICAL: DATE OF ADMISSION: 05/03/19 PROVIDER: Dr. Lilian Irene.* (DICTATED BY JESSE CAMPOS) HISTORY OF PRESENT ILLNESS: Ms. Moreno is a 63-year-old female with greater than 5 years of increasing severe left hip pain. She reports the pain as a 5-10/ 10 pain in the left groin, increases with more than walking a block. She uses a cane or a rolling walker to ambulate at all times. She has failed conservative management with anti-inflammatories, pain medications, hip injections, and physical therapy without relief. She has had a left total hip arthroplasty scheduled in the past, but unfortunately had an emergent bowel surgery with some complications. Today, she is here to proceed with her left total hip arthroplasty. PAST MEDICAL HISTORY: 1. Ulcerative colitis. 2. Osteoarthritis. PAST SURGICAL HISTORY: 1. Bowel surgery of unspecified type, recent ileostomy placement with rectal closure surgery. 2. Cataract surgery. MEDICATIONS: 1. New Image CeraPlus 7 inch skin barrier. 2. New Image colostomy/ileostomy kit/1-3/4-inch/Lock 'n Roll. 3. Opium 10 mg/mL 1%. 4. Opium tincture 5 mg per day. 5. Tramadol 50 mg. ALLERGIES: MORPHINE causes vomiting and SULFA antibiotic causes an unknown reaction. FAMILY HISTORY: Paternal - hypertension. SOCIAL HISTORY: The patient lives alone. She works in [employer]. She is retired. She denies any tobacco or recreational drug use. She is normally active and is right-hand dominant. She does admit to occasional marijuana use. REVIEW OF SYSTEMS: General: The patient denies any fevers, chills, or night sweats. No known anesthesia problems. HEENT: The patient denies any headaches , lightheadedness, or syncopal episodes. Cardiothoracic: The patient denies any chest pain or heart palpitations. Pulmonary: The patient denies any shortness of breath with exertion, chronic cough, COPD. GI: The patient denies any nausea, vomiting, diarrhea or constipation. : The patient denies any nocturia, urinary frequency or urgency. MSK: The patient denies any chronic or intermittent back pain or fractures. Neuro: The patient denies any paresthesias, numbness or seizures. Integument: The patient denies any abrasions, lesions, rashes, lumps, or open sores. PHYSICAL EXAMINATION GENERAL: The patient is alert and oriented x3 with appropriate mood and affect , appropriately dressed and hygiene. HEENT: Normocephalic, atraumatic. Hearing and vision are grossly intact. PULMONARY: Lungs are clear to auscultation bilaterally. No wheezes, rales or rhonchi. CARDIO: Regular rate and rhythm. Normal S1 and S2. No appreciable S3 or S4. No murmurs, rubs or gallops. MSK: Left lower extremity: Inspection of the left hip reveals no erythema or ecchymosis. Skin is warm, dry, and intact. Range of motion is 90 degrees of flexion at the hip with pain and 0 rotation of the hip due to extreme pain today. She is neurovascularly intact distally with 5/5 ankle dorsiflexion and plantar flexion. Sensation intact to light touch in all nerve distributions and a 2+ dorsalis pedis pulse. ASSESSMENT: Left hip osteoarthritis, end stage. PLAN: To the OR for a left total hip arthroplasty to be performed by Dr. Lilian Irene on 05/03/19. The risks and complications were reviewed with the patient and a signed understanding was obtained. She will follow up in 10 to 14 days for suture removal and followup. JESSE CAMPOS [id number]/CPS #: [id number] MTDD
[~2019-05-03 08:00] MED LIST changes: +Buffered Lidocaine 1% SYRIN* 1 ML/SYRINGE INTRADERM ONE; +Lactated Ringers 1000 ML Bag* 1,000 ML IV SCH; -Tamsulosin CAP* 0.4 MG PO ONE; +Tranexamic Acid 1,000 MG in NS 0.9% 50 ML* (outpatient use) IV SCH; -oxyCODONE/Acetamin 5/325 MG* TAB PO ONE
--- OUTSIDE RECORDS SUMMARY | 2019-05-03 08:05 | XMS REPORT | Continuity of Care Document ---
:1955 External Reference #:[id number] Author Name Ahsan Maki M.D. (transmitted by agent of provider Carmelita Duran ) Address [address] [place] [address] Care Team Providers Name Role Phone Tigre SIMA Bryson - Family Care Team Information Lay Out Drafter [phone] Problems Active Problems Provider Date Localized, primary osteoarthritis of the pelvic Lilianxochitl Irene M.D. Onset: 01/2018 region and thigh Social History Type Date Description Comments Sex Unknown ETOH Use Drinks Alcoholic Beverages Occasionally Tobacco Use Start: Unknown End: Patient is a former smoker Unknown Recreational Drug Use Denies Drug Use Smoking Status Reviewed: 04/16/19 Patient is a former smoker Exercise Type/Frequency Exercises sporadically Allergies, Adverse Reactions, Alerts Active Allergies Reaction Severity Comments Date Sulfa Antibiotics unknown childhood 02/01/2018 Morphine And Related pt states violently ill if taken 04/16/2019 Medications Active Medications SIG Qnty Indications Ordering Date Provider Sofi # [id number] Adapt deodorizing 30units Juan Jose S. 02/26/2019 lubricant use as MD Ruperto directed Sofi # [id number] adapt skin 30units Juan Jose S. 02/26/2019 protective wipes - MD Ruperto use as directed New Image Ceraplus sofi # 53231 12units Juan Jose S. 09/27/2018 7/8" Skin Barrier MD Ruperto New Image holister drainable 30units Juan Jose S. 08/28/2018 Colostomy/Ileostomy #19861 MD Ruperto Kit/-06/26"/Lock 'N Roll -06/26" Kit New Image eliceoister #23345 10units Juan Jose S. 08/28/2018 Flextend/Skin MD Ruperto Barrier/Floating Flange/Tape 1 06/26" 05[place] [facility] [place] Ostomy Sofi #84314 2Boxes Juan Jose S. 08/01/2018 System bags. Use as MD [place] -04/28" [facility] [place] New Image Flextend Sofi #25904. 2Boxes Juan Jose S. 08/01/2018 Skin Barrier Use as directed MD Ruperto -04/28" Wafer Opium take 0.6 36ml Juan Jose S. 07/12/2018 10mg/ML (1%) milliliters once a MD Ruperto Tincture day Cane use for ambulation 1units Lilian Irene, 02/01/[place] [facility] [place] pain MAl Tramadol HCL Unknown 50mg Tablets Medications Administered in Office Medication SIG Qnty Indications Ordering Provider Date Records Fee Lilian Irene M.D. 02/21/2019 Injection Records Fee Juan Jose Hickey MD 10/20/2018 Injection Records Fee Lilian Irene M.D. 10/13/2018 Injection Depomedrol 40MG Lilian Irene M.D. 08/23/2018 Injection Depomedrol 40MG Lilian Irene M.D. 02/03/2018 Injection Immunizations Description No Information Available Vital Signs Date Vital Result Comment 04/16/2019 1:00pm Height 66.25 inches 5'6.25" Weight 171.25 lb Heart Rate 86 /min BP Systolic 124 mmHg BP Diastolic 88 mmHg Respiratory Rate 12 /min Body Temperature 97.6 F Pain Level 3 BMI (Body Mass Index) 27.4 kg/m2 02/02/2019 9:06am Height 66 inches 5'6" Weight 159.00 lb Heart Rate 70 /min BP Systolic 126 mmHg BP Diastolic 78 mmHg Pain Level 5 BMI (Body Mass Index) 25.7 kg/m2 Results Test Acquired Date Facility Test Result H/L Range Note Urinalysis Profile 04/16/2019 [facility] Urine Color Yellow [address] [place] [address] [phone] Urine Appearance Cloudy Urine Specific [place] 1.020 Normal 1.010-1.030 Urine pH 5.0 Normal 5-9 Urine Urobilinogen Negative Negative Urine Ketones Negative Negative Urine Protein Negative Negative Urine Leukocytes 1+ Abnormal Negative Urine Blood Negative Negative * * Abnormal Negative 1 Urine Nitrite Negative Negative Urine Bilirubin Negative Negative Urine Glucose Negative Negative Urine White Blood Cell Trace(0-5/hpf) Absent Urine Red Blood Cell 1+(3-5/hpf) Abnormal Absent Urine Bacteria Absent Absent Urine Squamous Epithelial Cell Present Abnormal Absent Inr/Protime 04/16/2019 [facility] Inr 0.99 Normal 0.82-1.[address] [place] [address] [phone] Laboratory test 04/16/2019 [facility] Partial 34.8 Normal 26.0 -38.[address] [place] [address] Time PTT [phone] Type & Screen 04/16/2019 [facility] Patient A Positive [address] Blood Type [place], [place] [id number] [phone] Antibody Screen NEGATIVE Urine Culture And 04/16/2019 [facility] Urine Culture SEE RESULT [address] [place], [place] [id number] [phone] 1 *Ascorbic acid is present which may interfere with detection of blood. 2 Standard intensity warfarin therapeutic range: 2.0-3.0 High intensity warfarin therapeutic range: 2.5-3.5 3 SEE RESULT BELOW Name: JULIO C BELTRAN : [address]: Lilian Irene MD Acct: [id number] Unit: [id number] AGE: 63 Location: [facility] Re04/16/19 SEX: F Status: REG REF SPEC: [id number] EFREN: 04/16/[address] [facility] [address]: Lilian Irene MD REQ: [id number] RECD: 04/16/19 STATUS: COMP HR DR: Braydon Landeros DELICATESSEN GOODS STOCK CLERK _ SOURCE: URINE SPDESC: ORDERED: Urine Culture QUERIES: Urine Source: Clean Catch Procedure Result Reported Site Urine Culture Final 04/17/19- 1435 ML No growth of clinically significant organisms * ML - Main Lab . END OF REPORT DEPARTMENT OF PATHOLOGY, [address] [place] [address] Yinka Hobbs M.D. Director [facility] # [id number] Procedures Description No Information Available Medical Devices Description No Information Available Encounters Type Date Location Provider Dx Diagnosis Office Visit 02/02/2019 [facility] Lilian Irene, M25.552 [facility] Unilateral osteoarth resulting from hip dysplasia, left hip Office Visit 01/03/2019 [facility] Juan Jose Virgen K51.818 Other ulcerative 3:[facility] colitis with Ballistics Teacher other complication Assessments Date Code Description Provider 04/16/2019 M25.552 Pain in left hip Lilian Irene M.D. 04/16/2019 M16.32 Unilateral osteoarthritis resulting from hip Lilian Irene M.D. dysplasia, left hip 02/02/2019 M25.552 Pain in left hip Lilian Irnee M.D. 02/02/2019 M16.32 Unilateral osteoarthritis resulting from hip Lilian Irene M.D. dysplasia, left hip 01/03/2019 K51.818 Other ulcerative colitis with other Juan Jose Hickey MD complication Plan of Treatment Future Appointment(s):05/14/2019 1:45 pm - Lilian Irene M.D. at [facility] at Oyaiao9505/03/2019 8:30 am - Andrea Lux PA-C at [facility] at Ggjlwx5405/03/2019 8:30 am - JESSE Arora at [facility] at Qvwxuw4405/03/2019 8:30 am - Lilian Irene M.D. at [facility] at Eanudq7504/16/2019 - Lilian Irene M.D.M25.552 Pain in left hipM16.32 Unilateral osteoarthritis resulting from hip dysplasia, left hipFollow up:Follow up: to the OR Functional Status Description No Information Available Mental Status Description No Information Available Referrals Description No Information Available
--- OUTSIDE RECORDS SUMMARY | 2019-05-03 08:05 | XMS REPORT | Continuity of Care Document ---
:1955 External Reference #:[id number] Author Name Lilian Irene M.D. (transmitted by agent of provider Isis Deutsch) Address [address] [place] [address] [place] [address] Care Team Providers Name Role Phone Braydon Landeros NP - Family Care Team Information Infrastructure Solutions Architect [phone] Problems Active Problems Provider Date Localized, primary osteoarthritis of the pelvic Lilian Irene M.D. Onset: 01/2018 region and thigh [...] Medications SIG Qnty Indications Ordering Date Provider Gloria # [id number] Adapt deodorizing 30units Juan Jose S. 02/26/2019 lubricant use as MD Ruperto directed Gloria # 1952 adapt skin 30units Juan Jose S. 02/26/2019 protective wipes - MD Ruperto use as directed New Image Ceraplus gloria # 54836 12units Juan Jose S. 09/27/2018 7/8" Skin Barrier MD Ruperto New Image holister drainable 30units Juan Jose S. 08/28/2018 Colostomy/Ileostomy #31065 MD Ruperto Kit/-06/26"/Lock 'N Roll -06/26" Kit New Image isamar #[id number] 10units Juan Jose S. 08/28/2018 Flextend/Skin MD Ruperto Barrier/Floating Flange/Tape 1 3/" 13/4" [facility] New Image Ostomy Gloria #46697 2Boxes Juan Jose S. 08/01/2018 System bags. Use as MD Ruperto -04/28" [facility] directed New Image Flextend [place] #51273. 2Boxes Juan Jose S. 08/01/2018 Skin Barrier Use as directed MD Ruperto -04/28" Wafer Opium take 0.6 36ml Juan Jose Virgen 07/12/2018 10mg/ML (1%) milliliters once a MD Ruperto Tincture day Cane use for ambulation 1units Lilian Irene, 02/01/2018 Mis - severe L hip pain Yenifer Tramadol HCL Unknown 50mg Tablets Medications Administered [...] BMI (Body Mass Index) 25.7 kg/m2 Results Description No Information Available Procedures Description No Information Available Medical Devices Description No Information Available Encounters Type Date Location Provider Dx Diagnosis Office Visit 02/02/2019 [facility] Lilian Irene, M25.552 Pain in left hip 9:15a at [place] Yenifer M16.32 Unilateral osteoarth resulting from hip dysplasia, left hip Office Visit 01/03/2019 [facility] Juan Jose Virgen K51.818 Other ulcerative 3:[facility]p [facility] MD Ruperto colitis with Sales Expert other complication Assessments Date Code Description Provider 04/16/2019 M25.552 Pain in left hip Lilian Irene M.D. 04/16/2019 M16.32 Unilateral osteoarthritis resulting from hip Lilian Irene M.D. dysplasia, left hip 02/02/2019 M25.552 Pain in left hip Lilian Irene M.D. 02/02/2019 M16.32 Unilateral osteoarthritis resulting from hip Lilian Irene M.D. dysplasia, left hip 01/03/2019 K51.818 Other ulcerative colitis with other Juan Jose Hickey MD complication Plan of Treatment Future Appointment(s):05/03/2019 8:30 am - Andrea Lux PA-C at [facility] at Vsvycr7405/03/2019 8:30 am - JESSE Arora at [facility] at Unrnrm0805/03/2019 8:30 am - Lilian Irene M.D. at [facility] at Sykhft9504/16/2019 - Lilian Irene M.D.M25.552 Pain in left hipM16.32 Unilateral osteoarthritis resulting from hip dysplasia, left hipFollow up:Follow up: to the OR Functional Status Description No Information Available Mental Status Description No Information Available Referrals Description No Information Available
--- OUTSIDE RECORDS SUMMARY | 2019-05-03 08:05 | XMS REPORT | Continuity of Care Document ---
:1955 External Reference #:[id number] Author Name Lilian Irene M.D. 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 02/26/2019 lubricant use as MD Ruperto directed Gloria # 6370 adapt skin 30units Juan Jose S. 02/26/2019 protective wipes - MD Ruperto use as directed New Image Ceraplus gloria # 80286 12units Juan Jose S. 09/27/2018 7/8" Skin Barrier MD Ruperto New Image holister drainable 30units Juan Jose S. 08/28/2018 Colostomy/Ileostomy #52073 MD Ruperto Kit/-06/26"/Lock 'N Roll -06/26" Kit New Image isamar #[id number] 10units Juan Jose S. 08/28/2018 Flextend/Skin MD Ruperto Barrier/Floating Flange/Tape 1 06/26" 05/08" [facility] New Image Ostomy Gloria #57708 2Boxes Juan Jose S. 08/01/2018 System bags. Use as MD Ruperto -04/28" [facility] directed New Image Flextend Gloria #98797. 2Boxes Juan Jose S. 08/01/2018 Skin Barrier Use as directed MD Ruperto -04/28" Wafer Opium take 0.6 36ml Juan Jose Virgen 07/12/2018 10mg/ML (1%) milliliters once a MD Ruperto Tincture day Cane use for ambulation 1units Lilian Irene, 02/01/2018 [facility] - severe L hip pain Yenifer Tramadol [...] H/L Range Note Urinalysis Profile 04/16/2019 [facility] Urine Color Yellow [address] [place] [address] [phone] Urine Appearance Cloudy Urine Specific [place] 1.020 Normal 1.010-1.030 Urine pH 5.0 Normal [...] Cell Present Abnormal Absent Inr/Protime 04/16/2019 [facility] Inr 0.99 Normal 0.82-1.[address] [place] [address] [phone] Laboratory test 04/16/2019 [facility] Partial 34.8 Normal 26.0 -38.[address] [place] [address] Time PTT [phone] Type & Screen 04/16/2019 [facility] Patient A Positive [address] Blood Type [place], [place] [id number] [phone] Antibody Screen NEGATIVE Urine Culture And 04/16/2019 [facility] Urine Culture SEE RESULT [address] [place] [address] [phone] 1 *Ascorbic acid is present which may interfere with detection of blood. 2 Standard intensity warfarin therapeutic range: 2.0-3.0 High intensity warfarin therapeutic range: 2.5-3.5 3 SEE RESULT BELOW Name: BELTRANJULIO C : [address]: Lilian Irene MD Acct: [id number] Unit: [id number] AGE: 63 Location: [facility] Re04/16/19 SEX: F Status: REG REF SPEC: [id number] EFREN: 04/16/[address] [facility] [address]: Lilian Irene MD REQ: [id number] RECD: 04/16/19 STATUS: JANELLE RUDD DR: Braydon Landeros DEMONSTRATOR ELECTRIC GAS APPLIANCES _ SOURCE: URINE SPDESC: ORDERED: Urine Culture QUERIES: Urine Source: Clean Catch Procedure Result Reported Site Urine Culture Final 04/17/19- 1435 ML No growth of clinically significant organisms * ML - Main Lab . END OF REPORT DEPARTMENT OF PATHOLOGY, [address] [place] [address] Yinka Hobbs M.D. 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 at [facility] at Mfxoql3505/03/2019 8:30 am - Andrea Lux PA-C at [facility] at Xvzgkc0205/03/2019 8:30 am - JESSE Arora at [facility] at Rhazyc0505/03/2019 8:30 am - Lilian Irene M.D. at [facility] at Vqlwio1704/16/2019 - Lilian Irene M.D.M25.552 Pain in left hipM16.32 Unilateral osteoarthritis resulting from hip dysplasia, left hipFollow up:Follow up: to the OR Functional Status Description No Information Available Mental Status Description No Information Available Referrals Description No Information Available
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
[2019-05-03] MEDS ORDERED: ceFAZolin 2 GM in NS PREMIX(*) 2 GM/100 ML BAG IVPB ONE (08:15)
[2019-05-03] MEDS ORDERED: Buffered Lidocaine 1% SYRIN* 1 ML/SYRINGE INTRADERM ONE (08:15)
[2019-05-03] MEDS ORDERED: fentaNYL* 50 MCG/ML 2 ML VIAL (100 MCG VIAL) ONE (09:18)
[2019-05-03] MEDS ORDERED: Bupivacaine 0.5% SDV PF* 30ML VIAL ONE (09:18)
[2019-05-03] MEDS ORDERED: Ondansetron INJ* 2 MG/ML VIAL ONE (09:18)
[2019-05-03] MEDS ORDERED: Dexamethasone IV* 4 MG/ML 1 ML (4 MG) ONE (09:18)
[2019-05-03] MEDS ORDERED: Glycopyrrolate IV* 0.2 MG/ML 1 ML VIAL ONE (09:18)
[2019-05-03] MEDS ORDERED: Propofol* 10 MG/ML 20 ML BTL ONE (09:18)
[2019-05-03] MEDS ORDERED: Rocuronium* 10 MG/ML VIAL ONE ×2 (09:19→12:21)
[2019-05-03] MEDS ORDERED: Midazolam* 1 MG/ML 2 ML VIAL (2 MG) ONE (09:19)
[2019-05-03] MEDS ORDERED: Propofol* 500 MG/50 ML BTL ONE (10:56)
[2019-05-03] MEDS ORDERED: Phenylephrine 40 MCG/ML SYRINGE ONE (12:21)
[2019-05-03] MEDS ORDERED: Ondansetron INJ* 2 MG/ML VIAL IV PRN ×2 (13:23→14:23)
[2019-05-03] MEDS ORDERED: Naloxone* 0.4 MG/ML 1 ML VIAL IV PRN (13:23)
[2019-05-03] MEDS ORDERED: fentaNYL* 50 MCG/ML 2 ML VIAL (100 MCG VIAL) IV PRN (13:23)
[2019-05-03] MEDS ORDERED: Sugammadex * 200 MG/2 ML VIAL IV PUSH ONE (13:40)
[2019-05-03] MEDS ORDERED: Morphine INJ* 2 MG/ML 1 ML SYRINGE (TWO MG - NEW SYRINGE VERSION) IV PRN (14:23)
[2019-05-03] MEDS ORDERED: Cyclobenzaprine TAB* 10 MG PO PRN (14:23)
[2019-05-03] MEDS ORDERED: Ondansetron ODT TAB* 4 MG PO PRN (14:23)
[2019-05-03] MEDS ORDERED: diPHENhydraMINE PO* 25 MG PO PRN (14:23)
[2019-05-03] MEDS ORDERED: Magnesium Hydroxide LIQ* 30 ML UDC PO PRN (14:23)
[2019-05-03] MEDS ORDERED: Acetaminophen TAB* 325 MG PO PRN (14:23)
[2019-05-03] MEDS ORDERED: oxyCODONE TAB* 5 MG TAB PO PRN (14:23)
[2019-05-03] MEDS ORDERED: diPHENhydraMINE IV* 50 MG/ML 1 ml VIAL (BENADRYL) IV PRN (14:23)
[2019-05-03] MEDS ORDERED: Lactated Ringers 1000 ML Bag* 1,000 ML IV SCH ×2 (15:00)
[2019-05-03] MEDS: oxyCODONE/Acetamin 5/325 MG* TAB PO PRN ×2 (15:49→19:58)
--- NOTE | 2019-05-03 17:26 | OP ---
Operative Report - Blank - Operative Report Date of Operation: 05/03/19 Note: JULIO C BELTRAN 1955 Date Of Surgery: 05/03/19 Lilian Irene MD Checker Cashier: Uriel MOLINA did help throughout the procedure with preparation of the hip, wound retraction, manipulation of the hip, and wound closure. Anesthesiologist: Dr. Thompson Anesthesia Type: Spinal Preoperative Diagnosis: Left severe degenerative osteoarthritis of the hip secondary to developmental dysplasia of the hip. Postoperative Diagnosis: As above Procedure Performed: Left Total Hip Arthroplasty Complications: None Specimen: Femoral head and acetabular reamings sent to pathology. Hardware used: This is uncemented [place] total hip arthroplasty hardware for the femur a size 4 accolade II with 132 neck angle femoral component, for the acetabulum a size 46C trident II tritanium cluster hole shell with one 15mm screw, for the insert a size 32C trident X3 polyethylene insert, and for the femoral head a size 32 + 0 ceramic V40 femoral head. Brief history/Indication: JULIO C BELTRAN was known in clinic and had a history of severe left hip pain. She failed conservative treatment with anti- inflammatories, pain pills, intra-articular injections and physical therapy. She elected to undergo left total hip arthroplasty due to continued pain and decreased quality of life. Radiographs showed severe end stage osteoarthritis of the hip with bone on bone contact. Informed consent was obtained from the patient. She understood the risks of surgery included but were not limited to: bleeding, infection, damage to nearby structures, intraoperative fracture, nerve palsy, failure of the hardware, early loosening, stiffness or loss of motion, dislocation, leg length discrepancy, anesthesia complications, stroke, heart attack, blood clot and . She wished to proceed. Intra-Operative findings: Intraoperatively the patient was noted to have severe loss of cartilage of the acetabulum and femoral head. She had dysplasia with a shallow acetabulum and a valgus proximal femur. Severe osteopenia was noted. Description of the Procedure: JULIO C BELTRAN was identified in the preanesthesia unit. Her left hip was marked as the correct operative side. Informed consent was signed and placed in the chart. The patient was taken to the operating room and placed under anesthesia without complication. A huizar catheter was placed. The patient was placed on the peg board with all bony prominences well padded. The left lower extremity was prepped and draped in the usual sterile fashion. Preoperative time -out was made to correctly identify the patient, side and site. Appropriate intraoperative antibiotics were given within one hour of incision. A standard posterior incision was made and carried sharply down to the lateral fascia. A new 10 blade was used to make an incision in the fascia in line with the skin incision. A charnley retractor was placed. The piriformis and conjoined tendons were identified and elevated off the posterolateral femur using electrocautery. These were tagged with number 5 Ethibond. Next electrocautery was used to make a posterolateral capsular flap and this was tagged with number 5 Ethibonds. The hip was carefully dislocated. Lesser trochanter to the center of the femoral head was measured at 60 mm. The oscillating saw was used to make the femoral neck cut. The femoral head was carefully removed. The femur was retracted anteriorly and the acetabular retractors were placed. Long-handled knife was used to sharply remove any remaining labrum from the acetabular rim. The acetabulum was sequentially reamed up to a size 46. A bleeding subchondral bone bed was obtained. A trial liner was placed and had excellent fit and stability. A 46C cup with one 15mm screw was placed and had excellent stability with appropriate anteversion and abduction angle. A size 32C liner was impacted into the acetabular shell. The liner was checked for stability and was stable. Next attention was turned to preparation of the femoral canal. A canal finder was used to enter the proximal femur. The femoral canal was sequentially broached up to a size 4 femoral broach trial. A trial neck and 32 +0 trial femoral head was chosen. Lesser trochanter to center of the femoral head measurement was satisfactory. The hip was reduced and taken through a range of motion. The hip was stable in all positions with good soft tissue tension and appropriate leg lengths. The hip was dislocated and all trials were removed. The final implant chosen was a size 4 accolade II stem. This stem was impacted into the femoral canal without difficulty. The stem was stable with appropriate anteversion. The femoral head chosen was a 32 +0 ceramic head. The head was impacted onto the femoral neck without difficulty. The final lesser trochanter to center of the femoral head measurement was satisfactory. The hip was reduced and taken through a range of motion. The hip was stable in all positions with good soft tissue tension and appropriate leg lengths. The hip was copiously irrigated with sterile saline. The previously tagged capsule and tendons were repaired to the posterolateral femur through two trochanteric drill holes. The lateral fascia layer was closed using number 1 vicryls. The rest of the incision was closed in a layered fashion using 0 and 2-0 vicryls. The skin was closed using 3-0 monocryl suture and Dermabond. Sterile adaptic, 4x4s and paper tape was used to cover the incision. The patients anesthesia was reversed without difficulty. She was taken to the PACU in stable condition. Intended weight-bearing will be as tolerated with posterior hip precautions.
[2019-05-03] MEDS: Docusate CAP* 100 MG PO SCH (19:52)
[2019-05-03] MEDS: Magnesium Hydroxide LIQ* 30 ML UDC PO SCH (19:52)
[2019-05-03] MEDS: ceFAZolin 1 GM ADVAN(*) 1 GM in NS 0.9% 50 ML* 50 ML IVPB SCH (19:59)
[2019-05-04] MEDS: oxyCODONE/Acetamin 5/325 MG* TAB PO PRN ×6 (00:18→21:13)
[2019-05-04] MEDS: ceFAZolin 1 GM ADVAN(*) 1 GM in NS 0.9% 50 ML* 50 ML IVPB SCH ×2 (04:30→12:08)
[2019-05-04 07:04] LABS: Hematocrit 29 % (35-47); Hemoglobin 10.1 g/dL (12.0-16.0); Mean Platelet Volume 7.6 fL (7.4-10.4); Platelet Count 248 10^3/uL (150-450)
[2019-05-04 07:14] LABS: BUN/Creatinine Ratio 18.8 (8-20); Calcium 8.2 mg/dL (8.6-10.3); EGFR African American 82.3 (>60); Potassium 3.8 mmol/L (3.5-5.0)
[2019-05-04] MEDS: Apixaban* 2.5 MG TAB PO SCH ×2 (08:30→21:13)
[2019-05-04] MEDS: Vitamin THERAPEUTIC TAB PO SCH (08:31)
[2019-05-04] MEDS: Magnesium Hydroxide LIQ* 30 ML UDC PO SCH ×2 (08:31→21:14)
[2019-05-04] MEDS: Opium Tincture* 6 MG/0.6 ML ORAL.LIQ SYRINGE PO SCH (08:31)
[2019-05-04] MEDS: Docusate CAP* 100 MG PO SCH ×2 (08:31→21:14)
[2019-05-04] MEDS: Calcium Carbonate CHEW TAB* 500 MG (TUMS) PO SCH (21:14)
[2019-05-05] MEDS: oxyCODONE/Acetamin 5/325 MG* TAB PO PRN ×6 (01:01→22:11)
[2019-05-05 05:12] LABS: Hematocrit 25 % (35-47); Hemoglobin 8.6 g/dL (12.0-16.0); Mean Platelet Volume 7.3 fL (7.4-10.4); Platelet Count 201 10^3/uL (150-450)
[2019-05-05] MEDS: Apixaban* 2.5 MG TAB PO SCH ×2 (08:06→20:28)
[2019-05-05] MEDS: Opium Tincture* 6 MG/0.6 ML ORAL.LIQ SYRINGE PO SCH (08:06)
[2019-05-05] MEDS: Vitamin THERAPEUTIC TAB PO SCH (08:06)
[2019-05-05] MEDS: Magnesium Hydroxide LIQ* 30 ML UDC PO SCH ×2 (08:08→21:23)
[2019-05-05] MEDS: Docusate CAP* 100 MG PO SCH ×2 (08:08→21:23)
[2019-05-05] MEDS: Calcium Carbonate CHEW TAB* 500 MG (TUMS) PO SCH ×2 (08:08→20:29)
--- NOTE | 2019-05-05 09:13 | PN ---
Progress Note - Progress Note Date of Service: 05/05/19 SOAP: Subjective: [Pt with no significant complaints. L hip pain managed with po meds. Denies CP , SOB, dizziness. She is pleased with outcome thus far.] Objective: [A and O x 3, NAD. Seated in chair, just returned from PT session. L hip dressing changed. Surgical wound benign. No drainage , no erythema. Calves soft, NT. distal gross motor and NV function intact. Vital Signs: Temp Pulse Resp BP Pulse Ox 99.4 F 102 16 128/59 96 05/05/19 07:54 05/05/19 07:54 05/05/19 08:26 05/05/19 07:54 05/05/19 07:54 Laboratory Results - last 24 hr 05/05/19 04:28 Hgb 8.6 L Hct 25 L Plt Count 201 MPV 7.3 L ] Assessment: [s/p L ALEJA POD #2 doing well] Plan: [Con't PT/OT - WBAT LLE , posterior hip precautions Pain management Plan for D/C to [facility] Tuesday]
[2019-05-06 06:11] LABS: Hematocrit 28 % (35-47); Hemoglobin 9.6 g/dL (12.0-16.0); Mean Platelet Volume 7.3 fL (7.4-10.4); Platelet Count 260 10^3/uL (150-450)
[2019-05-06] MEDS: oxyCODONE/Acetamin 5/325 MG* TAB PO PRN (06:24)
[2019-05-06] MEDS: Opium Tincture* 6 MG/0.6 ML ORAL.LIQ SYRINGE PO SCH (09:25)
[2019-05-06] MEDS: Apixaban* 2.5 MG TAB PO SCH ×2 (09:27→20:09)
[2019-05-06] MEDS: Docusate CAP* 100 MG PO SCH ×2 (09:27→20:10)
[2019-05-06] MEDS: Vitamin THERAPEUTIC TAB PO SCH (09:27)
[2019-05-06] MEDS: oxyCODONE TAB* 5 MG TAB PO PRN ×4 (09:27→22:08)
[2019-05-06] MEDS: Calcium Carbonate CHEW TAB* 500 MG (TUMS) PO SCH ×2 (09:28→20:10)
[2019-05-06] MEDS: Magnesium Hydroxide LIQ* 30 ML UDC PO SCH ×2 (09:28→20:11)
--- NOTE | 2019-05-06 09:28 | PN ---
Progress Note - Progress Note Date of Service: 05/06/19 SOAP: Subjective: [Pt reports doing well. Walking more now with physical therapy/walker. Feels acetaminophen in percocet is upsetting stomach. Had BM through colostomy early this morning. Denies CP, SOB, dizziness. Wants to be D/C home with services instead of going to [facility] [place].] Objective: [A and O x 3, NAD L hip dressing C/D/I. Distal gross motor and NV function intact. Calves soft, NT Vital Signs: Temp Pulse Resp BP Pulse Ox 99.8 F 98 16 122/78 97 05/06/19 07:48 05/06/19 07:48 05/06/19 08:30 05/06/19 07:48 05/06/19 07:48 Laboratory Results - last 24 hr 05/06/19 05:38 Hgb 9.6 L Hct 28 L Plt Count 260 MPV 7.3 L ] Assessment: [s/p L ALEJA POD # 3] Plan: [Con't PT/OT - posterior hip precautions Ordered Oxycodone 5 mg Plan for D/C home Tuesday with services]
[2019-05-06] MEDS ORDERED: Ibuprofen TAB* 600 MG PO PRN (19:53)
[2019-05-07 05:16] LABS: Hematocrit 27 % (35-47); Hemoglobin 8.9 g/dL (12.0-16.0); Mean Platelet Volume 7.2 fL (7.4-10.4); Platelet Count 265 10^3/uL (150-450)
[2019-05-07] MEDS: oxyCODONE TAB* 5 MG TAB PO PRN ×2 (08:09→12:43)
[2019-05-07] MEDS: Apixaban* 2.5 MG TAB PO SCH (08:09)
[2019-05-07] MEDS: Vitamin THERAPEUTIC TAB PO SCH (08:10)
[2019-05-07] MEDS: Opium Tincture* 6 MG/0.6 ML ORAL.LIQ SYRINGE PO SCH (08:10)
[2019-05-07] MEDS: Magnesium Hydroxide LIQ* 30 ML UDC PO SCH (08:21)
[2019-05-07] MEDS: Docusate CAP* 100 MG PO SCH (08:21)
[2019-05-07] MEDS: Calcium Carbonate CHEW TAB* 500 MG (TUMS) PO SCH (08:21)
--- NOTE | 2019-05-07 10:12 | PN ---
Progress Note - Progress Note Date of Service: 05/07/19 SOAP: Subjective: [Pt was seen this morning sitting in a chair. She states that she is doing very well. Pain is well controlled with Oxycodone. She did take the percocet but she has a reaction to Tylenol. She denies any chest pain, SOB, nausea or vomiting. She would like to go home today. ] Objective: [General: pt is alert and oriented x3. NAD. MSK, LLE: dressing is changed today. Incision is c/d/i. She is NVI intact distally. +df/pf, calf soft and non tender. 2+ DP. ] Vital Signs Temp 98.9 F 05/07/19 07:48 Pulse 113 05/07/19 07:48 Resp 18 05/07/19 08:10 BP 142/83 05/07/19 07:48 Pulse Ox 100 05/07/19 08:00 Intake & Output 05/06/19 05/07/19 05/07/19 18:59 06:59 18:59 Intake Total 1080 500 Balance 1080 500 Intake: Oral 1080 500 Other: Estimated Void Medium Medium Medium Estimated Stool Amount Large # Voids 2 1 1 Assessment: [POD 4 LTHA ] Plan: [DC home today Oxycodone for pain relief Eliquis for anticoagulation. Follow up with Dr. Irene in clinic at next scheduled appointment for suture removal. ]
--- NOTE | 2019-05-07 10:26 | DS ---
Orthopedic Discharge Summary - Discharge Summary Date of Admission:05/03/19 Date of Discharge: 05/07/19 Date of Surgery: 05/03/19 Attending Orthopedic Provider: Dr. Irene Pre-operative Diagnosis: Left hip osteoarthritis Operative Procedure: Left total hip arthroplasty Disposition of Patient: Home Condition of Patient: Good History: JULIO C BELTRAN is a 63 year old F with years of increasingly severe left hip pain. Patient has failed conservative management and has elected to undergo a left total hip replacement Hospital Course: JULIO C was admitted to [facility] on 05/03/19. Patient underwent a left total hip arthroplasty without complication followed by a brief recovery in PACU and transfer to the Short Stay Surgical Unit in stable condition. Physical therapy and occupational therapy also participated in this patients care. Post-op day 1: patient was alert and in no acute distress. Dressing was clean, dry and intact. Operative extremity dorsiflexion and plantarflexion intact, sensation intact to light touch distally, DP2+. Post- op day two: dressing was changed, incision was clean, dry and intact. POD 3 the pt was found to have a reaction to the Tylenol in Percocet and was therefore changed to Oxycodone 5 mg. POD 4 The patient was deemed to be medically and orthopedically stable for discharge. Physical therapy goals were met. Home Medications Medication Instructions Recorded Confirmed Type Opium Tincture* 6 mg PO QAM 09/22/18 05/03/19 History Apixaban* [Eliquis*] 2.5 mg PO BID tab 05/07/19 Rx oxyCODONE TAB* [Roxycodone TAB 5 5 mg PO Q4H PRN tab 05/07/19 Rx mg*] oxyCODONE TAB* [Roxycodone TAB 5 10 mg PO Q4H PRN tab 05/07/19 Rx mg*] Discharge Instructions following Orthopedic Surgery: Activity: * Weight Bearing as tolerated * Continue physical therapy and occupational therapy exercises as shown Hip replacements: Continue Hip Precautions- do not cross legs or bend greater than 90 degrees/squat Wound care: * OK to shower on post-op day 3, no bathing, swimming, or submerging wound. * Use gentle soap, pat dry. Cover with gauze, FINN wrap or tape. * Visiting home nurse to do wound checks. Call Orthopedic office for: * Increased drainage * Redness * Increased pain * Fever Go to ER with shortness of breath or chest pain. Diet: * Regular diet * Increase fluids and fiber to prevent constipation. * Continue to use stool softeners, call office if no bowel motion within 48 hours. Medications See Home Medication List in your packet for medications that you should take after discharge. DVT Prophylaxis: Eliquis Dosin.5 mg, 1 tab every 12 hours x 30 days Pain Control: Oxycodone Dosin mg 1-2 tabs by mouth every 4-6 hours as needed for pain. Maximum of 6 tabs per day. Antibiotics are required prior to any dental work. FOLLOW UP: Follow up with Dr. Irene Within 10-14 days, call for appointment Please call our office with any questions or concerns ([phone])
[2019-05-07 11:46] VITALS: BP 125/68
== END 2019-05-07 14:45 | disposition home health service (06) | DRG 301 ==
LOC: AA 08:02 → SSU 14:23
PROVIDERS: ADMIT Orthopaedic Surgery Adult Reconstructive Orthopaedic Surgery; ATTEND Orthopaedic Surgery Adult Reconstructive Orthopaedic Surgery
PROC: 0SRB04A Replacement of Left Hip Joint with Ceramic on Polyethylene Synthetic Substitute, Uncemented, Open Approach (ICD-10-PCS; principal; 2019-05-03 11:30)
DX: M16.12 Unilateral primary osteoarthritis, left hip (principal); K51.90 Ulcerative colitis, unspecified, without complications; M24.852 Other specific joint derangements of left hip, not elsewhere classified; M85.88 Other specified disorders of bone density and structure, other site; M21.052 Valgus deformity, not elsewhere classified, left hip; T39.1X5A Adverse effect of 4-Aminophenol derivatives, initial encounter; Y92.239 Unspecified place in hospital as the place of occurrence of the external cause; K30 Functional dyspepsia; Z88.5 Allergy status to narcotic agent; Z88.2 Allergy status to sulfonamides; Z93.2 Ileostomy status; Z87.891 Personal history of nicotine dependence; Q65.89 Other specified congenital deformities of hip; Z28.21 Immunization not carried out because of patient refusal
CPT/HCPCS: 36415; 72170; 80048; 85014; 85018; 85049; 86850; 86900; 86901; 88304; 88311; A9270-GY; C1713; C1776; J0690; J1100; J2250; J2405; J2704; J3010; J3490

== ENCOUNTER 2019-05-12 14:34 | Emergency (ER) | payer OTHER ==
--- NOTE | 2019-05-12 14:44 | ED ---
Lower Extremity - HPI Summary HPI Summary: Pt is a 63 y/o F presenting to the ED brought in by EMS for a L hip complaint. L hip replacement May [address] Irene. Pt states she woke up this morning and she was not experiencing pain, but she was about to do her exercises and noticed her thigh was very edematous. She notes some tingling in the L leg. She denies any pain, numbness, CP, or SOB. Medications reviewed. Allergies noted. - History of Current Complaint Stated Complaint: L LEG SWOLLEN PER EMS Time Seen by Provider: 05/12/19 14:36 Hx Obtained From: Patient Mechanism Of Injury: Unknown Onset/Duration: Still Present Severity Currently: None Timing: Constant, Lasting Hours Location: Is Discrete @ - L hip Associated Signs And Symptoms: Positive: Swelling Aggravating Factor(s): Nothing Alleviating Factor(s): Nothing Able to Bear Weight: Yes - Allergies/Home Medications Allergies/Adverse Reactions: Allergies Allergy/AdvReac Type Severity Reaction Status Date / Time morphine Allergy Intermediate Vomiting Verified 04/16/19 14:30 acetaminophen [From Tylenol] Allergy GI Upset Verified 05/06/19 09:15 diatrizoate sodium Allergy Vomiting Verified 04/16/19 14:30 [From Gastrografin] Sulfa (Sulfonamide Allergy Hives Verified 04/16/19 14:30 Antibiotics) PMH/Surg Hx/FS Hx/Imm Hx Previously Healthy: Yes Endocrine/Hematology History: Denies: Hx Bone Marrow Disease, Hx Diabetes, Hx Sickle Cell Disease, Hx Thyroid Disease, Hx Anemia Cardiovascular History: Denies: Hx Angina, Hx Cardiomegaly, Hx Congestive Heart Failure, Hx Coronary Artery Disease, Hx Hypertension, Hx Peripheral Vascular Disease, Hx Rheumatic Fever, Hx Valvular Heart Disease, Other Cardiovascular Problems/Disorders Respiratory History: Denies: Hx Asthma, Hx Pulmonary Edema, Hx Pulmonary Embolism, Hx Sleep Apnea , Other Respiratory Problems/Disorders GI History: Reports: Hx Irritable Bowel, Other GI Disorders - hx ulcerative colitis, C difficile colitis -RESOLVED Denies: Hx Cirrhosis, Hx Crohn's Disease, Hx Gastroesophageal Reflux Disease , Hx Hiatal Hernia, Hx Jaundice, Hx Ulcer History: Reports: Hx Kidney Stones - > 1 YR AGO Denies: Hx Dialysis, Hx Kidney Infection, Hx Renal Disease, Other Problems /Disorders Musculoskeletal History: Reports: Hx Arthritis - LEFT HIP AND HANDS Denies: Hx Bursitis, Hx Tendonitis, Other Musculoskeletal History Sensory History: Reports: Hx Cataracts - KAYLEE.-CORRECTED W/ SURGERY, Hx Contacts or Glasses Denies: Hx Glaucoma, Hx Hearing Aid Opthamlomology History: Reports: Hx Cataracts - KAYLEE.-CORRECTED W/ SURGERY, Hx Contacts or Glasses Denies: Hx Glaucoma Neurological History: Denies: Hx Headaches, Hx Migraine, Hx Nerve Disease, Hx Seizures, Other Neuro Impairments/Disorders Psychiatric History: Denies: Hx Anxiety, Hx Depression - Cancer History Hx Chemotherapy: No Hx Radiation Therapy: No - Surgical History Surgery Procedure, Year, and Place: BILAT. CATARACT 2010, [facility]. ILEOSTOMY ON RIGHT -2 SURGERIES TOTAL in APRIL & NOVEMBER 2018, [facility] Hx Anesthesia Reactions: No - Immunization History Date of Tetanus Vaccine: unk Date of Influenza Vaccine: fall 2017 Infectious Disease History: Reports: Hx Clostridium Difficile - in 2018 Denies: Hx Hepatitis - Family History Known Family History: Positive: Diabetes - Father. , Other - No cancer. - Social History Alcohol Use: None Hx Substance Use: No Substance Use Type: Reports: Marijuana Substance Use Comment - Amount & Last Used: RARE Hx Tobacco Use: Yes Smoking Status (MU): Former Smoker Type: Cigarettes Amount Used/How Often: STARTED 70'S Have You Smoked in the Last Year: No Review of Systems Negative: Chest Pain Negative: Shortness Of Breath Positive: Edema. Negative: Myalgia Positive: Paresthesia. Negative: Numbness All Other Systems Reviewed And Are Negative: Yes Physical Exam - Summary Physical Exam Summary: Constitutional: Well-developed, Well-nourished, Alert. (-) Distressed Skin: Warm, Dry HENT: Normocephalic; Atraumatic Eyes: Conjunctiva normal Neck: Musculoskeletal ROM normal neck. (-) JVD, (-) Stridor, (-) Tracheal deviation Cardio: Rhythm regular, rate normal, Heart sounds normal; Intact distal pulses; Radial pulses are 2+ and symmetric. (-) Murmur Pulmonary/Chest wall: Effort normal. (-) Respiratory distress, (-) Wheezes, (-) Rales Abd: Soft, (-) tenderness, (-) Distension, (-) Guarding, (-) Rebound Musculoskeletal: L surgical hip incision is intact & dry. L thigh is more edematous than the right. Lymph: (-) Cervical adenopathy Neuro: Alert, Oriented x3 Psych: Mood and affect Normal Triage Information Reviewed: Yes Vital Signs Reviewed: Yes Procedures - Sedation Patient Received Moderate/Deep Sedation with Procedure: No Diagnostics - Laboratory Lab Statement: Any lab studies that have been ordered have been reviewed, and results considered in the medical decision making process. - Ultrasound DVT US Ultrasound Interpretation Completed By: Radiologist Summary of Ultrasound Findings: No evidence for deep venous thrombosis. ED physician has reviewed this report. Lower Extremity Course/Dx - Course Course Of Treatment: Patient is here with swelling in her left thigh roughly 10 days after having hip surgery. Patient's thighs are not appreciably swollen but that is hard to tell. Patient is neurovascularly intact. Patient had an ultrasound to rule out DVT which was negative. - Diagnoses Provider Diagnoses: Leg edema, left, Post surgical complication Discharge ED - Sign-Out/Discharge Documenting (check all that apply): Patient Departure - Discharge Plan Condition: Stable Disposition: HOME Patient Education Materials: Leg Edema (ED) Referrals: Braydon Landeros SENIOR FRONT END DEVELOPER [Primary Care Provider] - Additional Instructions: Follow up with your primary care provider within the next 1-3 days. Return to the emergency department with any chest pain, shortness of breath, or any other concerning symptoms. - Billing Disposition and Condition Condition: STABLE Disposition: Home - Attestation Statements Document Initiated by Osiris: Yes Documenting Scribe: Rachel Neves Provider For Whom Osiris is Documenting (Include Credential): Amandeep Brown MD. Scribe Attestation: Rachel Busby scribed for Amandeep Brown MD. on 05/12/19 at 2007. Scribe Documentation Reviewed: Yes Provider Attestation: The documentation as recorded by the scribeRachel accurately reflects the service I personally performed and the decisions made by , Amandeep Brown MD. Status of Scribe Document: Viewed
--- OUTSIDE RECORDS SUMMARY | 2019-05-12 14:50 | XMS REPORT ---
:1955 Author Organization [facility] Care Team Providers Name Role Phone Unavailable Unavailable Unavailable Problems Condition Condition Condition Status Onset Resolution Last Treating Comments Name Details Category Date Date Treatment Clinician Date Unilateral Unilateral Diagnosis Active 2020- Stephanie primary primary 05-08 [place] osteoarthri osteoarthri RN tis, left tis, left hip hip Aftercare Aftercare Diagnosis Active Stephanie following following 05-08 [place] joint joint RN replacement replacement surgery surgery Encounter Encounter Diagnosis Active Stephanie for change for change 05-08 [place] or removal or removal RN of surgical of surgical wound wound dressing dressing Presence of Presence of Diagnosis Active Stephanie left left 05-08 [place] artificial artificial RN hip joint hip joint Ulcerative Ulcerative Diagnosis Active 0 Stephanie colitis, colitis, 05-08 [place] unspecified unspecified RN with with unspecified unspecified complicatio complicatio ns 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) (current) 05-08 [place] use of use of RN anticoagula anticoagula nts nts Pain frequent Pain Mgmt Active 2019-0 Anaid pain 05-08 [place] 09:00: [id number] Respiratory dyspnea Respirator Active 2019-0 Anaid present y 05-08 [place] 09:00: [id number] Endo/Jules anti-coagul Endo/Jules Active 2020-0 Anaid ation 05-08 [place] therapy 09:00: [id number] Integument surgical Integument Active 2020-0 Anaid wound 05-08 [place] present 09:00: [id number] Nutrition nutritional Nutrition Active 2020-0 Aanid restriction 05-08 [place] s 09:00: [id number] 00 Elimination ostomy Eliminatio Active 2020-0 Anaid present n 05-08 [place] 09:00: [id number] 00 Neuro confusion Neuro/Emot Active 2020-0 Anaid present ion 05-08 [place] 09:00: [id number] Activity ADL Activity Active 2019-0 Anaid assistance 05-08 [place] required 09:00: [id number] Activity self-care Activity Active 2019-0 Anaid deficit 05-08 [place] 09:00: [id number] 00 Safety fall risk Safety Active 2020-0 Anaid factor 05-08 [place] present 09:00: [id number] Safety risk for Safety Active 2019-0 Anaid hospitaliza 05-08 [place] tion 09:00: [id number] 00 Medication oral med Meds Active 2019-0 Anaid assistance 05-08 [place] required 09:00: [id number] 00 Musculoskel transfer Musculoske Active 2019-0 Anaid etal assistance letal 05-08 [place] required 09:00: [id number] 00 Musculoskel requires Musculoske Active 2019-0 Anaid etal human letal 05-08 [place] assist to 09:00: [id number] leave home 00 Allergies, Adverse Reactions, Alerts Allergy Allergy Type Status Severity Reaction(s) Onset Inactive Treating Comments Name Date Date Clinician morphine Base Active Unknown Nausea and Jessica White Ingredient vomiting 05-01 Sulfa Allergen Active Unknown Reaction Jessica White (Sulfonami Group Unknown 05-01 de Antibiotic s) Medications Ordered Filled Start Stop Current Ordering Indication Dosage Frequency Signature Comments Components Medication Medication Date Date Medication? Clinician (SIG) Name Name Eliquis 2.5 Eliquis 2.5 Yes Teto Unknown Unknown mg tablet mg tablet 05-08 Lilian DALEY oxyCODONE 5 oxyCODONE 5 Yes Teto Unknown Unknown mg tablet mg tablet 05-08 Lilian DALEY Multivitami Multivitami Yes Teto Unknown Unknown n 50 Plus n 50 Plus 05-08 Lilian DALEY tablet tablet opium opium Yes Teto Unknown Unknown tincture 10 tincture 10 05-08 Lilian DALEY mg/mL mg/mL (morphine) (morphine) oral oral Vital Signs Vital Name Observation Time Observation Value Comments SYSTOLIC mm[Hg] 2019-05-10 18:09:54 122 mm[Hg] mm[Hg] Method: Sit SYSTOLIC mm[Hg] 2019-05-08 18:09:52 140 mm[Hg] mm[Hg] Method: Stand DIASTOLIC mm[Hg] 2019-05-10 18:09:54 60 mm[Hg] mm[Hg] Method: Sit DIASTOLIC mm[Hg] 2019-05-08 18:09:52 86 mm[Hg] mm[Hg] Method: Stand PULSE 2019-05-10 18:09:54 88 /min /min RESP RATE 2019-05-08 18:09:52 18 /min /min TEMP 2019-05-08 18:09:52 98.6 [degF] Procedures This patient has no known procedures. Results This patient has no known results.
--- OUTSIDE RECORDS SUMMARY | 2019-05-12 14:50 | XMS REPORT ---
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) (current) 05-08 [place] use of use of RN anticoagula anticoagula nts nts Pain frequent Pain Mgmt Active 2019-0 Anaid pain 05-08 [place] 09:00: [id number] Respiratory dyspnea Respirator Active 2019-0 Anaid present y 05-08 [place] 09:00: [id number] 00 Endo/Jules anti-coagul Endo/Jules Active 2020-0 Anaid ation 05-08 [place] therapy 09:00: [id number] 00 Integument surgical Integument Active 2020-0 Anaid wound 05-08 [place] present 09:00: [id number] Nutrition nutritional Nutrition Active 2020-0 Anaid restriction 05-08 [place] s 09:00: [id number] 00 Elimination ostomy Eliminatio Active 2020-0 Anaid present n 05-08 [place] 09:00: [id number] 00 Neuro confusion Neuro/Emot Active 2020-0 Anaid present ion 05-08 [place] 09:00: [id number] 00 Activity ADL Activity Active 2019-0 Anaid assistance 05-08 [place] required 09:00: [id number] 00 Activity self-care Activity Active 2019-0 Anaid deficit 05-08 [place] 09:00: [id number] 00 Safety fall risk Safety Active 2020-0 Anaid factor 05-08 [place] present 09:00: [id number] Safety risk for Safety Active 2019-0 Anaid hospitaliza 05-08 [place] tion 09:00: [id number] 00 Medication oral med Meds Active 2019-0 Anaid assistance 05-08 [place] required 09:00: [id number] 00 Musculoskel transfer Musculoske Active 2019-0 Anaid etal assistance letal 05-08 [place] required 09:00: [id number] 00 Musculoskel requires Musculoske Active 2019-0 Anaid etal human letal 05-08 [place] assist to 09:00: [id number] leave home 00 Allergies, Adverse Reactions, Alerts [...] Observation Time Observation Value Comments SYSTOLIC mm[Hg] 2019-05-11 18:09:55 112 mm[Hg] mm[Hg] Method: Sit SYSTOLIC mm[Hg] 2019-05-08 18:09:52 140 mm[Hg] mm[Hg] Method: Stand DIASTOLIC mm[Hg] 2019-05-11 18:09:55 66 mm[Hg] mm[Hg] Method: Sit DIASTOLIC mm[Hg] 2019-05-08 18:09:52 86 mm[Hg] mm[Hg] Method: Stand PULSE 2019-05-11 18:09:55 88 /min /min RESP RATE 2019-05-11 18:09:55 16 /min /min TEMP 2019-05-11 18:09:55 98.1 [degF] Procedures This patient has no known procedures. Results This patient has no known results.
--- OUTSIDE RECORDS SUMMARY | 2019-05-12 14:50 | XMS REPORT ---
:1955 Author Organization [facility] Care Team Providers Name Role Phone Unavailable Unavailable Unavailable Problems Condition Condition Condition Status Onset Resolution Last Treating Comments Name Details Category Date Date Treatment Clinician Date Unilateral Unilateral Diagnosis Active 2020-0 Stephanie primary primary 05-07 [place] osteoarthri osteoarthri RN tis, left tis, left hip hip Pain frequent Pain Mgmt Active 2020-0 Anaid pain 05-08 [place] 09:00: [id number] Respiratory dyspnea Respirator Active 2020-0 Anaid present y 05-08 [place] 09:00: [id number] 00 Endo/Jules anti-coagul Endo/Jules Active 2020-0 Anaid ation 05-08 [place] therapy 09:00: [id number] 00 Integument surgical Integument Active 2020-0 Anaid wound 05-08 [place] present 09:00: [id number] Nutrition nutritional Nutrition Active 2020-0 Anaid restriction 05-08 [place] s 09:00: [id number] 00 Elimination ostomy Eliminatio Active 2020-0 Anaid present n 05-08 [place] 09:00: [id number] 00 Neuro confusion Neuro/Emot Active 2020-0 Anaid present ion 05-08 [place] 09:00: [id number] 00 Activity ADL Activity Active 2020-0 Anaid assistance 05-08 [place] required 09:00: [id number] 00 Activity self-care Activity Active 2020-0 Anaid deficit 05-08 [place] 09:00: [id number] 00 Safety fall risk Safety Active 2020-0 Anaid factor 05-08 [place] present 09:00: [id number] 00 Safety risk for Safety Active 2020-0 Anaid hospitaliza 05-08 [place] tion 09:00: [id number] 00 Medication oral med Meds Active 2020-0 Anaid assistance 05-08 [place] required 09:00: [id number] 00 Musculoskel transfer Musculoske Active 2020-0 Anaid etal assistance letal 05-08 [place] required 09:00: [id number] 00 Musculoskel requires Musculoske Active Anaid etal human letal 05-08 [place] assist to 09:00: [id number] leave home 00 Allergies, Adverse Reactions, Alerts Allergy Allergy Status Severity Reaction(s) Onset Inactive Treating Comments Name Type Date Date Clinician Unknown None Active Unknown None Unknown No Known Allergies For This Patient Medications Ordered Filled Start Stop Current Ordering Indication Dosage Frequency Signature Comments Components Medication Medication Date Date Medication? Clinician (SIG) Name Name No Known No Known No None None None Medications Medications For This For This Patient Patient Vital Signs Vital Name Observation Time Observation Value Comments SYSTOLIC mm[Hg] 2019-05-08 18:09:52 134 mm[Hg] mm[Hg] Method: Sit SYSTOLIC mm[Hg] 2019-05-08 18:09:52 140 mm[Hg] mm[Hg] Method: Stand DIASTOLIC mm[Hg] 2019-05-08 18:09:52 68 mm[Hg] mm[Hg] Method: Sit DIASTOLIC mm[Hg] 2019-05-08 18:09:52 86 mm[Hg] mm[Hg] Method: Stand PULSE 2019-05-08 18:09:52 88 /min /min RESP RATE 2019-05-08 18:09:52 18 /min /min TEMP 2019-05-08 18:09:52 98.6 [degF] Procedures This patient has no known procedures. Results This patient has no known results.
--- OUTSIDE RECORDS SUMMARY | 2019-05-12 14:50 | XMS REPORT ---
:1955 Author Organization [facility] Care Team Providers Name Role Phone Unavailable Unavailable Unavailable Problems Condition Condition Condition Status Onset Resolution Last Treating Comments Name Details Category Date Date Treatment Clinician Date Unilateral Unilateral Diagnosis Active Stephanie primary primary 1-13 [place] osteoarthri osteoarthri RN tis, left tis, left hip hip Allergies, Adverse Reactions, Alerts Allergy Allergy Status [...] Medications For This For This Patient Patient Procedures This patient has no known procedures. Results This patient has no known results.
--- OUTSIDE RECORDS SUMMARY | 2019-05-12 14:50 | XMS REPORT ---
:1955 Author Organization [facility] Care Team Providers Name Role Phone Unavailable Unavailable Unavailable Problems Condition Condition Condition Status Onset Resolution Last Treating Comments Name Details Category Date Date Treatment Clinician Date Unilateral Unilateral Diagnosis Active 2020-0 Stpehanie primary primary 05-07 [place] osteoarthri osteoarthri RN tis, left tis, left hip hip Pain frequent Pain Mgmt Active 2020-0 Anaid pain 05-08 [place] 09:00: [id number] 00 Respiratory dyspnea Respirator Active 2020-0 Anaid present y 05-08 [place] 09:00: [id number] 00 Endo/Jules anti-coagul Endo/Jules Active 2020-0 Anaid ation 05-08 [place] therapy 09:00: [id number] 00 Integument surgical Integument Active 2020-0 Anaid wound 05-08 [place] present 09:00: [id number] Nutrition nutritional Nutrition Active 2020-0 Anaid restriction 05-08 [place] s 09:00: [id number] 00 Elimination ostomy Eliminatio Active 2020-0 Anaid present n 05-08 [place] 09:00: [id number] 00 Neuro confusion Neuro/Emot Active 2020-0 Anaid present ion 05-08 [place] 09:00: [id number] 00 Activity ADL Activity Active 2020-0 Anaid assistance 05-08 [place] required 09:00: [id number] 00 Activity self-care Activity Active 2020-0 Anaid deficit 05-08 [place] 09:00: [id number] 00 Safety fall risk Safety Active 2020-0 Anaid factor 05-08 [place] present 09:00: [id number] 00 Safety risk for Safety Active 2020-0 Anaid hospitaliza 05-08 [place] tion 09:00: [id number] 00 Medication oral med Meds Active 2020-0 Anaid assistance 05-08 [place] required 09:00: [id number] 00 Musculoskel transfer Musculoske Active 2020-0 Anaid etal assistance letal 05-08 [place] required 09:00: [id number] 00 Musculoskel requires Musculoske Active Anaid etal human letal 05-08 [place] assist to 09:00: [id number] leave home 00 Allergies, Adverse Reactions, Alerts [...]
[2019-05-12 17:09] VITALS: BP 144/75
== END 2019-05-12 17:07 | disposition home or self-care (01) ==
LOC: ED 14:34
DX: R60.0 Localized edema (principal); R20.2 Paresthesia of skin; Z96.642 Presence of left artificial hip joint; Z79.01 Long term (current) use of anticoagulants; Z88.6 Allergy status to analgesic agent; Z88.5 Allergy status to narcotic agent; Z88.2 Allergy status to sulfonamides; Z88.8 Allergy status to other drugs, medicaments and biological substances; Z87.891 Personal history of nicotine dependence
CPT/HCPCS: 99282

== ENCOUNTER 2020-06-26 06:18 | Inpatient (IN) ==
[~2020-06-26 06:18] MED LIST changes: +Buffered Lidocaine 1% SYRIN 1 ml INTRADERM ONE; -Buffered Lidocaine 1% SYRIN* 1 ML/SYRINGE INTRADERM ONE; +Dexamethasone IV 4 MG/ML VIAL 1 ml VIAL IV SLOW PU ONE; +Famotidine IV 10 MG/ML 2 ml VIAL (20 mg) IV ONE; -Lactated Ringers 1000 ML Bag* 1,000 ML IV SCH; +Lactated Ringers 1000 ml BAG 1,000 ML IV SCH; +NS 0.9% 1000 ml BAG 1,000 ML IV SCH; -Tranexamic Acid 1,000 MG in NS 0.9% 50 ML* (outpatient use) IV SCH
[2020-06-26] MEDS ORDERED: Famotidine IV 10 MG/ML 2 ml VIAL (20 mg) ONE (06:54)
[2020-06-26] MEDS ORDERED: ceFAZolin 2 GM PREMIX 2 GM/50 ML BAG ONE (06:54)
[2020-06-26] MEDS ORDERED: Dexamethasone IV 4 MG/ML VIAL 1 ml VIAL ONE (06:54)
[2020-06-26] MEDS ORDERED: Midazolam 5 mg/5 ml VIAL 1 mg/ml 5 ml VIAL (5 mg) ONE (07:27)
[2020-06-26] MEDS ORDERED: ROPIVACAINE 5 MG/ML 30 ML BTL (0.5%) ONE (07:36)
[2020-06-26] MEDS ORDERED: Bupivacaine 0.5% SDV PF 30ML VIAL ONE (07:43)
[2020-06-26] MEDS ORDERED: Phenylephrine 40 mcg/mL 10mL (400mcg) SYRINGE ONE (08:14)
[2020-06-26] MEDS ORDERED: EPHEDrine (Pressors) 50 MG/ML VIAL ONE (08:22)
[2020-06-26] MEDS ORDERED: Phenylephrine IV 10 MG/ML 1 ml VIAL ONE (08:45)
[2020-06-26] MEDS ORDERED: Acetaminophen IV 1 GM/100ML 100 ML ONE (09:14)
[2020-06-26] MEDS ORDERED: Ondansetron 4 mg VIAL 2 MG/ML 2 ml VIAL IV PRN ×2 (09:18→10:20)
[2020-06-26] MEDS ORDERED: fentaNYL 100 mcg/2 ml 50 MCG/ML VIAL IV PRN (09:18)
[2020-06-26] MEDS ORDERED: Naloxone 0.4 mg VIAL 0.4 mg/ml 1 ml VIAL IV PRN (09:18)
[2020-06-26] MEDS ORDERED: oxyCODONE/Acetamin 5/325 mg TAB PO PRN ×2 (10:20)
[2020-06-26] MEDS ORDERED: Polyethylene Glycol 3350 17 GM PACKET PO PRN (10:20)
[2020-06-26] MEDS ORDERED: Lactulose 30 ml UDC PO PRN (10:20)
[2020-06-26] MEDS ORDERED: diPHENhydraMINE 25 mg TAB PO PRN (10:20)
[2020-06-26] MEDS ORDERED: Ondansetron ODT 4 mg TAB 4 MG TAB PO PRN (10:20)
[2020-06-26] MEDS ORDERED: Magnesium Hydroxide LIQ 30 ML UDC PO PRN (10:20)
[2020-06-26] MEDS ORDERED: Morphine 2 MG/ML SYRINGE IV PRN (10:20)
[2020-06-26] MEDS ORDERED: diPHENhydraMINE IV 50 MG/ML 1 ml VIAL (BENADRYL) IV PRN (10:20)
[2020-06-26] MEDS ORDERED: fentaNYL 100 mcg/2 ml 50 MCG/ML VIAL ONE (11:06)
[2020-06-26] MEDS: Lactated Ringers 1000 ml BAG 1,000 ML IV SCH ×2 (12:05→22:49)
[2020-06-26] MEDS: ceFAZolin 1 GM ADVAN 1 GM in NS 0.9% 50 ML 50 ML IVPB SCH (15:57)
[2020-06-26] MEDS: Magnesium Hydroxide LIQ 30 ML UDC PO SCH (21:36)
[2020-06-27] MEDS: ceFAZolin 1 GM ADVAN 1 GM in NS 0.9% 50 ML 50 ML IVPB SCH ×2 (00:40→08:25)
[2020-06-27 06:18] LABS: Hematocrit 29 % (35-47); Hemoglobin 9.9 g/dL (12.0-16.0); Mean Platelet Volume 7.4 fL (7.4-10.4); Platelet Count 227 10^3/uL (150-450)
[2020-06-27 06:38] LABS: Calcium 8.1 mg/dL (8.6-10.3); EGFR African American 87.9 (>60); EGFR Non-African American 72.7 (>60); Potassium 4.2 mmol/L (3.5-5.0)
[2020-06-27] MEDS: Opium Tincture 6 MG/0.6 ML ORAL.LIQ SYRINGE PO SCH (08:15)
[2020-06-27] MEDS: Vitamin THERAPEUTIC TAB PO SCH (08:18)
[2020-06-27] MEDS: Magnesium Hydroxide LIQ 30 ML UDC PO SCH ×2 (10:33→20:33)
[2020-06-27] MEDS: oxyCODONE/Acetamin 5/325 mg TAB PO PRN (22:34)
[2020-06-28] MEDS: oxyCODONE/Acetamin 5/325 mg TAB PO PRN (02:29)
[2020-06-28 06:56] LABS: Hematocrit 33 % (35-47); Hemoglobin 11.3 g/dL (12.0-16.0); Mean Platelet Volume 7.4 fL (7.4-10.4); Platelet Count 226 10^3/uL (150-450)
[2020-06-28 08:12] VITALS: BP 120/71
[2020-06-28] MEDS: Vitamin THERAPEUTIC TAB PO SCH (08:52)
[2020-06-28] MEDS: Magnesium Hydroxide LIQ 30 ML UDC PO SCH (08:53)
[2020-06-28] MEDS: Opium Tincture 6 MG/0.6 ML ORAL.LIQ SYRINGE PO SCH (09:47)
== END 2020-06-28 14:35 | disposition home or self-care (01) | DRG 301 ==
LOC: AA 06:18 → SSU 11:38
PROVIDERS: ADMIT Orthopaedic Surgery Adult Reconstructive Orthopaedic Surgery; ATTEND Orthopaedic Surgery Adult Reconstructive Orthopaedic Surgery